=== PATIENT | female | born 1945 | race Caucasian/White ===

== ENCOUNTER 2016-11-28 13:02 | Emergency (ER) | payer OTHER ==
[~2016-11-28] VITALS: Ht 149.9 cm; Wt 72.0 kg
[~2016-11-28 13:02] MED LIST: ALUMSUS68 PO; FERR325T51 PO; FURO-85 PO; GABA1CAP4 PO; IPRASOL4 INH; NXM/40 PO; OXGN; OXYC-164 PO; SYMIN160 INH; TRMO2580 TOP
[2016-11-28 13:10] VITALS: Ht 149.9 cm; Wt 72.0 kg
[2016-11-28] MEDS ORDERED: SODIUM CHLORIDE 0.9% 1000ML 1,000 ML IV STA (14:24)
[2016-11-28] MEDS ORDERED: ONDANSETRON INJ 2 MG/ML 2 ML VIAL IV STA (14:24)
[2016-11-28] MEDS ORDERED: MoRPHine SULFATE 4 MG/ML 1 ML CARP\\VIAL IV PRN (14:30)
[2016-11-28] MEDS ORDERED: ALBUT/IPRATROP 3MG/0.5MG NEB 3 ML VIAL INH STA (14:40)
--- NOTE | 2016-11-28 15:02 | DIAGNOSTIC IMAGING REPORT ---
CHEST ONE VIEW PORTABLE CLINICAL HISTORY: Pain, radiating to the abdomen COMPARISON STUDY: 16 FINDINGS: The heart is enlarged. There is diffuse interstitial thickening similar to the preceding study. There is no lobar consolidation. There are no pleural effusions. There is calcification within the mitral valve annulus. There are surgical clips within the right neck.[ There are postsurgical changes within the cervical spine. IMPRESSION: Cardiomegaly and interstitial thickening similar to the preceding study. No evidence of lobar consolidation. Electronically signed by: Wero Jean Baptiste M.D. 11/28/2016 3:00 PM
--- NOTE | 2016-11-28 15:02 | DIAGNOSTIC IMAGING REPORT ---
LEFT FOOT MIN 3 VIEWS ROUTINE CLINICAL HISTORY: Left foot pain following fall. COMPARISON: None FINDINGS: The tarsometatarsal joints are intact. No acute fracture is identified. There is mild to moderate posterior and plantar calcaneal spurring. Mild degenerative changes are noted within several articulations of the left foot. IMPRESSION: No acute fracture or dislocation of the left foot. Electronically signed by: Stoney Lovelace M.D. 11/28/2016 3:01 PM
[2016-11-28 15:18] LABS: BASO % 0.2 %; BASO ABS # 0.01 K/uL (0-0.2); COMPLETE YES; EOS % 0.6 %; HEMATOCRIT 38.8 % (37-47); IG% 0.2 %; LYMPH % 23.7 %; LYMPH ABS # 1.16 K/uL (1.2-3.4); MEAN CORPUSCULAR HEMOGLOBIN 30.7 pg (25-34); MEAN CORPUSCULAR HGB CONC 34.5 g/dl (32-36); MEAN PLATELET VOLUME 12.3 fL (7.4-10.4); NEUT % 65.3 %; PLATELET COUNT 80 K/uL (130-400); PLT ESTIMATE DECREASED; RED BLOOD COUNT 4.36 M/uL (4.2-5.4); WHITE BLOOD COUNT 4.89 K/uL (4.8-10.8)
[2016-11-28 15:23] LABS: URINE APPEARANCE CLEAR (CLEAR); URINE BILIRUBIN NEG (NEG); URINE COLOR YELLOW; URINE EPITHELIAL CELL AUTO 20-30 /lpf (0-5); URINE NITRITE NEG (NEG); URINE SPECIFIC GRAVITY 1.001 (1.000-1.030); UROBILINOGEN NEG (NEG); ZZUR CULT IF INDIC CLEAN CATCH NO
[2016-11-28 15:24] LABS: BUN/CREATININE RATIO 19.7 (10-20); CALCIUM 9.3 mg/dl (8.5-10.1); CREATININE 1.4 mg/dl (0.60-1.20); POTASSIUM 3.3 mmol/L (3.5-5.1)
[2016-11-28] MEDS ORDERED: SPR25 PO (15:26)
[2016-11-28 15:29] LABS: MANUAL MICROSCOPIC REQUIRED? NO; REVIEW REQ? NO
[2016-11-28] MEDS ORDERED: ONDA4TAB10 SL (16:35)
--- NOTE | 2016-11-28 16:35 | EMERGENCY ROOM VISIT NOTE ---
History Report prepared by Latia: No Cuello Under the Supervision of: Dr. Femi Soria D.O. First contact with patient: 14:14 Chief Complaint: NAUSEA Stated Complaint: BRUISED FOOT Nursing Triage Summary: Triage note: pt reports she fell last night and has continued left foot pain. pt reports "my sugar was low and it is fine now." pt reports "i have been batteling the stomach bug and i am still nauseated." History of Present Illness The patient is a 70 year old female who presents to the Emergency Room with complaints of a persistent illness that began five days ago. She currently rates her discomfort as an 8/10 in severity. The patient states that she has not eaten anything since last Saturday. She states that she has been experiencing , vomiting, diarrhea, nausea, and a decreased appetite. The patient states that she last vomited yesterday and her diarrhea has subsided due to taking an Imodium. She states that she has a history of diabetes, and notes that when she got up last evening her blood glucose was low. The patient states that she fell last evening injuring her left foot. She states that she has had a productive cough for the past several days. The patient states that she takes aspirin every other day. Source of History: patient Onset: five days ago Position: other (global) Symptom Intensity: 8/10 Quality: other (illness) Timing: other (persistent) Associated Symptoms: + cough, + diarrhea, + nausea, + vomiting Note: Associated Symptoms: left foot pain, decreased appetite, fall, low blood glucose. Review of Systems See HPI for pertinent positives & negatives. A total of 10 systems reviewed and were otherwise negative. 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 Surgical Problems: (1) H/O cardiac catheterization (2) Heart stents (3) History of back surgery (4) S/P cholecystectomy Family History Diabetes mellitus FH: cancer FH: heart disease Hypertension Kidney disease Kidney stones Social History Smoking Status: Current Every Day Smoker Alcohol Use: none Marital Status: Housing Status: lives with family Occupation Status: unemployed Current/Historical Medications Scheduled Aspirin (Aspirin Ec), 81 MG PO Q2D Atorvastatin (Atorvastatin Calcium), 10 MG PO HS Budesonide/Formoterol Fumarate (Symbicort 160/4.5 Inhaler ), 2 PUFFS INH BID Cholecalciferol (Vitamin D 1000 Unit), 1,000 INTER.UNIT PO QAM Escitalopram Oxalate (Lexapro), 20 MG PO QAM Ferrous Sulfate (Iron Supplement), 1 TAB PO QAM Gabapentin (Gabapentin), 600 MG PO TID Insulin Aspart (Novolog Flexpen), 0 SQ BIDM Insulin Detemir (Levemir Flextouch), 40 UNITS SQ HS Ipratropium-Albuterol (Duoneb), 1 TREATMENT INH Q4H Magnesium Oxide (Mag-Ox), 400 MG PO BID Metoprolol Succ (Toprol Xl) (Toprol-Xl), 12.5 MG PO HS Omeprazole (Prilosec), 40 MG PO QAM Ondasetron Odt (Zofran Odt), 4 MG SL Q6H Oxygen (Oxygen), 2 LITERS NA CONTINOUS Spironolactone (Spironolactone), 25 MG PO BID Triamcinolone Acetonide (Topic (Triamcinolone Acet 0.025%), 1 APPLN TOP BID Scheduled PRN Alum & Mag Hydrox-Simethicone (Mylanta Double-Strength), 1 TBS PO bid between meals PRN for Indigestion Furosemide (Lasix), 20 MG PO 4XWK PRN for SWELLING Oxycodone Hcl (Oxycodone Hcl), 10 MG PO QAM & AFTERNOON PRN for Pain Trazodone Hcl (Trazodone), 100 MG PO PRN UDD PRN for Sleep Allergies Coded Allergies: Iodinated Diagnostic Agents (Verified Allergy, Intermediate, RASH TO IVP DYE, 11/28/16) Adhesives (Verified Allergy, Unknown, rash, 11/28/16) Latex1 -Allergic Contact Dermititis (Verified Allergy, Unknown, RASH, ) Sulfa Antibiotics (Verified Allergy, Unknown, unknown, 11/28/16) Physical Exam Vital Signs Date Time Temp Pulse Resp B/P Pulse Ox O2 Delivery O2 Flow Rate FiO2 11/28/16 15:47 85 18 106/57 94 Room Air 11/28/16 13:10 36.7 85 18 96/64 95 Room Air Physical Exam CONSTITUTIONAL/VITAL SIGNS: Reviewed / noted above. GENERAL: Non-toxic in appearance. INTEGUMENTARY: Warm, dry, and [place]. HEAD: Normocephalic. EYES: without scleral icterus or trauma. ENT/OROPHARYNX: clear and moist. LYMPHADENOPATHY/NECK: Is supple without lymphadenopathy or meningismus. RESPIRATORY: End expiratory rhonchi in the left lung, otherwise clear lungs. CARDIOVASCULAR: Regular rate and rhythm. GI/ABDOMEN: Soft and nontender. No organomegaly or pulsatile mass. No rebound or guarding. Normal bowel sounds. EXTREMITIES: Ecchymosis and swelling to dorsal aspect of left foot. Warm and well perfused. BACK: No CVA tenderness. NEUROLOGICAL: Intact without focal deficits. PSYCHIATRIC: normal affect. MUSCULOSKELETAL: Normally developed with good muscle tone. Medical Decision & Procedures ER Provider Diagnostic Interpretation: X ray results and stated below per my interpretation and radiology interpretation. LEFT FOOT MIN 3 VIEWS ROUTINE CLINICAL HISTORY: Left foot pain following fall. COMPARISON: None FINDINGS: The tarsometatarsal joints are intact. No acute fracture is identified. There is mild to moderate posterior and plantar calcaneal spurring. Mild degenerative changes are noted within several articulations of the left foot. IMPRESSION: No acute fracture or dislocation of the left foot. Electronically signed by: Stoney Lovelace M.D. 11/28/2016 3:01 PM CHEST ONE VIEW PORTABLE CLINICAL HISTORY: Pain, radiating to the abdomen COMPARISON STUDY: 10-16 FINDINGS: The heart is enlarged. There is diffuse interstitial thickening similar to the preceding study. There is no lobar consolidation. There are no pleural effusions. There is calcification within the mitral valve annulus. There are surgical clips within the right neck.[ There are postsurgical changes within the cervical spine. IMPRESSION: Cardiomegaly and interstitial thickening similar to the preceding study. No evidence of lobar consolidation. Electronically signed by: Wero Jean Baptiste M.D. 11/28/2016 3:00 PM Laboratory Results 11/28/16 14:40 Red Blood Count 4.36, Mean Corpuscular Volume 89.0, Mean Corpuscular Hemoglobin 30.7, Mean Corpuscular Hemoglobin Concent 34.5, Mean Platelet Volume 12.3, Neutrophils (%) (Auto) 65.3, Lymphocytes (%) (Auto) 23.7, Monocytes (%) (Auto) 10.0, Eosinophils (%) (Auto) 0.6, Basophils (%) (Auto) 0.2, Neutrophils # (Auto ) 3.19, Lymphocytes # (Auto) 1.16, Monocytes # (Auto) 0.49, Eosinophils # (Auto ) 0.03, Basophils # (Auto) 0.01 11/28/16 14:40 Test 11/28/16 00:00 11/28/16 14:40 Urine Color YELLOW Urine Appearance CLEAR (CLEAR) Urine pH 5.0 (4.5-7.5) Urine Specific [place] 1.001 (1.000-1.030) Urine Protein NEG (NEG) Urine Glucose (UA) NEG (NEG) Urine Ketones NEG (NEG) Urine Occult Blood NEG (NEG) Urine Nitrite NEG (NEG) Urine Bilirubin NEG (NEG) Urine Urobilinogen NEG (NEG) Urine Leukocyte Esterase NEG (NEG) Urine WBC (Auto) 1-5 /hpf (0-5) Urine RBC (Auto) 0-4 /hpf (0-4) Urine Hyaline Casts (Auto) 1-5 /lpf (0-5) Urine Epithelial Cells (Auto) 20-30 /lpf (0-5) Urine Bacteria (Auto) NEG (NEG) White Blood Count 4.89 K/uL (4.8-10.8) Red Blood Count 4.36 M/uL (4.2-5.4) Hemoglobin 13.4 g/dL (12.0-16.0) Hematocrit 38.8 % (37-47) Mean Corpuscular Volume 89.0 fL (80-100) Mean Corpuscular Hemoglobin 30.7 pg (25-34) Mean Corpuscular Hemoglobin Concent 34.5 g/dl (32-36) Platelet Count 80 K/uL (130-400) Mean Platelet Volume 12.3 fL (7.4-10.4) Neutrophils (%) (Auto) 65.3 % Lymphocytes (%) (Auto) 23.7 % Monocytes (%) (Auto) 10.0 % Eosinophils (%) (Auto) 0.6 % Basophils (%) (Auto) 0.2 % Neutrophils # (Auto) 3.19 K/uL (1.4-6.5) Lymphocytes # (Auto) 1.16 K/uL (1.2-3.4) Monocytes # (Auto) 0.49 K/uL (0.11-0.59) Eosinophils # (Auto) 0.03 K/uL (0-0.5) Basophils # (Auto) 0.01 K/uL (0-0.2) RDW Standard Deviation 44.4 fL (36.4-46.3) RDW Coefficient of Variation 13.7 % (11.5-14.5) Immature Granulocyte % (Auto) 0.2 % Immature Granulocyte # (Auto) 0.01 K/uL (0.00-0.02) Platelet Estimate DECREASED Anion Gap 11.0 mmol/L (3-11) Est Creatinine Clear Calc Drug Dose 32.8 ml/min Estimated GFR () 44.3 Estimated GFR (Non- 38.2 BUN/Creatinine Ratio 19.7 (10-20) Calcium Level 9.3 mg/dl (8.5-10.1) Total Bilirubin 1.9 mg/dl (0.2-1) Direct Bilirubin 0.6 mg/dl (0-0.2) Aspartate Amino Transf (AST/SGOT) 66 U/L (15-37) Alanine Aminotransferase (ALT/SGPT) 47 U/L (12-78) Alkaline Phosphatase 107 U/L (45-117) Total Protein 8.3 gm/dl (6.4-8.2) Albumin 4.3 gm/dl (3.4-5.0) Lipase 180 U/L (73-393) Laboratory results as stated above per my review. Medications Administered Medications (Trade) Dose Ordered Sig/Diego Route Start Time Stop Time Status Last Admin Dose Admin Sodium Chloride (Nss 1000ml) 1,000 ml @ 999 mls/hr Q1H1M STAT IV 11/28/16 14:24 11/28/16 15:24 DC 11/28/16 14:42 999 MLS/HR Ondansetron HCl (Zofran Inj) 4 mg NOW STAT IV 11/28/16 14:24 11/28/16 14:27 DC 11/28/16 14:40 4 MG Morphine Sulfate (MoRPHine SULFATE INJ) 4 mg Q1H PRN IV 11/28/16 14:30 12/12/16 14:29 11/28/16 14:41 4 MG Albuterol/ Ipratropium (Duoneb) 3 ml NOW STAT INH 11/28/16 14:40 11/28/16 14:41 DC 11/28/16 15:28 3 ML ED Course 1420: Previous medical records were reviewed. The patient was evaluated in room B2. A complete history and physical examination was performed. 1424: Ordered Zofran Inj 4 mg IV, Sodium Chloride 1000 ml @ 999 mls/hr IV. 1430: Ordered Morphine Sulfate 4 mg IV. 1440: Ordered DuoNeb 3 ml INH. 1636: I reevaluated the patient and she is resting comfortably. I discussed the exam findings and I discussed the treatment plan. She verbalized complete understanding and agreement. She is ready to go home. Medical Decision Differential includes acute coronary syndrome, myocardial infarction, CVA, TIA, anemia, infection, pneumonia, UTI, pyelonephritis, poor nutrition, dehydration, electrolyte disturbance,hypoglycemia. This is a 70-year-old female who presents to the ED with a chief complaint of nausea. The patient also complains of left foot pain after a fall last night. The patient states that she had 4 days worth of vomiting and diarrhea. She states that she last vomited yesterday. She has not had diarrhea since taking Imodium yesterday as well. The patient states that she got up last night to go the bathroom and she fell hurting her left foot. She denies loss of consciousness or striking her head. Her current vital signs are stable. Her physical exam reveals some ecchymosis and tenderness to the left dorsal foot. She has a small amount of expiratory rhonchi in the left lung exam. The patient appears to be slightly dehydrated clinically. Her current symptoms include nausea and left foot pain as well as some generalized weakness. CBC is normal. The BUN is 20 and the creatinine is normal. Bilirubin was 1.9. She has had a bilirubin elevation previously. She also has had diagnosis of non alcoholic cirrhosis of the liver. Urinalysis did not show infection. A chest x -ray is negative for acute disease. X-ray of the left foot did not show any acute fracture or dislocation. The patient was treated with IV fluids, IV Zofran and IV morphine as well as a DuoNeb treatment. She was told results the test per she'll be prescribed Zofran and is felt stable for discharge. Impression Primary Impression: Nausea Additional Impression: Foot contusion Scribe Attestation The scribe's documentation has been prepared under my direction and personally reviewed by me in its entirety. I confirm that the note above accurately reflects all work, treatment, procedures, and medical decision making performed by me. Departure Information Dispostion Home / Self-Care Prescriptions Ondasetron Odt (ZOFRAN ODT) 4 Mg Tab 4 MG SL Q6H for Nausea, #20 TAB Prov: Femi Soria D.O. 11/28/16 Referrals Arik Ryan D.O.Int.Med. (PCP) Forms HOME CARE DOCUMENTATION FORM, IMPORTANT VISIT INFORMATION Patient Instructions A Signature Page, My [facility] [employer]-collect[employer] Additional Instructions Zofran: Allow one tablet to dissolve under the tongue every 6 hours as needed for nausea or vomiting. Follow-up with your doctor for further care and evaluation in 1-2 days. Return to the emergency department for worsening or new symptoms or any concerns. You have been examined and treated today on an emergency basis only. This is not a substitute for, or an effort to provide, complete comprehensive medical care. It is impossible to recognize and treat all injuries or illnesses in a single emergency department visit. It is therefore important that you follow up closely with your doctor. Call as soon as possible for an appointment.
[2016-11-28 17:08] VITALS: BP 111/61; PULSE 85; TEMP 36.7; O2SAT 94
[2017-01-01] MEDS ORDERED: LVQ750 PO (11:29)
[2017-01-01] MEDS ORDERED: ATV5 PO (11:29)
[2017-01-01] MEDS ORDERED: PRED10TA PO (11:29)
[2017-04-19] MEDS ORDERED: LPT10 PO (12:55)
[2017-04-19] MEDS ORDERED: ESCI1TAB10 PO (14:34)
[2017-04-19] MEDS ORDERED: TRAZ100T29 PO (14:34)
[2017-04-19] MEDS ORDERED: MAGN400T5 PO (15:05)
[2017-04-19] MEDS ORDERED: METO25TA3 PO (15:20)
[2017-04-19] MEDS ORDERED: OMEP40CA41 PO (15:26)
[2017-04-19] MEDS ORDERED: NRN600 PO (15:26)
[2017-04-19] MEDS ORDERED: CLBPO15 TOP (18:51)
[2017-04-19] MEDS ORDERED: METF-384 PO (18:51)
[2017-04-19] MEDS ORDERED: IPRASOL4 INH (18:51)
[2017-04-19] MEDS ORDERED: NVLGI/PEN SQ (18:52)
[2017-04-19] MEDS ORDERED: FRRS300 PO (18:52)
[2017-04-19] MEDS ORDERED: LVMIPEN SQ (18:52)
[2017-06-20] MEDS ORDERED: MGCS/ PO (10:00)
[2017-06-20] MEDS ORDERED: FURO40TA3 PO (10:00)
[2017-06-20] MEDS ORDERED: GABA600T PO (10:00)
[2017-06-20] MEDS ORDERED: METR-163 PO (10:00)
[2017-06-20] MEDS ORDERED: NVLGI/PEN SC (10:01)
[2017-06-20] MEDS ORDERED: DRGTP12 TOP (10:07)
[2017-08-31] MEDS ORDERED: IPRASOL4 INH (13:13)
== END 2016-11-28 17:09 | disposition home or self-care (01) ==
LOC: C.EDB 13:04
DX: S90.32XA Contusion of left foot, initial encounter (principal); W19.XXXA Unspecified fall, initial encounter; R11.0 Nausea; J45.909 Unspecified asthma, uncomplicated; I25.10 Atherosclerotic heart disease of native coronary artery without angina pectoris; I10 Essential (primary) hypertension; E11.9 Type 2 diabetes mellitus without complications; K21.9 Gastro-esophageal reflux disease without esophagitis; E78.00 Pure hypercholesterolemia, unspecified; D69.6 Thrombocytopenia, unspecified; G45.0 Vertebro-basilar artery syndrome; K74.60 Unspecified cirrhosis of liver; F17.210 Nicotine dependence, cigarettes, uncomplicated; Z79.4 Long term (current) use of insulin; Z79.82 Long term (current) use of aspirin; Z79.899 Other long term (current) drug therapy; Z83.3 Family history of diabetes mellitus; Z80.9 Family history of malignant neoplasm, unspecified; Z82.49 Family history of ischemic heart disease and other diseases of the circulatory system; Z84.1 Family history of disorders of kidney and ureter

== ENCOUNTER 2016-12-29 18:33 | Inpatient (IN) | payer OTHER ==
[~2016-12-29] VITALS: Ht 149.9 cm; Wt 76.7 kg
[~2016-12-29 18:33] MED LIST changes: -GABA1CAP4 PO; -NXM/40 PO; +ONDA4TAB10 SL; +SPR25 PO
[2016-12-29] MEDS ORDERED: SODIUM CHLORIDE 0.9% 1000ML 1,000 ML IV STA (18:55)
[2016-12-29] MEDS ORDERED: METHYLPREDNISOLONE 125 MG VIAL IV STA (18:55)
[2016-12-29] MEDS ORDERED: ALBUT/IPRATROP 3MG/0.5MG NEB 3 ML VIAL INH ONE (19:00)
--- NOTE | 2016-12-29 19:04 | EMERGENCY ROOM VISIT NOTE ---
History Report prepared by Latia: Jamal Guido Under the Supervision of: Dr. Barney Kaminski D.O. First contact with patient: 18:50 Chief Complaint: RESPIRATORY PROBLEMS Stated Complaint: TROUBLE BREATHING, KIDNEY PAIN History of Present Illness The patient is a 71 year old female with a history of COPD who presents to the Emergency Room with complaints of persistent shortness of breath for the past week. The patient also developed a productive cough at the same time as the shortness of breath. The cough produces mucous, which occasionally contains blood. The patient has had back pain on the right lower side for the past week. She denies hematuria. The patient was started on Prednisone this week without relief. She is not currently taking antibiotics. The patient denies any history of heart failure. Source of History: patient Onset: one week ago Position: other (respiratory) Quality: other (short of breath) Timing: other (persistent) Associated Symptoms: + back pain, + cough, No urinary symptoms Review of Systems See HPI for pertinent positives & negatives. A total of 10 systems reviewed and were otherwise negative. 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 Surgical Problems: (1) H/O cardiac catheterization (2) Heart stents (3) History of back surgery (4) S/P cholecystectomy Family History Diabetes mellitus FH: cancer FH: heart disease Hypertension Kidney disease Kidney stones Social History Smoking Status: Current Every Day Smoker Alcohol Use: none Marital Status: Housing Status: lives with family Occupation Status: unemployed Current/Historical Medications Scheduled Aspirin (Aspirin Ec), 81 MG PO Q2D Atorvastatin (Atorvastatin Calcium), 10 MG PO HS Cholecalciferol (Vitamin D 1000 Unit), 1,000 INTER.UNIT PO QAM Escitalopram Oxalate (Lexapro), 20 MG PO QAM Ferrous Sulfate (Iron Supplement), 1 TAB PO QAM Gabapentin (Gabapentin), 600 MG PO TID Insulin Aspart (Novolog Flexpen), 0 SQ BIDM Insulin Detemir (Levemir Flextouch), 40 UNITS SQ HS Ipratropium-Albuterol (Duoneb), 1 TREATMENT INH Q4H Magnesium Oxide (Mag-Ox), 400 MG PO BID Metoprolol Succ (Toprol Xl) (Toprol-Xl), 12.5 MG PO HS Omeprazole (Prilosec), 40 MG PO QAM Ondasetron Odt (Zofran Odt), 4 MG SL Q6H Oxygen (Oxygen), 2 LITERS NA CONTINOUS Tiotropium [place] (Spiriva Handihaler), 2 PUFFS INH BID Triamcinolone Acetonide (Topic (Triamcinolone Acet 0.025%), 1 APPLN TOP BID Scheduled PRN Albuterol Hfa (Ventolin Hfa), 2-4 PUFFS INH Q6H PRN for Shortness of Breath Alum & Mag Hydrox-Simethicone (Mylanta Double-Strength), 1 TBS PO bid between meals PRN for Indigestion Furosemide (Lasix), 20 MG PO 4XWK PRN for SWELLING Oxycodone Hcl (Oxycodone Hcl), 10 MG PO QAM & AFTERNOON PRN for Pain Trazodone Hcl (Trazodone), 100 MG PO PRN UDD PRN for Sleep Allergies Coded Allergies: Iodinated Diagnostic Agents (Verified Allergy, Intermediate, RASH TO IVP DYE, 12/29/16) Adhesives (Verified Allergy, Unknown, rash, 12/29/16) Latex1 -Allergic Contact Dermititis (Verified Allergy, Unknown, RASH, ) Sulfa Antibiotics (Verified Allergy, Unknown, unknown, 12/29/16) Physical Exam Vital Signs Date Time Temp Pulse Resp B/P Pulse Ox O2 Delivery O2 Flow Rate FiO2 12/29/16 21:52 104 22 89/52 94 Nasal Cannula 2.0 12/29/16 21:19 102 25 92/53 97 Nasal Cannula 2.0 12/29/16 20:18 90 22 114/80 100 Nasal Cannula 2.0 12/29/16 20:16 95 23 99/65 96 12/29/16 19:38 Nasal Cannula 2.0 12/29/16 19:34 89 26 96 Nasal Cannula 3.0 12/29/16 19:20 88 12/29/16 19:15 88 22 84/49 100 Nasal Cannula 2.0 Manual 12/29/16 19:08 Nasal Cannula 2.0 12/29/16 19:00 68/40 12/29/16 18:38 37.0 96 28 66/42 96 Room Air Physical Exam GENERAL: Patient is awake, alert, very anxious appearing, appears to be having significant difficulty breathing. EYES: The conjunctivae are clear. The pupils are round and reactive. EARS, NOSE, MOUTH AND THROAT: The nose is without any evidence of any deformity. Mucous membranes are moist tongue is midline NECK: The neck is nontender and supple. RESPIRATORY: Lung sounds are diminished throughout, rales in both upper arreola, significant tachypnea and conversational dyspnea noted. CARDIOVASCULAR: Tachycardic but regular, no definite murmurs appreciated. GASTROINTESTINAL: The abdomen is soft. Bowel sounds are present in all quadrants. Abdomen is nontender MUSCULOSKELETAL/EXTREMITIES: There is no evidence of gross deformity full range of motion is noted in the hips and shoulders SKIN: There is no obvious evidence of any rash. There are no petechiae, pallor or cyanosis noted. Trace pedal edema bilaterally. NEUROLOGIC: Patient is awake alert and oriented x3. Medical Decision & Procedures ER Provider Diagnostic Interpretation: X-ray results as stated below per interpretation by me and the radiologist. CHEST ONE VIEW PORTABLE CLINICAL HISTORY: Sepsis fever COMPARISON STUDY: 11/28/2016 FINDINGS: Somewhat progressive interstitial change throughout both hemithoraces. There are no focal infiltrative changes. Heart remains top limits normal in terms of size. Calcification of the mitral annulus persists. IMPRESSION: Interstitial prominence throughout both hemithoraces consistent with that of a nonspecific lower airway inflammatory process. Electronically signed by: Anuel Chavez M.D. 12/29/2016 7:18 PM Dictated Date/Time: 12/29/2016 7:17 PM Laboratory Results 12/29/16 19:00 Red Blood Count 4.00, Mean Corpuscular Volume 91.5, Mean Corpuscular Hemoglobin 29.5, Mean Corpuscular Hemoglobin Concent 32.2, Mean Platelet Volume 11.2, Neutrophils (%) (Auto) 62.9, Lymphocytes (%) (Auto) 28.2, Monocytes (%) (Auto) 7.9, Eosinophils (%) (Auto) 0.6, Basophils (%) (Auto) 0.2, Neutrophils # (Auto) 3.35, Lymphocytes # (Auto) 1.50, Monocytes # (Auto) 0.42, Eosinophils # (Auto) 0.03, Basophils # (Auto) 0.01 12/29/16 19:00 Test 12/29/16 18:57 12/29/16 19:00 12/29/16 19:20 12/29/16 20:44 Bedside Lactic Acid Venous 2.64 mmol/L (0.90-1.70) White Blood Count 5.32 K/uL (4.8-10.8) Red Blood Count 4.00 M/uL (4.2-5.4) Hemoglobin 11.8 g/dL (12.0-16.0) Hematocrit 36.6 % (37-47) Mean Corpuscular Volume 91.5 fL (80-100) Mean Corpuscular Hemoglobin 29.5 pg (25-34) Mean Corpuscular Hemoglobin Concent 32.2 g/dl (32-36) Platelet Count 93 K/uL (130-400) Mean Platelet Volume 11.2 fL (7.4-10.4) Neutrophils (%) (Auto) 62.9 % Lymphocytes (%) (Auto) 28.2 % Monocytes (%) (Auto) 7.9 % Eosinophils (%) (Auto) 0.6 % Basophils (%) (Auto) 0.2 % Neutrophils # (Auto) 3.35 K/uL (1.4-6.5) Lymphocytes # (Auto) 1.50 K/uL (1.2-3.4) Monocytes # (Auto) 0.42 K/uL (0.11-0.59) Eosinophils # (Auto) 0.03 K/uL (0-0.5) Basophils # (Auto) 0.01 K/uL (0-0.2) RDW Standard Deviation 49.8 fL (36.4-46.3) RDW Coefficient of Variation 14.9 % (11.5-14.5) Immature Granulocyte % (Auto) 0.2 % Immature Granulocyte # (Auto) 0.01 K/uL (0.00-0.02) Erythrocyte Sedimentation Rate 24 mm/hr (0-21) Prothrombin Time 11.7 SECONDS (9.0-12.0) Prothromb Time International Ratio 1.1 (0.9-1.1) Activated Partial Thromboplast Time 26.6 SECONDS (21.0-31.0) Partial Thromboplastin Ratio 1.0 Anion Gap 9.0 mmol/L (3-11) Est Creatinine Clear Calc Drug Dose 46.6 ml/min Estimated GFR () 66.1 Estimated GFR (Non- 57.0 BUN/Creatinine Ratio 12.3 (10-20) Calcium Level 9.0 mg/dl (8.5-10.1) Phosphorus Level 2.4 mg/dl (2.5-4.9) Magnesium Level 1.8 mg/dl (1.8-2.4) Total Bilirubin 0.7 mg/dl (0.2-1) Aspartate Amino Transf (AST/SGOT) 67 U/L (15-37) Alanine Aminotransferase (ALT/SGPT) 48 U/L (12-78) Alkaline Phosphatase 144 U/L (45-117) Total Creatine Kinase 842 U/L (26-192) Creatine Kinase MB 11.2 ng/ml (0.5-3.6) Creatine Kinase MB Ratio 1.3 (0-3.0) Troponin I 0.040 ng/ml (0-0.045) C-Reactive Protein 0.71 mg/dl (0-0.29) Pro-B-Type Natriuretic Peptide 375 pg/ml (0-900) Total Protein 7.3 gm/dl (6.4-8.2) Albumin 3.7 gm/dl (3.4-5.0) Globulin 3.6 gm/dl (2.5-4.0) Albumin/Globulin Ratio 1.0 (0.9-2) Lipase 396 U/L (73-393) Chemistry Specimen Hemolysis Influenza Type A (RT-PCR) Neg for Influ A (NEG) Influenza Type A Antigen Neg for Influ A (NEG) Influenza Type B Antigen Neg for Influ B (NEG) Influenza Type B (RT-PCR) Neg for Influ B (NEG) Venous Blood pH 7.35 (7.36-7.41) Venous Blood Partial Pressure CO2 57 mmHg (38.0-50.0) Venous Blood Partial Pressure O2 51 mmHg Venous Blood HCO3 31 mmol/L Venous Blood Oxygen Saturation 80.6 % Venous Blood Base Excess 3.8 mmol/L Random Cortisol 33.09 mcg/dl Test 12/29/16 21:15 Urine Color YELLOW Urine Appearance CLEAR (CLEAR) Urine pH 6.0 (4.5-7.5) Urine Specific [place] 1.006 (1.000-1.030) Urine Protein NEG (NEG) Urine Glucose (UA) NEG (NEG) Urine Ketones NEG (NEG) Urine Occult Blood NEG (NEG) Urine Nitrite NEG (NEG) Urine Bilirubin NEG (NEG) Urine Urobilinogen NEG (NEG) Urine Leukocyte Esterase NEG (NEG) Urine WBC (Auto) 1-5 /hpf (0-5) Urine RBC (Auto) 0-4 /hpf (0-4) Urine Hyaline Casts (Auto) 0 /lpf (0-5) Urine Epithelial Cells (Auto) 20-30 /lpf (0-5) Urine Bacteria (Auto) NEG (NEG) Laboratory results per my review. Medications Administered Medications (Trade) Dose Ordered Sig/Diego Route Start Time Stop Time Status Last Admin Dose Admin Sodium Chloride (Nss 1000ml) 1,000 ml @ 999 mls/hr Q1H1M STAT IV 12/29/16 18:55 12/29/16 19:55 DC 12/29/16 19:17 999 MLS/HR Albuterol/ Ipratropium (Duoneb) 12 ml ONE ONCE INH 12/29/16 19:00 12/29/16 19:01 DC 12/29/16 19:33 12 ML Methylprednisolone Sodium Succinate (Solu-Medrol IV) 125 mg NOW STAT IV 12/29/16 18:55 12/29/16 18:58 DC 12/29/16 19:17 125 MG Levofloxacin (Levaquin / D5W) 750 mg NOW STAT IV 12/29/16 19:59 12/29/16 20:00 DC 12/29/16 20:37 750 MG ECG Indication: SOB/dyspnea Rate (beats per minute): 96 Rhythm: sinus rhythm Findings: RBBB, other (ectopic atrial beats noted) Change: no significant change Change: No significant change compared to EKG dated 2015. ED Course 1854: The patient was evaluated in room B2. A complete history and physical examination were performed. 1854: Solu-Medrol 125 mg IV, NSS 1,000 ml @ 999 mls/hr IV. 0: DuoNeb 12 ml INH. 1958: Levofloxacin 750 mg IV. 2129: Spoke with Dr. Patino, [facility]ist. The patient will be evaluated. Medical Decision Etiologies such as infections, reactive airway disease, pneumonia, pneumothorax , COPD, CHF, cardiac ischemia, pulmonary embolism, musculoskeletal, gastrointestinal, as well as others were entertained. Nursing notes reviewed. Additional history is obtained from the patient's family members. The patient is a 71-year-old female who presented to the emergency department for evaluation of ongoing shortness of the patient has a history of COPD. She was started on steroids early in the week. She continues to worsen with her symptoms. The patient was treated with an hour-long DuoNeb IV steroids as well as IV fluids. She didn't appear to have hypotension was given IV antibiotics. On subsequent reevaluation she was feeling much better arrest but had significant shortness of breath and dyspnea with any exertion. I discussed the patient's laboratory radiographic studies with him. I also discussed his case with the on-call [facility] hospitalist group. They've agreed to evaluate the patient in the emergency apartment for further management and disposition. The patient also complained of right flank pain. I was very uncomfortable sending her for a CAT scan of the abdomen into she was more comfortable. She states she has a history of kidney stones and the pain is somewhat similar. She may require further workup when she is more stable and able to go to radiology. Consults Time Called: [id number] Consulting Physician: Dr. Patino, [facility]. Returned Call: [phone]: Spoke with Dr. Patino, [facility]. The patient will be evaluated. Impression Primary Impression: COPD exacerbation Additional Impressions: Hypotension Respiratory distress Scribe Attestation The scribe's documentation has been prepared under my direction and personally reviewed by me in its entirety. I confirm that the note above accurately reflects all work, treatment, procedures, and medical decision making performed by me. Departure Information Dispostion Being Evaluated By Hospitalist Referrals Arik Ryan, [facility] (PCP) Patient Instructions My [facility] Problem Qualifiers
--- NOTE | 2016-12-29 19:19 | DIAGNOSTIC IMAGING REPORT ---
CHEST ONE VIEW PORTABLE CLINICAL HISTORY: Sepsis fever COMPARISON STUDY: 11/28/2016 FINDINGS: Somewhat progressive interstitial change throughout both hemithoraces. There are no focal infiltrative changes. Heart remains top limits normal in terms of size. Calcification of the mitral annulus persists. IMPRESSION: Interstitial prominence throughout both hemithoraces consistent with that of a nonspecific lower airway inflammatory process. Electronically signed by: Anuel Chavez M.D. 12/29/2016 7:18 PM Dictated Date/Time: 12/29/2016 7:17 PM
[2016-12-29 19:26] LABS: HEMATOCRIT 36.6 % (37-47); MEAN CELL VOLUME 91.5 fL (80-100); MEAN CORPUSCULAR HEMOGLOBIN 29.5 pg (25-34); MEAN CORPUSCULAR HGB CONC 32.2 g/dl (32-36); WHITE BLOOD COUNT 5.32 K/uL (4.8-10.8)
[2016-12-29 19:34] VITALS: PULSE 89; O2SAT 96
[2016-12-29 19:34] LABS: INR 1.1 (0.9-1.1); PROTHROMBIN TIME (PATIENT) 11.7 SECONDS (9.0-12.0)
[2016-12-29 19:43] LABS: BASO % 0.2 %; BASO ABS # 0.01 K/uL (0-0.2); COMPLETE YES; EOS % 0.6 %; IG% 0.2 %; LYMPH % 28.2 %; MEAN PLATELET VOLUME 11.2 fL (7.4-10.4); MONO % 7.9 %; NEUT % 62.9 %; PLATELET COUNT 93 K/uL (130-400)
[2016-12-29 19:54] LABS: BUN/CREATININE RATIO 12.3 (10-20); MAGNESIUM 1.8 mg/dl (1.8-2.4); POTASSIUM 3.9 mmol/L (3.5-5.1)
[2016-12-29 19:59] LABS: C-REACTIVE PROTEIN 0.71 mg/dl (0-0.29); CKMB/CK RATIO 1.3 (0-3.0); PHOSPHORUS 2.4 mg/dl (2.5-4.9)
[2016-12-29] MEDS ORDERED: LEVAQUIN 750MG / 150ML D5W IV STA (19:59)
[2016-12-29] MEDS ORDERED: SPRIN INH (20:16)
[2016-12-29 21:19] LABS: VEN BLD GAS O2 SATURATION 80.6 %; VEN BLOOD GAS BASE EXCESS 3.8 mmol/L
[2016-12-29 21:41] LABS: INFLUENZA A PCR Neg for Influ A (NEG); INFLUENZA B PCR Neg for Influ B (NEG)
[2016-12-29 21:47] LABS: URINE APPEARANCE CLEAR (CLEAR); URINE BILIRUBIN NEG (NEG); URINE COLOR YELLOW; URINE EPITHELIAL CELL AUTO 20-30 /lpf (0-5); URINE NITRITE NEG (NEG); URINE SPECIFIC GRAVITY 1.006 (1.000-1.030); UROBILINOGEN NEG (NEG); ZZUR CULT IF INDIC CLEAN CATCH NO
[2016-12-29 21:50] LABS: MANUAL MICROSCOPIC REQUIRED? NO; REVIEW REQ? NO
[2016-12-29] MEDS ORDERED: MAGNESIUM HYDROXIDE SUSP 30 ML UDC PO PRN (23:45)
[2016-12-29] MEDS ORDERED: ALBUTEROL 0.083% NEBU SOLN 3 ML VIAL INH PRN (23:45)
[2016-12-29] MEDS ORDERED: ONDANSETRON INJ 2 MG/ML 2 ML VIAL IV PRN (23:45)
[2016-12-29] MEDS ORDERED: POLYETHYLENE (MIRALAX) 17 GM PACK PO PRN (23:45)
[2016-12-29] MEDS ORDERED: OXYCODONE HCL IR 5 MG TAB (IMMEDIATE RELEASE) PO PRN (23:45)
[2016-12-29] MEDS ORDERED: MoRPHine SULFATE 2 MG/ML CARP IV PRN (23:45)
[2016-12-29] MEDS ORDERED: ALUMINUM/MAGNESIUM/SIMETH (MAALOX MAX) 30 ML UDC PO PRN (23:45)
[2016-12-29] MEDS ORDERED: ACETAMINOPHEN 325 MG TAB PO PRN (23:45)
--- NOTE | 2016-12-29 23:51 | History and Physical ---
History & Physical Date & Time of Service: Dec 29, 2016 at 23:43 Chief Complaint: Trouble Breathing, Kidney Pain Primary Care Physician: Arik Ryan D.O.Int.Med. History of Present Illness Source: patient 71 y/o F w/Hx 02-dependent COPD, DM, HTN - recent admission w/COPD exacerbation. Presents with progressive SOB, cough and wheezing. She was hypotensive on arrival to the ER however she states that she normally has a low BP. She denies CP, N/V/D, dysuria. She does have a productive cough and occasional blood-streaked sputum. Initial CXR may be consistent with a b/l pneumonia. She normally uses 02 at night only however she has needed daytime 02 recently. Despite her oxygen requirements the pt has managed to continue her pastime of cigarette smoking. Initial labs are notable for an elevated CK consistent with mild rhabdo in addition to mild lactic acidosis. 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: Chronic (8) Pure Hypercholesterolem Status: Chronic (9) Thrombocytopenia Nos Status: Chronic (10) Vertebral Artery Syndrom Status: Chronic 11) Chronic thrombocytopenia - baseline 80-100 12) Tobacco use Surgical Problems: (1) H/O cardiac catheterization Status: Resolved (2) Heart stents Status: Resolved (3) History of back surgery Status: Resolved (4) S/P cholecystectomy Status: Chronic Family History Diabetes mellitus FH: cancer FH: heart disease Hypertension Kidney disease Kidney stones Social History Smoking Status: Current Every Day Smoker Marital Status: Housing status: lives alone Occupational Status: unemployed Allergies Coded Allergies: Iodinated Diagnostic Agents (Verified Allergy, Intermediate, RASH TO IVP DYE, 12/29/16) Adhesives (Verified Allergy, Unknown, rash, 12/29/16) Latex1 -Allergic Contact Dermititis (Verified Allergy, Unknown, RASH, ) Sulfa Antibiotics (Verified Allergy, Unknown, unknown, 12/29/16) Home Medications Scheduled Aspirin (Aspirin Ec), 81 MG PO Q2D Atorvastatin (Atorvastatin Calcium), 10 MG PO HS Cholecalciferol (Vitamin D 1000 Unit), 1,000 INTER.UNIT PO QAM Escitalopram Oxalate (Lexapro), 20 MG PO QAM Ferrous Sulfate (Iron Supplement), 1 TAB PO QAM Gabapentin (Gabapentin), 600 MG PO TID Insulin Aspart (Novolog Flexpen), 0 SQ BIDM Insulin Detemir (Levemir Flextouch), 40 UNITS SQ HS Ipratropium-Albuterol (Duoneb), 1 TREATMENT INH Q4H Magnesium Oxide (Mag-Ox), 400 MG PO BID Metoprolol Succ (Toprol Xl) (Toprol-Xl), 12.5 MG PO HS Omeprazole (Prilosec), 40 MG PO QAM Ondasetron Odt (Zofran Odt), 4 MG SL Q6H Oxygen (Oxygen), 2 LITERS NA CONTINOUS Tiotropium [place] (Spiriva Handihaler), 2 PUFFS INH BID Triamcinolone Acetonide (Topic (Triamcinolone Acet 0.025%), 1 APPLN TOP BID Scheduled PRN Albuterol Hfa (Ventolin Hfa), 2-4 PUFFS INH Q6H PRN for Shortness of Breath Alum & Mag Hydrox-Simethicone (Mylanta Double-Strength), 1 TBS PO bid between meals PRN for Indigestion Furosemide (Lasix), 20 MG PO 4XWK PRN for SWELLING Oxycodone Hcl (Oxycodone Hcl), 10 MG PO QAM & AFTERNOON PRN for Pain Trazodone Hcl (Trazodone), 100 MG PO PRN UDD PRN for Sleep Review of Systems Constitutional: + fever, No chills, No sweats Eyes: No eye pain, No worsening of vision ENT: No hearing loss, No nasal symptoms, No unusual epistaxis Respiratory: + cough, + dyspnea at rest, + dyspnea on exertion, + problem reported (blood streaked sputum), + shortness of breath, + sputum, + wheezing Cardiovascular: No PND, No chest pain, No orthopnea Abdomen: No nausea, No pain, No vomiting Musculoskeletal: No joint pain, No muscle pain Genitourinary - Female: No dysuria, No urinary frequency, No urinary urgency Neurologic: No memory loss, No paralysis Psychiatric: No depression symptoms Endocrine: No fatigue Hematologic / Lymphatic: No abnormal bleeding/bruising Integumentary: No rash Allergic / Immunologic: No environmental allergies Physical Exam Vital Signs Date Time Temp Pulse Resp B/P Pulse Ox O2 Delivery O2 Flow Rate FiO2 12/29/16 23:36 99 20 90/58 97 Nasal Cannula 2.0 12/29/16 21:52 104 22 89/52 94 Nasal Cannula 2.0 12/29/16 21:19 102 25 92/53 97 Nasal Cannula 2.0 12/29/16 20:18 90 22 114/80 100 Nasal Cannula 2.0 12/29/16 20:16 95 23 99/65 96 12/29/16 19:38 Nasal Cannula 2.0 12/29/16 19:34 89 26 96 Nasal Cannula 3.0 12/29/16 19:20 88 12/29/16 19:15 88 22 84/49 100 Nasal Cannula 2.0 Manual 12/29/16 19:08 Nasal Cannula 2.0 12/29/16 19:00 68/40 12/29/16 18:38 37.0 96 28 66/42 96 Room Air General Appearance: + pertinent finding (Overweight elderly femal - labored breathing without distress.) Head: normocephalic, atraumatic Eyes: normal inspection, EOMI ENT: normal ENT inspection, hearing grossly normal Neck: supple, no JVD Respiratory/Chest: chest non-tender, + accessory muscle use, + wheezing Cardiovascular: regular rate, rhythm, no edema, no gallop Abdomen/GI: normal bowel sounds, non tender, soft Back: normal inspection, no CVA tenderness Extremities/Musculoskelatal: normal inspection, no calf tenderness, normal capillary refill, no pedal edema, normal range of motion Neurologic/Psych: educational guidance counselor II-XII nml as tested, no motor/sensory deficits, alert, normal mood/affect, normal reflexes, oriented x 3 Skin: normal color, warm/dry, no rash Diagnostics Laboratory Results Results Past 24 Hours Test 12/29/16 18:57 12/29/16 19:00 12/29/16 19:20 12/29/16 20:44 Range/Units Bedside Lactic Acid Venous 2.64 0.90-1.70 mmol/L White Blood Count 5.32 4.8-10.8 K/uL Red Blood Count 4.00 4.2-5.4 M/uL Hemoglobin 11.8 12.0-16.0 g/dL Hematocrit 36.6 37-47 % Mean Corpuscular Volume 91.5 80-100 fL Mean Corpuscular Hemoglobin 29.5 25-34 pg Mean Corpuscular Hemoglobin Concent 32.2 32-36 g/dl Platelet Count 93 130-400 K/uL Mean Platelet Volume 11.2 7.4-10.4 fL Neutrophils (%) (Auto) 62.9 % Lymphocytes (%) (Auto) 28.2 % Monocytes (%) (Auto) 7.9 % Eosinophils (%) (Auto) 0.6 % Basophils (%) (Auto) 0.2 % Neutrophils # (Auto) 3.35 1.4-6.5 K/uL Lymphocytes # (Auto) 1.50 1.2-3.4 K/uL Monocytes # (Auto) 0.42 0.11-0.59 K/uL Eosinophils # (Auto) 0.03 0-0.5 K/uL Basophils # (Auto) 0.01 0-0.2 K/uL RDW Standard Deviation 49.8 36.4-46.3 fL RDW Coefficient of Variation 14.9 11.5-14.5 % Immature Granulocyte % (Auto) 0.2 % Immature Granulocyte # (Auto) 0.01 0.00-0.02 K/uL Erythrocyte Sedimentation Rate 24 0-21 mm/hr Prothrombin Time 11.7 9.0-12.0 SECONDS Prothromb Time International Ratio 1.1 0.9-1.1 Activated Partial Thromboplast Time 26.6 21.0-31.0 SECONDS Partial Thromboplastin Ratio 1.0 Sodium Level 141 136-145 mmol/L Potassium Level 3.9 3.5-5.1 mmol/L Chloride Level 102 98-107 mmol/L Carbon Dioxide Level 30 21-32 mmol/L Anion Gap 9.0 3-11 mmol/L Blood Urea Nitrogen 12 7-18 mg/dl Creatinine 1.00 0.60-1.20 mg/dl Est Creatinine Clear Calc Drug Dose 46.6 ml/min Estimated GFR () 66.1 Estimated GFR (Non- 57.0 BUN/Creatinine Ratio 12.3 10-20 Random Glucose 116 70-99 mg/dl Calcium Level 9.0 8.5-10.1 mg/dl Phosphorus Level 2.4 2.5-4.9 mg/dl Magnesium Level 1.8 1.8-2.4 mg/dl Total Bilirubin 0.7 0.2-1 mg/dl Aspartate Amino Transf (AST/SGOT) 67 15-37 U/L Alanine Aminotransferase (ALT/SGPT) 48 12-78 U/L Alkaline Phosphatase 144 45-117 U/L Total Creatine Kinase 842 26-192 U/L Creatine Kinase MB 11.2 0.5-3.6 ng/ml Creatine Kinase MB Ratio 1.3 0-3.0 Troponin I 0.040 0-0.045 ng/ml C-Reactive Protein 0.71 0-0.29 mg/dl Pro-B-Type Natriuretic Peptide 375 0-900 pg/ml Total Protein 7.3 6.4-8.2 gm/dl Albumin 3.7 3.4-5.0 gm/dl Globulin 3.6 2.5-4.0 gm/dl Albumin/Globulin Ratio 1.0 0.9-2 Lipase 396 73-393 U/L Chemistry Specimen Hemolysis Influenza Type A (RT-PCR) Neg for Influ A NEG Influenza Type A Antigen Neg for Influ A NEG Influenza Type B Antigen Neg for Influ B NEG Influenza Type B (RT-PCR) Neg for Influ B NEG Venous Blood pH 7.35 7.36-7.41 Venous Blood Partial Pressure CO2 57 38.0-50.0 mmHg Venous Blood Partial Pressure O2 51 mmHg Venous Blood HCO3 31 mmol/L Venous Blood Oxygen Saturation 80.6 % Venous Blood Base Excess 3.8 mmol/L Random Cortisol 33.09 mcg/dl Test 12/29/16 21:15 Range/Units Urine Color YELLOW Urine Appearance CLEAR CLEAR Urine pH 6.0 4.5-7.5 Urine Specific [place] 1.006 1.000-1.030 Urine Protein NEG NEG Urine Glucose (UA) NEG NEG Urine Ketones NEG NEG Urine Occult Blood NEG NEG Urine Nitrite NEG NEG Urine Bilirubin NEG NEG Urine Urobilinogen NEG NEG Urine Leukocyte Esterase NEG NEG Urine WBC (Auto) 1-5 0-5 /hpf Urine RBC (Auto) 0-4 0-4 /hpf Urine Hyaline Casts (Auto) 0 0-5 /lpf Urine Epithelial Cells (Auto) 20-30 0-5 /lpf Urine Bacteria (Auto) NEG NEG Microbiology Results 12/29/16 Blood Culture, Received Pending 12/29/16 Blood Culture, Received Pending 12/29/16 Gram Stain - Final, Resulted 12/29/16 Sputum Culture, Resulted Pending Diagnostic Radiology CXR: Interstitial prominence throughout both hemithoraces consistent with that of a nonspecific lower airway inflammatory process. EKG Sinus - Bifascicular block - no significant change from previous Impression Assessment and Plan 1 y/o F w/Hx 02-dependent COPD, DM, HTN - recent admission w/COPD exacerbation. Presents with progressive SOB, cough and wheezing. She was hypotensive on arrival to the ER however she states that she normally has a low BP. She has a productive cough and occasional blood-streaked sputum. Initial CXR may be consistent with a b/l pneumonia. Initial labs are notable for an elevated CK consistent with mild rhabdo in addition to mild lactic acidosis. 1) Dyspnea - COPD with likely superimposed PNM - Pt will be treated with a COPD protocol and has been started on Levaquin. Sputum and blood cultures are pending. As mentioned she is borderline hypotensive however on review of records her BP tends to run low and she stated this herself. There may also be an element of dehydration and possibly some adrenal insufficiency owing to recent steroid use. We will provide IVF for the time being but would have a low threshold for broadening coverage and transferring her to the ICU. She describes some blood streaking in her sputum. If this worsens or persists would consider a CT chest and pulmonology consult. Influ PCR is pending 2) Rhabdomyolysis - possibly due to coughing - IVF provided and labs will be trended, diuretics held. 3) CAD - no current evidence of ACS as troponin is not elevated despite a high CK, EKG is unchanged and she denies CP - cont ASA, B arnulfo with parameters 4) DM - sliding scale coverage 5) Thrombocytopenia - stable 6) Continued tobacco use - she does not appear interested in cessation 7) LFTs are elevated - per records this is chronic and possibly due to WATERS Full code - SCDs only due to blood in sputum Total time for this admit including chart rview, review of labs, CXR, EKG, meds - discussion with pt and ER MD - 37 min Level of Care Telemetry Resuscitation Status FULL RESUSCITATION VTE Prophylaxis VTE Risk Assessment Done? Y/N: Yes Risk Level: Moderate Given or contraindicated: SCD's
[2016-12-30] VITALS (16 sets, daily range): BP systolic 87–109; BP diastolic 56–68; PULSE 76–111; TEMP 36.4–37.3; O2SAT 96–99; BMI 32.7
[2016-12-30] MEDS: ALBUT/IPRATROP 3MG/0.5MG NEB 3 ML VIAL INH SCH ×4 (02:03→18:48)
[2016-12-30] MEDS: SODIUM CHLORIDE 0.9% 1000ML 1,000 ML IV SCH ×2 (02:10→08:28)
[2016-12-30] MEDS ORDERED: DEXTROSE 50% 50 ML SYR IV PRN (03:30)
[2016-12-30] MEDS ORDERED: GLUCOSE 10 TABS/TUBE PO PRN (03:30)
[2016-12-30] MEDS ORDERED: GLUCAGON FOR INJ 1 MG VIAL SQ PRN (03:30)
[2016-12-30] MEDS ORDERED: GLUCOSE 40% GEL 15 GM TUBE PO PRN (03:30)
[2016-12-30] MEDS: METHYLPREDNISOLONE IV 60 MG in SYRINGE 0 ML IV SCH ×3 (03:48→17:29)
[2016-12-30] MEDS ORDERED: LEVOFLOXACIN CONSULT ACTIVE PRN (06:30)
[2016-12-30 06:53] LABS: MEAN CELL VOLUME 91.7 fL (80-100); MEAN CORPUSCULAR HEMOGLOBIN 29.4 pg (25-34); MEAN CORPUSCULAR HGB CONC 32.1 g/dl (32-36); WHITE BLOOD COUNT 3.59 K/uL (4.8-10.8)
[2016-12-30 06:55] LABS: MEAN PLATELET VOLUME 11.4 fL (7.4-10.4); PLATELET COUNT 68 K/uL (130-400)
[2016-12-30] MEDS: INSULIN ASPART 100 UNITS/ML 3 ML PEN SC SCH ×5 (07:26→23:53)
[2016-12-30] MEDS: HEPARIN SOD 5000 UNIT/0.5 ML CARP SQ SCH ×3 (07:27→21:09)
[2016-12-30] MEDS ORDERED: NURSING VERBAL MED ORDER ONE (07:30)
[2016-12-30 07:31] LABS: BUN/CREATININE RATIO 10.9 (10-20); CALCIUM 7.8 mg/dl (8.5-10.1); CKMB/CK RATIO 1.5 (0-3.0); CREATININE 1.2 mg/dl (0.60-1.20); MAGNESIUM 1.6 mg/dl (1.8-2.4); POTASSIUM 4.7 mmol/L (3.5-5.1)
[2016-12-30 07:49] LABS: BETA-HYDROXYBUTYRATE 1.86 mg/dL (0.2-2.81)
[2016-12-30] MEDS ORDERED: PNEUMOCOCCAL POLYSACCHARIDES 25 MCG/0.5 ML VIAL/SYR IM. ONE (08:00)
[2016-12-30] MEDS ORDERED: PNEUMOCOCCAL ADMINISTRATION CHARGE ONE (08:00)
[2016-12-30] MEDS ORDERED: SODIUM CHLORIDE 0.9% 500ML 500 ML IV ONE (08:15)
[2016-12-30] MEDS: POT PHOSPHATE MONOBASIC W/ SOD TAB PO SCH ×4 (08:25→21:02)
[2016-12-30] MEDS: ESCITALOPRAM OXALATE 20 MG TAB PO SCH (08:25)
[2016-12-30] MEDS: CHOLECALCIFEROL 1000 INTER.UNIT TAB PO SCH (08:25)
[2016-12-30] MEDS: ASPIRIN 81 MG ECTAB PO SCH (08:26)
[2016-12-30] MEDS: GABAPENTIN 600 MG TAB PO SCH ×3 (08:26→21:01)
[2016-12-30] MEDS: MAGNESIUM OXIDE 400 MG TAB PO SCH ×2 (08:26→21:02)
[2016-12-30] MEDS: FERROUS SULFATE 325 MG TAB PO SCH (08:27)
[2016-12-30] MEDS: PANTOprazole SOD 40 MG TAB PO SCH (08:27)
--- NOTE | 2016-12-30 10:19 | Progress Note ---
Progress Note Patient was admitted this am for pneumonia/sepsis and COPD. I saw and examined patient this morning. Patient states she continues to have right flank pain which has been present over the past week . She however states SOB is improved. Plan will be as stated in history and physical on 12.30.16 with the following exceptions: decreased solumedrol to 40 mg q8hr, check CT Abdomen for obstructive renal calculi, check lactic acid q6 hr and in am
--- NOTE | 2016-12-30 10:20 | Hospitalist Progress Note ---
Hospitalist Progress Note Date of Service Dec 30, 2016. Subjective Pt evaluation today including: conversation w/ patient, physical exam, chart review, lab review, review of studies, review of inpatient medication list Patient was admitted this am for pneumonia/sepsis and COPD. I saw and examined patient this morning. Patient states she continues to have right flank pain which has been present over the past week . She however states SOB is improved. Constitutional: No fever Eyes: No worsening of vision ENT: No hearing loss Respiratory: + dyspnea on exertion, + shortness of breath, No cough, No sputum Cardiovascular: No chest pain, No orthopnea Abdomen: No constipation, No diarrhea, No pain, No vomiting Musculoskeletal: No joint pain Female : + problem reported (+ flank pain), No dysuria, No hematuria, No incontinence Neurologic: No memory loss Psychiatric: No depression symptoms Medications Current Inpatient Medications Medications (Trade) Dose Ordered Sig/Diego Route Start Time Stop Time Status Last Admin Dose Admin Heparin Sodium (Porcine) (Heparin Sq 5000 Unit/0.5ml) 5,000 unit Q8H SQ 12/30/16 07:00 01/29/17 06:59 12/30/16 07:27 5,000 UNIT Acetaminophen (Tylenol Tab) 650 mg Q4H PRN PO 12/29/16 23:45 01/28/17 23:44 Al Hydrox/Mg Hydrox/Simethicone (Maalox Max Susp) 15 ml Q4H PRN PO 12/29/16 23:45 01/28/17 23:44 Magnesium Hydroxide (Milk Of Magnesia Susp) 30 ml Q12H PRN PO 12/29/16 23:45 01/28/17 23:44 Ondansetron HCl (Zofran Inj) 4 mg Q6H PRN IV 12/29/16 23:45 01/28/17 23:44 Morphine Sulfate (MoRPHine SULFATE INJ) 2 mg Q30M PRN IV 12/29/16 23:45 01/12/17 23:44 Polyethylene (Miralax Powder Packet) 17 gm DAILY PRN PO 12/29/16 23:45 01/28/17 23:44 Albuterol/ Ipratropium (Duoneb) 3 ml Q6R INH 12/30/16 03:00 01/29/17 02:59 12/30/16 06:55 3 ML Albuterol Sulfate 2.5 mg 2.5 mg Q4H PRN INH 12/29/16 23:45 01/28/17 23:44 Levofloxacin 750 mg/Prmx 150 ml @ 100 mls/hr Q48H IV 12/31/16 20:00 01/05/17 19:59 Methylprednisolone Sodium Succinate/ Syringe (Solu-Medrol IV/ Syringe) 0.96 ml @ 1.5 mls/min Q6H IV 12/30/16 04:00 01/29/17 03:59 12/30/16 10:05 1.5 MLS/MIN Aspirin (Ecotrin Tab) 81 mg Q48H PO 12/30/16 09:00 01/29/17 08:59 12/30/16 08:26 81 MG Atorvastatin Calcium (Lipitor Tab) 10 mg HS PO 12/30/16 21:00 01/29/17 20:59 Cholecalciferol (Vitamin D Tab) 1,000 inter.unit QAM PO 12/30/16 09:00 01/29/17 08:59 12/30/16 08:25 1,000 INTER.UNIT Escitalopram Oxalate (Lexapro Tab) 20 mg QAM PO 12/30/16 09:00 01/29/17 08:59 12/30/16 08:25 20 MG Gabapentin (Neurontin Tab) 600 mg TID PO 12/30/16 09:00 01/29/17 08:59 12/30/16 08:26 600 MG Insulin Detemir (Levemir Flexpen/ FlexTouch) 40 unit HS SQ 12/30/16 21:00 01/29/17 20:59 Magnesium Oxide (Mag-Ox Tab) 400 mg BID PO 12/30/16 09:00 01/29/17 08:59 12/30/16 08:26 400 MG Metoprolol Succinate (Toprol Xl Tab) 12.5 mg HS PO 12/30/16 21:00 01/29/17 20:59 Trazodone HCl (Desyrel Tab) 100 mg HS PRN PO 12/29/16 23:45 01/28/17 23:44 Ferrous Sulfate (Feosol Tab) 1 mg QAM PO 12/30/16 09:00 01/29/17 08:59 12/30/16 08:27 1 MG Pantoprazole Sodium (Protonix Tab) 40 mg QAM PO 12/30/16 09:00 01/29/17 08:59 12/30/16 08:27 40 MG Oxycodone HCl (Roxicodone Immediate Rel Tab) 10 mg BID PRN PO 12/29/16 23:45 01/12/17 23:44 Insulin Aspart SLIDING SCALE G... ACHS SC 12/30/16 07:00 01/29/17 06:59 12/30/16 07:26 12 UNITS Sodium Chloride (Nss 1000ml) 1,000 ml @ 150 mls/hr Q6H40M IV 12/30/16 00:00 12/30/16 13:19 12/30/16 08:28 150 MLS/HR Potassium/ Phosphorus/Sodium (Phospha 250 Neutral 155-852-130 Mg) 1 tab QID PO 12/30/16 09:00 01/29/17 08:59 12/30/16 08:25 1 TAB Glucose (Glucose 40% Gel) 15-30 GRAMS 15 GRAMS... UD PRN PO 12/30/16 03:30 01/29/17 03:29 Glucose (Glucose Chew Tab) 4-8 Tablets 4 Tabl... UD PRN PO 12/30/16 03:30 01/29/17 03:29 Dextrose (Dextrose 50% 50ML Syringe) 25-50ML OF 50% DW IV FOR... UD PRN IV 12/30/16 03:30 01/29/17 03:29 Glucagon (Glucagon Inj) 1 mg UD PRN SQ 12/30/16 03:30 01/29/17 03:29 Levofloxacin (Consult) 1 ea UD PRN N/A 12/30/16 06:30 01/29/17 06:29 Objective Vital Signs Date Time Temp Pulse Resp B/P Pulse Ox O2 Delivery O2 Flow Rate FiO2 12/30/16 08:35 101 94/62 12/30/16 08:00 98 Nasal Cannula 2.0 12/30/16 07:54 104 109/65 12/30/16 07:14 36.4 101 16 87/56 98 Nasal Cannula 2.0 12/30/16 06:55 102 16 99 Nasal Cannula 2.0 12/30/16 04:47 36.8 103 18 95/60 99 12/30/16 04:00 98 Nasal Cannula 2.0 12/30/16 02:03 106 16 98 Nasal Cannula 2.0 12/30/16 00:31 36.8 20 100/67 98 Nasal Cannula 3.0 12/29/16 23:36 99 20 90/58 97 Nasal Cannula 2.0 12/29/16 23:20 97 12/29/16 21:52 104 22 89/52 94 Nasal Cannula 2.0 12/29/16 21:19 102 25 92/53 97 Nasal Cannula 2.0 12/29/16 20:18 90 22 114/80 100 Nasal Cannula 2.0 12/29/16 20:16 95 23 99/65 96 12/29/16 19:38 Nasal Cannula 2.0 12/29/16 19:34 89 26 96 Nasal Cannula 3.0 12/29/16 19:20 88 12/29/16 19:15 88 22 84/49 100 Nasal Cannula 2.0 Manual 12/29/16 19:08 Nasal Cannula 2.0 12/29/16 19:00 68/40 12/29/16 18:38 37.0 96 28 66/42 96 Room Air Physical Exam General Appearance: WD/WN, no apparent distress Eyes: normal inspection, PERRL ENT: normal ENT inspection Neck: supple, no adenopathy, thyroid normal Respiratory/Chest: chest non-tender, + wheezing, + pertinent finding ( diminished breath sounds) Cardiovascular: regular rate, rhythm, no edema Abdomen: normal bowel sounds, non tender, soft, + pertinent finding (+ flank pain in the right) Extremities: normal range of motion, non-tender 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, no motor/sensory deficits, alert, oriented x 3 Laboratory Results Last 24 Hours Test 12/29/16 18:57 12/29/16 19:00 12/29/16 19:20 12/29/16 20:44 Bedside Lactic Acid Venous 2.64 mmol/L White Blood Count 5.32 K/uL Red Blood Count 4.00 M/uL Hemoglobin 11.8 g/dL Hematocrit 36.6 % Mean Corpuscular Volume 91.5 fL Mean Corpuscular Hemoglobin 29.5 pg Mean Corpuscular Hemoglobin Concent 32.2 g/dl Platelet Count 93 K/uL Mean Platelet Volume 11.2 fL Neutrophils (%) (Auto) 62.9 % Lymphocytes (%) (Auto) 28.2 % Monocytes (%) (Auto) 7.9 % Eosinophils (%) (Auto) 0.6 % Basophils (%) (Auto) 0.2 % Neutrophils # (Auto) 3.35 K/uL Lymphocytes # (Auto) 1.50 K/uL Monocytes # (Auto) 0.42 K/uL Eosinophils # (Auto) 0.03 K/uL Basophils # (Auto) 0.01 K/uL RDW Standard Deviation 49.8 fL RDW Coefficient of Variation 14.9 % Immature Granulocyte % (Auto) 0.2 % Immature Granulocyte # (Auto) 0.01 K/uL Erythrocyte Sedimentation Rate 24 mm/hr Prothrombin Time 11.7 SECONDS Prothromb Time International Ratio 1.1 Activated Partial Thromboplast Time 26.6 SECONDS Partial Thromboplastin Ratio 1.0 Sodium Level 141 mmol/L Potassium Level 3.9 mmol/L Chloride Level 102 mmol/L Carbon Dioxide Level 30 mmol/L Anion Gap 9.0 mmol/L Blood Urea Nitrogen 12 mg/dl Creatinine 1.00 mg/dl Est Creatinine Clear Calc Drug Dose 46.6 ml/min Estimated GFR () 66.1 Estimated GFR (Non- 57.0 BUN/Creatinine Ratio 12.3 Random Glucose 116 mg/dl Calcium Level 9.0 mg/dl Phosphorus Level 2.4 mg/dl Magnesium Level 1.8 mg/dl Total Bilirubin 0.7 mg/dl Aspartate Amino Transf (AST/SGOT) 67 U/L Alanine Aminotransferase (ALT/SGPT) 48 U/L Alkaline Phosphatase 144 U/L Total Creatine Kinase 842 U/L Creatine Kinase MB 11.2 ng/ml Creatine Kinase MB Ratio 1.3 Troponin I 0.040 ng/ml C-Reactive Protein 0.71 mg/dl Pro-B-Type Natriuretic Peptide 375 pg/ml Total Protein 7.3 gm/dl Albumin 3.7 gm/dl Globulin 3.6 gm/dl Albumin/Globulin Ratio 1.0 Lipase 396 U/L Chemistry Specimen Hemolysis Influenza Type A (RT-PCR) Neg for Influ A Influenza Type A Antigen Neg for Influ A Influenza Type B Antigen Neg for Influ B Influenza Type B (RT-PCR) Neg for Influ B Venous Blood pH 7.35 Venous Blood Partial Pressure CO2 57 mmHg Venous Blood Partial Pressure O2 51 mmHg Venous Blood HCO3 31 mmol/L Venous Blood Oxygen Saturation 80.6 % Venous Blood Base Excess 3.8 mmol/L Random Cortisol 33.09 mcg/dl Test 12/29/16 21:15 12/30/16 06:33 12/30/16 06:38 12/30/16 06:41 Urine Color YELLOW Urine Appearance CLEAR Urine pH 6.0 Urine Specific [place] 1.006 Urine Protein NEG Urine Glucose (UA) NEG Urine Ketones NEG Urine Occult Blood NEG Urine Nitrite NEG Urine Bilirubin NEG Urine Urobilinogen NEG Urine Leukocyte Esterase NEG Urine WBC (Auto) 1-5 /hpf Urine RBC (Auto) 0-4 /hpf Urine Hyaline Casts (Auto) 0 /lpf Urine Epithelial Cells (Auto) 20-30 /lpf Urine Bacteria (Auto) NEG Bedside Glucose 407 mg/dl 424 mg/dl White Blood Count 3.59 K/uL Red Blood Count 3.60 M/uL Hemoglobin 10.6 g/dL Hematocrit 33.0 % Mean Corpuscular Volume 91.7 fL Mean Corpuscular Hemoglobin 29.4 pg Mean Corpuscular Hemoglobin Concent 32.1 g/dl RDW Standard Deviation 49.9 fL RDW Coefficient of Variation 14.7 % Platelet Count 68 K/uL Mean Platelet Volume 11.4 fL Sodium Level 140 mmol/L Potassium Level 4.7 mmol/L Chloride Level 104 mmol/L Carbon Dioxide Level 21 mmol/L Anion Gap 15.0 mmol/L Blood Urea Nitrogen 13 mg/dl Creatinine 1.20 mg/dl Est Creatinine Clear Calc Drug Dose 37.9 ml/min Estimated GFR () 53.0 Estimated GFR (Non- 45.8 BUN/Creatinine Ratio 10.9 Random Glucose 438 mg/dl Lactic Acid Level 5.5 mmol/L Calcium Level 7.8 mg/dl Magnesium Level 1.6 mg/dl Total Creatine Kinase 569 U/L Creatine Kinase MB 8.6 ng/ml Creatine Kinase MB Ratio 1.5 Troponin I 0.032 ng/ml Beta-Hydroxybutyric Acid 1.86 mg/dL Test 12/30/16 08:32 Bedside Glucose 374 mg/dl Assessment and Plan 1 y/o F w/Hx 02-dependent COPD, DM, HTN - recent admission w/COPD exacerbation. Presents with progressive SOB, cough and wheezing. She was hypotensive on arrival to the ER however she states that she normally has a low BP. Initial CXR may be consistent with a b/l pneumonia. Initial labs are notable for an elevated CK consistent with mild rhabdo in addition to mild lactic acidosis. CAP - continue Levaquin day #2 - awaiting final result of sputum culture - blood culture pending Left flank pain - given fever concern for pyelonephritis or obstructive renal calculi - check CT abdomen Hypotension - pt baseline b/p's in the 90's - hold antihypertensives as of now - continue IVF COPD Exacerbation - decreased steroids to q8 hours - continue nebulizers Lactic Acidosis - check lactic 6 hours x 1 - if lactic increases will broadened abx to vancomycin and zosyn DMII - poorly controlled - continue Levemir and SSI - consult pharmacy for f=glycemic control Rhabdomyolysis - continue IVF - mild YUE however will check BMP am CAD - cont ASA - hold metoprolol 12.5 mg hs in setting of hypotension Tobacco Abuse - no interest in quitting Full Code
--- NOTE | 2016-12-30 10:24 | DIAGNOSTIC IMAGING REPORT ---
ABDOMEN AND PELVIS CT WITHOUT CONTRAST CT DOSE: 1429.95 mGy.cm HISTORY: evaluate for nephrolithiasis and fever TECHNIQUE: Multiaxial CT images of the abdomen and pelvis were performed without the use of intravenous and oral contrast according to the standard department stone protocol. COMPARISON STUDY: None. FINDINGS: Mild peribronchial and atelectatic changes at both lung bases. Liver is unremarkable in configuration. Pancreas appears unremarkable. Spleen is slightly prominent. Kidneys demonstrate multiple subcentimeter cysts. There are mild infiltrative changes at the inferior aspects of both kidneys and the perinephric spaces. No evidence for an obstructing urinary tract calculus. Bladder is midline. Uterus is anteflexed. Bowel pattern is nonobstructive. The appendix is normal. Several mesenteric nodes. IMPRESSION: 1. No evidence for an obstructing urinary tract calculus. 2. Mild infiltrative change of the right renal perinephric fat bilaterally. This may be age-related or secondary indication of mild pyelonephritis. 3. Nonobstructive bowel pattern with a normal appendix. 4. Mild mesenteric adenitis. 5. Mild splenomegaly 6. Several nonobstructing renal vascular calcifications. 7. Mild bibasilar parenchymal peribronchial and/or infiltrative change. Electronically signed by: Anuel Chavez M.D. 12/30/2016 10:23 AM Dictated Date/Time: 12/30/2016 10:18 AM
[2016-12-30] MEDS ORDERED: PHARMACY GLYCEMIC MGMT CONSULT PRN (10:34)
[2016-12-30] MEDS ORDERED: INSULIN REGULAR 5 UNITS in SYRINGE 4.95 ML IV ONE (11:30)
[2016-12-30] MEDS ORDERED: INSULIN DETEMIR FLEXPEN/FLEX TOUCH 100 UNITS/ML 3ML SQ ONE (11:30)
--- NOTE | 2016-12-30 12:03 | Pharmacy Progress Note ---
Glycemic Control Intl Consult Date of Service Dec 30, 2016. Scope Glycemic Pharmacist consulted by Dr. Amaya Romeo on 12/30/16 for glycemic control and to write orders per [facility] inpatient glycemic control protocol Objective Weight (Kilograms): 72.900 Accuchecks BSG (last 24hrs): Test 12/29/16 19:00 12/30/16 06:33 12/30/16 06:38 12/30/16 06:41 Random Glucose 116 mg/dl (70-99) 438 mg/dl (70-99) Bedside Glucose 407 mg/dl (70-90) 424 mg/dl (70-90) Test 12/30/16 08:32 12/30/16 11:23 Bedside Glucose 374 mg/dl (70-90) 390 mg/dl (70-90) Laboratory Data (last 24hrs) Test 12/29/16 19:00 12/30/16 06:41 Anion Gap 9.0 mmol/L 15.0 mmol/L BUN/Creatinine Ratio 12.3 10.9 Blood Urea Nitrogen 12 mg/dl 13 mg/dl Creatinine 1.00 mg/dl 1.20 mg/dl Potassium Level 3.9 mmol/L 4.7 mmol/L Sodium Level 141 mmol/L 140 mmol/L White Blood Count 5.32 K/uL 3.59 K/uL Red Blood Count 4.00 M/uL Hemoglobin 11.8 g/dL Hematocrit 36.6 % Mean Corpuscular Volume 91.5 fL Mean Corpuscular Hemoglobin 29.5 pg Mean Corpuscular Hemoglobin Concent 32.2 g/dl Platelet Count 93 K/uL Mean Platelet Volume 11.2 fL Neutrophils (%) (Auto) 62.9 % Lymphocytes (%) (Auto) 28.2 % Monocytes (%) (Auto) 7.9 % Eosinophils (%) (Auto) 0.6 % Basophils (%) (Auto) 0.2 % Neutrophils # (Auto) 3.35 K/uL Lymphocytes # (Auto) 1.50 K/uL Monocytes # (Auto) 0.42 K/uL Eosinophils # (Auto) 0.03 K/uL Basophils # (Auto) 0.01 K/uL HbA1c Last A1c on 10/08/17 - 8.2% ordered for 12/31/16 Recent Pertinent Medications Outpatient Anti-diabetic Regimen: * Levemir 40 units HS + Novolog 20 units with lunch & 25 units with dinner * A1c = 8.2 % 10/08/16 The patient is currently receiving: * Basal insulin: Lantus 40 units every 24 hours (last dose taken on 2/3 PM, missed dose on 12/29) * Correctional Insulin: Novolog Correction per scale ACHS Goal Range: Low 120 mg/dL - High 160mg/dL Correction Factor: 40 mg/dL/unit * Prandial insulin: none ordered Risk Factors for Insulin Resistance: * Steroids: methylprednisolone 60 mg IV q6h x 2 doses, then decreased to q8h * Infection: COPD exacerbation, CAP (on Levaquin 750 mg IV q48h) * Diet: AHA/DM diet Assessment & Plan ASSESSMENT: * 71 year old diabetic female with hyperglycemia likely due to infection (CAP), high dose IV steroids, and possibly less than ideal outpatient control. The patient's most recent A1c was elevated at 8.2%. * ADA & AACE recommend a goal blood sugar range 140-180 mg/dl for the majority of critically ill & non-critically ill patients. However, more stringent targets may be selected in individual cases. PLAN FOR INPATIENT GLYCEMIC CONTROL: * Give 5 units of regular IV insulin for severe hyperglycemia (BSGs this am ranged from 374-438 mg/dL) * Continue home dose of Levemir 40 units SQ HS. Will give the patient a dose of 20 units now to make up for missed dose last evening. * Tighten correction factor from 40 to 20 mg/dl/unit * Add carb ratio -> 1 unit per 7 grams CHO consumed * Continue goal range of Low 120 mg/dL - High 160 mg/dL * I will add BSG check at 00 and 04 for additional coverage. * Please note that the plan above was derived based on current level of insulin resistance and hospital stress. These recommendations are appropriate for inpatient admission only. Plan of care upon discharge will need to be reassessed to avoid potential outpatient hypo/hyperglycemia. Thank you.
[2016-12-30] MEDS: LORAZEPAM 1 MG TAB PO PRN (15:07)
[2016-12-30] MEDS ORDERED: INSULIN DETEMIR FLEXPEN/FLEX TOUCH 100 UNITS/ML 3ML SQ SCH (21:00)
[2016-12-30] MEDS ORDERED: METOPROLOL SUCC 25MG EXT REL TAB PO SCH (21:00)
[2016-12-30] MEDS: ATORVASTATIN 10 MG TAB PO SCH (21:01)
[2016-12-30] MEDS: INSULIN DETEMIR FLEXPEN/FLEX TOUCH 100 UNITS/ML 3ML SQ SCH (21:09)
[2016-12-30] MEDS: TRAZODONE HCL 100 MG TAB PO PRN (21:09)
[2016-12-31] VITALS (12 sets, daily range): BP systolic 89–98; BP diastolic 54–67; PULSE 86–110; TEMP 36.4–37; O2SAT 96–99; Ht 149.9 cm; Wt 76.7 kg
[2016-12-31] MEDS: ALBUT/IPRATROP 3MG/0.5MG NEB 3 ML VIAL INH SCH ×4 (02:13→18:31)
[2016-12-31] MEDS: METHYLPREDNISOLONE IV 60 MG in SYRINGE 0 ML IV SCH ×2 (04:02→09:34)
[2016-12-31] MEDS: INSULIN ASPART 100 UNITS/ML 3 ML PEN SC SCH ×6 (04:09→23:59)
[2016-12-31 06:36] LABS: HEMATOCRIT 31.6 % (37-47); MEAN CELL VOLUME 90.5 fL (80-100); MEAN CORPUSCULAR HEMOGLOBIN 29.2 pg (25-34); MEAN CORPUSCULAR HGB CONC 32.3 g/dl (32-36); RED BLOOD COUNT 3.49 M/uL (4.2-5.4); WHITE BLOOD COUNT 5.82 K/uL (4.8-10.8)
[2016-12-31 06:43] LABS: MEAN PLATELET VOLUME 11.3 fL (7.4-10.4); PLATELET COUNT 66 K/uL (130-400)
[2016-12-31 07:05] LABS: BUN/CREATININE RATIO 19.3 (10-20); CALCIUM 8.2 mg/dl (8.5-10.1); CREATININE 0.91 mg/dl (0.60-1.20); POTASSIUM 4.5 mmol/L (3.5-5.1)
[2016-12-31 07:24] LABS: ESTIMATED AVERAGE GLUCOSE 183 mg/dl; HA1C FLAG Normal (Normal)
[2016-12-31] MEDS: HEPARIN SOD 5000 UNIT/0.5 ML CARP SQ SCH ×3 (08:00→20:51)
--- NOTE | 2016-12-31 08:26 | Clinical Documentation Query ---
CLINICAL DOCUMENTATION QUERY 71-y/o female who presents with Sepsis, pneumonia, and COPD exacerbation. Patient presented to E.D. with tachycardia, tachypnea, and per E.D> physician with significant difficulty breathing. Query #1/2 In your clinical opinion is this patient being managed for: ( ) Acute respiratory failure in setting of sepsis, pneumonia, and copd exacerbation. ( ) Other explanation of clinical findings (Please Explain) ( ) Unable to determine (Please Define) ( ) Need to Discuss ( ) Not Agree The medical record reflects the following clinical findings, treatment, and risk factors. Clinical Indicators: As above. HR 96, RR 28. ED assessment documented patient as anxious, significant difficulty breathing, conversational dyspnea, and rales to b/l upper arreola. Treatment: O2, IV Solumedrol, Nebs, IV Levofloxacin Risk Factors: Age, COPD, pneumonia IF IN AGREEMENT, YOU MUST DOCUMENT ABOVE DIAGNOSTIC STATEMENT IN DAILY PROGRESS NOTES AND DISCHARGE SUMMARY. This document is not part of the patient's record. Thank You, Justin Major, RN [phone]
[2016-12-31] MEDS ORDERED: INSULIN DETEMIR FLEXPEN/FLEX TOUCH 100 UNITS/ML 3ML SQ SCH (09:00)
[2016-12-31] MEDS: PANTOprazole SOD 40 MG TAB PO SCH (09:31)
[2016-12-31] MEDS: POT PHOSPHATE MONOBASIC W/ SOD TAB PO SCH ×4 (09:31→20:40)
[2016-12-31] MEDS: TRAZODONE HCL 100 MG TAB PO PRN (09:31)
[2016-12-31] MEDS: FERROUS SULFATE 325 MG TAB PO SCH (09:32)
[2016-12-31] MEDS: MAGNESIUM OXIDE 400 MG TAB PO SCH ×2 (09:32→20:40)
[2016-12-31] MEDS: ATORVASTATIN 10 MG TAB PO SCH (09:32)
[2016-12-31] MEDS: ESCITALOPRAM OXALATE 20 MG TAB PO SCH (09:32)
[2016-12-31] MEDS: CHOLECALCIFEROL 1000 INTER.UNIT TAB PO SCH (09:33)
[2016-12-31] MEDS: GABAPENTIN 600 MG TAB PO SCH ×3 (09:33→20:39)
--- NOTE | 2016-12-31 10:19 | Pharmacy Progress Note ---
Glycemic Control: Progress Nt Date of Service Dec 31, 2016. Scope Glycemic Pharmacist consulted by Dr Romeo on 12/30/16 for glycemic control and to write orders per [facility] inpatient glycemic control protocol. Objective Accuchecks BSG (last 24hrs): Test 12/30/16 11:23 12/30/16 13:05 12/30/16 16:23 12/30/16 20:40 Bedside Glucose 390 mg/dl (70-90) 370 mg/dl (70-90) 280 mg/dl (70-90) 399 mg/dl (70-90) Test 12/30/16 23:50 12/31/16 04:00 12/31/16 06:10 12/31/16 06:41 Bedside Glucose 397 mg/dl (70-90) 249 mg/dl (70-90) 201 mg/dl (70-90) Random Glucose 194 mg/dl (70-99) Laboratory Data (last 24hrs) Test 12/31/16 06:10 Anion Gap 8.0 mmol/L BUN/Creatinine Ratio 19.3 Blood Urea Nitrogen 18 mg/dl Creatinine 0.91 mg/dl Hemoglobin A1c 8.0 % Potassium Level 4.5 mmol/L Sodium Level 143 mmol/L White Blood Count 5.82 K/uL HbA1c: Test 12/31/16 06:10 Hemoglobin A1c 8.0 % (4.5-5.6) H Recent Pertinent Medications Outpatient Anti-diabetic Regimen: * Levemir 40 units SQ q HS * NovoLog SQ * 20 units with lunch * 25 units with dinner * A1c = 8% 12/31/16 The patient is currently receiving: * Basal insulin with Levemir based on BSG (20-40 units) every 24 hours in the evening * Yesterday (12/30) the patient received 20 units (additional in the AM) and 40 units in the PM * Correctional Insulin: NovoLog Correction per scale ACHS+ Goal Range: Low 120 mg/dL - High 160 mg/dL Correction Factor: 20 mg/dL/unit * Prandial insulin: Per carb ratio of 1 unit per 7 grams CHO consumed Risk Factors for Insulin Resistance: * Steroids: Solu-Medrol 60mg IV every 8 hours * Infection: COPD exacerbation vs. pneumonia - levofloxacin IV - day #3 of therapy * Diet: AHA/T2DM Assessment & Plan ASSESSMENT: ADA & AACE recommend a goal blood sugar range 140-180 mg/dl for the majority of critically ill & non-critically ill patients. However, more stringent targets may be selected in individual cases 12/30/16: * 71 year old diabetic female with hyperglycemia likely due to infection (CAP), high dose IV steroids, and possibly less than ideal outpatient control. * The patient's most recent A1c was elevated at 8.2%. 12/31/16: * BSGs extremely elevated on admission and responded nicely to IV insulin and additional basal Levemir yesterday. * Currently BSGs have trended from 438mg/dL yesterday morning --> 194mg/dL this morning * Continue current home Levemir dosing, give an additional 20 units this morning again to replicate yesterday's response * Continuing to see post prandial hyperglycemia (secondary to steroids) * Tighten NovoLog parameters further while on around the clock steroids * A1c resulted * 8% - may indicate appropriate control based on the Elements of Diabetes Care Scoring Scale PLAN FOR INPATIENT GLYCEMIC CONTROL: * Levemir 20-40 units (based on BSG) q HS * Levemir 20 units SQ x1 now * NovoLog AC+HS+00+04 * Correction factor: 20mg/dL/unit --> 15mg/dL/unit * Carb ratio: 1 unit per 7 --> 5 grams of CHO consumed * Goal range: 120-160mgdL * A1c - current * added to discharge instructions RECOMMENDATIONS FOR DISCHARGE: * Likely, Ms Frederick can continue home regimen at discharge. * May require change if steroids prescribed at D/C * Please note that the plan above was derived based on current level of insulin resistance and hospital stress. These recommendations are appropriate for inpatient admission only. Plan of care upon discharge will need to be reassessed to avoid potential outpatient hypo/hyperglycemia. Thank you.
--- NOTE | 2016-12-31 12:19 | Progress Note ---
Subjective Date of Service: Dec 31, 2016. Subjective pt is feeling much better, still not back to complete baseline, possible evaluation for rehab, cough that is non productive Problem List Medical Problems: (1) Chest pain Status: Acute (2) COPD exacerbation Status: Acute (3) COPD exacerbation Status: Acute (4) Foot contusion Status: Acute (5) Hyperglycemia Status: Acute (6) Hypotension Status: Acute (7) Nausea Status: Acute (8) Positive D dimer Status: Acute (9) Psoriasis Status: Acute (10) Respiratory distress Status: Acute Review of Systems Constitutional: No chills, No fever Respiratory: + cough, + dyspnea on exertion, No shortness of breath, No sputum Cardiac: No chest pain, No edema Abdomen: No diarrhea, No nausea, No pain, No vomiting Neurologic: No memory loss, No weakness Psychiatric: + anxiety, No depression symptoms Objective Vital Signs Date Time Temp Pulse Resp B/P Pulse Ox O2 Delivery O2 Flow Rate FiO2 12/31/16 04:00 36.8 96 22 96/54 97 Nasal Cannula 2.0 12/31/16 04:00 98 Nasal Cannula 2.0 12/31/16 02:13 86 16 98 Nasal Cannula 2.0 12/30/16 23:59 36.5 99 24 91/68 97 Nasal Cannula 2.0 12/30/16 23:59 Nasal Cannula 2.0 12/30/16 20:00 98 Nasal Cannula 2.0 12/30/16 19:10 37.3 103 16 104/62 96 Nasal Cannula 2.0 12/30/16 18:48 111 16 98 Nasal Cannula 4.0 12/30/16 16:00 Nasal Cannula 3.0 12/30/16 15:17 37.0 108 20 98/63 99 Nasal Cannula 4.0 Humidified Oxygen 12/30/16 14:00 76 20 99 Nasal Cannula 4.0 12/30/16 12:00 Nasal Cannula 2.0 12/30/16 11:35 36.9 102 20 94/63 99 Nasal Cannula 3.0 12/30/16 08:35 101 94/62 12/30/16 08:00 Nasal Cannula 3.0 12/30/16 07:54 104 109/65 Physical Exam General Appearance: WD/WN, + mild distress Neck: supple, no JVD Respiratory/Chest: + decreased breath sounds, + accessory muscle use Cardiovascular: regular rate, rhythm, no murmur Abdomen: normal bowel sounds, non tender, soft Extremities: no pedal edema, no calf tenderness Neurologic/Psychiatric: alert, oriented x 3 Laboratory Results Last 24 Hours Test 12/30/16 08:32 12/30/16 11:23 12/30/16 12:45 12/30/16 13:05 Bedside Glucose 374 mg/dl 390 mg/dl 370 mg/dl Lactic Acid Level 5.3 mmol/L Test 12/30/16 16:23 12/30/16 20:40 12/30/16 23:50 12/31/16 04:00 Bedside Glucose 280 mg/dl 399 mg/dl 397 mg/dl 249 mg/dl Test 12/31/16 06:10 12/31/16 06:41 White Blood Count 5.82 K/uL Red Blood Count 3.49 M/uL Hemoglobin 10.2 g/dL Hematocrit 31.6 % Mean Corpuscular Volume 90.5 fL Mean Corpuscular Hemoglobin 29.2 pg Mean Corpuscular Hemoglobin Concent 32.3 g/dl RDW Standard Deviation 49.1 fL RDW Coefficient of Variation 14.9 % Platelet Count 66 K/uL Mean Platelet Volume 11.3 fL Sodium Level 143 mmol/L Potassium Level 4.5 mmol/L Chloride Level 107 mmol/L Carbon Dioxide Level 28 mmol/L Anion Gap 8.0 mmol/L Blood Urea Nitrogen 18 mg/dl Creatinine 0.91 mg/dl Est Creatinine Clear Calc Drug Dose 51.4 ml/min Estimated GFR () 74.1 Estimated GFR (Non- 63.9 BUN/Creatinine Ratio 19.3 Random Glucose 194 mg/dl Estimated Average Glucose 183 mg/dl Hemoglobin A1c 8.0 % Lactic Acid Level 1.6 mmol/L Calcium Level 8.2 mg/dl Bedside Glucose 201 mg/dl Assessment and Plan 71 y/o F with pneumonia presenting with acute on chronic hypoxic respiratory failure, DM, HTN - recent admission w/COPD exacerbation. labs are notable for an elevated CK and mild elevated Lactic acid community acquired pneumonia Levaquin 01/08 acute exacerbation of COPD, steroids and inhaled meds Left flank pain CT abdomen/pelvis, mild infiltrative change of perinephric fat maybe pyelo? levaquin should treat also Hypotension pt states typical, antihypertensives held on admission and hydrated Lactic Acidosis, POC was abnormal repeat normal DMII poorly controlled, not helped by steroids, continue Levemir and SSI - consult pharmacy to help with glycemic control CAD risk reduction, ASA Tobacco Abuse, councelled, no interest in quitting Full Code
[2016-12-31] MEDS ORDERED: LORAZEPAM 0.5 MG TAB PO PRN (12:30)
[2016-12-31] MEDS ORDERED: LORAZEPAM 2 MG/ML 1 ML VIAL IV PRN ×2 (12:30)
[2016-12-31] MEDS ORDERED: LEVOFLOXACIN / D5W 750 MG in PREMIXED IN D5W 150 ML IV SCH (20:00)
[2016-12-31] MEDS: METHYLPREDNISOLONE IV 40 MG in SYRINGE 0 ML IV SCH (20:40)
[2016-12-31] MEDS: INSULIN DETEMIR FLEXPEN/FLEX TOUCH 100 UNITS/ML 3ML SQ SCH (20:52)
[2017-01-01] MEDS ORDERED: INSULIN ASPART 100 UNITS/ML 3 ML PEN SC SCH
[2017-01-01] MEDS: LORAZEPAM 1 MG TAB PO PRN (00:01)
[2017-01-01 00:12] VITALS: BP 86/59; PULSE 94; TEMP 36.6; O2SAT 98
[2017-01-01 02:08] VITALS: PULSE 90; O2SAT 99
[2017-01-01] MEDS: ALBUT/IPRATROP 3MG/0.5MG NEB 3 ML VIAL INH SCH ×2 (02:08→07:02)
[2017-01-01] MEDS: INSULIN ASPART 100 UNITS/ML 3 ML PEN SC SCH ×3 (04:14→12:21)
[2017-01-01 05:59] LABS: HEMATOCRIT 31.9 % (37-47); MEAN CELL VOLUME 91.7 fL (80-100); MEAN CORPUSCULAR HEMOGLOBIN 28.7 pg (25-34); MEAN CORPUSCULAR HGB CONC 31.3 g/dl (32-36); RED BLOOD COUNT 3.48 M/uL (4.2-5.4); WHITE BLOOD COUNT 4.61 K/uL (4.8-10.8)
[2017-01-01 06:01] LABS: MEAN PLATELET VOLUME 11.2 fL (7.4-10.4); PLATELET COUNT 62 K/uL (130-400)
[2017-01-01 06:26] LABS: CREATININE 0.87 mg/dl (0.60-1.20)
[2017-01-01 06:27] LABS: BUN/CREATININE RATIO 26.6 (10-20); CALCIUM 8.3 mg/dl (8.5-10.1); POTASSIUM 4.4 mmol/L (3.5-5.1)
[2017-01-01 07:03] VITALS: PULSE 59; O2SAT 98
[2017-01-01 07:35] VITALS: BP 112/69; PULSE 99; TEMP 36.4; O2SAT 97
[2017-01-01] MEDS: ESCITALOPRAM OXALATE 20 MG TAB PO SCH (08:02)
[2017-01-01] MEDS: FERROUS SULFATE 325 MG TAB PO SCH (08:02)
[2017-01-01] MEDS: MAGNESIUM OXIDE 400 MG TAB PO SCH (08:02)
[2017-01-01] MEDS: CHOLECALCIFEROL 1000 INTER.UNIT TAB PO SCH (08:03)
[2017-01-01] MEDS: GABAPENTIN 600 MG TAB PO SCH (08:03)
[2017-01-01] MEDS: ASPIRIN 81 MG ECTAB PO SCH (08:03)
[2017-01-01] MEDS: PANTOprazole SOD 40 MG TAB PO SCH (08:03)
[2017-01-01] MEDS: POT PHOSPHATE MONOBASIC W/ SOD TAB PO SCH ×2 (08:03→12:14)
[2017-01-01] MEDS: HEPARIN SOD 5000 UNIT/0.5 ML CARP SQ SCH (08:06)
[2017-01-01] MEDS ORDERED: INSULIN DETEMIR FLEXPEN/FLEX TOUCH 100 UNITS/ML 3ML SQ SCH (09:15)
[2017-01-01] MEDS: METHYLPREDNISOLONE IV 40 MG in SYRINGE 0 ML IV SCH (09:42)
--- NOTE | 2017-01-01 10:18 | Pharmacy Progress Note ---
Glycemic Control: Progress Nt Date of Service Jan 01, 2017. Scope Glycemic Pharmacist consulted by Dr Romeo on 12/30/16 for glycemic control and to write orders per [facility] inpatient glycemic control protocol. Objective Accuchecks BSG (last 24hrs): Test 12/31/16 10:57 12/31/16 20:33 12/31/16 23:54 01/01/17 04:09 Bedside Glucose 259 mg/dl (70-90) 225 mg/dl (70-90) 196 mg/dl (70-90) 185 mg/dl (70-90) Test 01/01/17 05:20 01/01/17 08:36 Random Glucose 186 mg/dl (70-99) Bedside Glucose 226 mg/dl (70-90) Laboratory Data (last 24hrs) Test 01/01/17 05:20 Anion Gap 8.0 mmol/L BUN/Creatinine Ratio 26.6 Blood Urea Nitrogen 23 mg/dl Creatinine 0.87 mg/dl Potassium Level 4.4 mmol/L Sodium Level 142 mmol/L White Blood Count 4.61 K/uL HbA1c: Test 12/31/16 06:10 Hemoglobin A1c 8.0 %(4.5-5.6) H Recent Pertinent Medications Outpatient Anti-diabetic Regimen: * Levemir 40 units SQ q HS * NovoLog SQ * 20 units with lunch * 25 units with dinner * A1c = 8% 12/31/16 The patient is currently receiving: * Basal insulin with Levemir based on BSG (20-40 units) every 24 hours in the evening * 12/30 the patient received 60 units of basal insulin * 12/31 the patient received 60 units of basal insulin * Correctional Insulin: NovoLog Correction per scale ACHS+/ Goal Range: Low 120 mg/dL - High 160 mg/dL Correction Factor: 15 mg/dL/unit * Prandial insulin: Per carb ratio of 1 unit per 5 grams CHO consumed Risk Factors for Insulin Resistance: * Steroids: Solu-Medrol 60mg IV every 8 hours --> Solu-Medrol 40mg IV every 12 hours * Infection: COPD exacerbation vs. pneumonia - levofloxacin IV - day #4 of therapy * Diet: AHA/T2DM -tolerating PO intake well Assessment & Plan ASSESSMENT: ADA & AACE recommend a goal blood sugar range 140-180 mg/dl for the majority of critically ill & non-critically ill patients. However, more stringent targets may be selected in individual cases 12/30/16: * 71 year old diabetic female with hyperglycemia likely due to infection (CAP), high dose IV steroids, and possibly less than ideal outpatient control. * The patient's most recent A1c was elevated at 8.2%. 12/31/16: * BSGs extremely elevated on admission and responded nicely to IV insulin and additional basal Levemir yesterday. * Currently BSGs have trended from 438mg/dL yesterday morning --> 194mg/dL this morning * Continue current home Levemir dosing, give an additional 20 units this morning again to replicate yesterday's response * Continuing to see post prandial hyperglycemia (secondary to steroids) * Tighten NovoLog parameters further while on around the clock steroids * A1c resulted * 8% - may indicate appropriate control based on the Elements of Diabetes Care Scoring Scale 01/01/17: * Steroids continue to be tapered, however BSGs remain elevated despite aggressive insulin dosing. * hesitate to continue with high basal doses while changing steroid doses for concern with hypoglycemia secondary to prolonged duration of action. Give only an additional 10 units of Levemir this AM * BSGs elevated yesterday, however prandial insulin inappropriately calculated ( 8 units documented instead of 22 units). * If hyperglycemic again pre-lunch - give IV supplemental dose of insulin to help augment SQ NovoLog PLAN FOR INPATIENT GLYCEMIC CONTROL: * Levemir 20-40 units (based on BSG) q HS * Levemir 10 units SQ x1 now * NovoLog AC+HS+00+04 * Correction factor: 15mg/dL/unit * Carb ratio: 1 unit per 5 grams of CHO consumed * Goal range: 120-160mgdL * A1c - current * added to discharge instructions RECOMMENDATIONS FOR DISCHARGE: * Likely, Ms Frederick can continue home regimen at discharge. * May require change if steroids prescribed at D/C * Please note that the plan above was derived based on current level of insulin resistance and hospital stress. These recommendations are appropriate for inpatient admission only. Plan of care upon discharge will need to be reassessed to avoid potential outpatient hypo/hyperglycemia. Thank you.
[2017-01-01] MEDS ORDERED: PRED10TA PO (11:29)
[2017-01-01] MEDS ORDERED: ATV5 PO (11:29)
[2017-01-01] MEDS ORDERED: LVQ750 PO (11:29)
--- NOTE | 2017-01-01 11:30 | Discharge Instructions ---
Discharge Instructions Admission Reason for Admission: Pneumonia, Shortness Of Breath Discharge Discharge Diagnosis / Problem: pneumonia, copd exacerbation Discharge Goals Goal(s): Diagnostic testing, Therapeutic intervention Activity Recommendations Activity Limitations: as noted below Lifting Limitations: gradually increase as tolerated . Current Hospital Diet Patient's current hospital diet: AHA Diet (Heart Healthy), Diabetes Type 2 Diet Discharge Diet Recommended Diet: Diabetes Type 2 Diet Pending Studies Studies pending at discharge: yes List of pending studies: urine culture Laboratory Results Hemoglobin A1c Test 12/31/16 06:10 Range/Units Estimated Average Glucose 183 mg/dl Hemoglobin A1c 8.0 H 4.5-5.6 % Medical Emergencies . Who to Call and When: Medical Emergencies: If at any time you feel your situation is an emergency, please call 911 immediately. . Non-Emergent Contact Non-Emergency issues call your: Primary Care Provider Call Non-Emergent contact if: temperature is above 101, your pain is worsening . . "Provider Documentation" section prepared by Praveen Lambert. VTE Core Measure Inpt VTE Proph given/why not?: SCD's
[2017-01-01 11:53] VITALS: BP 112/69; PULSE 99; TEMP 36.4; O2SAT 97
--- NOTE | 2017-01-01 13:32 | Discharge Summary ---
Discharge Summary Admission Date: Dec 29, 2016 at 23:36 Discharge Date: Jan 01, 2017 Discharge Disposition: Home Principal Diagnosis: acute exacerbation of chronic respiratory failure, pneumonia Medication Reconciliation New Medications: Levofloxacin (Levofloxacin) 750 Mg Tab 750 MG PO DAILY, #8 DOSE Prednisone (Prednisone) 10 Mg Tab 10 MG PO UD, #42 TAB 4 pills daily x 4 days then 3 pills daily x 4 days then 2 pills daily x 4 days then 1 pill a day Lorazepam (Lorazepam) 0.5 Mg Tab 0.5 MG PO Q6 PRN for Anxiety, #30 TAB Continued Medications: Albuterol Hfa (Ventolin Hfa) 200 Puffs/28299 Mcg Aers 2-4 PUFFS INH Q6H PRN for Shortness of Breath, #1 INHALER Alum & Mag Hydrox-Simethicone (Mylanta Double-Strength) 1 Jelly Jelly 1 TBS PO bid between meals PRN for Indigestion Aspirin (Aspirin Ec) 81 Mg Tab 81 MG PO Q2D Atorvastatin (Atorvastatin Calcium) 10 Mg Tab 10 MG PO HS Cholecalciferol (Vitamin D 1000 Unit) 1,000 Unit Cap 1000 INTER.UNIT PO QAM, CAP Escitalopram Oxalate (Lexapro) 20 Mg Tab 20 MG PO QAM, TAB Ferrous Sulfate (Iron Supplement) 325 Mg Tab 1 TAB PO QAM Furosemide (Lasix) 20 Mg Tab 20 MG PO 4XWK PRN for SWELLING, TAB TAKE SUN, MON, WED, FRI. DAYS WHEN NOT TAKING SPIRONALACTONE. Gabapentin (Gabapentin) 600 Mg Tab 600 MG PO TID, #90 Insulin Aspart (Novolog Flexpen) 100 Units/Ml Inj 0 SQ BIDM 20 UNITS W/LUNCH, 25 UNITS W/SUPPER ALSO SLIDING SCALE Insulin Detemir (Levemir Flextouch) 100 Unit/Ml Inj 40 UNITS SQ HS Ipratropium-Albuterol (Duoneb) 3 Ml Nebu 1 TREATMENT INH Q4H, #60 INHA Magnesium Oxide (Mag-Ox) 400 Mg Tab 400 MG PO BID, TAB Metoprolol Succ (Toprol Xl) (Toprol-Xl) 25 Mg Tabcr 12.5 MG PO HS, TAB Omeprazole (Prilosec) 40 Mg Cap 40 MG PO QAM, #90 Ondasetron Odt (Zofran Odt) 4 Mg Tab 4 MG SL Q6H for Nausea, #20 TAB Oxycodone Hcl (Oxycodone Hcl) 10 Mg Tab 10 MG PO QAM & AFTERNOON PRN for Pain Oxygen (Oxygen) Gas 2 LITERS NA CONTINOUS, #365 Tiotropium [place] (Spiriva Handihaler) 5 Puff/90 Mcg Aerp 2 PUFFS INH BID Trazodone Hcl (Trazodone) 100 Mg Tab 100 MG PO PRN UDD PRN for Sleep Triamcinolone Acetonide (Topic (Triamcinolone Acet 0.025%) 0.025 % Oin 1 APPLN TOP BID for 14 Days, #30 GM 1 Refill Discharge Exam Review of Systems: Constitutional: No chills, No fever Respiratory: + cough, + dyspnea on exertion, No shortness of breath, No sputum Cardiovascular: No chest pain, No edema Abdomen: No constipation, No diarrhea, No nausea, No pain, No vomiting Genitourinary - Female: No dysuria, No urinary frequency Psychiatric: + anxiety, No depression symptoms Physical Exam: General Appearance: WD/WN, + mild distress Neck: supple, thyroid normal Respiratory/Chest: + decreased breath sounds, + accessory muscle use ( states this is her baseline) Cardiovascular: regular rate, rhythm, no murmur Abdomen / GI: normal bowel sounds, non tender, soft Extremities: no pedal edema, normal range of motion Neurologic/Psychiatric: alert, normal reflexes Hospital Course 71 y/o F with pneumonia presenting with acute on chronic hypoxic respiratory failure, DM, HTN - recent admission w/COPD exacerbation. labs are notable for an elevated CK and mild elevated Lactic acid community acquired pneumonia Levaquin to complete 01/08 acute exacerbation of COPD, taper po prednisone, continue inhaled meds arranged follow up in [address] arvind [place] Left flank pain CT abdomen/pelvis, mild infiltrative change of perinephric fat maybe pyelo? levaquin should treat also pending urine culture at discharge Lactic Acidosis, POC was abnormal repeat normal DMII poorly controlled, not helped by steroids, continue Levemir and SSI, discuss with pcp regarding treatment plan'' Anxiety pt requested short supply of lorazepam was given RX CAD risk reduction, ASA Tobacco Abuse, counselled, no interest in quitting Full Code Total Time Spent: Greater than 30 minutes This includes examination of the patient, discharge planning, medication reconciliation, and communication with other providers. Discharge Instructions Please refer to the electronic Patient Visit Report (Discharge Instructions) for additional information.
[2017-01-01] MEDS ORDERED: LEVOFLOXACIN / D5W 750 MG in PREMIXED IN D5W 150 ML IV SCH (20:00)
--- NOTE | 2017-01-08 16:18 | EDITING REQUIRED CODING QUERY ---
SEPSIS Dear Dr. Lambert, To promote full compliance with coding requirements relating to patient care, physician participation is requested in all cases of certified professional coder uncertainty. Please assist us with the question(s) below: In responding to this query, please exercise your independent professional judgement. The fact that a question is asked does not imply that any particular answer is desired or expected. We appreciate your clarification on this issue. Please clarify Sepsis below: Medical documentation is mentioned throughout the chart but not on the Discharge summary: Patient was admitted this am for pneumonia/sepsis and COPD. ( ) Bacteremia (Nonspecific laboratory finding of bacteria in the blood) Specify Organism ( Present on Admission ( ) Not present on admission ( ) Unable to clinically determine ( ) Septicemia (Systemic disease associated with the presence of pathogenic microorganisms in the blood): Specify Organism ( ) Present on Admission ( ) Not present on admission ( ) Unable to clinically determine ( ) Sepsis Specify Organism Specify Associated Condition/Diagnosis () Present on Admission () Not present on admission () Unable to clinically determine () Severe Sepsis (Sepsis associated with acute organ dysfunction) Specify Organism Specify Associated Condition/Diagnosis ( ) Present on Admission ( ) Not present on admission ( ) Unable to clinically determine ( ) Septic Shock (Severe sepsis with acute circulatory failure, unexplained by other causes) ( ) Present on Admission ( ) Not present on admission ( ) Unable to clinically determine ( ) Other, patient has: ( xx ) Sepsis was Ruled Out Thank you for your time. Lisandra Bauer, ENTRY REP
--- NOTE | 2017-01-08 16:25 | EDITING REQUIRED CODING QUERY ---
CODING QUERY Dear Dr. Lambert, To promote full compliance with coding requirements relating to patient care, provider participation is requested in all cases of guest services manager uncertainty. Please assist us with the question(s) below: Please clarify "YUE" below: Coding Question(s): YUE (xx ) Acute Kidney Injury ( ) Acute Renal Failure ( ) Acute Renal Insufficiency ( ) Other: Please explain ( ) YUE - Ruled Out Medical documentation: Rhabdomyolysis - continue IVF - mild YUE however will check BMP am Physician's Response(s): Thank you for your time. Lisandra Bauer [facility] Principal Diagnosis: "_that condition established after study, to be chiefly responsible for occasioning the admission of the patient to the hospital for care." Co-Existing Principal Diagnosis: "_when two or more diagnoses equally meet the criteria for principal diagnosis as determined by the circumstances of admission, diagnostic work up, and/or therapy provided, and the Alphabetic Index, Tabular List, or another coding guideline does not provide sequencing direction, any one of the diagnoses may be sequenced first." "When the physician has documented what appears to be a current diagnosis in the body of the record, but has not included the diagnosis in the final diagnostic statement, the physician should be asked whether the diagnosis should be added." ([facility] 2 QTR90. p3-4)
[2017-04-19] MEDS ORDERED: LPT10 PO (12:55)
[2017-04-19] MEDS ORDERED: TRAZ100T29 PO (14:34)
[2017-04-19] MEDS ORDERED: ESCI1TAB10 PO (14:34)
[2017-04-19] MEDS ORDERED: MAGN400T5 PO (15:05)
[2017-04-19] MEDS ORDERED: METO25TA3 PO (15:20)
[2017-04-19] MEDS ORDERED: OMEP40CA41 PO (15:26)
[2017-04-19] MEDS ORDERED: NRN600 PO (15:26)
[2017-04-19] MEDS ORDERED: CLBPO15 TOP (18:51)
[2017-04-19] MEDS ORDERED: METF-384 PO (18:51)
[2017-04-19] MEDS ORDERED: IPRASOL4 INH (18:51)
[2017-04-19] MEDS ORDERED: LVMIPEN SQ (18:52)
[2017-04-19] MEDS ORDERED: NVLGI/PEN SQ (18:52)
[2017-04-19] MEDS ORDERED: FRRS300 PO (18:52)
[2017-06-20] MEDS ORDERED: FURO40TA3 PO (10:00)
[2017-06-20] MEDS ORDERED: GABA600T PO (10:00)
[2017-06-20] MEDS ORDERED: METR-163 PO (10:00)
[2017-06-20] MEDS ORDERED: MGCS/ PO (10:00)
[2017-06-20] MEDS ORDERED: NVLGI/PEN SC (10:01)
[2017-06-20] MEDS ORDERED: DRGTP12 TOP (10:07)
== END 2017-01-01 13:00 | disposition home or self-care (01) | DRG 193 ==
LOC: ENRESERVDT → ENRESERVTM → C.EDB 18:34 → C.2T 23:36 → C.4E 12-31 15:31
PROVIDERS: ADMIT Internal Medicine; ATTEND Internal Medicine
DX: J18.9 Pneumonia, unspecified organism (principal); J96.20 Acute and chronic respiratory failure, unspecified whether with hypoxia or hypercapnia; N17.9 Acute kidney failure, unspecified; N12 Tubulo-interstitial nephritis, not specified as acute or chronic; J44.1 Chronic obstructive pulmonary disease with (acute) exacerbation; M62.82 Rhabdomyolysis; J45.901 Unspecified asthma with (acute) exacerbation; E87.2 Acidosis; G45.0 Vertebro-basilar artery syndrome; E11.65 Type 2 diabetes mellitus with hyperglycemia; F17.210 Nicotine dependence, cigarettes, uncomplicated; D69.6 Thrombocytopenia, unspecified; I95.9 Hypotension, unspecified; K21.9 Gastro-esophageal reflux disease without esophagitis; I25.10 Atherosclerotic heart disease of native coronary artery without angina pectoris; R79.89 Other specified abnormal findings of blood chemistry; F32.9 Major depressive disorder, single episode, unspecified; R94.5 Abnormal results of liver function studies; E78.00 Pure hypercholesterolemia, unspecified; F41.9 Anxiety disorder, unspecified; K74.60 Unspecified cirrhosis of liver; K75.81 Nonalcoholic steatohepatitis (NASH); Z95.5 Presence of coronary angioplasty implant and graft; Z79.82 Long term (current) use of aspirin; Z79.4 Long term (current) use of insulin; Z99.81 Dependence on supplemental oxygen; Z79.899 Other long term (current) drug therapy; Z79.891 Long term (current) use of opiate analgesic

== ENCOUNTER → 2017-01-14 | Outpatient (CLI) | payer OTHER ==
[~2017-01-14] MED LIST changes: +ALUM1SUS57 PO; +ALUMSUS37 PO; +AMOX875T PO; +ASPI81TA28 PO; +ATV5 PO; +ATV5X PO; +AUG0.05O4 TP; +CHOL100027 PO; +CLBPO15 TOP; +DRGTP12 TOP; +ESCI1TAB10 PO; +FERR1TAB13 PO; +FRRS300 PO; +FURO40TA3 PO; +GABA600T PO; +HYDR-5688 PO; +LPT10 PO; +LVMIPEN SQ; +LVQ750 PO; +MAGN400T5 PO; +MBXC PO; +METF-384 PO; +METH-589 PO; +METO25TA3 PO; +METR-163 PO; +MGCS/ PO; +NRN600 PO; +NVLGI/PEN SC; +NVLGI/PEN SQ; +OMEP40CA41 PO; +ONDA4TAB46 PO; +OXY/15 PO; +PRED10TA PO; +PRED50TA PO; +RIFA550T2 PO; -SPR25 PO; +SPRIN INH; -SYMIN160 INH; +TIOT1AER INH; +TIOT1AER2 INH; +TRAZ100T29 PO; +VNTHFA/IN INH
[2017-01-14 17:37] LABS: HEMATOCRIT 33.9 % (37-47); MEAN CORPUSCULAR HEMOGLOBIN 28.6 pg (25-34); MEAN CORPUSCULAR HGB CONC 32.2 g/dl (32-36); RED BLOOD COUNT 3.81 M/uL (4.2-5.4); WHITE BLOOD COUNT 5.12 K/uL (4.8-10.8)
[2017-01-14 17:44] LABS: BASO % 0.2 %; BASO ABS # 0.01 K/uL (0-0.2); COMPLETE YES; EOS % 1.4 %; IG% 0.4 %; LYMPH % 29.1 %; LYMPH ABS # 1.49 K/uL (1.2-3.4); MEAN PLATELET VOLUME 11.8 fL (7.4-10.4); MONO % 6.8 %; NEUT % 62.1 %; PLATELET COUNT 67 K/uL (130-400)
[2017-01-14 17:45] LABS: ALT/SGPT 50 U/L (12-78); AST/SGOT 31 U/L (15-37); BLOOD UREA NITROGEN 13 mg/dl (7-18); BUN/CREATININE RATIO 12.8 (10-20); CARBON DIOXIDE 30 mmol/L (21-32); CHLORIDE 105 mmol/L (98-107); CREATININE 0.98 mg/dl (0.60-1.20); GLUCOSE 118 mg/dl (70-99); POTASSIUM 3.8 mmol/L (3.5-5.1); SODIUM 144 mmol/L (136-145)
[2017-01-14 17:48] LABS: ALB/GLOB RATIO 1.1 (0.9-2); ALKALINE PHOSPHATASE 166 U/L (45-117)
[2017-01-16 16:30] LABS: THYROID STIMULATING HORMONE 0.052 uIu/ml (0.300-4.500)
[2017-01-17 15:27] LABS: TSI 28 % baseline (<140)
[2017-01-18 10:36] LABS: METHYLMALONIC ACID 220 NMOL/L (87-318)
== END | disposition home or self-care (01) ==
LOC: C.LABPBG 15:17
PROVIDERS: ATTEND Internal Medicine Endocrinology, Diabetes & Metabolism
DX: E05.90 Thyrotoxicosis, unspecified without thyrotoxic crisis or storm (principal); D64.9 Anemia, unspecified; M81.0 Age-related osteoporosis without current pathological fracture; K74.60 Unspecified cirrhosis of liver; J18.9 Pneumonia, unspecified organism

== ENCOUNTER → 2017-01-15 | Outpatient (CLI) | payer OTHER ==
--- NOTE | 2017-01-15 16:45 | DIAGNOSTIC IMAGING REPORT ---
CHEST 2 VIEWS ROUTINE CLINICAL HISTORY: COPD dyspnea COMPARISON STUDY: 12/29/2016 FINDINGS: Moderate stable cardiomegaly. Diffuse interstitial fibrotic changes stable. Mild prominence of pulmonary vasculature. Diaphragms are smooth. Stable postoperative changes to the cervical region. IMPRESSION: Moderate stable cardiomegaly. Interstitial prominence considered chronic. Mild pulmonary venous congestion. Electronically signed by: Anuel Chavez M.D. 01/15/2017 4:43 PM Dictated Date/Time: 01/15/2017 4:42 PM
== END | disposition home or self-care (01) ==
LOC: C.RADBC 16:04
PROVIDERS: ATTEND Internal Medicine Geriatric Medicine
DX: J44.1 Chronic obstructive pulmonary disease with (acute) exacerbation (principal); I51.7 Cardiomegaly

== ENCOUNTER 2017-01-23 16:24 | Inpatient (IN) | payer OTHER ==
[~2017-01-23] VITALS: Ht 149.9 cm; Wt 80.1 kg
[~2017-01-23 16:24] MED LIST changes: -ALUM1SUS57 PO; -ALUMSUS37 PO; -AMOX875T PO; -ASPI81TA28 PO; -ATV5X PO; -AUG0.05O4 TP; -CHOL100027 PO; -CLBPO15 TOP; -DRGTP12 TOP; -ESCI1TAB10 PO; -FERR1TAB13 PO; -FRRS300 PO; -FURO40TA3 PO; -GABA600T PO; -HYDR-5688 PO; -LPT10 PO; -LVMIPEN SQ; -MAGN400T5 PO; -MBXC PO; -METF-384 PO; -METH-589 PO; -METO25TA3 PO; -METR-163 PO; -MGCS/ PO; -NRN600 PO; -NVLGI/PEN SC; -NVLGI/PEN SQ; -OMEP40CA41 PO; -ONDA4TAB46 PO; -OXY/15 PO; -PRED50TA PO; -RIFA550T2 PO; -TIOT1AER INH; -TIOT1AER2 INH; -TRAZ100T29 PO; -VNTHFA/IN INH
[2017-01-23] MEDS ORDERED: SODIUM CHLORIDE 0.9% 500ML 500 ML IV STA ×2 (17:28→17:34)
[2017-01-23] MEDS ORDERED: SODIUM CHLORIDE 0.9% 1000ML 1,000 ML IV STA ×2 (17:34→18:47)
[2017-01-23] MEDS ORDERED: METHYLPREDNISOLONE 125 MG VIAL IV STA (17:38)
[2017-01-23] MEDS ORDERED: LEVALBUTEROL 1.25MG/3ML NEB INH STA (17:38)
[2017-01-23 17:39] LABS: HEMATOCRIT 35.7 % (37-47); MEAN CELL VOLUME 87.9 fL (80-100); MEAN CORPUSCULAR HEMOGLOBIN 29.3 pg (25-34); MEAN CORPUSCULAR HGB CONC 33.3 g/dl (32-36); RED BLOOD COUNT 4.06 M/uL (4.2-5.4); WHITE BLOOD COUNT 4.86 K/uL (4.8-10.8)
--- NOTE | 2017-01-23 17:58 | DIAGNOSTIC IMAGING REPORT ---
CHEST ONE VIEW PORTABLE CLINICAL HISTORY: Weakness. Hypotension. COMPARISON STUDY: Chest radiograph every 2016. FINDINGS: Surgical clips within the right neck are noted as well as a cervical spine fusion. There is no pneumothorax or pleural effusion. Mild cardiomegaly is unchanged. There is pulmonary vascular congestion with possible mild pulmonary edema. There is no consolidation. IMPRESSION: Pulmonary vascular congestion with possible mild pulmonary edema. Electronically signed by: Stoney Lovelace M.D. 01/23/2017 5:57 PM Dictated Date/Time: 01/23/2017 5:56 PM
[2017-01-23 17:59] LABS: BASO % 0.2 %; BASO ABS # 0.01 K/uL (0-0.2); COMPLETE YES; EOS % 0.6 %; IG% 0.2 %; LYMPH % 27.6 %; LYMPH ABS # 1.34 K/uL (1.2-3.4); MEAN PLATELET VOLUME 11.1 fL (7.4-10.4); NEUT % 64.4 %; PLATELET COUNT 95 K/uL (130-400)
[2017-01-23 18:04] LABS: ALB/GLOB RATIO 1.1 (0.9-2); BUN/CREATININE RATIO 12.1 (10-20); CALCIUM 9.2 mg/dl (8.5-10.1); CREATININE 1.1 mg/dl (0.60-1.20); POTASSIUM 3.8 mmol/L (3.5-5.1)
[2017-01-23 18:12] VITALS: PULSE 96; O2SAT 97
[2017-01-23 18:15] LABS: CKMB/CK RATIO 2.2 (0-3.0); THYROID STIMULATING HORMONE 0.06 uIu/ml (0.300-4.500)
[2017-01-23 18:16] LABS: URINE APPEARANCE CLOUDY (CLEAR); URINE COLOR ORANGE; URINE EPITHELIAL CELL AUTO >30 /lpf (0-5); URINE NITRITE POS (NEG); URINE SPECIFIC GRAVITY 1.028 (1.000-1.030); UROBILINOGEN NEG (NEG); ZZUR CULT IF INDIC CLEAN CATCH YES
[2017-01-23 18:18] LABS: MANUAL MICROSCOPIC REQUIRED? NO; REVIEW REQ? YES; URINE BILIRUBIN NEG (NEG)
[2017-01-23] MEDS ORDERED: DAPTOmycin IV 500 MG in SODIUM CHLORIDE 0.9% 50ML 50 ML IV STA (18:47)
[2017-01-23] MEDS ORDERED: IMIPENEM/CILASTATIN IV 500 MG in DEXTROSE 5% 100ML 100 ML IV STA (18:47)
[2017-01-23] MEDS ORDERED: OXY/15 PO (18:51)
--- NOTE | 2017-01-23 19:39 | History and Physical ---
History & Physical Date & Time of Service: Jan 23, 2017 at 19:19 Chief Complaint: Dizzy, Weak, Lightheaded Primary Care Physician: Arik Ryan D.O.Int.Med. 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 Per patient, she has been feeling progressively weak, fatigued, and lightheaded/dizzy since her last admission. She has been admitted frequently for COPD exacerbation. Patient continues to smoke daily. She has been no multiple antibiotic courses and prednisone tappers. +productive cough- yellow/green sputum. Patient has been dealing with chronically low BPs for months now. She states she has been evaluated multiple times, but "no one seems to care." Patient has appoitment on 02/[address] Caal for severe . Patient also complains of diarrhea. She states every time she uses the restroom to urinate, she has diarrhea. This has been ongoing for a few weeks now, but patient has never told her providers about it. Patient denies any fever, chills, sweats, vision changes, CP, palpitations, edema, abdominal pain, nausea, vomiting, urinary symptoms, melena , numbness/tingling, weakness, muscle/joint pain, anxiety/depression, active bleeding, or new skin discoloration/changes. Past Medical/Surgical History Medical Problems: 1. CAD 2. T2DM 3. HDL 4. 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 5. Depression 6. GERD 7. Bilateral lower extremity edema 8. Tobacco abuse 9. Anemia 10. Thrombocytopenia Surgical Problems: 1. H/O cardiac catheterization 2. Heart stents 3. History of back surgery 4. S/P cholecystectomy Family History Diabetes mellitus FH: cancer FH: heart disease Hypertension Kidney disease Kidney stones Social History Smoking Status: Current Every Day Smoker Marital Status: Housing status: lives alone Occupational Status: unemployed Allergies Coded Allergies: Iodinated Diagnostic Agents (Verified Allergy, Intermediate, RASH TO IVP DYE, 01/23/17) Adhesives (Verified Allergy, Unknown, rash, 01/23/17) Latex1 -Allergic Contact Dermititis (Verified Allergy, Unknown, RASH, ) Sulfa Antibiotics (Verified Allergy, Unknown, unknown, 01/23/17) Home Medications Scheduled Aspirin (Aspirin Ec), 81 MG PO Q2D Atorvastatin (Atorvastatin Calcium), 10 MG PO HS Cholecalciferol (Vitamin D 1000 Unit), 1,000 INTER.UNIT PO QAM Clobetasol Propionate (Clobetasol Propionate), 1 APPLN TOP BID Escitalopram Oxalate (Lexapro), 20 MG PO QAM Ferrous Sulfate (Ferrous Sulfate), 325 MG PO QAM Gabapentin (Gabapentin), 600 MG PO TID Insulin Aspart (Novolog Flexpen), 0 SQ BIDM Insulin Detemir (Levemir Flextouch), 40 UNITS SQ HS Magnesium Oxide (Mag-Ox), 400 MG PO BID Metformin Hcl (Glucophage), 1,000 MG PO BID Metoprolol Succ (Toprol Xl) (Toprol-Xl), 12.5 MG PO HS Omeprazole (Prilosec), 40 MG PO QAM Ondasetron Odt (Zofran Odt), 4 MG SL Q6H Oxycodone Hcl (Oxycodone Hcl), 15 MG PO BID Oxygen (Oxygen), 2 LITERS NA CONTINOUS Tiotropium Sparks (Spiriva Handihaler), 2 PUFFS INH BID Trazodone Hcl (Trazodone), 100 MG PO HS Scheduled PRN Albuterol Hfa (Ventolin Hfa), 2-4 PUFFS INH Q6H PRN for Shortness of Breath Alum & Mag Hydrox-Simethicone (Mylanta Double-Strength), 1 TBS PO bid between meals PRN for Indigestion Furosemide (Lasix), 20 MG PO 4XWK PRN for SWELLING Ipratropium-Albuterol (Duoneb), 1 TREATMENT INH Q4H PRN for SOB/Wheezing Lorazepam (Lorazepam), 0.5 MG PO Q6 PRN for Anxiety Physical Exam Vital Signs Date Time Temp Pulse Resp B/P Pulse Ox O2 Delivery O2 Flow Rate FiO2 01/23/17 19:15 94 18 75/56 99 Nasal Cannula 2.0 01/23/17 18:50 99 20 71/49 97 Room Air 01/23/17 18:12 96 16 97 Nasal Cannula 4.0 01/23/17 17:59 91 28 98 01/23/17 17:54 93 20 98 01/23/17 17:49 95 23 01/23/17 17:48 72/51 01/23/17 17:44 102 22 90 01/23/17 17:39 96 25 97 01/23/17 17:34 96 20 97 01/23/17 17:32 97 01/23/17 17:31 92 Room Air 01/23/17 17:29 95 17 96 01/23/17 17:28 56/42 01/23/17 17:24 97 22 72/55 94 01/23/17 17:19 102 19 95 01/23/17 17:12 63/43 01/23/17 16:35 37.2 98 18 79/44 95 Room Air General Appearance: no apparent distress Head: normocephalic, atraumatic Eyes: normal inspection, PERRL ENT: hearing grossly normal Neck: supple Respiratory/Chest: no respiratory distress, no accessory muscle use, + decreased breath sounds, + crackles (bilateral lung bases ), + rhonchi ( bilateral upper lung arreola ), + wheezing (expiratory wheeze throughout ) Cardiovascular: normal peripheral pulses, + tachycardia, + systolic murmur Abdomen/GI: normal bowel sounds, non tender, soft Back: normal inspection Extremities/Musculoskelatal: no calf tenderness, no pedal edema Neurologic/Psych: alert, normal mood/affect, oriented x 3 Skin: normal color, warm/dry, no rash Diagnostics Laboratory Results Results Past 24 Hours Test 01/23/17 00:00 01/23/17 17:20 01/23/17 17:42 01/23/17 17:50 Range/Units Urine Color ORANGE Urine Appearance CLOUDY CLEAR Urine pH 5.0 4.5-7.5 Urine Specific [place] 1.028 1.000-1.030 Urine Protein TRACE NEG Urine Glucose (UA) NEG NEG Urine Ketones TRACE NEG Urine Occult Blood NEG NEG Urine Nitrite POS NEG Urine Bilirubin NEG NEG Urine Urobilinogen NEG NEG Urine Leukocyte Esterase MODERATE NEG Urine WBC (Auto) 10-30 0-5 /hpf Urine RBC (Auto) 0-4 0-4 /hpf Urine Hyaline Casts (Auto) 1-5 0-5 /lpf Urine Epithelial Cells (Auto) >30 0-5 /lpf Urine Bacteria (Auto) 1+ NEG Urine Renal Epithelial Cells 0-5 /lpf Urine Pathogenic Casts 0 /lpf White Blood Count 4.86 4.8-10.8 K/uL Red Blood Count 4.06 4.2-5.4 M/uL Hemoglobin 11.9 12.0-16.0 g/dL Hematocrit 35.7 37-47 % Mean Corpuscular Volume 87.9 80-100 fL Mean Corpuscular Hemoglobin 29.3 25-34 pg Mean Corpuscular Hemoglobin Concent 33.3 32-36 g/dl Platelet Count 95 130-400 K/uL Mean Platelet Volume 11.1 7.4-10.4 fL Neutrophils (%) (Auto) 64.4 % Lymphocytes (%) (Auto) 27.6 % Monocytes (%) (Auto) 7.0 % Eosinophils (%) (Auto) 0.6 % Basophils (%) (Auto) 0.2 % Neutrophils # (Auto) 3.13 1.4-6.5 K/uL Lymphocytes # (Auto) 1.34 1.2-3.4 K/uL Monocytes # (Auto) 0.34 0.11-0.59 K/uL Eosinophils # (Auto) 0.03 0-0.5 K/uL Basophils # (Auto) 0.01 0-0.2 K/uL RDW Standard Deviation 51.8 36.4-46.3 fL RDW Coefficient of Variation 16.2 11.5-14.5 % Immature Granulocyte % (Auto) 0.2 % Immature Granulocyte # (Auto) 0.01 0.00-0.02 K/uL Sodium Level 140 136-145 mmol/L Potassium Level 3.8 3.5-5.1 mmol/L Chloride Level 100 98-107 mmol/L Carbon Dioxide Level 25 21-32 mmol/L Anion Gap 15.0 3-11 mmol/L Blood Urea Nitrogen 13 7-18 mg/dl Creatinine 1.10 0.60-1.20 mg/dl Est Creatinine Clear Calc Drug Dose 40.8 ml/min Estimated GFR () 58.9 Estimated GFR (Non- 50.8 BUN/Creatinine Ratio 12.1 10-20 Random Glucose 149 70-99 mg/dl Calcium Level 9.2 8.5-10.1 mg/dl Total Bilirubin 1.2 0.2-1 mg/dl Aspartate Amino Transf (AST/SGOT) 48 15-37 U/L Alanine Aminotransferase (ALT/SGPT) 41 12-78 U/L Alkaline Phosphatase 114 45-117 U/L Total Creatine Kinase 177 26-192 U/L Creatine Kinase MB 3.9 0.5-3.6 ng/ml Creatine Kinase MB Ratio 2.2 0-3.0 Pro-B-Type Natriuretic Peptide 223 0-900 pg/ml Total Protein 7.0 6.4-8.2 gm/dl Albumin 3.6 3.4-5.0 gm/dl Globulin 3.4 2.5-4.0 gm/dl Albumin/Globulin Ratio 1.1 0.9-2 Thyroid Stimulating Hormone (TSH) 0.060 0.300-4.500 uIu/ml Bedside Troponin I 0.000 0-0.045 ng/ml Bedside Lactic Acid Venous 2.63 0.90-1.70 mmol/L Microbiology Results 01/23/17 Blood Culture, Received Pending 01/23/17 Blood Culture, Received Pending 01/23/17 Urine Culture, Received Pending Diagnostic Radiology CHEST ONE VIEW PORTABLE CLINICAL HISTORY: Weakness. Hypotension. COMPARISON STUDY: Chest radiograph every 2016. FINDINGS: Surgical clips within the right neck are noted as well as a cervical spine fusion. There is no pneumothorax or pleural effusion. Mild cardiomegaly is unchanged. There is pulmonary vascular congestion with possible mild pulmonary edema. There is no consolidation. IMPRESSION: Pulmonary vascular congestion with possible mild pulmonary edema. Electronically signed by: Stoney Lovelace M.D. 01/23/2017 5:57 PM Dictated Date/Time: 01/23/2017 5:56 PM The status of this report is Signed. Draft = Not yet reviewed or approved by Radiologist. Signed = Reviewed and approved by Radiologist. EKG ARIANE GU ID:[id number] 23-JAN-2017 17:26:16 [facility] Sinus rhythm with Premature atrial complexes Right bundle branch block Left anterior fascicular block Bifascicular block Abnormal ECG When compared with ECG of 29-DEC-2016 18:50, Premature atrial complexes are now Present 25mm/s 10mm/mV 150Hz 8.0 SP2 12SL 241 HD YOUSUF: 12 Referred by: Unconfirmed Vent. 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 Acute exacerbation of chronic COPD, possible early sepsis: - Admit to tele for cardiac monitoring - IV Daptomycin and Imipenem--> must consult ID w/ antibiotic choice - IV Solu-Medrol 80 mg q8 hrs - Continue home inhalers - DuoNebs QID and q2 hrs PRN - IV NSS @ 100 ml/hr - CXR- pulmonary vascular congestion w/ possible mild pulmonary edema. Repeat tomorrow AM - Repeat lactic acid - Sputum culture - Check rapid flu - Pending blood cultures - Follow CBC and PRP UTI: U/A dirty, pending urine culture. Coverage with above antibiotics Diarrhea: check stool culture and c.diff CAD: Continue ASA. Hold Metoprolol 12.5 mg PO HS due to hypotension. Patient is tachycardiac- will add IV Lopressor 5 mg q6 hrs PRN for HR >100 Bilateral lower extremity swelling: Hold Lasix 20 mg PO 4XWK due to hypotension -- ECHO 01/11- EF 55-60%, severe , mild LVH, mild mitral MS and MR, moderate TR-- > patient has follow-up for severe on 02/04 w/ Dr. Caal Hypotension, chronically low (baseline ~85-90/55-65): Treat with IV NSS. Check orthostatic BPs. T2DM: Hold Metformin, continue Levemir 40 u HS. BSG ACHS with sliding insulin scale Hyperlipidemia: Continue Atorvastatin 10 mg PO HS Elevated LFTs, ?secondary to WATERS liver cirrhosis: Follow CMP Anemia, stable: Continue Ferrous Sulfate 325 mg PO daily, follow CBC Thrombocytopenia: Appears chronic, stable. Follow CBC Depression: Continue Lexapro and Ativan PRN Tobacco abuse: Smoke +10 cigs per day, smoking cessation counselling GERD: Protonix daily GI Prophylaxis: Maalox PRN, IV Zofran PRN, Colace and/or Milk of Mag PRN DVT prophylaxis: GYPSY and SCDs Code Status: LEVEL I, FULL Dispo: From home, lives alone Level of Care Telemetry Resuscitation Status FULL RESUSCITATION VTE Prophylaxis Given or contraindicated: T.E.D. Stockings, SCD's
[2017-01-23 19:53] VITALS: BMI 31.6
[2017-01-23] MEDS ORDERED: ACETAMINOPHEN 325 MG TAB PO PRN (20:00)
[2017-01-23] MEDS ORDERED: POLYETHYLENE (MIRALAX) 17 GM PACK PO PRN (20:00)
[2017-01-23] MEDS ORDERED: ALBUTEROL HFA 8 GM INHALER INH PRN (20:00)
[2017-01-23] MEDS ORDERED: MAGNESIUM HYDROXIDE SUSP 30 ML UDC PO PRN (20:00)
[2017-01-23] MEDS ORDERED: ONDANSETRON INJ 2 MG/ML 2 ML VIAL IV PRN (20:00)
[2017-01-23] MEDS ORDERED: METOPROLOL TARTRATE 1 MG/ML VIAL IV PRN (20:00)
[2017-01-23] MEDS ORDERED: ALUMINUM/MAGNESIUM/SIMETH (MAALOX MAX) 30 ML UDC PO PRN (20:00)
[2017-01-23] MEDS ORDERED: NITROGLYCERIN 0.4 MG SL PER TAB CHARGE SL PRN (20:00)
[2017-01-23 21:00] VITALS: BP 84/61; PULSE 103; TEMP 36.5; O2SAT 99
[2017-01-23] MEDS: ALBUT/IPRATROP 3MG/0.5MG NEB 3 ML VIAL INH SCH (21:00)
[2017-01-23] MEDS ORDERED: VANCOMYCIN INJ 1,800 MG in SODIUM CHLORIDE 0.9% 500ML 500 ML IV ONE (21:30)
[2017-01-23] MEDS ORDERED: VANCOMYCIN CONSULT ACTIVE PRN (21:30)
--- NOTE | 2017-01-23 21:40 | EMERGENCY ROOM VISIT NOTE ---
History Report prepared by Latia: Stephanie Mcgill Under the Supervision of: Dr. Manish Lorenzana M.D. First contact with patient: 17:32 Chief Complaint: WEAKNESS Stated Complaint: DIZZY, WEAK, LIGHTHEADED Nursing Triage Summary: Pt states sent by Dr. Ryan for eval of weakness, dizzy, lightheaded. Pt states, "I'm ok, but when I sit up it's terrible. I have tingling in my fingers. My blood pressure has been low. Yesterday I was at pain mgmt and it was 74/40. My eyes are so funny. It feels like my eyeballs are going to pop out." Sx x 2 weeks. History of Present Illness The patient is a 71 year old female who presents to the Emergency Room with complaints of worsening generalized weakness that started two weeks ago. The patient was sent to the ED by her PCP for an evaluation of her symptoms. She is also experiencing dizziness, lightheadedness, shortness of breath, and tingling in her bilateral hands. Her symptoms are worse with movement. The patient states that she has also been experiencing diarrhea for the past couple of months. Pt denies LOC, headache, fevers, chills, diaphoresis, visual changes, neck pain, chest pain, nausea, vomiting, back pain, melena, hematochezia, urinary symptoms, lower extremity edema, lymphadenopathy, rash, or other complaints. The patient is also experiencing hypotension and states that her blood pressure typically is anywhere from 90-100 systolically and 50-60 diastolically. The patient states that she had an echocardiogram done 3 weeks ago and she was diagnosed with aortic stenosis. The patient has 3 stents in her heart. She denies any steroid use in the last two weeks. Source of History: patient Onset: two weeks ago Position: other (global) Quality: other (generalized weakness) Timing: worsening Modifying Factors (Worsening): movement Associated Symptoms: + SOB, + diarrhea Note: dizziness, lightheadedness, tingling in her bilateral hands Review of Systems See HPI for pertinent positives and negatives. A total of ten systems were reviewed and were otherwise negative. 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 Surgical Problems: (1) H/O cardiac catheterization (2) Heart stents (3) History of back surgery (4) S/P cholecystectomy Family History Diabetes mellitus FH: cancer FH: heart disease Hypertension Kidney disease Kidney stones Social History Smoking Status: Current Every Day Smoker Alcohol Use: none Marital Status: Housing Status: lives with family Occupation Status: unemployed Current/Historical Medications Scheduled Aspirin (Aspirin Ec), 81 MG PO Q2D Atorvastatin (Atorvastatin Calcium), 10 MG PO HS Cholecalciferol (Vitamin D 1000 Unit), 1,000 INTER.UNIT PO QAM Clobetasol Propionate (Clobetasol Propionate), 1 APPLN TOP BID Escitalopram Oxalate (Lexapro), 20 MG PO QAM Ferrous Sulfate (Ferrous Sulfate), 325 MG PO QAM Gabapentin (Gabapentin), 600 MG PO TID Insulin Aspart (Novolog Flexpen), 0 SQ BIDM Insulin Detemir (Levemir Flextouch), 40 UNITS SQ HS Magnesium Oxide (Mag-Ox), 400 MG PO BID Metformin Hcl (Glucophage), 1,000 MG PO BID Metoprolol Succ (Toprol Xl) (Toprol-Xl), 12.5 MG PO HS Omeprazole (Prilosec), 40 MG PO QAM Ondasetron Odt (Zofran Odt), 4 MG SL Q6H Oxycodone Hcl (Oxycodone Hcl), 15 MG PO BID Oxygen (Oxygen), 2 LITERS NA CONTINOUS Tiotropium [place] (Spiriva Handihaler), 2 PUFFS INH BID Trazodone Hcl (Trazodone), 100 MG PO HS Scheduled PRN Albuterol Hfa (Ventolin Hfa), 2-4 PUFFS INH Q6H PRN for Shortness of Breath Alum & Mag Hydrox-Simethicone (Mylanta Double-Strength), 1 TBS PO bid between meals PRN for Indigestion Furosemide (Lasix), 20 MG PO 4XWK PRN for SWELLING Ipratropium-Albuterol (Duoneb), 1 TREATMENT INH Q4H PRN for SOB/Wheezing Lorazepam (Lorazepam), 0.5 MG PO Q6 PRN for Anxiety Allergies Coded Allergies: Iodinated Diagnostic Agents (Verified Allergy, Intermediate, RASH TO IVP DYE, 01/23/17) Adhesives (Verified Allergy, Unknown, rash, 01/23/17) Latex1 -Allergic Contact Dermititis (Verified Allergy, Unknown, RASH, ) Sulfa Antibiotics (Verified Allergy, Unknown, unknown, 01/23/17) Physical Exam Vital Signs Date Time Temp Pulse Resp B/P Pulse Ox O2 Delivery O2 Flow Rate FiO2 01/23/17 20:12 105 18 82/63 97 Nasal Cannula 2.0 01/23/17 19:55 101 20 98 Nasal Cannula 2.0 01/23/17 19:53 Nasal Cannula 2.0 01/23/17 19:50 101/60 01/23/17 19:45 101 14 98 01/23/17 19:40 79/61 01/23/17 19:35 95 98 01/23/17 19:30 80/51 01/23/17 19:25 96 19 98 01/23/17 19:22 70/55 01/23/17 19:21 75/ 01/23/17 19:15 94 18 75/56 99 Nasal Cannula 2.0 01/23/17 19:15 97 20 98 01/23/17 18:50 99 20 71/49 97 Room Air 01/23/17 18:12 96 16 97 Nasal Cannula 4.0 01/23/17 17:59 91 28 98 01/23/17 17:54 93 20 98 01/23/17 17:49 95 23 01/23/17 17:48 72/51 01/23/17 17:44 102 22 90 01/23/17 17:39 96 25 97 01/23/17 17:34 96 20 97 01/23/17 17:32 97 01/23/17 17:31 92 Room Air 01/23/17 17:29 95 17 96 01/23/17 17:28 56/42 01/23/17 17:24 97 22 72/55 94 01/23/17 17:19 102 19 95 01/23/17 17:12 63/43 01/23/17 16:35 37.2 98 18 79/44 95 Room Air Physical Exam GENERAL: Awake, alert, tired-appearing, in no distress HENT: Normocephalic, atraumatic. Oropharynx unremarkable. EYES: Normal conjunctiva. Sclera non-icteric. NECK: Supple. No nuchal rigidity. FROM. No JVD. RESPIRATORY: Expiratory wheezes. CARDIAC: Borderline tachycardic rate, normal rhythm. Extremities warm and well perfused. Pulses equal. ABDOMEN: Soft, non-distended. No tenderness to palpation. No rebound or guarding. No masses. RECTAL: Deferred. MUSCULOSKELETAL: Chest examination reveals no tenderness. The back is symmetrical on inspection without obvious abnormality. There is no CVA tenderness to palpation. No joint edema. LOWER EXTREMITIES: Calves are equal size bilaterally and non-tender. No edema. No discoloration. NEURO: Normal sensorium. No sensory or motor deficits noted. SKIN: No rash or jaundice noted. Medical Decision & Procedures ER Provider Diagnostic Interpretation: X ray results as stated below per my interpretation and radiologist interpretation. CHEST ONE VIEW PORTABLE IMPRESSION: Pulmonary vascular congestion with possible mild pulmonary edema. Electronically signed by: Stoney Lovelace M.D. 01/23/2017 5:57 PM Dictated Date/Time: 01/23/2017 5:56 PM Laboratory Results 01/23/17 17:20 Red Blood Count 4.06, Mean Corpuscular Volume 87.9, Mean Corpuscular Hemoglobin 29.3, Mean Corpuscular Hemoglobin Concent 33.3, Mean Platelet Volume 11.1, Neutrophils (%) (Auto) 64.4, Lymphocytes (%) (Auto) 27.6, Monocytes (%) (Auto) 7.0, Eosinophils (%) (Auto) 0.6, Basophils (%) (Auto) 0.2, Neutrophils # (Auto) 3.13, Lymphocytes # (Auto) 1.34, Monocytes # (Auto) 0.34, Eosinophils # (Auto) 0.03, Basophils # (Auto) 0.01 01/23/17 17:20 Test 01/23/17 00:00 01/23/17 17:20 01/23/17 17:42 01/23/17 17:50 Urine Color ORANGE Urine Appearance CLOUDY (CLEAR) Urine pH 5.0 (4.5-7.5) Urine Specific [place] 1.028 (1.000-1.030) Urine Protein TRACE (NEG) Urine Glucose (UA) NEG (NEG) Urine Ketones TRACE (NEG) Urine Occult Blood NEG (NEG) Urine Nitrite POS (NEG) Urine Bilirubin NEG (NEG) Urine Urobilinogen NEG (NEG) Urine Leukocyte Esterase MODERATE (NEG) Urine WBC (Auto) 10-30 /hpf (0-5) Urine RBC (Auto) 0-4 /hpf (0-4) Urine Hyaline Casts (Auto) 1-5 /lpf (0-5) Urine Epithelial Cells (Auto) >30 /lpf (0-5) Urine Bacteria (Auto) 1+ (NEG) Urine Renal Epithelial Cells /lpf (0-5) Urine Pathogenic Casts /lpf (0) White Blood Count 4.86 K/uL (4.8-10.8) Red Blood Count 4.06 M/uL (4.2-5.4) Hemoglobin 11.9 g/dL (12.0-16.0) Hematocrit 35.7 % (37-47) Mean Corpuscular Volume 87.9 fL (80-100) Mean Corpuscular Hemoglobin 29.3 pg (25-34) Mean Corpuscular Hemoglobin Concent 33.3 g/dl (32-36) Platelet Count 95 K/uL (130-400) Mean Platelet Volume 11.1 fL (7.4-10.4) Neutrophils (%) (Auto) 64.4 % Lymphocytes (%) (Auto) 27.6 % Monocytes (%) (Auto) 7.0 % Eosinophils (%) (Auto) 0.6 % Basophils (%) (Auto) 0.2 % Neutrophils # (Auto) 3.13 K/uL (1.4-6.5) Lymphocytes # (Auto) 1.34 K/uL (1.2-3.4) Monocytes # (Auto) 0.34 K/uL (0.11-0.59) Eosinophils # (Auto) 0.03 K/uL (0-0.5) Basophils # (Auto) 0.01 K/uL (0-0.2) RDW Standard Deviation 51.8 fL (36.4-46.3) RDW Coefficient of Variation 16.2 % (11.5-14.5) Immature Granulocyte % (Auto) 0.2 % Immature Granulocyte # (Auto) 0.01 K/uL (0.00-0.02) Anion Gap 15.0 mmol/L (3-11) Est Creatinine Clear Calc Drug Dose 40.8 ml/min Estimated GFR () 58.9 Estimated GFR (Non- 50.8 BUN/Creatinine Ratio 12.1 (10-20) Calcium Level 9.2 mg/dl (8.5-10.1) Total Bilirubin 1.2 mg/dl (0.2-1) Aspartate Amino Transf (AST/SGOT) 48 U/L (15-37) Alanine Aminotransferase (ALT/SGPT) 41 U/L (12-78) Alkaline Phosphatase 114 U/L (45-117) Total Creatine Kinase 177 U/L (26-192) Creatine Kinase MB 3.9 ng/ml (0.5-3.6) Creatine Kinase MB Ratio 2.2 (0-3.0) Pro-B-Type Natriuretic Peptide 223 pg/ml (0-900) Total Protein 7.0 gm/dl (6.4-8.2) Albumin 3.6 gm/dl (3.4-5.0) Globulin 3.4 gm/dl (2.5-4.0) Albumin/Globulin Ratio 1.1 (0.9-2) Thyroid Stimulating Hormone (TSH) 0.060 uIu/ml (0.300-4.500) Bedside Troponin I 0.000 ng/ml (0-0.045) Bedside Lactic Acid Venous 2.63 mmol/L (0.90-1.70) Laboratory results reviewed by me Medications Administered Medications (Trade) Dose Ordered Sig/Diego Route Start Time Stop Time Status Last Admin Dose Admin Sodium Chloride 500 ml @ 999 mls/hr Q31M STAT IV 01/23/17 17:28 01/23/17 17:58 DC 01/23/17 17:38 999 MLS/HR Sodium Chloride 1,000 ml @ 200 mls/hr Q5H STAT IV 01/23/17 17:34 01/23/17 21:00 DC 01/23/17 18:08 200 MLS/HR Sodium Chloride (Nss 500ml) 500 ml @ 999 mls/hr Q31M STAT IV 01/23/17 17:34 01/23/17 18:04 DC 01/23/17 17:56 999 MLS/HR Levalbuterol (Xopenex 1.25MG/ 3ML Neb) 1.25 mg NOW STAT INH 01/23/17 17:38 01/23/17 17:40 DC 01/23/17 18:12 1.25 MG Methylprednisolone Sodium Succinate 125 mg 125 mg NOW STAT IV 01/23/17 17:38 01/23/17 17:40 DC 01/23/17 18:04 125 MG Sodium Chloride 1,000 ml @ 999 mls/hr Q1H1M STAT IV 01/23/17 18:47 01/23/17 19:47 DC 01/23/17 18:54 999 MLS/HR Daptomycin 500 mg/ Sodium Chloride 60 ml @ 100 mls/hr NOW STAT IV 01/23/17 18:47 01/23/17 19:22 DC 01/23/17 19:26 100 MLS/HR Imipenem/ Cilastatin Sodium/ Dextrose (Primaxin Iv/D5 100ml) 110 ml @ 100 mls/hr NOW STAT IV 01/23/17 18:47 01/23/17 19:52 DC 01/23/17 19:26 100 MLS/HR ECG Indication: weakness Rate (beats per minute): 97 Rhythm: sinus rhythm Findings: PAC, RBBB, no acute ischemic change, no ectopy, other (left anterior fascicular block) ED Course 1728: Ordered Sodium Chloride 500 ml @ 999 mls/hr IV 1732: The patient was evaluated in room C1. A complete history and physical exam was performed. 1734: Ordered Sodium Chloride 500 ml @ 999 mls/hr IV, Sodium Chloride 1000 ml @ 200 mls/hr IV 1738: Ordered Solu-Medrol IV 125 mg IV, Levalbuterol 1.25 mg INH 1847: Ordered Imipenem/Cilastatin Sodium 500 mg/Dextrose 110 ml @ 100 mls/hr IV , Daptomycin 500 mg/Sodium Chloride 60 ml @ 100 mls/hr, Sodium Chloride 1000 ml @ 999 mls/hr IV 1851: Upon reexamination, the patient was resting comfortably. I discussed the test results and treatment plan with her. The patient will be evaluated for further management. 1899: Discussed the patient's case with Dr. Manda HOFFMAN. The patient will be evaluated for further treatment and disposition. Medical Decision Triage Nursing notes reviewed. The patient's presentation and history were concerning for weakness. Etiologies such as metabolic, infection, hypo/hyperglycemia, electrolyte abnormalities, cardiac sources, intracerebral event, toxicologic, neurologic, as well as others were entertained. The patient was evaluated. She was wheezing. She was given Xopenex and Solu- Medrol. Chest x-ray was performed. There is no infiltrate noted. Some mild vascular congestion was noted. The patient had a mild anemia on CBC. Her blood pressure was low and she was given normal saline boluses. Urinalysis was concerning for infection. The patient did have an elevated lactate. There was no leukocytosis present or fever present. ProBNP and cardiac markers were negative. TSH was mildly low. The patient was treated with IV daptomycin and imipenem concerning for sepsis. Record review indicates the patient has had quite low blood pressures in the past but never in the 50s. She had normal mental status and was tolerating it remarkably well. She will need further evaluation and management in the hospital. Consultation was made with internal medicine. The patient was evaluated in the Emergency Room and admitted for further treatment. The chart was completed utilizing [employer] Speech voice recognition software. Grammatical errors, random word insertions, pronoun errors, and incomplete sentences are an occasional consequence of this system due to software limitations, ambient noise, and hardware issues. Any formal questions or concerns about the content, text, or information contained within the body of this dictation should be directly addressed to the physician for clarification. Consults Time Called: 1854 Consulting Physician: Dr. Manda HOFFMAN Returned Call: [id number] Discussed the patient's case with Dr. Manda HFOFMAN. The patient will be evaluated for further treatment and disposition. Impression Primary Impression: Hypotension Additional Impressions: UTI (urinary tract infection) COPD (chronic obstructive pulmonary disease) Scribe Attestation The scribe's documentation has been prepared under my direction and personally reviewed by me in its entirety. I confirm that the note above accurately reflects all work, treatment, procedures, and medical decision making performed by me. Departure Information Dispostion Being Evaluated By Hospitalist Referrals No Doctor, Assigned (PCP) Patient Instructions My [facility] Problem Qualifiers Primary Impression: Hypotension Hypotension type: unspecified hypotension type Qualified Codes: I95.9 - Hypotension, unspecified Additional Impressions: UTI (urinary tract infection) Urinary tract infection type: site unspecified Hematuria presence: without hematuria Qualified Codes: N39.0 - Urinary tract infection, site not specified COPD (chronic obstructive pulmonary disease) COPD type: unspecified COPD Qualified Codes: J44.9 - Chronic obstructive pulmonary disease, unspecified
[2017-01-23] MEDS: TRAZODONE HCL 100 MG TAB PO SCH (22:30)
[2017-01-23] MEDS: MAGNESIUM OXIDE 400 MG TAB PO SCH (22:30)
[2017-01-23] MEDS: GABAPENTIN 600 MG TAB PO SCH (22:30)
[2017-01-23] MEDS: ATORVASTATIN 10 MG TAB PO SCH (22:31)
[2017-01-23] MEDS: LORAZEPAM 0.5 MG TAB PO PRN (22:32)
[2017-01-23] MEDS: SODIUM CHLORIDE 0.9% 1000ML 1,000 ML IV SCH (22:34)
[2017-01-23] MEDS: INSULIN ASPART 100 UNITS/ML 3 ML PEN SC SCH (22:42)
[2017-01-23] MEDS: INSULIN DETEMIR FLEXPEN/FLEX TOUCH 100 UNITS/ML 3ML SQ SCH (22:43)
[2017-01-23 23:36] VITALS: BP 92/54; PULSE 108; TEMP 36.5; O2SAT 98
[2017-01-24] VITALS (9 sets, daily range): BP systolic 90–130; BP diastolic 50–78; PULSE 80–124; TEMP 36.4–36.9; O2SAT 95–99; BMI 34.4
[2017-01-24] MEDS: METHYLPREDNISOLONE IV 80 MG in SYRINGE 0 ML IV SCH ×3 (01:36→17:03)
[2017-01-24] MEDS: IMIPENEM-CILASTATIN 250 MG in DEXTROSE 5% 100ML 100 ML IV SCH ×2 (01:36→07:59)
[2017-01-24] MEDS: ALBUT/IPRATROP 3MG/0.5MG NEB 3 ML VIAL INH SCH ×4 (07:31→19:32)
[2017-01-24] MEDS: FERROUS SULFATE 325 MG TAB PO SCH (07:59)
[2017-01-24] MEDS: MAGNESIUM OXIDE 400 MG TAB PO SCH ×2 (07:59→19:18)
[2017-01-24] MEDS: CHOLECALCIFEROL 1000 INTER.UNIT TAB PO SCH (07:59)
[2017-01-24] MEDS: PANTOprazole SOD 40 MG TAB PO SCH (07:59)
[2017-01-24] MEDS: ESCITALOPRAM OXALATE 20 MG TAB PO SCH (07:59)
[2017-01-24] MEDS: GABAPENTIN 600 MG TAB PO SCH ×3 (07:59→19:18)
[2017-01-24] MEDS ORDERED: PNEUMOCOCCAL ADMINISTRATION CHARGE ONE (08:00)
[2017-01-24] MEDS: TIOTROPIUM BROMIDE 5 PUFF/90 MCG INH INH SCH (08:00)
[2017-01-24] MEDS ORDERED: PNEUMOCOCCAL POLYSACCHARIDES 25 MCG/0.5 ML VIAL/SYR IM. ONE (08:00)
[2017-01-24 08:06] LABS: HEMATOCRIT 29.9 % (37-47); MEAN CORPUSCULAR HEMOGLOBIN 29.8 pg (25-34); MEAN CORPUSCULAR HGB CONC 33.4 g/dl (32-36); MEAN PLATELET VOLUME 12.1 fL (7.4-10.4); PLATELET COUNT 74 K/uL (130-400); RED BLOOD COUNT 3.36 M/uL (4.2-5.4); WHITE BLOOD COUNT 1.98 K/uL (4.8-10.8)
[2017-01-24] MEDS: INSULIN ASPART 100 UNITS/ML 3 ML PEN SC SCH ×4 (08:56→19:31)
[2017-01-24 08:58] LABS: ALB/GLOB RATIO 0.9 (0.9-2); BUN/CREATININE RATIO 14.4 (10-20); CREATININE 0.88 mg/dl (0.60-1.20); MAGNESIUM 1.7 mg/dl (1.8-2.4)
[2017-01-24] MEDS ORDERED: SODIUM CHLORIDE 0.9% IV SCH (09:00)
[2017-01-24] MEDS ORDERED: DAPTOMYCIN IV SCH (09:00)
[2017-01-24 09:14] LABS: BETA-HYDROXYBUTYRATE 2.85 mg/dL (0.2-2.81)
[2017-01-24 09:19] LABS: POTASSIUM 4.5 mmol/L (3.5-5.1)
[2017-01-24 09:20] LABS: CALCIUM 7.7 mg/dl (8.5-10.1)
--- NOTE | 2017-01-24 09:39 | Pharmacy Progress Note ---
Pharmacy Antibiotic Consult Date of Service: Jan 24, 2017. Pharmacy Dosing Scope Pharmacy is consulted to initiate vancomycin IV dosing therapy, order appropriate labs and adjust drug dose/frequency. Subjective The patient is a 71 year old female admitted on Jan 23, 2017 at 20:17. Objective Height (Feet): 4 Height (Inches): 11.00 Weight (Kilograms): 77.200 Lab Results (24hrs): Laboratory Tests Test 01/23/17 17:20 01/24/17 07:20 BUN/Creatinine Ratio 12.1 14.4 Blood Urea Nitrogen 13 mg/dl 13 mg/dl Creatinine 1.10 mg/dl 0.88 mg/dl White Blood Count 4.86 K/uL 1.98 K/uL Red Blood Count 4.06 M/uL Hemoglobin 11.9 g/dL Hematocrit 35.7 % Mean Corpuscular Volume 87.9 fL Mean Corpuscular Hemoglobin 29.3 pg Mean Corpuscular Hemoglobin Concent 33.3 g/dl Platelet Count 95 K/uL Mean Platelet Volume 11.1 fL Neutrophils (%) (Auto) 64.4 % Lymphocytes (%) (Auto) 27.6 % Monocytes (%) (Auto) 7.0 % Eosinophils (%) (Auto) 0.6 % Basophils (%) (Auto) 0.2 % Neutrophils # (Auto) 3.13 K/uL Lymphocytes # (Auto) 1.34 K/uL Monocytes # (Auto) 0.34 K/uL Eosinophils # (Auto) 0.03 K/uL Basophils # (Auto) 0.01 K/uL Micro Results: Item Value Date Time Blood Culture Received 01/23/17 1748 Blood Pending Blood Culture Received 01/23/17 1745 Blood Pending Urine Culture Received 01/23/17 0000 Urine , Clean Catch Pending Assessment & Plan Patient started on vancomycin and imipenem/cilastatin (not consult) for possible PNA infection/COPD exacerbation vs. UTI. BC x 2 ordered and UC ordered. ID is consulted to follow patient. Vancomycin: * LD of 1800 mg (~23 mg/kg) given x 1 * Will order MD of 900 mg (~12 mg/kg) iv q 18 hrs to achieve an estimated trough of ~19 mcg/ml (goal for PNA/UTI) * Estimated kinetics: t1/2~15 hrs, ke~0.049 hr-1, CrCl ~0.88 ; appears to be around baseline Scr * Will order trough prior to the 0400 dose on 01/26 to ensure therapeutic Pharmacy will continue to follow and will adjust dose/frequency as necessary. Thank you
[2017-01-24] MEDS ORDERED: PHARMACY GLYCEMIC MGMT CONSULT PRN (10:29)
[2017-01-24] MEDS ORDERED: MAGNESIUM OXIDE 400 MG TAB PO ONE (10:30)
[2017-01-24] MEDS ORDERED: NURSING VERBAL MED ORDER ONE ×2 (10:30→19:00)
--- NOTE | 2017-01-24 10:53 | Medical Consult ---
Consultation Date of Consultation: Jan 24, 2017. Attending Physician: Reg Holman MD, PhD Reason for Consultation: Sepsis History of Present Illness Patient is a 71 yo female with extensive medical history including COPD, DM, CAD , and anemia among other chronic diseases listed below in PMH. Patient is very lethargic this morning and answers very limited number of questions, so majority of history taken from previous records. She presented tot he ED with complaints of weakness for 2 weeks. She had been feeling fatigued and dizzy since her last admission at the beginning of December. She was discharged home with PO Levaquin following her last admission. She did improve initially but then started to feel above symptoms. Since current admission, WBC count this morning is 1.98. Hgb is 10.0. Procalcitonin ordered by Dr. Dodd this morning and was <0.05. Glucose has been elevated. Blood cultures and urine culture pending. CXR showed pulmonary vascular congestion with possible mild pulmonary edema. Stool culture and C. Diff toxin are pending. Past Medical/Surgical History Medical Problems: (1) Chest pain Status: Acute (2) COPD (chronic obstructive pulmonary disease) Status: Acute (3) COPD exacerbation Status: Acute (4) COPD exacerbation Status: Acute (5) Foot contusion Status: Acute (6) Hyperglycemia Status: Acute (7) Hypotension Status: Acute (8) Hypotension Status: Acute (9) Nausea Status: Acute (10) Positive D dimer Status: Acute (11) Psoriasis Status: Acute (12) Respiratory distress Status: Acute (13) UTI (urinary tract infection) Status: Acute Medical Problems: (1) Ascites (2) Asthma, Unspecified (3) COPD exacerbation (4) Coronary Atherosclerosis Of Platinum Coronary Vessel (5) Depressive Disorder Nec (6) Diabetes mellitus type 2, uncontrolled (7) Elevated troponin (8) Esophageal Reflux (9) Hypertension Nos (10) 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 (11) Pneumonia (12) Pure Hypercholesterolem (13) Shortness of breath (14) SOB (shortness of breath) (15) Thrombocytopenia Nos (16) Vertebral Artery Syndrom Surgical Problems: (1) H/O cardiac catheterization (2) Heart stents (3) History of back surgery (4) S/P cholecystectomy Family History Diabetes mellitus FH: cancer FH: heart disease Hypertension Kidney disease Kidney stones Noncontributory Social History Smoking Status: Current Every Day Smoker Marital Status: Housing Status: lives with family Occupation Status: unemployed Allergies Coded Allergies: Iodinated Diagnostic Agents (Verified Allergy, Intermediate, RASH TO IVP DYE, 01/23/17) Adhesives (Verified Allergy, Unknown, rash, 01/23/17) Latex1 -Allergic Contact Dermititis (Verified Allergy, Unknown, RASH, ) Sulfa Antibiotics (Verified Allergy, Unknown, unknown, 01/23/17) Home Medications Reported Home Medications Medications Dose Route/Sig Max Daily Dose Days Date Category Dose Instructions Ferrous Sulfate 325 Mg Tab 325 Mg PO QAM 01/23/17 Reported Duoneb (Ipratropium-Albuterol) 3 Ml Nebu 1 Treatment INH Q4H PRN 01/23/17 Reported Clobetasol Propionate 45 Appln/15 Gm Oint 1 Appln TOP BID 30 01/23/17 Reported Glucophage (Metformin Hcl) 1,000 Mg Tab 1,000 Mg PO BID 01/23/17 Reported Oxycodone Hcl 15 Mg Tab 15 Mg PO BID 01/23/17 Reported Lorazepam 0.5 Mg Tab 0.5 Mg PO Q6 PRN 01/01/17 Rx Ventolin Hfa (Albuterol) 200 Puffs/18790 Mcg Aers 2-4 Puffs INH Q6H PRN 12/29/16 Reported Spiriva Handihaler (Tiotropium [place]) 5 Puff/90 Mcg Aerp 2 Puffs INH BID 12/29/16 Reported Zofran Odt (Ondansetron HCl) 4 Mg Tab 4 Mg SL Q6H 11/28/16 Rx Gabapentin 600 Mg Tab 600 Mg PO TID 11/28/16 Reported Prilosec (Omeprazole) 40 Mg Cap 40 Mg PO QAM 11/28/16 Reported Oxygen Gas 2 Liters NA CONTINOUS 08/27/16 Rx Novolog Flexpen (Insulin Aspart) 100 Units/Ml Inj 0 SQ BIDM 08/26/16 Reported 20 UNITS W/LUNCH, 25 UNITS W/SUPPER ALSO SLIDING SCALE Levemir Flextouch (Insulin Detemir) 100 Unit/Ml Inj 40 Units SQ HS 08/26/16 Reported Toprol-Xl (Metoprolol Succinate) 25 Mg Tabcr 12.5 Mg PO HS 03/28/16 Reported Lasix (Furosemide) 20 Mg Tab 20 Mg PO 4XWK PRN 02/29/16 Reported TAKE SUN, MON, WED, FRI. DAYS WHEN NOT TAKING SPIRONALACTONE. Mag-Ox (Magnesium Oxide) 400 Mg Tab 400 Mg PO BID 02/29/16 Reported Lexapro (Escitalopram Oxalate) 20 Mg Tab 20 Mg PO QAM 01/02/16 Reported Trazodone (Trazodone HCl) 100 Mg Tab 100 Mg PO HS 01/02/16 Reported Mylanta Double-Strength (Alum & Mag Hydrox-Simethicone) 1 Jelly Jelly 1 Tbs PO BID BETWEEN MEALS PRN 01/02/16 Reported Atorvastatin Calcium (Atorvastatin) 10 Mg Tab 10 Mg PO HS 11/01/14 Reported Vitamin D 1000 Unit (Cholecalciferol) 1,000 Unit Cap 1,000 Inter.unit PO QAM 04/25/14 Reported Aspirin Ec (Aspirin) 81 Mg Tab 81 Mg PO Q2D 04/25/14 Reported Current Inpatient Medications Current Inpatient Medications Medications (Trade) Dose Ordered Sig/Diego Route Start Time Stop Time Status Last Admin Dose Admin Sodium Chloride (Nss 1000ml) 1,000 ml @ 80 mls/hr [id number] IV 01/23/17 21:00 01/23/17 22:34 80 MLS/HR Acetaminophen (Tylenol Tab) 650 mg Q4H PRN PO 01/23/17 20:00 02/22/17 19:59 Al Hydrox/Mg Hydrox/Simethicone (Maalox Max Susp) 15 ml Q4H PRN PO 01/23/17 20:00 02/22/17 19:59 Magnesium Hydroxide (Milk Of Magnesia Susp) 30 ml Q12H PRN PO 01/23/17 20:00 02/22/17 19:59 Ondansetron HCl (Zofran Inj) 4 mg Q6H PRN IV 01/23/17 20:00 02/22/17 19:59 Nitroglycerin (Nitrostat Tab) 0.4 mg UD PRN SL 01/23/17 20:00 02/22/17 19:59 Polyethylene (Miralax Powder Packet) 17 gm DAILY PRN PO 01/23/17 20:00 02/22/17 19:59 Albuterol (Ventolin Hfa Inhaler) 2 puffs Q6H PRN INH 01/23/17 20:00 02/22/17 19:59 Aspirin (Ecotrin Tab) 81 mg Q2D@0900 PO 01/25/17 09:00 02/24/17 08:59 Atorvastatin Calcium (Lipitor Tab) 10 mg HS PO 01/23/17 21:00 02/22/17 20:59 01/23/17 22:31 10 MG Cholecalciferol (Vitamin D Tab) 1,000 inter.unit QAM PO 01/24/17 09:00 02/23/17 08:59 01/24/17 07:59 1,000 INTER.UNIT Escitalopram Oxalate (Lexapro Tab) 20 mg QAM PO 01/24/17 09:00 02/23/17 08:59 01/24/17 07:59 20 MG Ferrous Sulfate (Feosol Tab) 325 mg QAM PO 01/24/17 09:00 02/23/17 08:59 01/24/17 07:59 325 MG Gabapentin (Neurontin Tab) 600 mg TID PO 01/23/17 21:00 02/22/17 20:59 01/24/17 07:59 600 MG Insulin Detemir (Levemir Flexpen/ FlexTouch) 40 unit HS SQ 01/23/17 21:00 02/22/17 20:59 01/23/17 22:43 40 UNIT Lorazepam (Ativan Tab) 0.5 mg Q6 PRN PO 01/23/17 20:00 02/22/17 19:59 01/23/17 22:32 0.5 MG Magnesium Oxide (Mag-Ox Tab) 400 mg BID PO 01/23/17 21:00 02/22/17 20:59 01/24/17 07:59 400 MG Tiotropium [place] (Spiriva Handihaler Inhaler) 1 puff DAILY INH 01/24/17 09:00 02/23/17 08:59 01/24/17 08:00 1 PUFF Trazodone HCl (Desyrel Tab) 100 mg HS PO 01/23/17 21:00 02/22/17 20:59 01/23/17 22:30 100 MG Pantoprazole Sodium (Protonix Tab) 40 mg QAM PO 01/24/17 09:00 02/23/17 08:59 01/24/17 07:59 40 MG Insulin Aspart (novoLOG ASPART) SLIDING SCALE G... ACHS SC 01/23/17 21:00 02/22/17 20:59 01/24/17 08:56 8 UNITS Metoprolol Tartrate (Lopressor Iv) 5 mg Q6 PRN IV 01/23/17 20:00 02/22/17 19:59 Albuterol/ Ipratropium 3 ml 3 ml QIDR INH 01/23/17 20:00 02/22/17 19:59 01/24/17 07:31 3 ML Imipenem/ Cilastatin Sodium 250 mg/Dextrose 110 ml @ 100 mls/hr Q6H IV 01/24/17 02:00 01/31/17 01:59 01/24/17 07:59 100 MLS/HR Methylprednisolone Sodium Succinate/ Syringe (Solu-Medrol IV/ Syringe) 1.28 ml @ 1.5 mls/min Q8H IV 01/24/17 02:00 02/23/17 01:59 01/24/17 01:36 1.5 MLS/MIN Vancomycin HCl 1 ea 1 ea UD PRN N/A 01/23/17 21:30 02/22/17 21:29 Vancomycin HCl/ Sodium Chloride (Vancomycin Inj/ Nss 250ml) 268 ml @ 125 mls/hr Q18H IV 01/24/17 16:00 01/31/17 15:59 Miscellaneous Information (Consult Glycemic Management Pharmacy) 1 ea UD PRN N/A 01/24/17 10:29 02/23/17 10:28 Insulin Detemir (Levemir Flexpen/ FlexTouch) 10 unit TODAY@1200 SQ 01/24/17 12:00 01/24/17 13:00 Review of Systems Constitutional: + fatigue, + fever, + weakness Eyes: No worsening of vision ENT: No hearing loss Respiratory: + cough, + shortness of breath Cardiovascular: No chest pain Abdomen: + diarrhea, + pain Musculoskeletal: No joint pain Genitourinary - Female: No dysuria Integumentary: No rash Physical Exam Date Time Temp Pulse Resp B/P Pulse Ox O2 Delivery O2 Flow Rate FiO2 01/24/17 08:00 Nasal Cannula 2.0 01/24/17 07:32 36.4 101 20 90/63 98 Nasal Cannula 3.0 01/24/17 07:30 98 16 98 Nasal Cannula 3.0 01/24/17 04:24 36.9 118 20 90/60 95 Nasal Cannula 4.0 01/24/17 04:00 Nasal Cannula 3.0 01/24/17 00:00 Nasal Cannula 3.0 01/23/17 23:36 36.5 108 20 92/54 98 Nasal Cannula 4.0 01/23/17 21:00 36.5 103 22 84/61 99 Nasal Cannula 3.0 01/23/17 20:40 37.2 104 18 99/73 97 01/23/17 20:12 105 18 82/63 97 Nasal Cannula 2.0 01/23/17 19:55 101 20 98 Nasal Cannula 2.0 01/23/17 19:53 Nasal Cannula 2.0 01/23/17 19:50 101/60 01/23/17 19:45 101 14 98 01/23/17 19:40 79/61 01/23/17 19:35 95 98 01/23/17 19:30 80/51 01/23/17 19:25 96 19 98 01/23/17 19:22 70/55 01/23/17 19:21 75/ 01/23/17 19:15 94 18 75/56 99 Nasal Cannula 2.0 01/23/17 19:15 97 20 98 01/23/17 18:50 99 20 71/49 97 Room Air 01/23/17 18:12 96 16 97 Nasal Cannula 4.0 01/23/17 17:59 91 28 98 01/23/17 17:54 93 20 98 01/23/17 17:49 95 23 01/23/17 17:48 72/51 01/23/17 17:44 102 22 90 01/23/17 17:39 96 25 97 01/23/17 17:34 96 20 97 01/23/17 17:32 97 01/23/17 17:31 92 Room Air 01/23/17 17:29 95 17 96 01/23/17 17:28 56/42 01/23/17 17:24 97 22 72/55 94 01/23/17 17:19 102 19 95 01/23/17 17:12 63/43 01/23/17 16:35 37.2 98 18 79/44 95 Room Air General Appearance: WD/WN, no apparent distress, + pertinent finding (lethargic , asleep on and off) Head: normocephalic, atraumatic Eyes: normal inspection, sclerae normal ENT: hearing grossly normal Neck: supple Respiratory/Chest: chest non-tender, no respiratory distress, no accessory muscle use, + wheezing (throughout lungs, mild) Cardiovascular: regular rate, rhythm Abdomen/GI: non tender, soft, + abnormal bowel sounds (hyperactive) Back: normal inspection Extremities/Musculoskelatal: no pedal edema Neurologic/Psych: + pertinent finding (lethargic) Skin: normal color, warm/dry, no rash Laboratory Results CHEST ONE VIEW PORTABLE CLINICAL HISTORY: Weakness. Hypotension. COMPARISON STUDY: Chest radiograph every 2016. FINDINGS: Surgical clips within the right neck are noted as well as a cervical spine fusion. There is no pneumothorax or pleural effusion. Mild cardiomegaly is unchanged. There is pulmonary vascular congestion with possible mild pulmonary edema. There is no consolidation. IMPRESSION: Pulmonary vascular congestion with possible mild pulmonary edema. Item Value Date Time Blood Culture Received 01/23/17 1748 Blood Pending Blood Culture Received 01/23/17 1745 Blood Pending Urine Culture Received 01/23/17 0000 Urine , Clean Catch Pending Last 24 Hours Test 01/23/17 17:20 01/23/17 17:42 01/23/17 17:50 01/23/17 20:56 White Blood Count 4.86 K/uL Red Blood Count 4.06 M/uL Hemoglobin 11.9 g/dL Hematocrit 35.7 % Mean Corpuscular Volume 87.9 fL Mean Corpuscular Hemoglobin 29.3 pg Mean Corpuscular Hemoglobin Concent 33.3 g/dl Platelet Count 95 K/uL Mean Platelet Volume 11.1 fL Neutrophils (%) (Auto) 64.4 % Lymphocytes (%) (Auto) 27.6 % Monocytes (%) (Auto) 7.0 % Eosinophils (%) (Auto) 0.6 % Basophils (%) (Auto) 0.2 % Neutrophils # (Auto) 3.13 K/uL Lymphocytes # (Auto) 1.34 K/uL Monocytes # (Auto) 0.34 K/uL Eosinophils # (Auto) 0.03 K/uL Basophils # (Auto) 0.01 K/uL RDW Standard Deviation 51.8 fL RDW Coefficient of Variation 16.2 % Immature Granulocyte % (Auto) 0.2 % Immature Granulocyte # (Auto) 0.01 K/uL Sodium Level 140 mmol/L Potassium Level 3.8 mmol/L Chloride Level 100 mmol/L Carbon Dioxide Level 25 mmol/L Anion Gap 15.0 mmol/L Blood Urea Nitrogen 13 mg/dl Creatinine 1.10 mg/dl Est Creatinine Clear Calc Drug Dose 40.8 ml/min Estimated GFR () 58.9 Estimated GFR (Non- 50.8 BUN/Creatinine Ratio 12.1 Random Glucose 149 mg/dl Calcium Level 9.2 mg/dl Total Bilirubin 1.2 mg/dl Aspartate Amino Transf (AST/SGOT) 48 U/L Alanine Aminotransferase (ALT/SGPT) 41 U/L Alkaline Phosphatase 114 U/L Total Creatine Kinase 177 U/L Creatine Kinase MB 3.9 ng/ml Creatine Kinase MB Ratio 2.2 Pro-B-Type Natriuretic Peptide 223 pg/ml Total Protein 7.0 gm/dl Albumin 3.6 gm/dl Globulin 3.4 gm/dl Albumin/Globulin Ratio 1.1 Thyroid Stimulating Hormone (TSH) 0.060 uIu/ml Bedside Troponin I 0.000 ng/ml Bedside Lactic Acid Venous 2.63 mmol/L Bedside Glucose 210 mg/dl Test 01/23/17 22:34 01/24/17 06:00 01/24/17 06:50 01/24/17 06:51 Lactic Acid Level 2.1 mmol/L Influenza Type A Antigen Neg for Influ A Influenza Type B Antigen Neg for Influ B Bedside Glucose 393 mg/dl 398 mg/dl Test 01/24/17 07:20 White Blood Count 1.98 K/uL Red Blood Count 3.36 M/uL Hemoglobin 10.0 g/dL Hematocrit 29.9 % Mean Corpuscular Volume 89.0 fL Mean Corpuscular Hemoglobin 29.8 pg Mean Corpuscular Hemoglobin Concent 33.4 g/dl RDW Standard Deviation 52.1 fL RDW Coefficient of Variation 15.9 % Platelet Count 74 K/uL Mean Platelet Volume 12.1 fL Sodium Level 141 mmol/L Potassium Level 4.5 mmol/L Chloride Level 106 mmol/L Carbon Dioxide Level 26 mmol/L Anion Gap 9.0 mmol/L Blood Urea Nitrogen 13 mg/dl Creatinine 0.88 mg/dl Est Creatinine Clear Calc Drug Dose 53.4 ml/min Estimated GFR () 77.2 Estimated GFR (Non- 66.6 BUN/Creatinine Ratio 14.4 Random Glucose 375 mg/dl Calcium Level 7.7 mg/dl Magnesium Level 1.7 mg/dl Total Bilirubin 0.9 mg/dl Aspartate Amino Transf (AST/SGOT) 36 U/L Alanine Aminotransferase (ALT/SGPT) 35 U/L Alkaline Phosphatase 102 U/L Total Protein 6.2 gm/dl Albumin 2.9 gm/dl Globulin 3.3 gm/dl Albumin/Globulin Ratio 0.9 Beta-Hydroxybutyric Acid 2.85 mg/dL Procalcitonin < 0.05 ng/mL Assessment & Plan Patient with hypotension, elevated blood glucose, and generalized weakness. Her urinalysis was dirty, but blood and urine cultures are pending. She does also appear to have an exacerbation of COPD with wheezing throughout lungs though CXR showed no consolidation. She is currently on IV Vancomycin and Primaxin. Will D/C Primaxin and start Zosyn pending culture results. We will follow. Plan: 1. D/C Primaxin 2. Start Zosyn 3. Continue Vanco 4. Follow cultures PROVIDER ADDENDUM: Patient examined and reviewed with Ms. Puga. Agree with above assessment.
[2017-01-24] MEDS ORDERED: INSULIN REGULAR 5 UNITS in SYRINGE 4.95 ML IV SCH ×2 (11:00→16:00)
--- NOTE | 2017-01-24 11:01 | Pharmacy Progress Note ---
Glycemic Control: Progress Nt Date of Service Jan 24, 2017. Scope Glycemic Pharmacist consulted by Dr Romeo on 01/24/17 for glycemic control and to write orders per [facility] inpatient glycemic control protocol. Objective Accuchecks BSG (last 24hrs): Test 01/23/17 17:20 01/23/17 20:56 01/24/17 06:50 01/24/17 06:51 Random Glucose 149 mg/dl (70-99) Bedside Glucose 210 mg/dl (70-90) 393 mg/dl (70-90) 398 mg/dl (70-90) Test 01/24/17 07:20 Random Glucose 375 mg/dl (70-99) Laboratory Data (last 24hrs) Test 01/23/17 17:20 01/24/17 07:20 Anion Gap 15.0 mmol/L 9.0 mmol/L BUN/Creatinine Ratio 12.1 14.4 Blood Urea Nitrogen 13 mg/dl 13 mg/dl Creatinine 1.10 mg/dl 0.88 mg/dl Potassium Level 3.8 mmol/L 4.5 mmol/L Sodium Level 140 mmol/L 141 mmol/L White Blood Count 4.86 K/uL 1.98 K/uL Red Blood Count 4.06 M/uL Hemoglobin 11.9 g/dL Hematocrit 35.7 % Mean Corpuscular Volume 87.9 fL Mean Corpuscular Hemoglobin 29.3 pg Mean Corpuscular Hemoglobin Concent 33.3 g/dl Platelet Count 95 K/uL Mean Platelet Volume 11.1 fL Neutrophils (%) (Auto) 64.4 % Lymphocytes (%) (Auto) 27.6 % Monocytes (%) (Auto) 7.0 % Eosinophils (%) (Auto) 0.6 % Basophils (%) (Auto) 0.2 % Neutrophils # (Auto) 3.13 K/uL Lymphocytes # (Auto) 1.34 K/uL Monocytes # (Auto) 0.34 K/uL Eosinophils # (Auto) 0.03 K/uL Basophils # (Auto) 0.01 K/uL Recent Pertinent Medications Outpatient Anti-diabetic Regimen: * NovoLog SQ * 20 units with lunch * 25 units with supper * sliding scale PRN * Levemir 40 units SQ q HS * Metformin 1000mg PO BID with meals * A1c = 8 % 12/31/16 The patient is currently receiving: * Basal insulin: Levemir 40 units every 24 hours * Correctional Insulin: NovoLog Correction per scale AC/HS Goal Range: Low 140 mg/dL - High 180 mg/dL Correction Factor: 30 mg/dL/unit * Prandial insulin: Per carb ratio of 1 unit per 9 grams CHO consumed * Oral Agents: held on admission Risk Factors for Insulin Resistance: * Steroids: Solu-Medrol 125mg IV x1 dose in ED, then Solu-Medrol 80mg IV every 8 hours * Infection: COPD exacerbation, borderline sepsis, questionable UTI - current ABX = vancomycin and imipenem/cilastatin * IVF: NSS * Diet: AHA/T2DM Assessment & Plan ASSESSMENT: * 71 y/o type 2 diabetic known to the glycemic consult service from past admissions, the most recent in December 2016. * Hyperglycemia secondary to IV steroids * ADA & AACE recommend a goal blood sugar range 140-180 mg/dl for the majority of critically ill & non-critically ill patients. However, more stringent targets may be selected in individual cases. 01/24/17 * Large doses of IV steroids given in the ED and now around the clock are causing severe hyperglycemia * Give additional dose of Levemir with lunch * Give IV regular insulin * Tighten NovoLog parameters * Taper insulin with each step down in steroid dosing * Last admission, the patient required 120-140u/day of insulin (compared to ~85 units as an outpatient) * requires NovoLog with a stress >3 while on ATC steroids * Agree with hold oral diabetic medications while acutely ill * A1c current PLAN FOR INPATIENT GLYCEMIC CONTROL: * Continue home Levemir 40 units SQ qPM * Levemir 20 units SQ x1 spencer now * Continue NovoLog AC and HS * add overnight Accu-checks at 00:00 and 04:00 while acutely hyperglycemic * Correction factor tightened to 18mg/dL/unit * Carb ratio tightened to 1 unit per 6g of CHO consumed * Goal range 140-180mg/dL for elderly per ADA recommendations * Continue to hold metformin while acutely ill (lactic acid elevated) * Regular insulin 5 units IV x1 dose now * A1c current * add to discharge instructions IF HYPERGLYCEMIA IS NOT RESOLVED: * May consider an IV insulin infusion while on ATC high dose steroids * Moderate stress * Goal 140-180mg/dL * NovoLog PC/HS RECOMMENDATIONS FOR DISCHARGE: * Likely, Ms Frederick can continue her home regimen as an outpatient * Please note that the plan above was derived based on current level of insulin resistance and hospital stress. These recommendations are appropriate for inpatient admission only. Plan of care upon discharge will need to be reassessed to avoid potential outpatient hypo/hyperglycemia. Thank you.
[2017-01-24] MEDS ORDERED: INSULIN DETEMIR FLEXPEN/FLEX TOUCH 100 UNITS/ML 3ML SQ SCH ×2 (12:00)
[2017-01-24] MEDS ORDERED: PIPERACILL/TAZOBAC IV 3.375 GM in DEXTROSE 5% 100ML 100 ML IV ONE (12:15)
[2017-01-24] MEDS ORDERED: PIPERACILL/TAZOBAC CONSULT ACTIVE PRN (12:15)
--- NOTE | 2017-01-24 13:07 | DIAGNOSTIC IMAGING REPORT ---
CHEST 2 VIEWS ROUTINE CLINICAL HISTORY: SOB dyspnea COMPARISON STUDY: 01/23/2017 FINDINGS: Moderate cardiomegaly. Diaphragms smooth. Pulmonary vasculature is slightly increased in prominence in the prior study. Postoperative changes low cervical region which have been described previously. IMPRESSION: Congestive failure slightly progressive from the prior exam Electronically signed by: Anuel Chavez M.D. 01/24/2017 1:05 PM Dictated Date/Time: 01/24/2017 1:05 PM
--- NOTE | 2017-01-24 13:50 | Hospitalist Progress Note ---
Hospitalist Progress Note Date of Service Jan 24, 2017. Subjective Pt evaluation today including: conversation w/ patient, physical exam, chart review, lab review, review of studies, review of inpatient medication list Patient had no acute issues Shes states SOB is greatly improved Denies any chest pain or SOB Constitutional: No fever Eyes: No worsening of vision ENT: No hearing loss Respiratory: No cough, No shortness of breath Cardiovascular: No chest pain Abdomen: No constipation, No diarrhea, No pain Musculoskeletal: No joint pain Female : No dysuria Neurologic: No memory loss Psychiatric: No depression symptoms Heme: No abnormal bleeding/bruising Endo: No fatigue Skin: No rash Medications Current Inpatient Medications Medications (Trade) Dose Ordered Sig/Diego Route Start Time Stop Time Status Last Admin Dose Admin Sodium Chloride (Nss 1000ml) 1,000 ml @ 80 mls/hr [id number] IV 01/23/17 21:00 01/23/17 22:34 80 MLS/HR Acetaminophen (Tylenol Tab) 650 mg Q4H PRN PO 01/23/17 20:00 02/22/17 19:59 Al Hydrox/Mg Hydrox/Simethicone (Maalox Max Susp) 15 ml Q4H PRN PO 01/23/17 20:00 02/22/17 19:59 Magnesium Hydroxide (Milk Of Magnesia Susp) 30 ml Q12H PRN PO 01/23/17 20:00 02/22/17 19:59 Ondansetron HCl (Zofran Inj) 4 mg Q6H PRN IV 01/23/17 20:00 02/22/17 19:59 Nitroglycerin (Nitrostat Tab) 0.4 mg UD PRN SL 01/23/17 20:00 02/22/17 19:59 Polyethylene (Miralax Powder Packet) 17 gm DAILY PRN PO 01/23/17 20:00 02/22/17 19:59 Albuterol (Ventolin Hfa Inhaler) 2 puffs Q6H PRN INH 01/23/17 20:00 02/22/17 19:59 Aspirin (Ecotrin Tab) 81 mg Q2D@0900 PO 01/25/17 09:00 02/24/17 08:59 Atorvastatin Calcium (Lipitor Tab) 10 mg HS PO 01/23/17 21:00 02/22/17 20:59 01/23/17 22:31 10 MG Cholecalciferol (Vitamin D Tab) 1,000 inter.unit QAM PO 01/24/17 09:00 02/23/17 08:59 01/24/17 07:59 1,000 INTER.UNIT Escitalopram Oxalate (Lexapro Tab) 20 mg QAM PO 01/24/17 09:00 02/23/17 08:59 01/24/17 07:59 20 MG Ferrous Sulfate (Feosol Tab) 325 mg QAM PO 01/24/17 09:00 02/23/17 08:59 01/24/17 07:59 325 MG Gabapentin (Neurontin Tab) 600 mg TID PO 01/23/17 21:00 02/22/17 20:59 01/24/17 07:59 600 MG Insulin Detemir (Levemir Flexpen/ FlexTouch) 40 unit HS SQ 01/23/17 21:00 02/22/17 20:59 01/23/17 22:43 40 UNIT Lorazepam (Ativan Tab) 0.5 mg Q6 PRN PO 01/23/17 20:00 02/22/17 19:59 01/23/17 22:32 0.5 MG Magnesium Oxide (Mag-Ox Tab) 400 mg BID PO 01/23/17 21:00 02/22/17 20:59 01/24/17 07:59 400 MG Tiotropium [place] (Spiriva Handihaler Inhaler) 1 puff DAILY INH 01/24/17 09:00 02/23/17 08:59 01/24/17 08:00 1 PUFF Trazodone HCl (Desyrel Tab) 100 mg HS PO 01/23/17 21:00 02/22/17 20:59 01/23/17 22:30 100 MG Pantoprazole Sodium (Protonix Tab) 40 mg QAM PO 01/24/17 09:00 02/23/17 08:59 01/24/17 07:59 40 MG Insulin Aspart (novoLOG ASPART) SLIDING SCALE G... ACHS SC 01/23/17 21:00 02/22/17 20:59 01/24/17 12:36 10 UNITS Metoprolol Tartrate (Lopressor Iv) 5 mg Q6 PRN IV 01/23/17 20:00 02/22/17 19:59 Albuterol/ Ipratropium 3 ml 3 ml QIDR INH 01/23/17 20:00 02/22/17 19:59 01/24/17 11:47 3 ML Methylprednisolone Sodium Succinate/ Syringe (Solu-Medrol IV/ Syringe) 1.28 ml @ 1.5 mls/min Q8H IV 01/24/17 02:00 02/23/17 01:59 01/24/17 10:54 1.5 MLS/MIN Vancomycin HCl 1 ea 1 ea UD PRN N/A 01/23/17 21:30 02/22/17 21:29 Vancomycin HCl/ Sodium Chloride (Vancomycin Inj/ Nss 250ml) 268 ml @ 125 mls/hr Q18H IV 01/24/17 16:00 01/31/17 15:59 Miscellaneous Information (Consult Glycemic Management Pharmacy) 1 ea UD PRN N/A 01/24/17 10:29 02/23/17 10:28 Insulin Aspart SLIDING SCALE G... 0000,0400 SC 01/25/17 00:00 02/24/17 00:00 Piperacillin Sod/ Tazobactam Sod/ Dextrose (Zosyn Iv/D5 100ml) 115 ml @ 28.75 mls/ hr Q8H IV 01/24/17 18:00 02/03/17 17:59 Piperacillin Sod/ Tazobactam Sod (Consult) 1 ea UD PRN N/A 01/24/17 12:15 02/23/17 12:14 Objective Vital Signs Date Time Temp Pulse Resp B/P Pulse Ox O2 Delivery O2 Flow Rate FiO2 01/24/17 12:27 36.8 101 22 130/60 95 Nasal Cannula 8.0 01/24/17 12:00 Nasal Cannula 2.0 01/24/17 11:47 103 16 96 Nasal Cannula 2.0 01/24/17 08:00 Nasal Cannula 2.0 01/24/17 07:32 36.4 101 20 90/63 98 Nasal Cannula 3.0 01/24/17 07:30 98 16 98 Nasal Cannula 3.0 01/24/17 04:24 36.9 118 20 90/60 95 Nasal Cannula 4.0 01/24/17 04:00 Nasal Cannula 3.0 01/24/17 00:00 Nasal Cannula 3.0 01/23/17 23:36 36.5 108 20 92/54 98 Nasal Cannula 4.0 01/23/17 21:00 36.5 103 22 84/61 99 Nasal Cannula 3.0 01/23/17 20:40 37.2 104 18 99/73 97 01/23/17 20:12 105 18 82/63 97 Nasal Cannula 2.0 01/23/17 19:55 101 20 98 Nasal Cannula 2.0 01/23/17 19:53 Nasal Cannula 2.0 01/23/17 19:50 101/60 01/23/17 19:45 101 14 98 01/23/17 19:40 79/61 01/23/17 19:35 95 98 01/23/17 19:30 80/51 01/23/17 19:25 96 19 98 01/23/17 19:22 70/55 01/23/17 19:21 75/ 01/23/17 19:15 94 18 75/56 99 Nasal Cannula 2.0 01/23/17 19:15 97 20 98 01/23/17 18:50 99 20 71/49 97 Room Air 01/23/17 18:12 96 16 97 Nasal Cannula 4.0 01/23/17 17:59 91 28 98 01/23/17 17:54 93 20 98 01/23/17 17:49 95 23 01/23/17 17:48 72/51 01/23/17 17:44 102 22 90 01/23/17 17:39 96 25 97 01/23/17 17:34 96 20 97 01/23/17 17:32 97 01/23/17 17:31 92 Room Air 01/23/17 17:29 95 17 96 01/23/17 17:28 56/42 01/23/17 17:24 97 22 72/55 94 01/23/17 17:19 102 19 95 01/23/17 17:12 63/43 01/23/17 16:35 37.2 98 18 79/44 95 Room Air Physical Exam General Appearance: WD/WN, no apparent distress Eyes: normal inspection ENT: normal ENT inspection, hearing grossly normal Neck: supple Respiratory/Chest: chest non-tender, + rales, + wheezing Cardiovascular: regular rate, rhythm, no edema Abdomen: normal bowel sounds, non tender, soft Extremities: normal range of motion, non-tender 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, no motor/sensory deficits, alert, oriented x 3 Laboratory Results Last 24 Hours Test 01/23/17 17:20 01/23/17 17:42 01/23/17 17:50 01/23/17 20:56 White Blood Count 4.86 K/uL Red Blood Count 4.06 M/uL Hemoglobin 11.9 g/dL Hematocrit 35.7 % Mean Corpuscular Volume 87.9 fL Mean Corpuscular Hemoglobin 29.3 pg Mean Corpuscular Hemoglobin Concent 33.3 g/dl Platelet Count 95 K/uL Mean Platelet Volume 11.1 fL Neutrophils (%) (Auto) 64.4 % Lymphocytes (%) (Auto) 27.6 % Monocytes (%) (Auto) 7.0 % Eosinophils (%) (Auto) 0.6 % Basophils (%) (Auto) 0.2 % Neutrophils # (Auto) 3.13 K/uL Lymphocytes # (Auto) 1.34 K/uL Monocytes # (Auto) 0.34 K/uL Eosinophils # (Auto) 0.03 K/uL Basophils # (Auto) 0.01 K/uL RDW Standard Deviation 51.8 fL RDW Coefficient of Variation 16.2 % Immature Granulocyte % (Auto) 0.2 % Immature Granulocyte # (Auto) 0.01 K/uL Sodium Level 140 mmol/L Potassium Level 3.8 mmol/L Chloride Level 100 mmol/L Carbon Dioxide Level 25 mmol/L Anion Gap 15.0 mmol/L Blood Urea Nitrogen 13 mg/dl Creatinine 1.10 mg/dl Est Creatinine Clear Calc Drug Dose 40.8 ml/min Estimated GFR () 58.9 Estimated GFR (Non- 50.8 BUN/Creatinine Ratio 12.1 Random Glucose 149 mg/dl Calcium Level 9.2 mg/dl Total Bilirubin 1.2 mg/dl Aspartate Amino Transf (AST/SGOT) 48 U/L Alanine Aminotransferase (ALT/SGPT) 41 U/L Alkaline Phosphatase 114 U/L Total Creatine Kinase 177 U/L Creatine Kinase MB 3.9 ng/ml Creatine Kinase MB Ratio 2.2 Pro-B-Type Natriuretic Peptide 223 pg/ml Total Protein 7.0 gm/dl Albumin 3.6 gm/dl Globulin 3.4 gm/dl Albumin/Globulin Ratio 1.1 Thyroid Stimulating Hormone (TSH) 0.060 uIu/ml Bedside Troponin I 0.000 ng/ml Bedside Lactic Acid Venous 2.63 mmol/L Bedside Glucose 210 mg/dl Test 01/23/17 22:34 01/24/17 06:00 01/24/17 06:50 01/24/17 06:51 Lactic Acid Level 2.1 mmol/L Influenza Type A Antigen Neg for Influ A Influenza Type B Antigen Neg for Influ B Bedside Glucose 393 mg/dl 398 mg/dl Test 01/24/17 07:20 01/24/17 11:24 White Blood Count 1.98 K/uL Red Blood Count 3.36 M/uL Hemoglobin 10.0 g/dL Hematocrit 29.9 % Mean Corpuscular Volume 89.0 fL Mean Corpuscular Hemoglobin 29.8 pg Mean Corpuscular Hemoglobin Concent 33.4 g/dl RDW Standard Deviation 52.1 fL RDW Coefficient of Variation 15.9 % Platelet Count 74 K/uL Mean Platelet Volume 12.1 fL Sodium Level 141 mmol/L Potassium Level 4.5 mmol/L Chloride Level 106 mmol/L Carbon Dioxide Level 26 mmol/L Anion Gap 9.0 mmol/L Blood Urea Nitrogen 13 mg/dl Creatinine 0.88 mg/dl Est Creatinine Clear Calc Drug Dose 53.4 ml/min Estimated GFR () 77.2 Estimated GFR (Non- 66.6 BUN/Creatinine Ratio 14.4 Random Glucose 375 mg/dl Calcium Level 7.7 mg/dl Magnesium Level 1.7 mg/dl Total Bilirubin 0.9 mg/dl Aspartate Amino Transf (AST/SGOT) 36 U/L Alanine Aminotransferase (ALT/SGPT) 35 U/L Alkaline Phosphatase 102 U/L Total Protein 6.2 gm/dl Albumin 2.9 gm/dl Globulin 3.3 gm/dl Albumin/Globulin Ratio 0.9 Beta-Hydroxybutyric Acid 2.85 mg/dL Procalcitonin < 0.05 ng/mL Bedside Glucose 302 mg/dl Assessment and Plan 71 y/o F w/Hx 02-dependent COPD, DM, HTN - recent admission w/COPD exacerbation and SOB Presents with progressive SOB and wheezing. COPD Exacerbation - continue solumedrol q8 hr - continue duonebs - incentive spirometry UTI - continue zosyn day #2 - d/c vancomycin - await urine culture Hypotension - pt baseline b/p's in the 90's - hold antihypertensives as of now DMII - poorly controlled - continue Levemir and SSI - consult pharmacy for glycemic control CAD - cont ASA - hold metoprolol 12.5 mg hs in setting of hypotension/IV llopressor prn Tobacco Abuse - no interest in quitting at this time however states she will try nicotine patch on discharge Full Code
[2017-01-24] MEDS: SODIUM CHLORIDE 0.9% 1000ML 1,000 ML IV SCH (14:22)
[2017-01-24] MEDS ORDERED: VANCOMYCIN INJ 900 MG in SODIUM CHLORIDE 0.9% 250ML 250 ML IV SCH (16:00)
[2017-01-24] MEDS: LORAZEPAM 0.5 MG TAB PO PRN ×2 (16:44→19:18)
[2017-01-24] MEDS: PIPERACILL/TAZOBAC IV 3.375 GM in DEXTROSE 5% 100ML 100 ML IV SCH (17:06)
[2017-01-24] MEDS: TRAZODONE HCL 100 MG TAB PO SCH (19:18)
[2017-01-24] MEDS: ATORVASTATIN 10 MG TAB PO SCH (19:18)
[2017-01-24] MEDS: INSULIN DETEMIR FLEXPEN/FLEX TOUCH 100 UNITS/ML 3ML SQ SCH (19:32)
[2017-01-25] VITALS (12 sets, daily range): BP systolic 68–96; BP diastolic 45–61; PULSE 86–130; TEMP 36.4–37.2; O2SAT 95–100; Ht 149.9 cm; Wt 80.1 kg
[2017-01-25] MEDS: INSULIN ASPART 100 UNITS/ML 3 ML PEN SC SCH ×6 (00:06→21:29)
[2017-01-25] MEDS: PIPERACILL/TAZOBAC IV 3.375 GM in DEXTROSE 5% 100ML 100 ML IV SCH ×2 (02:00→11:15)
[2017-01-25] MEDS: METHYLPREDNISOLONE IV 80 MG in SYRINGE 0 ML IV SCH ×2 (02:00→11:15)
[2017-01-25 06:32] LABS: HEMATOCRIT 28.7 % (37-47); MEAN CELL VOLUME 91.1 fL (80-100); MEAN CORPUSCULAR HEMOGLOBIN 29.5 pg (25-34); MEAN CORPUSCULAR HGB CONC 32.4 g/dl (32-36); RED BLOOD COUNT 3.15 M/uL (4.2-5.4); WHITE BLOOD COUNT 3.93 K/uL (4.8-10.8)
[2017-01-25 06:42] LABS: MEAN PLATELET VOLUME 11.2 fL (7.4-10.4); PLATELET COUNT 75 K/uL (130-400)
[2017-01-25 07:05] LABS: BUN/CREATININE RATIO 18.4 (10-20); CALCIUM 7.6 mg/dl (8.5-10.1); CREATININE 0.99 mg/dl (0.60-1.20)
[2017-01-25 07:08] LABS: ALB/GLOB RATIO 1.1 (0.9-2)
[2017-01-25] MEDS: ALBUT/IPRATROP 3MG/0.5MG NEB 3 ML VIAL INH SCH ×4 (07:19→19:31)
[2017-01-25] MEDS: TIOTROPIUM BROMIDE 5 PUFF/90 MCG INH INH SCH (08:03)
[2017-01-25] MEDS: MAGNESIUM OXIDE 400 MG TAB PO SCH ×2 (08:04→21:33)
[2017-01-25] MEDS: PANTOprazole SOD 40 MG TAB PO SCH (08:04)
[2017-01-25] MEDS: CHOLECALCIFEROL 1000 INTER.UNIT TAB PO SCH (08:04)
[2017-01-25] MEDS: FERROUS SULFATE 325 MG TAB PO SCH (08:04)
[2017-01-25] MEDS: GABAPENTIN 600 MG TAB PO SCH ×3 (08:04→21:34)
[2017-01-25] MEDS: ESCITALOPRAM OXALATE 20 MG TAB PO SCH (08:04)
[2017-01-25] MEDS: INSULIN DETEMIR FLEXPEN/FLEX TOUCH 100 UNITS/ML 3ML SQ SCH ×2 (08:18→21:30)
[2017-01-25] MEDS ORDERED: ASPIRIN 81 MG ECTAB PO SCH (09:00)
--- NOTE | 2017-01-25 10:33 | Pharmacy Progress Note ---
Glycemic Control: Progress Nt Date of Service Jan 25, 2017. Scope Glycemic Pharmacist consulted by Dr Romeo on 01/24/17 for glycemic control and to write orders per [facility] inpatient glycemic control protocol. Objective Accuchecks BSG (last 24hrs): Test 01/24/17 11:24 01/24/17 15:24 01/24/17 19:27 01/25/17 00:04 Bedside Glucose 302 mg/dl (70-90) 399 mg/dl (70-90) 362 mg/dl (70-90) 240 mg/dl (70-90) Test 01/25/17 04:11 01/25/17 06:00 01/25/17 07:01 Bedside Glucose 261 mg/dl (70-90) 262 mg/dl (70-90) Random Glucose 260 mg/dl (70-99) Laboratory Data (last 24hrs) Test 01/25/17 06:00 Anion Gap 8.0 mmol/L BUN/Creatinine Ratio 18.4 Blood Urea Nitrogen 18 mg/dl Creatinine 0.99 mg/dl Potassium Level 4.0 mmol/L Sodium Level 141 mmol/L White Blood Count 3.93 K/uL Recent Pertinent Medications Outpatient Anti-diabetic Regimen: * NovoLog SQ * 20 units with lunch * 25 units with supper * sliding scale PRN * Levemir 40 units SQ q HS * Metformin 1000mg PO BID with meals * A1c = 8 % 12/31/16 The patient is currently receiving: * Basal insulin: Levemir 40 units every 24 hours (additional 20 units given 3/2 AM) * Correctional Insulin: NovoLog Correction per scale AC/HS Goal Range: Low 140 mg/dL - High 180 mg/dL Correction Factor: 15 mg/dL/unit * Prandial insulin: Per carb ratio of 1 unit per 5 grams CHO consumed * Oral Agents: held on admission * IV insulin: 5 units IV bolus given x2 on 01/24 for hyperglycemia Risk Factors for Insulin Resistance: * Steroids: Solu-Medrol 125mg IV x1 dose, then Solu-Medrol 80mg IV q8 hours -- > Solu-Medrol 40mg IV q12 hours (starting tonight at 21:00) * Infection: COPD exacerbation, borderline sepsis, questionable UTI - current ABX = piperacillin/tazobactam * Diet: AHA/T2DM Assessment & Plan ASSESSMENT: * 71 y/o type 2 diabetic known to the glycemic consult service from past admissions, the most recent in December 2016. * Hyperglycemia secondary to IV steroids * ADA & AACE recommend a goal blood sugar range 140-180 mg/dl for the majority of critically ill & non-critically ill patients. However, more stringent targets may be selected in individual cases. 01/24/17 * Large doses of IV steroids given in the ED and now around the clock are causing severe hyperglycemia * Give additional dose of Levemir with lunch * Give IV regular insulin * Tighten NovoLog parameters * Taper insulin with each step down in steroid dosing * Last admission, the patient required 120-140u/day of insulin (compared to ~85 units as an outpatient) * requires NovoLog with a stress >3 while on ATC steroids * Agree with hold oral diabetic medications while acutely ill * A1c current 01/25/17 * Large doses of ATC steroids continue, as does hyperglycemia, despite 130 units of insulin on 01/24 * dose decreased tonight - i hesitate to continue to titrate NovoLog since steroids are now decreasing * Fasting BSG today elevated at 262mg/dL * add Levemir 20 units SQ q AM to regimen (tolerated yesterday) * Yesterday, the correction factor and carb ratio were tightened * slightly tighten carb ratio since pre-lunch is >250mg/dL, monitor for drop in BSGs since steroids decreased * lower goal range to allow for higher insulin dose administration * Continue to supplement SQ doses with IV regular insulin when severely hyperglycemic PLAN FOR INPATIENT GLYCEMIC CONTROL: * Continue home Levemir 40 units SQ qPM * Add Levemir 20 units SQ q AM * Continue NovoLog AC and HS * add overnight Accu-checks at 00:00 and 04:00 while acutely hyperglycemic * Correction factor tightened to 15mg/dL/unit * Carb ratio tightened to 1 unit per 4g of CHO consumed * Goal range 120-160 mg/dL * Continue to hold metformin * Regular insulin PRN * A1c current * add to discharge instructions IF HYPERGLYCEMIA IS NOT RESOLVED: * May consider an IV insulin infusion while on ATC high dose steroids * Moderate stress * Goal 140-180mg/dL * NovoLog PC/HS RECOMMENDATIONS FOR DISCHARGE: * Likely, Ms Frederick can continue her home regimen as an outpatient * Please note that the plan above was derived based on current level of insulin resistance and hospital stress. These recommendations are appropriate for inpatient admission only. Plan of care upon discharge will need to be reassessed to avoid potential outpatient hypo/hyperglycemia. Thank you.
[2017-01-25] MEDS: SODIUM CHLORIDE 0.9% 1000ML 1,000 ML IV SCH (12:31)
--- NOTE | 2017-01-25 13:44 | Hospitalist Progress Note ---
Hospitalist Progress Note Date of Service Jan 25, 2017. Subjective Pt evaluation today including: conversation w/ patient, physical exam, chart review, lab review, review of studies, review of inpatient medication list Patient had no acute issues overnight Patient denies any chest pain or SOB Patient states she feels dizzy Constitutional: No fever Eyes: No worsening of vision ENT: No hearing loss, No nasal symptoms Respiratory: No cough, No shortness of breath Cardiovascular: No chest pain Abdomen: No constipation, No pain, No vomiting Musculoskeletal: No joint pain Female : No dysuria Neurologic: No memory loss Objective Vital Signs Date Time Temp Pulse Resp B/P Pulse Ox O2 Delivery O2 Flow Rate FiO2 01/25/17 12:00 Nasal Cannula 2.0 01/25/17 12:00 36.8 102 20 75/50 100 2.0 01/25/17 11:09 86 20 98 Nasal Cannula 2.0 01/25/17 10:31 36.8 102 20 75/50 100 2.0 01/25/17 08:00 36.6 98 18 68/45 99 2.0 78/48 01/25/17 08:00 Nasal Cannula 2.0 01/25/17 07:19 98 20 98 Nasal Cannula 4.0 01/25/17 04:00 36.8 101 20 87/59 98 Nasal Cannula 2.0 01/25/17 04:00 Nasal Cannula 2.0 01/25/17 00:14 36.8 112 18 96/60 96 Nasal Cannula 2.0 01/25/17 00:00 Nasal Cannula 2.0 01/24/17 20:36 124 128/78 01/24/17 20:00 36.7 124 20 128/78 99 Nasal Cannula 3.0 Humidified Air 01/24/17 19:33 80 18 98 Nasal Cannula 4.0 01/24/17 16:20 89 16 99 Nasal Cannula 2.0 01/24/17 16:14 36.8 105 22 110/50 96 Nasal Cannula 2.0 01/24/17 15:47 Nasal Cannula 2.0 Physical Exam General Appearance: WD/WN, no apparent distress Eyes: normal inspection ENT: normal ENT inspection Neck: supple Respiratory/Chest: chest non-tender, + decreased breath sounds, + rales, + wheezing Cardiovascular: regular rate, rhythm, no edema Abdomen: normal bowel sounds, non tender, soft Extremities: normal range of motion, non-tender 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, no motor/sensory deficits, alert, oriented x 3 Skin: normal color, warm/dry Laboratory Results Last 24 Hours Test 01/24/17 15:24 01/24/17 19:27 01/25/17 00:04 01/25/17 04:11 Bedside Glucose 399 mg/dl 362 mg/dl 240 mg/dl 261 mg/dl Test 01/25/17 06:00 01/25/17 07:01 01/25/17 11:09 White Blood Count 3.93 K/uL Red Blood Count 3.15 M/uL Hemoglobin 9.3 g/dL Hematocrit 28.7 % Mean Corpuscular Volume 91.1 fL Mean Corpuscular Hemoglobin 29.5 pg Mean Corpuscular Hemoglobin Concent 32.4 g/dl RDW Standard Deviation 54.7 fL RDW Coefficient of Variation 16.5 % Platelet Count 75 K/uL Mean Platelet Volume 11.2 fL Sodium Level 141 mmol/L Potassium Level 4.0 mmol/L Chloride Level 105 mmol/L Carbon Dioxide Level 28 mmol/L Anion Gap 8.0 mmol/L Blood Urea Nitrogen 18 mg/dl Creatinine 0.99 mg/dl Est Creatinine Clear Calc Drug Dose 47.4 ml/min Estimated GFR () 66.9 Estimated GFR (Non- 57.7 BUN/Creatinine Ratio 18.4 Random Glucose 260 mg/dl Calcium Level 7.6 mg/dl Magnesium Level 2.0 mg/dl Total Bilirubin 0.6 mg/dl Aspartate Amino Transf (AST/SGOT) 31 U/L Alanine Aminotransferase (ALT/SGPT) 35 U/L Alkaline Phosphatase 68 U/L Total Protein 6.0 gm/dl Albumin 3.1 gm/dl Globulin 2.9 gm/dl Albumin/Globulin Ratio 1.1 Bedside Glucose 262 mg/dl 288 mg/dl Assessment and Plan 71 y/o F w/Hx 02-dependent COPD, DM, HTN - recent admission w/COPD exacerbation and SOB Presents with progressive SOB and wheezing. COPD Exacerbation - continue solumedrol /decrease to 40 mg q12 hr - continue duonebs - incentive spirometry UTI - continue zosyn day #2 - await urine culture - appreciate I/D input Hypotension - pt baseline b/p's in the 90's - start IVF at 75 cc/hr DMII - continue Levemir and SSI - consult pharmacy for glycemic control CAD - cont ASA - hold metoprolol 12.5 mg hs in setting of hypotension/IV Lopressor prn Tobacco Abuse - no interest in quitting at this time however states she will try nicotine patch on discharge Full Code
[2017-01-25] MEDS: LORAZEPAM 0.5 MG TAB PO PRN ×2 (16:37→21:38)
--- NOTE | 2017-01-25 17:14 | Infectious Disease Progress Nt ---
Progress Note Date of Service Jan 25, 2017. Subjective Pt evaluation today including: conversation w/ patient, physical exam, chart review, lab review, review of studies, review of inpatient medication list With blood cell count this morning was 3.93. Her creatinine was 0.99. Her glucose continues to be elevated in the 200 today. Her urine culture is growing lactobacillus species. Her blood cultures continue to show no growth. C diff toxin was negative. Stool culture is pending. Her blood pressure continues to be low. The patient states that she is feeling mildly improved today. Her shortness of breath is decreased, but she continues to have on and off shortness of breath. She has not had any urinary symptoms other than frequency which is chronic for her. She has continued to have frequent loose stools. All Other Systems: Reviewed and Negative Medications Current Inpatient Medications Medications (Trade) Dose Ordered Sig/Diego Route Start Time Stop Time Status Last Admin Dose Admin Acetaminophen (Tylenol Tab) 650 mg Q4H PRN PO 01/23/17 20:00 02/22/17 19:59 01/24/17 19:18 650 MG Al Hydrox/Mg Hydrox/Simethicone (Maalox Max Susp) 15 ml Q4H PRN PO 01/23/17 20:00 02/22/17 19:59 Magnesium Hydroxide (Milk Of Magnesia Susp) 30 ml Q12H PRN PO 01/23/17 20:00 02/22/17 19:59 Ondansetron HCl (Zofran Inj) 4 mg Q6H PRN IV 01/23/17 20:00 02/22/17 19:59 Nitroglycerin (Nitrostat Tab) 0.4 mg UD PRN SL 01/23/17 20:00 02/22/17 19:59 Polyethylene (Miralax Powder Packet) 17 gm DAILY PRN PO 01/23/17 20:00 02/22/17 19:59 Albuterol (Ventolin Hfa Inhaler) 2 puffs Q6H PRN INH 01/23/17 20:00 02/22/17 19:59 Aspirin (Ecotrin Tab) 81 mg Q2D@0900 PO 01/25/17 09:00 02/24/17 08:59 01/25/17 08:04 81 MG Atorvastatin Calcium (Lipitor Tab) 10 mg HS PO 01/23/17 21:00 02/22/17 20:59 01/24/17 19:18 10 MG Cholecalciferol (Vitamin D Tab) 1,000 inter.unit QAM PO 01/24/17 09:00 02/23/17 08:59 01/25/17 08:04 1,000 INTER.UNIT Escitalopram Oxalate (Lexapro Tab) 20 mg QAM PO 01/24/17 09:00 02/23/17 08:59 01/25/17 08:04 20 MG Ferrous Sulfate (Feosol Tab) 325 mg QAM PO 01/24/17 09:00 02/23/17 08:59 01/25/17 08:04 325 MG Gabapentin (Neurontin Tab) 600 mg TID PO 01/23/17 21:00 02/22/17 20:59 01/25/17 13:41 600 MG Insulin Detemir (Levemir Flexpen/ FlexTouch) 40 unit HS SQ 01/23/17 21:00 02/22/17 20:59 01/24/17 19:32 40 UNIT Magnesium Oxide (Mag-Ox Tab) 400 mg BID PO 01/23/17 21:00 02/22/17 20:59 01/25/17 08:04 400 MG Tiotropium [place] (Spiriva Handihaler Inhaler) 1 puff DAILY INH 01/24/17 09:00 02/23/17 08:59 01/25/17 08:03 1 PUFF Trazodone HCl (Desyrel Tab) 100 mg HS PO 01/23/17 21:00 02/22/17 20:59 01/24/17 19:18 100 MG Pantoprazole Sodium (Protonix Tab) 40 mg QAM PO 01/24/17 09:00 02/23/17 08:59 01/25/17 08:04 40 MG Insulin Aspart (novoLOG ASPART) SLIDING SCALE G... ACHS SC 01/23/17 21:00 02/22/17 20:59 01/25/17 12:25 16 UNITS Metoprolol Tartrate (Lopressor Iv) 5 mg Q6 PRN IV 01/23/17 20:00 02/22/17 19:59 01/24/17 20:36 5 MG Albuterol/ Ipratropium (Duoneb) 3 ml QIDR INH 01/23/17 20:00 02/22/17 19:59 01/25/17 15:59 3 ML Miscellaneous Information (Consult Glycemic Management Pharmacy) 1 ea UD PRN N/A 01/24/17 10:29 02/23/17 10:28 Insulin Aspart SLIDING SCALE G... 0000,0400 SC 01/25/17 00:00 02/24/17 00:00 01/25/17 04:18 6 UNITS Piperacillin Sod/ Tazobactam Sod/ Dextrose (Zosyn Iv/D5 100ml) 115 ml @ 28.75 mls/ hr Q8H IV 01/24/17 18:00 02/03/17 17:59 01/25/17 11:15 28.75 MLS/HR Piperacillin Sod/ Tazobactam Sod (Consult) 1 ea UD PRN N/A 01/24/17 12:15 02/23/17 12:14 Lorazepam (Ativan Tab) 0.5 mg Q4H PRN PO 01/24/17 19:00 02/23/17 18:59 01/25/17 16:37 0.5 MG Insulin Detemir 20 unit 20 unit DAILY SQ 01/25/17 09:00 02/24/17 08:59 01/25/17 08:18 20 UNIT Methylprednisolone Sodium Succinate 40 mg/Syringe 0.64 ml @ 1.5 mls/min Q12 IV 01/25/17 21:00 02/24/17 20:59 Sodium Chloride (Nss 1000ml) 1,000 ml @ 75 mls/hr [id number] IV 01/25/17 11:45 02/24/17 11:44 01/25/17 12:31 75 MLS/HR Objective Vital Signs Date Time Temp Pulse Resp B/P Pulse Ox O2 Delivery O2 Flow Rate FiO2 01/25/17 16:00 Nasal Cannula 2.0 01/25/17 15:59 93 20 99 Nasal Cannula 2.0 01/25/17 15:21 37.2 99 20 89/61 98 Humidified Oxygen 2.0 01/25/17 13:41 83/50 01/25/17 12:00 Nasal Cannula 2.0 01/25/17 12:00 36.8 102 20 75/50 100 2.0 01/25/17 11:09 86 20 98 Nasal Cannula 2.0 01/25/17 10:31 36.8 102 20 75/50 100 2.0 01/25/17 08:00 36.6 98 18 68/45 99 2.0 78/48 01/25/17 08:00 Nasal Cannula 2.0 01/25/17 07:19 98 20 98 Nasal Cannula 4.0 01/25/17 04:00 36.8 101 20 87/59 98 Nasal Cannula 2.0 01/25/17 04:00 Nasal Cannula 2.0 01/25/17 00:14 36.8 112 18 96/60 96 Nasal Cannula 2.0 01/25/17 00:00 Nasal Cannula 2.0 01/24/17 20:36 124 128/78 01/24/17 20:00 36.7 124 20 128/78 99 Nasal Cannula 3.0 Humidified Air 01/24/17 19:33 80 18 98 Nasal Cannula 4.0 Physical Exam General Appearance: no apparent distress, + obese Eyes: normal inspection, sclerae normal ENT: hearing grossly normal Neck: supple, trachea midline Respiratory/Chest: chest non-tender, no respiratory distress, no accessory muscle use, + wheezing (Mild) Cardiovascular: regular rate, rhythm Abdomen: normal bowel sounds, non tender, soft Neurologic/Psychiatric: alert, normal mood/affect Skin: normal color, warm/dry, no rash Laboratory Results Item Value Date Time C.difficile Toxin B Gene (PCR) - Final Complete 01/25/17 1145 Stool No C. difficile toxin B gene detected Shiga Toxin Test Received 01/25/17 1145 Stool Pending Blood Culture - Preliminary Resulted 01/23/17 1748 Blood NO GROWTH TO DATE. Blood Culture - Preliminary Resulted 01/23/17 1745 Blood NO GROWTH TO DATE. Urine Culture - Final Complete 01/23/17 0000 Urine , Clean Catch Lactobacillus Species Last 24 Hours Test 01/24/17 19:27 01/25/17 00:04 01/25/17 04:11 01/25/17 06:00 Bedside Glucose 362 mg/dl 240 mg/dl 261 mg/dl White Blood Count 3.93 K/uL Red Blood Count 3.15 M/uL Hemoglobin 9.3 g/dL Hematocrit 28.7 % Mean Corpuscular Volume 91.1 fL Mean Corpuscular Hemoglobin 29.5 pg Mean Corpuscular Hemoglobin Concent 32.4 g/dl RDW Standard Deviation 54.7 fL RDW Coefficient of Variation 16.5 % Platelet Count 75 K/uL Mean Platelet Volume 11.2 fL Sodium Level 141 mmol/L Potassium Level 4.0 mmol/L Chloride Level 105 mmol/L Carbon Dioxide Level 28 mmol/L Anion Gap 8.0 mmol/L Blood Urea Nitrogen 18 mg/dl Creatinine 0.99 mg/dl Est Creatinine Clear Calc Drug Dose 47.4 ml/min Estimated GFR () 66.9 Estimated GFR (Non- 57.7 BUN/Creatinine Ratio 18.4 Random Glucose 260 mg/dl Calcium Level 7.6 mg/dl Magnesium Level 2.0 mg/dl Total Bilirubin 0.6 mg/dl Aspartate Amino Transf (AST/SGOT) 31 U/L Alanine Aminotransferase (ALT/SGPT) 35 U/L Alkaline Phosphatase 68 U/L Total Protein 6.0 gm/dl Albumin 3.1 gm/dl Globulin 2.9 gm/dl Albumin/Globulin Ratio 1.1 Test 01/25/17 07:01 01/25/17 11:09 01/25/17 16:30 Bedside Glucose 262 mg/dl 288 mg/dl 204 mg/dl Assessment and Plan Patient with hypotension, elevated blood glucose, and generalized weakness. Urine culture growing lactobacillus species. The patient's urinalysis was also dirty, therefore may consider treating this bacteria as a pathogen of a possible urinary tract infection. She is currently on IV Zosyn. Will narrow her spectrum to IV Unasyn. Likely this patient could transition to p.o. amoxicillin if she continues to improve. Plan: 1. DC Zosyn 2. Start IV Unasyn 3. Consider transition to p.o. amoxicillin to complete course if continued improvement PROVIDER ADDENDUM: Patient reviewed with Ms. Puga. Agree with above assessment.
[2017-01-25] MEDS: AMPICILLIN/SULBACTAM SOD INJ 3,000 MG in SODIUM CHLORIDE 0.9% 100ML 100 ML IV SCH (19:39)
[2017-01-25] MEDS: TRAZODONE HCL 100 MG TAB PO SCH (21:33)
[2017-01-25] MEDS: METHYLPREDNISOLONE IV 40 MG in SYRINGE 0 ML IV SCH (21:33)
[2017-01-25] MEDS: ATORVASTATIN 10 MG TAB PO SCH (21:33)
[2017-01-26] VITALS (7 sets, daily range): BP systolic 68–113; BP diastolic 45–74; PULSE 85–110; TEMP 36.5–36.8; O2SAT 98–100
[2017-01-26] MEDS: AMPICILLIN/SULBACTAM SOD INJ 3,000 MG in SODIUM CHLORIDE 0.9% 100ML 100 ML IV SCH ×2 (00:08→05:57)
[2017-01-26] MEDS: SODIUM CHLORIDE 0.9% 1000ML 1,000 ML IV SCH (00:08)
[2017-01-26] MEDS: INSULIN ASPART 100 UNITS/ML 3 ML PEN SC SCH ×4 (00:52→11:00)
[2017-01-26] MEDS ORDERED: VANCOMYCIN TROUGH ONE (03:30)
[2017-01-26] MEDS: LORAZEPAM 0.5 MG TAB PO PRN (03:50)
[2017-01-26 07:14] LABS: HEMATOCRIT 28.3 % (37-47); MEAN CORPUSCULAR HEMOGLOBIN 29.9 pg (25-34); MEAN CORPUSCULAR HGB CONC 32.9 g/dl (32-36); PLATELET COUNT 75 K/uL (130-400); RED BLOOD COUNT 3.11 M/uL (4.2-5.4); WHITE BLOOD COUNT 3.73 K/uL (4.8-10.8)
[2017-01-26] MEDS: ALBUT/IPRATROP 3MG/0.5MG NEB 3 ML VIAL INH SCH ×2 (07:17→11:27)
[2017-01-26 07:24] LABS: BUN/CREATININE RATIO 25.5 (10-20); CALCIUM 7.3 mg/dl (8.5-10.1); CREATININE 0.82 mg/dl (0.60-1.20); MAGNESIUM 2.3 mg/dl (1.8-2.4); POTASSIUM 4.3 mmol/L (3.5-5.1)
[2017-01-26 07:27] LABS: ALB/GLOB RATIO 1.1 (0.9-2)
[2017-01-26] MEDS: TIOTROPIUM BROMIDE 5 PUFF/90 MCG INH INH SCH (08:40)
[2017-01-26] MEDS: PANTOprazole SOD 40 MG TAB PO SCH (08:41)
[2017-01-26] MEDS: METHYLPREDNISOLONE IV 40 MG in SYRINGE 0 ML IV SCH (08:41)
[2017-01-26] MEDS: ESCITALOPRAM OXALATE 20 MG TAB PO SCH (08:41)
[2017-01-26] MEDS: MAGNESIUM OXIDE 400 MG TAB PO SCH (08:41)
[2017-01-26] MEDS: FERROUS SULFATE 325 MG TAB PO SCH (08:41)
[2017-01-26] MEDS: CHOLECALCIFEROL 1000 INTER.UNIT TAB PO SCH (08:41)
[2017-01-26] MEDS: GABAPENTIN 600 MG TAB PO SCH (08:41)
[2017-01-26] MEDS: INSULIN DETEMIR FLEXPEN/FLEX TOUCH 100 UNITS/ML 3ML SQ SCH (08:47)
[2017-01-26] MEDS ORDERED: PRED50TA PO (11:18)
[2017-01-26] MEDS ORDERED: AMOX875T PO (11:18)
--- NOTE | 2017-01-26 11:20 | Discharge Instructions ---
Discharge Instructions Admission Admission Date: Jan 23, 2017 at 20:17 Admission Diagnosis: Copd Exacerbation. Discharge Care Plan - Problem: Medical Problems: (1) COPD (chronic obstructive pulmonary disease) (2) Hypotension (3) SIRS Care Plan - Goal(s): Decrease discomfort, Improve function Care Plan - Instructions: Recommended Home Diet: Diabetic AHA Phase I Provider Instructions: Please follow up with your PCP in 1 week Please follow up with Dr. Caal at scheduled appointment VTE Core Measure Inpt VTE Proph given/why not?: Monroe Bryan, SCD's Laboratory Results Test Results: Hemoglobin A1c Test 12/31/16 06:10 Range/Units Estimated Average Glucose 183 mg/dl Hemoglobin A1c 8.0 H 4.5-5.6 % Silverio Major Recommendations: Call your doctor if: * Temperature above 101 degrees * Pain not relieved by pain medicine ordered * There is increased drainage or redness from any incision * You have any unanswered questions or concerns. Your Doctors Instructions noted above were prepared by provider Amaya Romeo.
--- NOTE | 2017-01-26 17:14 | Discharge Summary ---
Discharge Summary Date of Service Jan 26, 2017. Discharge Summary Admission Date: Jan 23, 2017 at 20:17 Discharge Date: Jan 26, 2017 Discharge Disposition: Home Principal Diagnosis: COPD Exacurbation/UTI Consultations: Infectious Disease Medication Reconciliation New Medications: Amoxicillin & Pot Clavulanate (Augmentin 875-125 mg) 1 Tab Tab 875 MG PO BID for 7 Days, #14 TAB Prednisone (Prednisone) 50 Mg Tab 50 MG PO DAILY for 5 Days, #5 TAB Continued Medications: Albuterol Hfa (Ventolin Hfa) 200 Puffs/37291 Mcg Aers 2-4 PUFFS INH Q6H PRN for Shortness of Breath, #1 INHALER Alum & Mag Hydrox-Simethicone (Mylanta Double-Strength) 1 Jelly Jelly 1 TBS PO bid between meals PRN for Indigestion Aspirin (Aspirin Ec) 81 Mg Tab 81 MG PO Q2D Atorvastatin (Atorvastatin Calcium) 10 Mg Tab 10 MG PO HS Cholecalciferol (Vitamin D 1000 Unit) 1,000 Unit Cap 1000 INTER.UNIT PO QAM, CAP Clobetasol Propionate (Clobetasol Propionate) 45 Appln/15 Gm Oint 1 APPLN TOP BID for 30 Days, #60 GM 2 Refills Escitalopram Oxalate (Lexapro) 20 Mg Tab 20 MG PO QAM, TAB Ferrous Sulfate (Ferrous Sulfate) 325 Mg Tab 325 MG PO QAM Furosemide (Lasix) 20 Mg Tab 20 MG PO 4XWK PRN for SWELLING, TAB TAKE SUN, MON, WED, FRI. DAYS WHEN NOT TAKING SPIRONALACTONE. Gabapentin (Gabapentin) 600 Mg Tab 600 MG PO TID, #90 Insulin Aspart (Novolog Flexpen) 100 Units/Ml Inj 0 SQ BIDM 20 UNITS W/LUNCH, 25 UNITS W/SUPPER ALSO SLIDING SCALE Insulin Detemir (Levemir Flextouch) 100 Unit/Ml Inj 40 UNITS SQ HS Ipratropium-Albuterol (Duoneb) 3 Ml Nebu 1 TREATMENT INH Q4H PRN for SOB/Wheezing, INHA Lorazepam (Lorazepam) 0.5 Mg Tab 0.5 MG PO Q6 PRN for Anxiety, #30 TAB Magnesium Oxide (Mag-Ox) 400 Mg Tab 400 MG PO BID, TAB Metformin Hcl (Glucophage) 1,000 Mg Tab 1000 MG PO BID, #120 Metoprolol Succ (Toprol Xl) (Toprol-Xl) 25 Mg Tabcr 12.5 MG PO HS, TAB Omeprazole (Prilosec) 40 Mg Cap 40 MG PO QAM, #90 Ondasetron Odt (Zofran Odt) 4 Mg Tab 4 MG SL Q6H for Nausea, #20 TAB Oxycodone Hcl (Oxycodone Hcl) 15 Mg Tab 15 MG PO BID, #120 Oxygen (Oxygen) Gas 2 LITERS NA CONTINOUS, #365 Tiotropium [place] (Spiriva Handihaler) 5 Puff/90 Mcg Aerp 2 PUFFS INH BID Trazodone Hcl (Trazodone) 100 Mg Tab 100 MG PO HS Discharge Exam Review of Systems: Constitutional: No chills Eyes: No worsening of vision Respiratory: No shortness of breath, No sputum Cardiovascular: No chest pain Abdomen: No constipation, No pain, No vomiting Musculoskeletal: No joint pain Genitourinary - Female: No dysuria Neurologic: No memory loss Psychiatric: No depression symptoms Endocrine: No fatigue Integumentary: No itch, No rash Physical Exam: General Appearance: WD/WN, no apparent distress Eyes: normal inspection ENT: normal ENT inspection Neck: supple Respiratory/Chest: chest non-tender, + wheezing Cardiovascular: regular rate, rhythm, no edema Abdomen / GI: normal bowel sounds, non tender, soft Extremities: normal inspection, no calf tenderness 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 Per patient, she has been feeling progressively weak, fatigued, and lightheaded/dizzy since her last admission. She has been admitted frequently for COPD exacerbation. Patient continues to smoke daily. She has been no multiple antibiotic courses and prednisone tappers. +productive cough- yellow/green sputum. Patient has been dealing with chronically low BPs for months now. She states she has been evaluated multiple times, but "no one seems to care." Patient has appoitment on 02/[address] Caal for severe . Patient also complains of diarrhea. She states every time she uses the restroom to urinate, she has diarrhea. This has been ongoing for a few weeks now, but patient has never told her providers about it. Patient denies any fever, chills, sweats, vision changes, CP, palpitations, edema, abdominal pain, nausea, vomiting, urinary symptoms, melena , numbness/tingling, weakness, muscle/joint pain, anxiety/depression, active bleeding, or new skin discoloration/changes. COPD Exacerbation - symptoms improved during hospital stay - started on solumedrol switched to prednisone on discharge - continued on duonebs - incentive spirometry UTI - started on primaxin switched to unasyn day #3 - urine culture grew lactobacillus - appreciated I/D input - discharged on 7 days of augmentin Hypotension/sepsis - pt baseline b/p's in the 90's - started IVF at 75 cc/hr - sepsis resolved with IVF and antibiotics Chronic Hypoxic Respiratory Failure - on baseline 2-3L continuous 02 DMII - continued Levemir and SSI - consulted pharmacy for glycemic control CAD - cont ASA - held metoprolol 12.5 mg hs in setting of hypotension/IV Lopressor prn Tobacco Abuse - no interest in quitting at this time however states she will try nicotine patch on discharge Full Code Total Time Spent: Greater than 30 minutes This includes examination of the patient, discharge planning, medication reconciliation, and communication with other providers. Discharge Instructions Please refer to the electronic Patient Visit Report (Discharge Instructions) for additional information.
[2017-04-19] MEDS ORDERED: LPT10 PO (12:55)
[2017-04-19] MEDS ORDERED: TRAZ100T29 PO (14:34)
[2017-04-19] MEDS ORDERED: ESCI1TAB10 PO (14:34)
[2017-04-19] MEDS ORDERED: MAGN400T5 PO (15:05)
[2017-04-19] MEDS ORDERED: METO25TA3 PO (15:20)
[2017-04-19] MEDS ORDERED: NRN600 PO (15:26)
[2017-04-19] MEDS ORDERED: OMEP40CA41 PO (15:26)
[2017-04-19] MEDS ORDERED: CLBPO15 TOP (18:51)
[2017-04-19] MEDS ORDERED: METF-384 PO (18:51)
[2017-04-19] MEDS ORDERED: IPRASOL4 INH (18:51)
[2017-04-19] MEDS ORDERED: NVLGI/PEN SQ (18:52)
[2017-04-19] MEDS ORDERED: FRRS300 PO (18:52)
[2017-04-19] MEDS ORDERED: LVMIPEN SQ (18:52)
[2017-06-20] MEDS ORDERED: METR-163 PO (10:00)
[2017-06-20] MEDS ORDERED: GABA600T PO (10:00)
[2017-06-20] MEDS ORDERED: FURO40TA3 PO (10:00)
[2017-06-20] MEDS ORDERED: MGCS/ PO (10:00)
[2017-06-20] MEDS ORDERED: NVLGI/PEN SC (10:01)
[2017-06-20] MEDS ORDERED: DRGTP12 TOP (10:07)
== END 2017-01-26 13:01 | disposition home or self-care (01) | DRG 872 ==
LOC: ENRESERVDT → ENRESERVTM → C.EDB 16:26 → C.2T 20:17
PROVIDERS: ADMIT Hospitalist; ATTEND Hospitalist
DX: A41.9 Sepsis, unspecified organism (principal); J44.1 Chronic obstructive pulmonary disease with (acute) exacerbation; N39.0 Urinary tract infection, site not specified; J96.11 Chronic respiratory failure with hypoxia; G45.0 Vertebro-basilar artery syndrome; I95.9 Hypotension, unspecified; K75.81 Nonalcoholic steatohepatitis (NASH); F17.210 Nicotine dependence, cigarettes, uncomplicated; F32.9 Major depressive disorder, single episode, unspecified; K74.60 Unspecified cirrhosis of liver; D64.9 Anemia, unspecified; E78.5 Hyperlipidemia, unspecified; K21.9 Gastro-esophageal reflux disease without esophagitis; D69.6 Thrombocytopenia, unspecified; I10 Essential (primary) hypertension; E11.65 Type 2 diabetes mellitus with hyperglycemia; I25.10 Atherosclerotic heart disease of native coronary artery without angina pectoris; I08.1 Rheumatic disorders of both mitral and tricuspid valves; R94.5 Abnormal results of liver function studies; R19.7 Diarrhea, unspecified; B96.89 Other specified bacterial agents as the cause of diseases classified elsewhere; R53.1 Weakness; R60.0 Localized edema; Z99.81 Dependence on supplemental oxygen; Z23 Encounter for immunization; Z95.5 Presence of coronary angioplasty implant and graft; Z79.82 Long term (current) use of aspirin; Z79.4 Long term (current) use of insulin; Z79.891 Long term (current) use of opiate analgesic; Z79.899 Other long term (current) drug therapy

== ENCOUNTER → 2017-02-14 | Outpatient (CLI) | payer OTHER ==
[~2017-02-14] MED LIST changes: +ALUM1SUS57 PO; +ALUMSUS37 PO; +ASPI81TA28 PO; +ATV5X PO; +AUG0.05O4 TP; +CHOL100027 PO; +CLBPO15 TOP; +DRGTP12 TOP; +ESCI1TAB10 PO; +FERR1TAB13 PO; -FERR325T51 PO; +FRRS300 PO; +FURO40TA3 PO; +GABA600T PO; +HYDR-5688 PO; +LPT10 PO; +LVMIPEN SQ; -LVQ750 PO; +MAGN400T5 PO; +MBXC PO; +METF-384 PO; +METH-589 PO; +METO25TA3 PO; +METR-163 PO; +MGCS/ PO; +NRN600 PO; +NVLGI/PEN SC; +NVLGI/PEN SQ; +OMEP40CA41 PO; +ONDA4TAB46 PO; +OXY/15 PO; -PRED10TA PO; +RIFA550T2 PO; +TIOT1AER INH; +TIOT1AER2 INH; +TRAZ100T29 PO; -TRMO2580 TOP; +VNTHFA/IN INH
[2017-02-14 14:56] LABS: ESTIMATED AVERAGE GLUCOSE 160 mg/dl; HA1C FLAG Normal (Normal)
[2017-02-14 14:59] LABS: AST/SGOT 43 U/L (15-37); BLOOD UREA NITROGEN 12 mg/dl (7-18); BUN/CREATININE RATIO 13.8 (10-20); CALCIUM 8.8 mg/dl (8.5-10.1); CARBON DIOXIDE 28 mmol/L (21-32); CHLORIDE 102 mmol/L (98-107); CREATININE 0.87 mg/dl (0.60-1.20); GLUCOSE 81 mg/dl (70-99); POTASSIUM 4.4 mmol/L (3.5-5.1); SODIUM 140 mmol/L (136-145)
[2017-02-14 15:07] LABS: ALKALINE PHOSPHATASE 92 U/L (45-117); ALT/SGPT 36 U/L (12-78); CHOLESTEROL 130 mg/dl (0-200); CHOLESTEROL/HDL RATIO 2.9; HDL CHOLESTEROL 45 mg/dl; LDL CHOLESTEROL CALCULATED 65 mg/dl; THYROID STIMULATING HORMONE 0.129 uIu/ml (0.300-4.500); TRIGLYCERIDES 98 mg/dl (0-150); VERY LOW DENSITY LIPOPROT CALC 20 mg/dl
[2017-02-14 15:30] LABS: RATIO 8.8 mcg/mg (0-30.0)
--- NOTE | 2017-02-19 09:32 | CODING QUERY MEDICAL NECESSITY ---
SUPPORTING DIAGNOSIS NEEDED A supporting diagnosis is required for the test/procedure performed on this patient in order for us to be reimbursed by the patient's insurance. Please provide a supporting diagnosis for the following test/procedure listed below next to the test name along with your signature. *If there is no additional diagnosis for this patient that would support the following test/procedure please document that below next to the test/procedure. Test(s)/Procedure(s) that require a supporting diagnosis: DOS 02/14 * Hba1c DIAGNOSIS: Provider Signature: Date: Thank you Minal Medley Health Information Management Once completed, please kindly fax back to [phone] For questions please call [phone]
[2017-02-19 14:17] LABS: ILGF1 Z SCORE FEMALE -0.6 SD (-2.0 - +2.0); INSULIN LIKE GROWTH FACTOR-I 80 ng/mL (34-245)
== END | disposition home or self-care (01) ==
LOC: C.LAB1850 12:34
PROVIDERS: ATTEND Family Medicine
DX: E05.90 Thyrotoxicosis, unspecified without thyrotoxic crisis or storm (principal); K74.60 Unspecified cirrhosis of liver; E11.49 Type 2 diabetes mellitus with other diabetic neurological complication

== ENCOUNTER 2017-03-08 16:52 | Emergency (ER) | payer OTHER ==
[~2017-03-08 16:52] MED LIST changes: -ALUM1SUS57 PO; -ALUMSUS37 PO; -ASPI81TA28 PO; -ATV5X PO; -AUG0.05O4 TP; -CHOL100027 PO; -CLBPO15 TOP; -DRGTP12 TOP; -ESCI1TAB10 PO; -FERR1TAB13 PO; -FRRS300 PO; -FURO40TA3 PO; -GABA600T PO; -HYDR-5688 PO; -IPRASOL4 INH; -LPT10 PO; -LVMIPEN SQ; -MAGN400T5 PO; -MBXC PO; -METF-384 PO; -METH-589 PO; -METO25TA3 PO; -METR-163 PO; -MGCS/ PO; -NRN600 PO; -NVLGI/PEN SC; -NVLGI/PEN SQ; -OMEP40CA41 PO; -ONDA4TAB46 PO; -OXYC-164 PO; -RIFA550T2 PO; -TIOT1AER INH; -TIOT1AER2 INH; -TRAZ100T29 PO; -VNTHFA/IN INH
[2017-03-08 17:07] VITALS: TEMP 36.6; Ht 154.9 cm
[2017-03-08] MEDS ORDERED: ONDANSETRON INJ 2 MG/ML 2 ML VIAL IV STA (18:31)
[2017-03-08] MEDS ORDERED: SODIUM CHLORIDE 0.9% 1000ML 1,000 ML IV STA (18:31)
[2017-03-08] MEDS ORDERED: ALBUT/IPRATROP 3MG/0.5MG NEB 3 ML VIAL INH STA (18:35)
--- NOTE | 2017-03-08 18:46 | EMERGENCY ROOM VISIT NOTE ---
History Report prepared by Latia: Collin Mason Under the Supervision of: Dr. Barney Kaminski D.O. First contact with patient: 18:25 Chief Complaint: FALL Stated Complaint: FALL, BACK PAIN History of Present Illness The patient is a 71 year old female who presents to the Emergency Room with complaints of persistent right sided back pain secondary to a fall that occurred 5 days ago. She rates her pain a 10/10 in intensity. The patient was standing at her sink when she slipped and fell backwards onto the floor. The patient reports hitting the back of her head during the fall. She denies loss of consciousness. Associated symptoms include a headache and abdominal pain. The patient also complains of shortness of breath at this time, which she states is not new. Patient denies urinary symptoms, weakness, numbness, or any additional associated symptoms. Patient takes baby aspirin every other day. Source of History: patient Onset: 5 days ago Position: back Symptom Intensity: 10/10 Timing: other (Persistent) Modifying Factors (Relieving): other (None) Associated Symptoms: + headache, No LOC Review of Systems See HPI for pertinent positives & negatives. A total of 10 systems reviewed and were otherwise negative. 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 Surgical Problems: (1) H/O cardiac catheterization (2) Heart stents (3) History of back surgery (4) S/P cholecystectomy Family History Diabetes mellitus FH: cancer FH: heart disease Hypertension Kidney disease Kidney stones Social History Smoking Status: Current Some Day Smoker Alcohol Use: none Marital Status: Housing Status: lives alone Occupation Status: unemployed Current/Historical Medications Scheduled Aspirin (Aspirin Ec), 81 MG PO Q2D Atorvastatin (Atorvastatin Calcium), 10 MG PO HS Cholecalciferol (Vitamin D 1000 Unit), 1,000 INTER.UNIT PO QAM Clobetasol Propionate (Clobetasol Propionate), 1 APPLN TOP BID Escitalopram Oxalate (Lexapro), 20 MG PO QAM Ferrous Sulfate (Ferrous Sulfate), 325 MG PO QAM Gabapentin (Gabapentin), 600 MG PO TID Insulin Aspart (Novolog Flexpen), 0 SQ BIDM Insulin Detemir (Levemir Flextouch), 40 UNITS SQ HS Magnesium Oxide (Mag-Ox), 2 TAB PO BID Metformin Hcl (Glucophage), 1,000 MG PO BID Metoprolol Succ (Toprol Xl) (Toprol-Xl), 12.5 MG PO HS Omeprazole (Prilosec), 40 MG PO QAM Ondasetron Odt (Zofran Odt), 4 MG SL Q6H Oxycodone Hcl (Oxycodone Hcl), 15 MG PO BID Oxygen (Oxygen), 2 LITERS NA CONTINOUS Tiotropium [place] (Spiriva Handihaler), 2 PUFFS INH BID Trazodone Hcl (Trazodone), 100 MG PO HS Scheduled PRN Albuterol Hfa (Ventolin Hfa), 2-4 PUFFS INH Q6H PRN for Shortness of Breath Alum & Mag Hydrox-Simethicone (Mylanta Double-Strength), 1 TBS PO bid between meals PRN for Indigestion Hydrocodone/Acetaminophen 5MG/325MG (Niota 5MG/325MG), 1 TABLET PO Q4 PRN for Pain Ipratropium-Albuterol (Duoneb), 1 TREATMENT INH Q4H PRN for SOB/Wheezing Lorazepam (Lorazepam), 0.5 MG PO Q6 PRN for Anxiety Allergies Coded Allergies: Iodinated Diagnostic Agents (Verified Allergy, Intermediate, RASH TO IVP DYE, 03/08/17) Adhesives (Verified Allergy, Unknown, rash, 03/08/17) Latex1 -Allergic Contact Dermititis (Verified Allergy, Unknown, RASH, 03/08) Sulfa Antibiotics (Verified Allergy, Unknown, unknown, 03/08/17) Physical Exam Vital Signs Date Time Temp Pulse Resp B/P Pulse Ox O2 Delivery O2 Flow Rate FiO2 03/08/17 21:45 85 14 82/46 95 Nasal Cannula 2.0 03/08/17 21:04 84 03/08/17 20:59 86 21 85/58 99 Nasal Cannula 2.0 03/08/17 19:24 82 20 110/60 98 Room Air 4/14/17 17:07 36.6 74 20 88/55 98 Room Air Physical Exam GENERAL: Patient is awake, alert, very uncomfortable and anxious appearing. Appears to be in significant pain. EYES: The conjunctivae are clear. The pupils are round and reactive. EARS, NOSE, MOUTH AND THROAT: The nose is without any evidence of any deformity. Mucous membranes are dry, tongue is midline NECK: ROM in tact, no tenderness appreciated. RESPIRATORY: Wheezing in all arreola, mild exertional dyspnea noted with patient moving around. CARDIOVASCULAR: Regular rate and rhythm noted there no murmurs rubs or gallops normal S1 normal S2 GASTROINTESTINAL: The abdomen is soft. Bowel sounds are present in all quadrants. Abdomen is nontender BACK: No thoracic tenderness to palpation, significant low lumbar spine tenderness to palpation, right lumbar paravertebral tenderness to palpation. MUSCULOSKELETAL/EXTREMITIES: No shortening or deformity of right lower extremity , significant pain with ROM of right hip. SKIN: No pedal edema. There is no obvious evidence of any rash. There are no petechiae, pallor or cyanosis noted. NEUROLOGIC: Patient is awake alert and oriented x3. Medical Decision & Procedures ER Provider Diagnostic Interpretation: Radiology results as stated below per my review and radiologist interpretation: CT SCAN OF THE LUMBAR SPINE WITHOUT IV CONTRAST CLINICAL HISTORY: Fall several days ago. COMPARISON STUDY: Abdominal CT dated 12/30/16 MRI of the lumbar spine dated 08/26/2014. TECHNIQUE: CT scan of lumbar spine is performed from the lower thoracic spine to the sacrum. Images are reviewed in the axial, sagittal, coronal planes. IV contrast was not administered for this examination. CT DOSE: 718.87 mGy.cm FINDINGS: The skeletal structures are osteopenic. There is a mild acute superior endplate compression fracture of L1. Fracture extends to the anterior vertebral body. There is no retropulsion of fragments. Fracture does not involve the posterior elements. Vertebral body height is otherwise maintained throughout the lumbar spine. Alignment is preserved. There are postoperative changes from laminectomy and posterior fusion from L4 -S1. Interpedicular screws are present at all levels. The Orthopedic hardware appears intact. The remaining spinous processes as well as the transverse processes are preserved. There is no evidence of spondylolysis. No lytic or blastic bony lesions are seen. Moderate degenerative disc space narrowing is seen at L2-L3. Advanced disc space narrowing is present at L5-S1. Small anterior osteophytes are seen throughout. The visualized sacrum and bony pelvis appear intact. Mild sclerotic degenerative change is noted in the sacroiliac joints. There is fatty atrophy of the paraspinous and iliopsoas musculature. There is a nonobstructing left renal calculus. Atherosclerotic calcification is noted in the abdominal aorta. Large collateral vessels are identified in the retroperitoneum. IMPRESSION: 1. There is a mild acute superior endplate compression fracture of L1. No retropulsion of fragments is seen. 2. No additional fracture is identified throughout the lumbosacral spine. 3. Osteopenia with spondylotic and postoperative change as above. 4. Nonobstructing left renal calculus. 5. Additional findings as above. Electronically signed by: Daniel Copeland M.D. 03/08/2017 9:01 PM Dictated Date/Time: 03/08/2017 8:35 PM SINGLE VIEW PELVIS; 2 VIEWS RIGHT HIP CLINICAL HISTORY: Fall several days ago with right hip pain. FINDINGS: An AP portable view of the pelvis with AP and frog-leg portable views of the right hip are correlated with pelvic CT dated 12/30/2016. The examination is degraded by large body habitus. The skeletal structures are osteopenic. There is no radiographic evidence of fracture in the hips or bony pelvis. Mild arthritic change is present in both hips. Enthesophytes arise from the left anterior superior iliac spine and the greater trochanter of the left femur. Sclerotic change is noted in the sacroiliac joints. Fusion hardware is identified in the lumbosacral spine. The overlying soft tissues are within normal limits. There is a nonobstructed abdominal bowel gas pattern. IMPRESSION: 1. There is no radiographic evidence of fracture in the hips or bony pelvis. 2. Osteopenia and arthritic change as above. Electronically signed by: Daniel Copeland M.D. 03/08/2017 7:21 PM Dictated Date/Time: 03/08/2017 7:[address] SCAN OF THE BRAIN WITHOUT IV CONTRAST CLINICAL HISTORY: Fall several days ago. COMPARISON STUDY: No priors. TECHNIQUE: Unenhanced axial CT scan of the brain is performed from the vertex to the skull base. FINDINGS: Brain parenchyma: There are age-related involutional changes noting mild subcortical and periventricular microangiopathic change. There is no hemorrhage, mass effect, or evidence of acute territorial ischemia by CT criteria. Miranda-white matter is preserved. No extra-axial fluid collection is seen. Ventricles, sulci, cisterns: Prominent secondary to involutional change. Intracranial vasculature: There is atherosclerotic calcification of the cavernous carotid and vertebral arteries. Calvarium: The skeletal structures are osteopenic. There is no depressed calvarial fracture. Sinuses and mastoids: The visualized paranasal sinuses are clear. The mastoid air cells are well pneumatized. Orbits: The bony orbits are grossly intact. IMPRESSION: There is no hemorrhage, mass effect, or evidence of acute territorial ischemia by CT criteria. Electronically signed by: Daniel Copeland M.D. 03/08/2017 8:16 PM Dictated Date/Time: 03/08/2017 8:15 PM SINGLE VIEW CHEST CLINICAL HISTORY: Generalized abdominal pain. Recent fall. FINDINGS: An AP, portable, semierect chest radiograph is compared to study dated 01/24/2017. The examination is degraded by portable technique, large body habitus, and patient rotation. The heart is enlarged and there is atherosclerotic calcification of the thoracic aorta. The pulmonary vasculature is noncongested. Bibasilar atelectasis is observed and there is chronic additional thickening. No airspace consolidation, large pleural effusion, or pneumothorax is seen. The skeletal structures are osteopenic. The bony thorax is grossly intact. Degenerative change is noted throughout the thoracic spine. Fusion hardware is seen in the cervical spine. Surgical clips are noted in the neck. IMPRESSION: Cardiomegaly with no acute cardiopulmonary abnormality. Electronically signed by: Daniel Copeland M.D. 03/08/2017 7:25 PM Dictated Date/Time: 03/08/2017 7:[address] SCAN OF THE CERVICAL SPINE CLINICAL HISTORY: Fall several days ago. COMPARISON STUDY: MRI of the cervical spine dated 08/26/2014. TECHNIQUE: CT scan of the cervical spine is performed from the skull base to the upper thoracic spine. Images are reviewed in the axial, sagittal, and coronal planes. IV contrast was not administered for this examination. The examination is degraded by streak artifact from extensive cervical orthopedic hardware. CT DOSE: 955.03 mGy.cm FINDINGS: Skeletal structures: The skeletal structures are osteopenic. There are postoperative changes from laminectomy and posterior spinal fusion seen from C3 through C7. Arthritic hardware is grossly intact. There is no evidence of fracture or subluxation involving the cervical spine. Vertebral body height and alignment are maintained. There is straightening of the cervical lordosis. The odontoid process and lateral masses are intact. The atlantoaxial articulation is preserved noting productive degenerative change with bony overgrowth and narrowing of the interval. Small anterior osteophytes are seen throughout. Intervertebral discs: Moderate degenerative disc space narrowing is seen from C4 to C5 through C6-C7. Mild disc space narrowing is seen at the remaining cervical levels. Central canal: Grossly patent. Soft tissues: The prevertebral and paraspinous soft tissues are within normal limits. There is atherosclerotic calcification of the left carotid bulb. Surgical clips are noted in the right lower neck. Calvarium: The visualized calvarium at the skull base appears intact. Brain parenchyma: Partially visualized brain parenchyma the skull base is within normal limits. Sinuses and mastoids: Trace dependent mucosal thickening is seen in the right maxillary antrum. The remaining visualized paranasal sinuses are clear. There is a small left mastoid effusion. The right mastoid air cells are well pneumatized. Lung apices: Clear as visualized. IMPRESSION: 1. There is no evidence of fracture or subluxation involving the cervical spine. 2. Osteopenia with spondylotic and postoperative change as above. Electronically signed by: Daniel Copeland M.D. 03/08/2017 8:35 PM Dictated Date/Time: 03/08/2017 8:32 PM Laboratory Results 03/08/17 18:58 Red Blood Count 3.60, Mean Corpuscular Volume 90.3, Mean Corpuscular Hemoglobin 28.3, Mean Corpuscular Hemoglobin Concent 31.4, Mean Platelet Volume 11.2, Neutrophils (%) (Auto) 66.3, Lymphocytes (%) (Auto) 24.5, Monocytes (%) (Auto) 6.9, Eosinophils (%) (Auto) 1.5, Basophils (%) (Auto) 0.4, Neutrophils # (Auto) 3.17, Lymphocytes # (Auto) 1.17, Monocytes # (Auto) 0.33, Eosinophils # (Auto) 0.07, Basophils # (Auto) 0.02 03/08/17 18:58 Test 03/08/17 00:00 03/08/17 18:58 Urine Color DK YELLOW Urine Appearance CLEAR (CLEAR) Urine pH 5.0 (4.5-7.5) Urine Specific [place] 1.021 (1.000-1.030) Urine Protein NEG (NEG) Urine Glucose (UA) 1+ (NEG) Urine Ketones NEG (NEG) Urine Occult Blood NEG (NEG) Urine Nitrite NEG (NEG) Urine Bilirubin NEG (NEG) Urine Urobilinogen NEG (NEG) Urine Leukocyte Esterase TRACE (NEG) Urine WBC (Auto) 5-10 /hpf (0-5) Urine RBC (Auto) 0-4 /hpf (0-4) Urine Hyaline Casts (Auto) 1-5 /lpf (0-5) Urine Epithelial Cells (Auto) >30 /lpf (0-5) Urine Bacteria (Auto) 1+ (NEG) White Blood Count 4.78 K/uL (4.8-10.8) Red Blood Count 3.60 M/uL (4.2-5.4) Hemoglobin 10.2 g/dL (12.0-16.0) Hematocrit 32.5 % (37-47) Mean Corpuscular Volume 90.3 fL (80-100) Mean Corpuscular Hemoglobin 28.3 pg (25-34) Mean Corpuscular Hemoglobin Concent 31.4 g/dl (32-36) Platelet Count 97 K/uL (130-400) Mean Platelet Volume 11.2 fL (7.4-10.4) Neutrophils (%) (Auto) 66.3 % Lymphocytes (%) (Auto) 24.5 % Monocytes (%) (Auto) 6.9 % Eosinophils (%) (Auto) 1.5 % Basophils (%) (Auto) 0.4 % Neutrophils # (Auto) 3.17 K/uL (1.4-6.5) Lymphocytes # (Auto) 1.17 K/uL (1.2-3.4) Monocytes # (Auto) 0.33 K/uL (0.11-0.59) Eosinophils # (Auto) 0.07 K/uL (0-0.5) Basophils # (Auto) 0.02 K/uL (0-0.2) RDW Standard Deviation 49.8 fL (36.4-46.3) RDW Coefficient of Variation 15.0 % (11.5-14.5) Immature Granulocyte % (Auto) 0.4 % Immature Granulocyte # (Auto) 0.02 K/uL (0.00-0.02) Prothrombin Time 12.0 SECONDS (9.0-12.0) Prothromb Time International Ratio 1.1 (0.9-1.1) Activated Partial Thromboplast Time 27.1 SECONDS (21.0-31.0) Partial Thromboplastin Ratio 1.0 Anion Gap 7.0 mmol/L (3-11) Estimated GFR () 58.9 Estimated GFR (Non- 50.8 BUN/Creatinine Ratio 11.2 (10-20) Calcium Level 8.7 mg/dl (8.5-10.1) Total Bilirubin 0.6 mg/dl (0.2-1) Direct Bilirubin 0.2 mg/dl (0-0.2) Aspartate Amino Transf (AST/SGOT) 67 U/L (15-37) Alanine Aminotransferase (ALT/SGPT) 37 U/L (12-78) Alkaline Phosphatase 109 U/L (45-117) Total Protein 6.7 gm/dl (6.4-8.2) Albumin 3.4 gm/dl (3.4-5.0) Lipase 251 U/L (73-393) Laboratory results per my review. Medications Administered Medications (Trade) Dose Ordered Sig/Diego Route Start Time Stop Time Status Last Admin Dose Admin Ondansetron HCl (Zofran Inj) 4 mg NOW STAT IV 03/08/17 18:31 03/08/17 18:34 DC 03/08/17 19:14 4 MG Morphine Sulfate 4 mg 4 mg Q15M PRN IV 03/08/17 18:45 03/22/17 18:44 03/08/17 19:46 4 MG Sodium Chloride (Nss 1000ml) 1,000 ml @ 125 mls/hr Q8H STAT IV 03/08/17 18:31 03/09/17 02:30 03/08/17 18:20 125 MLS/HR Albuterol/ Ipratropium (Duoneb) 3 ml NOW STAT INH 03/08/17 18:35 03/08/17 18:36 DC 03/08/17 20:59 3 ML Acetaminophen/ Hydrocodone Bitart ([place] 5/325mg Home Pack) 1 homepack UD ONCE PO 03/08/17 22:00 03/08/17 22:01 DC 03/08/17 22:24 1 HOMEPACK ED Course 182: The patient was evaluated in room B10. A complete history and physical examination were performed. 1830: Ordered Sodium Chloride 1,000 ml @ 125 mls/hr IV, Zofran Injection 4 mg IV. 1834: Ordered DuoNeb 3 ml INH. 1844: Ordered Morphine Sulfate 4 mg IV. 2199: Ordered Acetaminophen/ Hydrocodone Bitart 1 homepack PO. 2204: Upon reevaluation, the patient is resting more comfortably. I discussed the results and treatment plan with the patient and her family in room. They verbalized agreement of the treatment plan. She was discharged home. Medical Decision Differential diagnosis: Etiologies such as musculoskeletal, disc herniation, fracture, aortic disease, metastatic disease, cord compression, discitis, infection, renal colic, gastrointestinal, acute exacerbation of chronic back pain, sciatica, cauda equina, as well as others were entertained. Nursing notes reviewed. Additional history is obtained from the patient's family members. The patient is a 71-year-old female who presented to the emergency department after fall. The patient states that she had a fall earlier in the week. She was having worsening lower back pain. The patient also struck her head. She was treated with IV pain medication in the emergency department. On subsequent reevaluation she was feeling much better. I discussed the patient's laboratory and radiographic studies with her. She was found have a lumbar compression fracture. She was encouraged to rest and avoid any strenuous activity. She was encouraged to call her primary care physician to schedule a follow-up appointment and rest. She was also encouraged to return to the emergency department immediately if symptoms change worsen or the need arises. Impression Primary Impression: Fall Additional Impressions: Lumbar compression fracture Head injury Scribe Attestation The scribe's documentation has been prepared under my direction and personally reviewed by me in its entirety. I confirm that the note above accurately reflects all work, treatment, procedures, and medical decision making performed by me. Departure Information Dispostion Home / Self-Care Prescriptions Hydrocodone/Acetaminophen 5MG/325MG ([place] 5MG/325MG) Tab 1 TABLET PO Q4 Y for Pain, #25 TAB Prov: Barney Kaminski, 03/08/17 Referrals Arik Ryan D.O.[facility]. (PCP) Forms HOME CARE DOCUMENTATION FORM, IMPORTANT VISIT INFORMATION Patient Instructions My [facility] Additional Instructions Rest and avoid any strenuous activity. Continue all medications as prescribed. Follow-up with your family this week for reevaluation. Return to the emergency department immediately if symptoms change worsen or if the need arises. Problem Qualifiers Primary Impression: Fall Encounter type: initial encounter Qualified Codes: W19.XXXA - Unspecified fall, initial encounter Additional Impressions: Lumbar compression fracture Encounter type: initial encounter Fracture type: closed Qualified Codes: S32.000A - Wedge compression fracture of unspecified lumbar vertebra, initial encounter for closed fracture Head injury Encounter type: initial encounter Qualified Codes: S09.90XA - Unspecified injury of head, initial encounter
[2017-03-08 19:13] LABS: HEMATOCRIT 32.5 % (37-47); MEAN CELL VOLUME 90.3 fL (80-100); MEAN CORPUSCULAR HEMOGLOBIN 28.3 pg (25-34); MEAN CORPUSCULAR HGB CONC 31.4 g/dl (32-36); WHITE BLOOD COUNT 4.78 K/uL (4.8-10.8)
[2017-03-08] MEDS: MoRPHine SULFATE 4 MG/ML 1 ML CARP\\VIAL IV PRN ×2 (19:14→19:46)
[2017-03-08 19:15] LABS: BASO % 0.4 %; BASO ABS # 0.02 K/uL (0-0.2); COMPLETE YES; EOS % 1.5 %; IG% 0.4 %; LYMPH % 24.5 %; LYMPH ABS # 1.17 K/uL (1.2-3.4); MEAN PLATELET VOLUME 11.2 fL (7.4-10.4); MONO % 6.9 %; NEUT % 66.3 %; PLATELET COUNT 97 K/uL (130-400)
[2017-03-08 19:23] LABS: INR 1.1 (0.9-1.1)
--- NOTE | 2017-03-08 19:23 | DIAGNOSTIC IMAGING REPORT ---
SINGLE VIEW PELVIS; 2 VIEWS RIGHT HIP CLINICAL HISTORY: Fall several days ago with right hip pain. FINDINGS: An AP portable view of the pelvis with AP and frog-leg portable views of the right hip are correlated with pelvic CT dated 12/30/2016. The examination is degraded by large body habitus. The skeletal structures are osteopenic. There is no radiographic evidence of fracture in the hips or bony pelvis. Mild arthritic change is present in both hips. Enthesophytes arise from the left anterior superior iliac spine and the greater trochanter of the left femur. Sclerotic change is noted in the sacroiliac joints. Fusion hardware is identified in the lumbosacral spine. The overlying soft tissues are within normal limits. There is a nonobstructed abdominal bowel gas pattern. IMPRESSION: 1. There is no radiographic evidence of fracture in the hips or bony pelvis. 2. Osteopenia and arthritic change as above. Electronically signed by: Daniel Copeland M.D. 03/08/2017 7:21 PM Dictated Date/Time: 03/08/2017 7:19 PM
--- NOTE | 2017-03-08 19:27 | DIAGNOSTIC IMAGING REPORT ---
SINGLE VIEW CHEST CLINICAL HISTORY: Generalized abdominal pain. Recent fall. FINDINGS: An AP, portable, semierect chest radiograph is compared to study dated 01/24/2017. The examination is degraded by portable technique, large body habitus, and patient rotation. The heart is enlarged and there is atherosclerotic calcification of the thoracic aorta. The pulmonary vasculature is noncongested. Bibasilar atelectasis is observed and there is chronic additional thickening. No airspace consolidation, large pleural effusion, or pneumothorax is seen. The skeletal structures are osteopenic. The bony thorax is grossly intact. Degenerative change is noted throughout the thoracic spine. Fusion hardware is seen in the cervical spine. Surgical clips are noted in the neck. IMPRESSION: Cardiomegaly with no acute cardiopulmonary abnormality. Electronically signed by: Daniel Copeland M.D. 03/08/2017 7:25 PM Dictated Date/Time: 03/08/2017 7:23 PM
[2017-03-08 19:35] LABS: ALT/SGPT 37 U/L (12-78); AST/SGOT 67 U/L (15-37); BLOOD UREA NITROGEN 12 mg/dl (7-18); BUN/CREATININE RATIO 11.2 (10-20); CALCIUM 8.7 mg/dl (8.5-10.1); CARBON DIOXIDE 31 mmol/L (21-32); CHLORIDE 104 mmol/L (98-107); GLUCOSE 269 mg/dl (70-99); POTASSIUM 4.2 mmol/L (3.5-5.1); SODIUM 142 mmol/L (136-145)
[2017-03-08 19:36] LABS: ALKALINE PHOSPHATASE 109 U/L (45-117)
--- NOTE | 2017-03-08 20:18 | DIAGNOSTIC IMAGING REPORT ---
CT SCAN OF THE BRAIN WITHOUT IV CONTRAST CLINICAL HISTORY: Fall several days ago. COMPARISON STUDY: No priors. TECHNIQUE: Unenhanced axial CT scan of the brain is performed from the vertex to the skull base. FINDINGS: Brain parenchyma: There are age-related involutional changes noting mild subcortical and periventricular microangiopathic change. There is no hemorrhage, mass effect, or evidence of acute territorial ischemia by CT criteria. Miranda-white matter is preserved. No extra-axial fluid collection is seen. Ventricles, sulci, cisterns: Prominent secondary to involutional change. Intracranial vasculature: There is atherosclerotic calcification of the cavernous carotid and vertebral arteries. Calvarium: The skeletal structures are osteopenic. There is no depressed calvarial fracture. Sinuses and mastoids: The visualized paranasal sinuses are clear. The mastoid air cells are well pneumatized. Orbits: The bony orbits are grossly intact. IMPRESSION: There is no hemorrhage, mass effect, or evidence of acute territorial ischemia by CT criteria. Electronically signed by: Daniel Copeland M.D. 03/08/2017 8:16 PM Dictated Date/Time: 03/08/2017 8:15 PM
--- NOTE | 2017-03-08 20:37 | DIAGNOSTIC IMAGING REPORT ---
CT SCAN OF THE CERVICAL SPINE CLINICAL HISTORY: Fall several days ago. COMPARISON STUDY: MRI of the cervical spine dated 08/26/2014. TECHNIQUE: CT scan of the cervical spine is performed from the skull base to the upper thoracic spine. Images are reviewed in the axial, sagittal, and coronal planes. IV contrast was not administered for this examination. The examination is degraded by streak artifact from extensive cervical orthopedic hardware. CT DOSE: 955.03 mGy.cm FINDINGS: Skeletal structures: The skeletal structures are osteopenic. There are postoperative changes from laminectomy and posterior spinal fusion seen from C3 through C7. Arthritic hardware is grossly intact. There is no evidence of fracture or subluxation involving the cervical spine. Vertebral body height and alignment are maintained. There is straightening of the cervical lordosis. The odontoid process and lateral masses are intact. The atlantoaxial articulation is preserved noting productive degenerative change with bony overgrowth and narrowing of the interval. Small anterior osteophytes are seen throughout. Intervertebral discs: Moderate degenerative disc space narrowing is seen from C4 to C5 through C6-C7. Mild disc space narrowing is seen at the remaining cervical levels. Central canal: Grossly patent. Soft tissues: The prevertebral and paraspinous soft tissues are within normal limits. There is atherosclerotic calcification of the left carotid bulb. Surgical clips are noted in the right lower neck. Calvarium: The visualized calvarium at the skull base appears intact. Brain parenchyma: Partially visualized brain parenchyma the skull base is within normal limits. Sinuses and mastoids: Trace dependent mucosal thickening is seen in the right maxillary antrum. The remaining visualized paranasal sinuses are clear. There is a small left mastoid effusion. The right mastoid air cells are well pneumatized. Lung apices: Clear as visualized. IMPRESSION: 1. There is no evidence of fracture or subluxation involving the cervical spine. 2. Osteopenia with spondylotic and postoperative change as above. Electronically signed by: Daniel Copeland M.D. 03/08/2017 8:35 PM Dictated Date/Time: 03/08/2017 8:32 PM
[2017-03-08 20:43] LABS: MANUAL MICROSCOPIC REQUIRED? NO; REVIEW REQ? NO; URINE APPEARANCE CLEAR (CLEAR); URINE BILIRUBIN NEG (NEG); URINE COLOR DK YELLOW; URINE EPITHELIAL CELL AUTO >30 /lpf (0-5); URINE NITRITE NEG (NEG); URINE SPECIFIC GRAVITY 1.021 (1.000-1.030); UROBILINOGEN NEG (NEG)
--- NOTE | 2017-03-08 21:03 | DIAGNOSTIC IMAGING REPORT ---
CT SCAN OF THE LUMBAR SPINE WITHOUT IV CONTRAST CLINICAL HISTORY: Fall several days ago. COMPARISON STUDY: Abdominal CT dated 12/30/16 MRI of the lumbar spine dated 08/26/2014. TECHNIQUE: CT scan of lumbar spine is performed from the lower thoracic spine to the sacrum. Images are reviewed in the axial, sagittal, coronal planes. IV contrast was not administered for this examination. CT DOSE: 718.87 mGy.cm FINDINGS: The skeletal structures are osteopenic. There is a mild acute superior endplate compression fracture of L1. Fracture extends to the anterior vertebral body. There is no retropulsion of fragments. Fracture does not involve the posterior elements. Vertebral body height is otherwise maintained throughout the lumbar spine. Alignment is preserved. There are postoperative changes from laminectomy and posterior fusion from L4 -S1. Interpedicular screws are present at all levels. The Orthopedic hardware appears intact. The remaining spinous processes as well as the transverse processes are preserved. There is no evidence of spondylolysis. No lytic or blastic bony lesions are seen. Moderate degenerative disc space narrowing is seen at L2-L3. Advanced disc space narrowing is present at L5-S1. Small anterior osteophytes are seen throughout. The visualized sacrum and bony pelvis appear intact. Mild sclerotic degenerative change is noted in the sacroiliac joints. There is fatty atrophy of the paraspinous and iliopsoas musculature. There is a nonobstructing left renal calculus. Atherosclerotic calcification is noted in the abdominal aorta. Large collateral vessels are identified in the retroperitoneum. IMPRESSION: 1. There is a mild acute superior endplate compression fracture of L1. No retropulsion of fragments is seen. 2. No additional fracture is identified throughout the lumbosacral spine. 3. Osteopenia with spondylotic and postoperative change as above. 4. Nonobstructing left renal calculus. 5. Additional findings as above. Electronically signed by: Daniel Copeland M.D. 03/08/2017 9:01 PM Dictated Date/Time: 03/08/2017 8:35 PM
[2017-03-08] MEDS ORDERED: HYDR-5688 PO (21:50)
[2017-03-08] MEDS ORDERED: NORCO 5/325MG HOME PACK PO ONE (22:00)
[2017-03-08 22:30] VITALS: BP 95/53; PULSE 84; O2SAT 95
[2017-04-19] MEDS ORDERED: LPT10 PO (12:55)
[2017-04-19] MEDS ORDERED: ESCI1TAB10 PO (14:34)
[2017-04-19] MEDS ORDERED: TRAZ100T29 PO (14:34)
[2017-04-19] MEDS ORDERED: MAGN400T5 PO (15:05)
[2017-04-19] MEDS ORDERED: METO25TA3 PO (15:20)
[2017-04-19] MEDS ORDERED: OMEP40CA41 PO (15:26)
[2017-04-19] MEDS ORDERED: NRN600 PO (15:26)
[2017-04-19] MEDS ORDERED: CLBPO15 TOP (18:51)
[2017-04-19] MEDS ORDERED: IPRASOL4 INH (18:51)
[2017-04-19] MEDS ORDERED: METF-384 PO (18:51)
[2017-04-19] MEDS ORDERED: NVLGI/PEN SQ (18:52)
[2017-04-19] MEDS ORDERED: LVMIPEN SQ (18:52)
[2017-04-19] MEDS ORDERED: FRRS300 PO (18:52)
[2017-06-20] MEDS ORDERED: GABA600T PO (10:00)
[2017-06-20] MEDS ORDERED: METR-163 PO (10:00)
[2017-06-20] MEDS ORDERED: MGCS/ PO (10:00)
[2017-06-20] MEDS ORDERED: FURO40TA3 PO (10:00)
[2017-06-20] MEDS ORDERED: NVLGI/PEN SC (10:01)
[2017-06-20] MEDS ORDERED: DRGTP12 TOP (10:07)
[2017-08-31] MEDS ORDERED: IPRASOL4 INH (13:13)
== END 2017-03-08 22:30 | disposition home or self-care (01) ==
LOC: C.EDB 16:54
DX: S32.009A Unspecified fracture of unspecified lumbar vertebra, initial encounter for closed fracture (principal); S09.90XA Unspecified injury of head, initial encounter; W01.0XXA Fall on same level from slipping, tripping and stumbling without subsequent striking against object, initial encounter; I10 Essential (primary) hypertension; E11.9 Type 2 diabetes mellitus without complications; I25.10 Atherosclerotic heart disease of native coronary artery without angina pectoris; E78.00 Pure hypercholesterolemia, unspecified; K21.9 Gastro-esophageal reflux disease without esophagitis; J44.9 Chronic obstructive pulmonary disease, unspecified; J45.909 Unspecified asthma, uncomplicated; F32.9 Major depressive disorder, single episode, unspecified; K74.60 Unspecified cirrhosis of liver; F17.200 Nicotine dependence, unspecified, uncomplicated; Z98.61 Coronary angioplasty status; Z90.49 Acquired absence of other specified parts of digestive tract; Z79.4 Long term (current) use of insulin; Z79.82 Long term (current) use of aspirin; Z79.899 Other long term (current) drug therapy; Z88.2 Allergy status to sulfonamides; Z91.041 Radiographic dye allergy status; Z91.040 Latex allergy status; Z91.09 Other allergy status, other than to drugs and biological substances

== ENCOUNTER → 2017-04-03 | Outpatient (CLI) | payer OTHER ==
[~2017-04-03] MED LIST changes: +ALUM1SUS57 PO; +ALUMSUS37 PO; +ASPI81TA28 PO; +ATV5X PO; +AUG0.05O4 TP; +CHOL100027 PO; +CLBPO15 TOP; +DRGTP12 TOP; +ESCI1TAB10 PO; +FERR1TAB13 PO; +FRRS300 PO; -FURO-85 PO; +FURO40TA3 PO; +GABA600T PO; +HYDR-5688 PO; +IPRASOL4 INH; +LPT10 PO; +LVMIPEN SQ; +MAGN400T5 PO; +MBXC PO; +METF-384 PO; +METH-589 PO; +METO25TA3 PO; +METR-163 PO; +MGCS/ PO; +NRN600 PO; +NVLGI/PEN SC; +NVLGI/PEN SQ; +OMEP40CA41 PO; +ONDA4TAB46 PO; +OXYC-164 PO; +RIFA550T2 PO; +TIOT1AER INH; +TIOT1AER2 INH; +TRAZ100T29 PO; +VNTHFA/IN INH
--- NOTE | 2017-04-03 15:01 | DIAGNOSTIC IMAGING REPORT ---
CHEST CT WITHOUT CONTRAST CT DOSE: 461.91 mGycm HISTORY: Z00.00 Health [id number] Chronic obstructive pulmonary disease TECHNIQUE: Multiaxial CT images of the chest were performed without contrast. COMPARISON: Chest CT 09/25/2016. FINDINGS: Possible 7 mm nodule within the left lower lobe in image 194. Mild diffuse interstitial thickening has progressed. There are few linear scarlike densities within the right middle lobe and lingula. There are few additional tiny scattered nodules seen within the lungs. These are not significantly changed. The largest is within the left upper lobe on image 74 and measures 4 mm. The central airways are patent. No new focal lung consolidations. Posterior fusion within the lower cervical spine. No suspicious lytic or blastic osseous lesions. An old mild superior endplate compression fracture at L1. No hepatic or splenic masses. Calcified normal caliber thoracic aorta. The heart is mildly enlarged. Dense mitral annulus calcifications. A few prominent mediastinal lymph nodes are again noted. Dominant prevascular lymph node has increased in size and measures 8 mm, previously measuring 6 mm. No definite hilar lymphadenopathy. IMPRESSION: 1. Mild diffuse interstitial thickening which has progressed. This could be due to progression of the chronic interstitial change or an acute superimposed interstitial process such as congestive change or an atypical pneumonitis. 2. There is a possible 7 mm nodule within the left lower lobe which appears to be new from the prior study. [address] follow is recommended to ensure stability. 3. Slight increase in size in the few prominent mediastinal lymph nodes. This also bears watching on future examinations. Electronically signed by: Leonard Watters M.D. 04/03/2017 3:00 PM Dictated Date/Time: 04/03/2017 2:45 PM
== END | disposition home or self-care (01) ==
LOC: C.CTS 14:30
PROVIDERS: ATTEND Internal Medicine Pulmonary Disease
DX: Z00.00 Encounter for general adult medical examination without abnormal findings (principal); J44.9 Chronic obstructive pulmonary disease, unspecified

== ENCOUNTER → 2017-04-18 | Outpatient (CLI) | payer OTHER ==
[2017-04-18 18:06] LABS: INR 1.1 (0.9-1.1)
[2017-04-18 18:15] LABS: ALT/SGPT 28 U/L (12-78); AST/SGOT 36 U/L (15-37); BLOOD UREA NITROGEN 12 mg/dl (7-18); BUN/CREATININE RATIO 13.5 (10-20); CALCIUM 8.8 mg/dl (8.5-10.1); CARBON DIOXIDE 29 mmol/L (21-32); CHLORIDE 106 mmol/L (98-107); CREATININE 0.86 mg/dl (0.60-1.20); GLUCOSE 107 mg/dl (70-99); POTASSIUM 4.7 mmol/L (3.5-5.1); SODIUM 142 mmol/L (136-145)
[2017-04-18 18:23] LABS: ALB/GLOB RATIO 1.1 (0.9-2); ALKALINE PHOSPHATASE 122 U/L (45-117); CHOLESTEROL 99 mg/dl (0-200); CHOLESTEROL/HDL RATIO 2.9; HDL CHOLESTEROL 34 mg/dl; LDL CHOLESTEROL CALCULATED 54 mg/dl; THYROID STIMULATING HORMONE 0.232 uIu/ml (0.300-4.500); TRIGLYCERIDES 54 mg/dl (0-150); VERY LOW DENSITY LIPOPROT CALC 11 mg/dl
[2017-04-18 18:46] LABS: ANISOCYTOSIS PRESENT; BASO % 0.2 %; BASO ABS # 0.01 K/uL (0-0.2); COMPLETE YES; EOS % 0.9 %; HEMATOCRIT 29.3 % (37-47); IG% 0.2 %; LARGE PLATELETS 1+; LYMPH % 27.9 %; LYMPH ABS # 1.24 K/uL (1.2-3.4); MEAN CELL VOLUME 89.6 fL (80-100); MEAN CORPUSCULAR HEMOGLOBIN 27.2 pg (25-34); MEAN CORPUSCULAR HGB CONC 30.4 g/dl (32-36); MEAN PLATELET VOLUME 12.2 fL (7.4-10.4); MONO % 6.3 %; NEUT % 64.5 %; PLATELET COUNT 83 K/uL (130-400); RED BLOOD COUNT 3.27 M/uL (4.2-5.4); WHITE BLOOD COUNT 4.45 K/uL (4.8-10.8)
== END | disposition home or self-care (01) ==
LOC: C.LABPBG 14:39
PROVIDERS: ATTEND Internal Medicine Cardiovascular Disease
DX: E05.90 Thyrotoxicosis, unspecified without thyrotoxic crisis or storm (principal); E78.5 Hyperlipidemia, unspecified; J44.9 Chronic obstructive pulmonary disease, unspecified; R91.1 Solitary pulmonary nodule; R06.02 Shortness of breath

== ENCOUNTER 2017-04-19 19:52 | Emergency (ER) | payer OTHER ==
[~2017-04-19] VITALS: Ht 154.9 cm; Wt 71.0 kg
[~2017-04-19 19:52] MED LIST changes: -ALUM1SUS57 PO; -ALUMSUS37 PO; -ASPI81TA28 PO; -ATV5X PO; -AUG0.05O4 TP; -CHOL100027 PO; -DRGTP12 TOP; -FERR1TAB13 PO; -FURO40TA3 PO; -GABA600T PO; -MBXC PO; -METH-589 PO; -METR-163 PO; -MGCS/ PO; -NVLGI/PEN SC; -ONDA4TAB46 PO; -OXYC-164 PO; -RIFA550T2 PO; -TIOT1AER INH; -TIOT1AER2 INH; -VNTHFA/IN INH
[2017-04-19 19:54] VITALS: TEMP 36.9; Ht 154.9 cm; Wt 71.0 kg
[2017-04-19] MEDS ORDERED: ALBUT/IPRATROP 3MG/0.5MG NEB 3 ML VIAL INH STA (20:14)
[2017-04-19] MEDS ORDERED: VNTHFA/IN INH (20:18)
--- NOTE | 2017-04-19 20:39 | EMERGENCY ROOM VISIT NOTE ---
History Report prepared by Latia: Akilah Hernandez Under the Supervision of: Dr. Barney Kaminski D.O. First contact with patient: 19:58 Chief Complaint: ABNORMAL LABS Stated Complaint: LOW HEMOGLOBIN,SOB History of Present Illness The patient is a 71 year old female who presents to the Emergency Room with complaints of abnormal lab work yesterday. The patient received a call today that her hemoglobin was 8.5. She called her PCP to schedule an appointment, but was sent to the ED. She was also told that she was dehydrated when she went to pain management. She notes that her hemoglobin is often low. She complains of SOB, low energy, lightheadedness, and dizziness. She also has a productive cough. She has swelling in her legs which is normal. She is on Lasix. She reports abdominal swelling. She denies any fever, chills, nausea, vomiting, hematochezia, melena, chest pain. She has a history of COPD and cirrhosis. Her last blood transfusion was a long time ago. She takes aspirin. She has not had steroids recently. She has been using her nebulizer 2 times a day which has not been helping. She usually wears O2 at night, but has been wearing O2 during the day for several months. Source of History: patient Onset: yesterday Position: other (abnormal lab work) Symptom Intensity: hemoglobin 8.5 Quality: other (low hemoglobin) Associated Symptoms: + SOB, + cough, No chest pain, No chills, No fevers, No hematochezia, No melena, No nausea, No vomiting Note: Pt reports low energy, lightheadedness, dizziness, abdominal swelling. Review of Systems See HPI for pertinent positives & negatives. A total of 10 systems reviewed and were otherwise negative. 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 Surgical Problems: (1) H/O cardiac catheterization (2) Heart stents (3) History of back surgery (4) S/P cholecystectomy Family History Diabetes mellitus FH: cancer FH: heart disease Hypertension Kidney disease Kidney stones Social History Smoking Status: Current Every Day Smoker Alcohol Use: none Marital Status: Housing Status: lives alone Occupation Status: unemployed Current/Historical Medications Scheduled Alum & Mag Hydrox-Simethicone (Almacone-Ii Double Streng), 1 TBS PO BID Aspirin (Aspirin Ec), 81 MG PO Q2D Atorvastatin (Atorvastatin Calcium), 10 MG PO HS Cholecalciferol (Vitamin D 1000 Unit), 1,000 INTER.UNIT PO QAM Clobetasol Propionate (Clobetasol Propionate), 1 APPLN TOP BID Escitalopram Oxalate (Lexapro), 20 MG PO QAM Ferrous Sulfate (Ferrous Sulfate), 325 MG PO QAM Gabapentin (Gabapentin), 600 MG PO TID Insulin Aspart (Novolog Flexpen), 0 SQ BIDM Insulin Detemir (Levemir Flextouch), 40 UNITS SQ HS Magnesium Oxide (Mag-Ox), 2 TAB PO BID Metformin Hcl (Glucophage), 1,000 MG PO BID Metoprolol Succ (Toprol Xl) (Toprol-Xl), 12.5 MG PO HS Omeprazole (Prilosec), 40 MG PO QAM Oxycodone Hcl (Oxycodone Hcl), 1 TAB PO QAM Oxycodone Hcl (Oxycodone Hcl), 2 TAB PO HS Rifaximin (Xifaxan), 550 MG PO BID Tiotropium [place] Monohydrate (Spiriva Respimat), 2 PUFF INH DAILY Trazodone Hcl (Trazodone), 100 MG PO HS Scheduled PRN Albuterol Hfa (Ventolin Hfa), 2-4 PUFFS INH Q6H PRN for Shortness of Breath Ipratropium-Albuterol (Duoneb), 1 TREATMENT INH Q4H PRN for SOB/Wheezing Lorazepam (Lorazepam), 0.5 MG PO HS PRN for Sleep Ondansetron Hcl (Zofran), 4 MG PO Q6 PRN for Nausea Allergies Coded Allergies: Iodinated Diagnostic Agents (Verified Allergy, Intermediate, RASH TO IVP DYE, 04/19/17) Adhesives (Verified Allergy, Unknown, rash, 04/19/17) Latex1 -Allergic Contact Dermititis (Verified Allergy, Unknown, RASH, 04/19) Sulfa Antibiotics (Verified Allergy, Unknown, unknown, 04/19/17) Physical Exam Vital Signs Date Time Temp Pulse Resp B/P Pulse Ox O2 Delivery O2 Flow Rate FiO2 04/20/17 00:23 82 16 122/52 99 04/19/17 22:06 96 19 94/53 94 Room Air 04/19/17 20:48 91 04/19/17 20:39 95 Room Air 04/19/17 19:54 36.9 66 22 102/55 95 Room Air Physical Exam GENERAL: Patient is awake, alert, and in no acute distress. Patient is resting comfortably and showing no signs of anxiety EYES: The conjunctivae are clear. The pupils are round and reactive. EARS, NOSE, MOUTH AND THROAT: The nose is without any evidence of any deformity. Mucous membranes are moist tongue is midline NECK: The neck is nontender and supple. RESPIRATORY: Lung sounds diminished throughout, mild tachypnea noted, expiratory wheezing noted in both upper lung arreola. CARDIOVASCULAR: Regular rate and rhythm noted, systolic murmur suggested on auscultation. GASTROINTESTINAL: The abdomen is soft. Bowel sounds are present in all quadrants. Abdomen is nontender. Stool was brown, but strongly heme positive. MUSCULOSKELETAL/EXTREMITIES: There is no evidence of gross deformity full range of motion is noted in the hips and shoulders SKIN: There is no obvious evidence of any rash. There are no petechiae, pallor or cyanosis noted. Pedal edema bilaterally. NEUROLOGIC: Patient is awake alert and oriented x3 Medical Decision & Procedures ER Provider Diagnostic Interpretation: X-ray results as stated below per interpretation by me and the radiologist. CHEST ONE VIEW PORTABLE CLINICAL HISTORY: Shortness of breath. COMPARISON STUDY: Chest CT April 03, 2017. FINDINGS: Cervical spine fusion is incidentally noted. There is no pneumothorax or pleural effusion. Moderate cardiomegaly is unchanged. There is no consolidation. Mild diffuse interstitial thickening persists. IMPRESSION: No change in mild diffuse interstitial thickening since prior exam. Electronically signed by: Stoney Lovelace M.D. 04/19/2017 9:00 PM Dictated Date/Time: 04/19/2017 8:59 PM Laboratory Results 04/19/17 20:38 Red Blood Count 3.26, Mean Corpuscular Volume 87.4, Mean Corpuscular Hemoglobin 26.7, Mean Corpuscular Hemoglobin Concent 30.5, Mean Platelet Volume 12.5, Neutrophils (%) (Auto) 60.3, Lymphocytes (%) (Auto) 29.7, Monocytes (%) (Auto) 8.5, Eosinophils (%) (Auto) 1.1, Basophils (%) (Auto) 0.4, Neutrophils # (Auto) 2.70, Lymphocytes # (Auto) 1.33, Monocytes # (Auto) 0.38, Eosinophils # (Auto) 0.05, Basophils # (Auto) 0.02 04/19/17 20:38 Test 04/19/17 20:38 White Blood Count 4.48 K/uL (4.8-10.8) Red Blood Count 3.26 M/uL (4.2-5.4) Hemoglobin 8.7 g/dL (12.0-16.0) Hematocrit 28.5 % (37-47) Mean Corpuscular Volume 87.4 fL (80-100) Mean Corpuscular Hemoglobin 26.7 pg (25-34) Mean Corpuscular Hemoglobin Concent 30.5 g/dl (32-36) Platelet Count 92 K/uL (130-400) Mean Platelet Volume 12.5 fL (7.4-10.4) Neutrophils (%) (Auto) 60.3 % Lymphocytes (%) (Auto) 29.7 % Monocytes (%) (Auto) 8.5 % Eosinophils (%) (Auto) 1.1 % Basophils (%) (Auto) 0.4 % Neutrophils # (Auto) 2.70 K/uL (1.4-6.5) Lymphocytes # (Auto) 1.33 K/uL (1.2-3.4) Monocytes # (Auto) 0.38 K/uL (0.11-0.59) Eosinophils # (Auto) 0.05 K/uL (0-0.5) Basophils # (Auto) 0.02 K/uL (0-0.2) RDW Standard Deviation 47.5 fL (36.4-46.3) RDW Coefficient of Variation 14.8 % (11.5-14.5) Immature Granulocyte % (Auto) 0.0 % Immature Granulocyte # (Auto) 0.00 K/uL (0.00-0.02) Platelet Estimate DECREASED Ovalocytes 1+ Absolute Reticulocyte Count 0.08 10^6/uL (0.02-0.10) Percent Reticulocyte Count 2.5 % (0.5-2.0) Prothrombin Time 13.3 SECONDS (9.0-12.0) Prothromb Time International Ratio 1.2 (0.9-1.1) Activated Partial Thromboplast Time 27.3 SECONDS (21.0-31.0) Partial Thromboplastin Ratio 1.1 Anion Gap 9.0 mmol/L (3-11) Est Creatinine Clear Calc Drug Dose 53.0 ml/min Estimated GFR () 76.1 Estimated GFR (Non- 65.7 BUN/Creatinine Ratio 15.3 (10-20) Calcium Level 9.1 mg/dl (8.5-10.1) Total Bilirubin 1.0 mg/dl (0.2-1) Direct Bilirubin mg/dl (0-0.2) Aspartate Amino Transf (AST/SGOT) U/L (15-37) Alanine Aminotransferase (ALT/SGPT) 27 U/L (12-78) Alkaline Phosphatase 109 U/L (45-117) Total Creatine Kinase U/L (26-192) Creatine Kinase MB 2.1 ng/ml (0.5-3.6) Creatine Kinase MB Ratio (0-3.0) Troponin I 0.042 ng/ml (0-0.045) Total Protein 6.7 gm/dl (6.4-8.2) Albumin 3.2 gm/dl (3.4-5.0) Lipase 112 U/L (73-393) Laboratory results per my review. Medications Administered Medications (Trade) Dose Ordered Sig/Diego Route Start Time Stop Time Status Last Admin Dose Admin Albuterol/ Ipratropium (Duoneb) 3 ml NOW STAT INH 04/19/17 20:14 04/19/17 20:15 DC 04/19/17 21:03 3 ML Famotidine 20 mg 20 mg ONE STAT IV 04/19/17 22:09 04/19/17 22:11 DC 04/19/17 22:55 20 MG Pantoprazole Sodium/Syringe (Protonix Inj/ Syringe) 10 ml @ 5 mls/min NOW ONCE IV 04/19/17 22:15 04/19/17 22:16 DC 04/19/17 23:38 5 MLS/MIN ECG Indication: SOB/dyspnea Rate (beats per minute): 92 Rhythm: normal sinus Findings: RBBB, no ectopy, other (no acute ST segment abnormality) Comparison ECG Date: 23-Jan-2017 Change: no significant change ED Course 2008: The patient was evaluated in room C11B. A complete history and physical examination were performed. 2013: Duoneb 3 ml INH. 2208: Famotidine 20 mg IV. 2209: I discussed the patient's case with Dr. Patino [facility] [place] - internal medicine. The patient will be evaluated for further management. 3: I reevaluated the patient. I discussed results and treatment plan with her. She verbalizes agreement and understanding. The patient will be evaluated for further management and care. 5: Pantoprazole Sodium 40 mg/Syringe 10 ml @ 5 mls/hr IV. Medical Decision Prior records/ancillary studies reviewed. Triage Nursing notes reviewed. Additional history obtained from the family. Medication Reconciliation: I attest that I have personally reviewed the patient' s current medications list. The patient's history was concerning for respiratory difficulties. Differential diagnosis: Etiologies such as infections, reactive airway disease, pneumonia, pneumothorax , COPD, CHF, cardiac ischemia, pulmonary embolism, musculoskeletal, gastrointestinal, as well as others were entertained. The patient is a 71-year-old female who presented to the emergency department for an evaluation of multiple complaints. The patient doesn't a history of pulmonary fibrosis. She also has a history of anemia. It sounds though her anemia has slowly been worsening over the last 6 months. The patient was found have heme positive stool. She was treated with Protonix DuoNeb and Pepcid in the emergency department. I discussed her case with the on-call [facility] hospitalist group. They've agreed to evaluate the patient in the emergency department for further management and disposition. I discussed the patient's laboratory and radiographic studies with her. Consults Time Called: [phone] Consulting Physician: Dr. Patino [facility] [place] - internal medicine Returned Call: [phone] I discussed the patient's case with him. The patient will be evaluated for further management. Impression Primary Impression: Anemia Additional Impressions: SOB (shortness of breath) Pulmonary fibrosis Upper GI bleeding Weakness Scribe Attestation The scribe's documentation has been prepared under my direction and personally reviewed by me in its entirety. I confirm that the note above accurately reflects all work, treatment, procedures, and medical decision making performed by me. Departure Information Dispostion Being Evaluated By Hospitalist Referrals Arik Ryan D.O.Int.Med. (PCP) Patient Instructions My [facility] Problem Qualifiers Primary Impression: Anemia Anemia type: unspecified type Qualified Codes: D64.9 - Anemia, unspecified
--- NOTE | 2017-04-19 21:02 | DIAGNOSTIC IMAGING REPORT ---
CHEST ONE VIEW PORTABLE CLINICAL HISTORY: Shortness of breath. COMPARISON STUDY: Chest CT April 03, 2017. FINDINGS: Cervical spine fusion is incidentally noted. There is no pneumothorax or pleural effusion. Moderate cardiomegaly is unchanged. There is no consolidation. Mild diffuse interstitial thickening persists. IMPRESSION: No change in mild diffuse interstitial thickening since prior exam. Electronically signed by: Stoney Lovelace M.D. 04/19/2017 9:00 PM Dictated Date/Time: 04/19/2017 8:59 PM
[2017-04-19 21:09] LABS: INR 1.2 (0.9-1.1); PARTIAL THROMBOPLASTIN RATIO 1.1; PROTHROMBIN TIME (PATIENT) 13.3 SECONDS (9.0-12.0)
[2017-04-19 21:27] LABS: ALKALINE PHOSPHATASE 109 U/L (45-117); ALT/SGPT 27 U/L (12-78); BLOOD UREA NITROGEN 14 mg/dl (7-18); BUN/CREATININE RATIO 15.3 (10-20); CARBON DIOXIDE 26 mmol/L (21-32); CHLORIDE 105 mmol/L (98-107); CREATININE 0.89 mg/dl (0.60-1.20); GLUCOSE 94 mg/dl (70-99); SODIUM 140 mmol/L (136-145)
[2017-04-19 21:42] LABS: BASO % 0.4 %; BASO ABS # 0.02 K/uL (0-0.2); COMPLETE YES; EOS % 1.1 %; HEMATOCRIT 28.5 % (37-47); LYMPH % 29.7 %; LYMPH ABS # 1.33 K/uL (1.2-3.4); MEAN CELL VOLUME 87.4 fL (80-100); MEAN CORPUSCULAR HEMOGLOBIN 26.7 pg (25-34); MEAN CORPUSCULAR HGB CONC 30.5 g/dl (32-36); MEAN PLATELET VOLUME 12.5 fL (7.4-10.4); MONO % 8.5 %; NEUT % 60.3 %; OVALOCYTES 1+; PLATELET COUNT 92 K/uL (130-400); PLT ESTIMATE DECREASED; RED BLOOD COUNT 3.26 M/uL (4.2-5.4); WHITE BLOOD COUNT 4.48 K/uL (4.8-10.8)
[2017-04-19 21:52] LABS: CALCIUM 9.1 mg/dl (8.5-10.1)
[2017-04-19] MEDS ORDERED: FAMOTIDINE 20MG/102 ML D5W IV STA (22:09)
[2017-04-19] MEDS ORDERED: PANTOprazole INJ 40 MG in SYRINGE 0 ML IV ONE (22:15)
[2017-04-19] MEDS ORDERED: TIOT1AER2 INH (22:25)
[2017-04-19] MEDS ORDERED: ONDA4TAB46 PO (22:25)
[2017-04-19] MEDS ORDERED: ATV5X PO (22:25)
[2017-04-19] MEDS ORDERED: RIFA550T2 PO (22:25)
[2017-04-19] MEDS ORDERED: ALUMSUS37 PO (22:25)
[2017-04-19] MEDS ORDERED: OXYC-164 PO ×2 (22:35)
[2017-04-19] MEDS ORDERED: CHOL100027 PO (22:50)
[2017-04-19] MEDS ORDERED: ASPI81TA28 PO (22:50)
--- NOTE | 2017-04-19 23:41 | History and Physical ---
History & Physical Date & Time of Service: April 19, 2017 at 23:04 Chief Complaint: Low Hemoglobin,Sob Primary Care Physician: Arik Ryan D.O.Int.Med. History of Present Illness Source: patient 71 y/o F Hx COPD, cirrhosis 2/2 valdez, DM, CAD, severe . Pt has been admitted frequently with COPD exacerbations and has had an extensive workup for chronic complaints of weakness/fatigue and dizziness. She does not presently have any new symptoms however her PCP instructed her to attend the ER owing to a gradually declining hemoglobin. A rectal exam per the ER attending was guiac + but not grossly so. On review of recent labs it appears that her Hb has been stable. 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 Status: Chronic (8) Pure Hypercholesterolem Status: Chronic (9) Thrombocytopenia Nos Status: Chronic (10) Vertebral Artery Syndrom Status: Chronic 11) Severe - no echo on record - listed in recent history and follows w/ 12) Chronic anemia 13) Continued tobacco abuse 14) Chronic LE edema Surgical Problems: (1) H/O cardiac catheterization Status: Resolved (2) Heart stents Status: Resolved (3) History of back surgery Status: Resolved (4) S/P cholecystectomy Status: Chronic Family History Diabetes mellitus FH: cancer FH: heart disease Hypertension Kidney disease Kidney stones Social History Smoking Status: Current Every Day Smoker Marital Status: Housing status: lives alone Occupational Status: unemployed Allergies Coded Allergies: Iodinated Diagnostic Agents (Verified Allergy, Intermediate, RASH TO IVP DYE, 04/19/17) Adhesives (Verified Allergy, Unknown, rash, 04/19/17) Latex1 -Allergic Contact Dermititis (Verified Allergy, Unknown, RASH, 04/19) Sulfa Antibiotics (Verified Allergy, Unknown, unknown, 04/19/17) Home Medications Scheduled Alum & Mag Hydrox-Simethicone ([place]-Ii Double Streng), 1 TBS PO BID Aspirin (Aspirin Ec), 81 MG PO Q2D Atorvastatin (Atorvastatin Calcium), 10 MG PO HS Cholecalciferol (Vitamin D 1000 Unit), 1,000 INTER.UNIT PO QAM Clobetasol Propionate (Clobetasol Propionate), 1 APPLN TOP BID Escitalopram Oxalate (Lexapro), 20 MG PO QAM Ferrous Sulfate (Ferrous Sulfate), 325 MG PO QAM Gabapentin (Gabapentin), 600 MG PO TID Insulin Aspart (Novolog Flexpen), 0 SQ BIDM Insulin Detemir (Levemir Flextouch), 40 UNITS SQ HS Magnesium Oxide (Mag-Ox), 2 TAB PO BID Metformin Hcl (Glucophage), 1,000 MG PO BID Metoprolol Succ (Toprol Xl) (Toprol-Xl), 12.5 MG PO HS Omeprazole (Prilosec), 40 MG PO QAM Oxycodone Hcl (Oxycodone Hcl), 1 TAB PO QAM Oxycodone Hcl (Oxycodone Hcl), 2 TAB PO HS Rifaximin (Xifaxan), 550 MG PO BID Tiotropium [place] Monohydrate (Spiriva Respimat), 2 PUFF INH DAILY Trazodone Hcl (Trazodone), 100 MG PO HS Scheduled PRN Albuterol Hfa (Ventolin Hfa), 2-4 PUFFS INH Q6H PRN for Shortness of Breath Ipratropium-Albuterol (Duoneb), 1 TREATMENT INH Q4H PRN for SOB/Wheezing Lorazepam (Lorazepam), 0.5 MG PO HS PRN for Sleep Ondansetron Hcl (Zofran), 4 MG PO Q6 PRN for Nausea Review of Systems Constitutional: + fatigue (chronic), + weakness, No chills, No fever, No sweats Eyes: No eye pain, No worsening of vision ENT: No hearing loss, No nasal symptoms, No unusual epistaxis Respiratory: + dyspnea on exertion, + shortness of breath, No cough, No sputum , No wheezing Cardiovascular: No PND, No chest pain, No orthopnea Abdomen: No nausea, No pain, No vomiting Musculoskeletal: No joint pain, No muscle pain Genitourinary - Female: No dysuria, No hematuria, No urinary frequency, No urinary incontinence, No urinary retention, No urinary urgency Neurologic: + vertigo, + weakness, No memory loss, No paralysis Psychiatric: + anhedonism, + anxiety, + depression symptoms Endocrine: + fatigue, No excessive thirst Hematologic / Lymphatic: No abnormal bleeding/bruising Integumentary: No rash Allergic / Immunologic: No environmental allergies Physical Exam Vital Signs Date Time Temp Pulse Resp B/P Pulse Ox O2 Delivery O2 Flow Rate FiO2 04/19/17 22:06 96 19 94/53 94 Room Air 04/19/17 20:48 91 04/19/17 20:39 95 Room Air 04/19/17 19:54 36.9 66 22 102/55 95 Room Air General Appearance: WD/WN, + pertinent finding (Overweight, emotionallt distressed, elderly F - pursing lips with exhalation - completing sentences) Head: normocephalic, atraumatic Eyes: normal inspection, EOMI ENT: normal ENT inspection, pharynx normal Neck: supple, no JVD Respiratory/Chest: chest non-tender, lungs clear, normal breath sounds, no respiratory distress, no accessory muscle use Cardiovascular: regular rate, rhythm, no edema, no JVD, + systolic murmur Abdomen/GI: normal bowel sounds, non tender, soft, + distended Back: normal inspection, no CVA tenderness Extremities/Musculoskelatal: normal inspection, no calf tenderness, no pedal edema Neurologic/Psych: card scraper II-XII nml as tested, no motor/sensory deficits, alert, normal mood/affect, normal reflexes, oriented x 3 Skin: normal color, warm/dry, no rash Diagnostics Laboratory Results Results Past 24 Hours Test 04/19/17 20:38 Range/Units White Blood Count 4.48 4.8-10.8 K/uL Red Blood Count 3.26 4.2-5.4 M/uL Hemoglobin 8.7 12.0-16.0 g/dL Hematocrit 28.5 37-47 % Mean Corpuscular Volume 87.4 80-100 fL Mean Corpuscular Hemoglobin 26.7 25-34 pg Mean Corpuscular Hemoglobin Concent 30.5 32-36 g/dl Platelet Count 92 130-400 K/uL Mean Platelet Volume 12.5 7.4-10.4 fL Neutrophils (%) (Auto) 60.3 % Lymphocytes (%) (Auto) 29.7 % Monocytes (%) (Auto) 8.5 % Eosinophils (%) (Auto) 1.1 % Basophils (%) (Auto) 0.4 % Neutrophils # (Auto) 2.70 1.4-6.5 K/uL Lymphocytes # (Auto) 1.33 1.2-3.4 K/uL Monocytes # (Auto) 0.38 0.11-0.59 K/uL Eosinophils # (Auto) 0.05 0-0.5 K/uL Basophils # (Auto) 0.02 0-0.2 K/uL RDW Standard Deviation 47.5 36.4-46.3 fL RDW Coefficient of Variation 14.8 11.5-14.5 % Immature Granulocyte % (Auto) 0.0 % Immature Granulocyte # (Auto) 0.00 0.00-0.02 K/uL Platelet Estimate DECREASED Ovalocytes 1+ Absolute Reticulocyte Count 0.08 0.02-0.10 10^6/uL Percent Reticulocyte Count 2.5 0.5-2.0 % Prothrombin Time 13.3 9.0-12.0 SECONDS Prothromb Time International Ratio 1.2 0.9-1.1 Activated Partial Thromboplast Time 27.3 21.0-31.0 SECONDS Partial Thromboplastin Ratio 1.1 Sodium Level 140 136-145 mmol/L Potassium Level 3.5-5.1 mmol/L Chloride Level 105 98-107 mmol/L Carbon Dioxide Level 26 21-32 mmol/L Anion Gap 9.0 3-11 mmol/L Blood Urea Nitrogen 14 7-18 mg/dl Creatinine 0.89 0.60-1.20 mg/dl Est Creatinine Clear Calc Drug Dose 53.0 ml/min Estimated GFR () 76.1 Estimated GFR (Non- 65.7 BUN/Creatinine Ratio 15.3 10-20 Random Glucose 94 70-99 mg/dl Calcium Level 9.1 8.5-10.1 mg/dl Total Bilirubin 1.0 0.2-1 mg/dl Direct Bilirubin 0-0.2 mg/dl Aspartate Amino Transf (AST/SGOT) 15-37 U/L Alanine Aminotransferase (ALT/SGPT) 27 12-78 U/L Alkaline Phosphatase 109 45-117 U/L Total Creatine Kinase 26-192 U/L Creatine Kinase MB 2.1 0.5-3.6 ng/ml Creatine Kinase MB Ratio 0-3.0 Troponin I 0.042 0-0.045 ng/ml Total Protein 6.7 6.4-8.2 gm/dl Albumin 3.2 3.4-5.0 gm/dl Lipase 112 73-393 U/L Diagnostic Radiology :CXR No change in mild diffuse interstitial thickening since prior exam. Impression Assessment and Plan 71 y/o F Hx COPD, cirrhosis 2/2 valdez, DM, CAD, severe . Pt has been admitted frequently with COPD exacerbations and has had an extensive workup for chronic complaints of weakness/fatigue and dizziness. She does not presently have any new symptoms however her PCP instructed her to attend the ER owing to a gradually declining hemoglobin. A rectal exam per the ER attending was guiac + but not grossly so and her stool was brown in color. On review of recent labs it appears that her Hb has been stable. 1) Anemia - chronic and likely multifactorial - a + guiac would not be unexpected in this pt. She has had a stable hemoglobin over the last 24 hours and has not had any new symptoms although she is struggling with her symptoms as mentioned above. I do not believe she merits a transfusion at present. She did not then want to remain in the hospital. I have discussed discharge with her and her family members at bedside and have advised her to return to the hospital with worsening symptoms or evident bleeding. We have advised her on obtaining follow up labs in 2-3 days to reassess her Hb. 2) Severe - Pt is not a surgical candidate and would not likely qualify for TVAVR - she is aware of this and follows with Dr Caal regularly. 3) SOB - dizziness - fatigue - chronic Regarding her chronic symptoms, the pt appears emotionally distressed and physically uncomfortable. Her condition is complex and multifactorial. Owing to her severe and comorbidities including cirrhosis and advanced COPD, it is unclear if she can improve significantly with additional treatment modalities. I have advised her that she might consider attending a rehab facility to see if PT and smoking cessation will palliate her conditions. I have also offered to admit her and assess her for rehab as an inpatient. She prefers to return home presently and will be observed over the weekend by her siblings. She is advised to follow-up with her PCP and GI MD in the coming week. She states that she is also currently being evaluated for a new lung nodule and may need a bronchoscopy. She is advised to follow-up with her information and referral director. I have discussed the above extensively with the pt and her siblings at bedside - I have discussed the above with the ER attending in lite of the pts decision to go home. Total time for this consult including review of labs, meds, extensive records - 45 min The above is a consult ER out patient
[2017-04-20 00:23] VITALS: BP 122/52; PULSE 82; O2SAT 99
[2017-06-20] MEDS ORDERED: GABA600T PO (10:00)
[2017-06-20] MEDS ORDERED: FURO40TA3 PO (10:00)
[2017-06-20] MEDS ORDERED: METR-163 PO (10:00)
[2017-06-20] MEDS ORDERED: MGCS/ PO (10:00)
[2017-06-20] MEDS ORDERED: NVLGI/PEN SC (10:01)
[2017-06-20] MEDS ORDERED: DRGTP12 TOP (10:07)
[2017-08-31] MEDS ORDERED: IPRASOL4 INH (13:13)
== END 2017-04-20 00:23 | disposition home or self-care (01) ==
LOC: C.EDB 19:53 → C.EDC 04-20 00:23
DX: D64.9 Anemia, unspecified (principal); K92.2 Gastrointestinal hemorrhage, unspecified; J84.10 Pulmonary fibrosis, unspecified; R53.1 Weakness; R06.02 Shortness of breath; I10 Essential (primary) hypertension; I45.10 Unspecified right bundle-branch block; E78.00 Pure hypercholesterolemia, unspecified; E11.9 Type 2 diabetes mellitus without complications; F32.9 Major depressive disorder, single episode, unspecified; I25.10 Atherosclerotic heart disease of native coronary artery without angina pectoris; K21.9 Gastro-esophageal reflux disease without esophagitis; K70.2 Alcoholic fibrosis and sclerosis of liver; J45.909 Unspecified asthma, uncomplicated; F17.200 Nicotine dependence, unspecified, uncomplicated; Z90.49 Acquired absence of other specified parts of digestive tract; Z98.61 Coronary angioplasty status; Z79.82 Long term (current) use of aspirin; Z79.4 Long term (current) use of insulin; Z79.84 Long term (current) use of oral hypoglycemic drugs; Z79.899 Other long term (current) drug therapy; Z88.2 Allergy status to sulfonamides; Z91.040 Latex allergy status; Z91.09 Other allergy status, other than to drugs and biological substances; Z91.041 Radiographic dye allergy status; Z83.3 Family history of diabetes mellitus; Z80.9 Family history of malignant neoplasm, unspecified; Z82.49 Family history of ischemic heart disease and other diseases of the circulatory system; Z84.1 Family history of disorders of kidney and ureter

== ENCOUNTER → 2017-04-30 | Outpatient (CLI) | payer OTHER ==
[~2017-04-30] MED LIST changes: +ALUM1SUS57 PO; +ALUMSUS37 PO; -ALUMSUS68 PO; +ASPI81TA28 PO; -ATV5 PO; +ATV5X PO; +AUG0.05O4 TP; +CHOL100027 PO; +DRGTP12 TOP; +FERR1TAB13 PO; +FURO40TA3 PO; +GABA600T PO; -HYDR-5688 PO; +MBXC PO; +METH-589 PO; +METR-163 PO; +MGCS/ PO; +NVLGI/PEN SC; -ONDA4TAB10 SL; +ONDA4TAB46 PO; -OXY/15 PO; +OXYC-164 PO; +RIFA550T2 PO; -SPRIN INH; +TIOT1AER INH; +TIOT1AER2 INH; +VNTHFA/IN INH
[2017-04-30 13:26] LABS: HEMATOCRIT 29.3 % (37-47)
== END | disposition home or self-care (01) ==
LOC: C.LABPBG 12:03
PROVIDERS: ATTEND Internal Medicine Endocrinology, Diabetes & Metabolism
DX: D64.9 Anemia, unspecified (principal)

== ENCOUNTER → 2017-04-30 | Outpatient (CLI) | payer OTHER | END | disposition home or self-care (01) | LOC: C.LAB1850 15:59 | PROVIDERS: ATTEND Internal Medicine Cardiovascular Disease | DX: D64.9 Anemia, unspecified (principal) ==

== ENCOUNTER → 2017-05-07 | Day surgery (SDC) | payer OTHER ==
--- NOTE | 2017-05-06 17:40 | HISTORY & PHYSICAL EXAMINATION ---
For the the [facility] 6 pulmonary rehab 119 coming is not pulmonary rehab on the [facility] to [facility] DATE OF ADMISSION: 05/07/2017 PRIMARY CARE PHYSICIAN: Dr. Arik Ryan. HISTORY OF PRESENT ILLNESS: A 71-year-old female was evaluated in the outpatient office on 04/11/[address] of the chest, which was completed for monitor of a pulmonary nodule in the setting of COPD. The patient formerly follows with Dr. Ryan, seen here for symptoms of mild COPD and pulmonary emphysema. She denied any history of asthma in her childhood or lifelong history of allergies. She stated that she began to notice symptoms of mild dyspnea with exertion over the past 5 years. She is prescribed oxygen at nighttime (denies prior polysomnogram). Over the past 3 years, she developed symptoms of daily cough, productive of yellow/brown sputum. Additionally, she reported intermittent epistaxis with which she noticed expectoration of mucus streaked with bright red blood (last episode 2 months ago). Over the past 1 year, she reports symptoms of progressive dyspnea provoked with exertion and accompanied by wheeze. Initially nebulizers were helpful; however, she states that this is no longer the case. She will use albuterol-ipratropium nebulized b.i.d. without any significant improvement. She does have a Ventolin inhaler as well and will use this 3-4 times a day was short-lived relief. She has been prescribed Advair in the past (500/[address] Ryan on 11/2016 note). However, she states that she has not used this in several years. She does use a Spiriva Respimat 1.25 and states this has been more helpful and Advair had been previously. She has been admitted to [facility] x2 year (01/2017 and 12/2016 with COPD exacerbation). VBG from 12/29/2016 notable for CO2 retention, PCO2 57. 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 Currently, she lives alone in an apartment. No pets. Heat is gas. No mold or mildew. No alcohol consumption. She uses a wheelchair with a history of falls. She denies any symptoms of chronic sinusitis; however, states that she may notice some postnasal drip with increased pollen in the air. She denies any history of dyspnea or eliazar aspiration. She denies any nocturnal symptoms of cough or dyspnea. PFT 12/21/2016; FVC 1.55/60%, FEV1 1.04/59%, FEV1/FVC 67%/85%; FEF 25-75%, 0.57/32% - no change post bronchodilator; RV 2.07/106%, TLC 3.74/87%; RV/TLC 55/128%; and DLCO 54%. CT 09/25/2017; borderline enlarged lymph nodes. Minor lower lobe bronchial wall thickening. Bilateral lower lobe atelectatic changes. A 4-mm left upper lobe pulmonary nodule. CT 04/03/2017; mild diffuse interstitial thickening which has progressed from prior imaging, which could be due to progression of chronic interstitial changes or acute superimposed interstitial process such as congestive change or typical pneumonitis. Possible 7-mm nodule in the left lower lobe, which appears to be new from prior study. Slight increase in the size of few prominent mediastinal lymph nodes without pathologic enlargement. PAST MEDICAL HISTORY: 1. Mild COPD. 2. Pulmonary hypertension (PASP 60 mmHg). 3. Nocturnal hypoxemia, on supplemental oxygen. 4. Paroxysmal atrial fibrillation. 5. Coronary artery disease (RAJI: LAD, RCA, and left circumflex), severe aortic stenosis (0.8 cm2). 6. L1 compression fracture. 7. Psoriasis. 8. Nonalcoholic cirrhosis of liver. 9. Carpal tunnel syndrome. 10. Anxiety. 11. Anemia. 12. Depression. 13. Hypertension. 14. Pulmonary nodule. 15. Thyroid dysfunction. 16. Gastric ulcer. 17. Ascites. PAST SURGICAL HISTORY: 1. Cholecystectomy. 2. Knee surgery. 3. Spine repair. 4. History of transcatheter placement of intrathoracic carotid artery stent. FAMILY HISTORY: 1. Anxiety. 2. Bleeding disorder. 3. Cardiac disorder. 4. Diabetes mellitus. 5. Hypertension. 6. Myocardial infarction. 7. Ovarian cancer. 8. Leukemia 9. Malignant neoplasm of the prostate. SOCIAL HISTORY: 1. Current smoker: 1-1.5 packs per day for 55 years, current one-half pack per day. 2. Exercise is limited by physical condition. 3. Denies alcohol use. 4. Denies drug use. 5. The patient is retired. 6. . MEDICATIONS: 1. Ferrous sulfate 325 mg oral tablet: Take 1 tablet by mouth every day. 2. Citalopram 20 mg oral tablet: Take 1 tablet every morning. 3. Lorazepam 0.5 mg oral tablet: Take 1 tablet at bedtime as needed. 4. Ipratropium albuterol 0.5/2.5 per 3 mL inhalation solution: Inhale 1 unit dose every 4 hours as needed. 5. Spiriva Respimat 1.25 mcg/ACT: Inhale 2 puffs by mouth daily. 6. Furosemide 40 mg oral tablet: Take one-half tablet Saturday, Saturday and Saturday. 7. Magnesium 400 mg capsule: Take 1 capsule twice a day. 8. Ventolin HFA 108 mcg/ACT: Inhale 2 puffs every 4-6 hours as needed. 9. Omeprazole 40 mg oral capsule delayed release: Take 1 capsule by mouth in the morning before breakfast. 10. Atorvastatin calcium 10 mg oral tablet: Take 1 tablet by mouth at bedtime. 11. Methimazole 5 mg oral tablet: Take 1 tablet daily. 12. Sodium chloride 0.9% intravenous solution: Use as directed. 13. Trazodone hydrochloride 100 mg oral tablet: Take 1 tablet by mouth at bedtime for sleep. 14. Levemir FlexTouch 100 units per mL subcutaneous solution pen injector: Inject 40 units before bedtime. 15. NovoLog FlexPen 100 units per mL subcutaneous solution pen injector: 20 units at breakfast and 25 units with dinner. 16. Clobetasol propionate 0.05% external ointment: Apply sparingly to affected areas twice daily. 17. Betamethasone dipropionate 0.05 external ointment: Apply sparingly to affected areas. 18. Xifaxan 550 mg oral tablet: Take 1 tablet by mouth twice daily. 19. Metoprolol succinate ER 25 mg oral tablet extended release: Take one-half tablet at bedtime. 20. Metformin hydrochloride 1000 mg oral tablet: Take 1 tablet every 12 hours. 21. One touch lancet. 22. Aspirin 81 mg tablet: Take 1 tablet every other day. 23. Gabapentin 600 mg oral tablet: Take 1 tablet 3 times daily. 24. Mylanta double strength 400/400/40 mg per 5 mL suspension: Take 1 teaspoon full twice daily. 25. Neosporin ointment. 26. Oxycodone hydrochloride 10 mg oral tablet: Take 1 tablet by mouth in the morning, one in the afternoon, and 2 at bedtime. 27. Oxygen 2 L at bedtime. 28. Vitamin D3 1000 units oral capsule: Take 1 capsule daily. ALLERGIES: 1. IV DYE. 2. LATEX. PHYSICAL EXAMINATION: VITAL SIGNS: Height 4 feet 11 inches, weight 158 pounds. Blood pressure 102/66, left upper extremity sitting; oxygen saturation 95% on room air; heart rate 95 beats per minute; respiratory rate 20 respirations per minute and temperature 98.6 degrees Fahrenheit oral. CONSTITUTIONAL: Well-developed, well-nourished elderly female in a wheelchair. No acute distress. HEAD: Positive for facial symmetry. EYES: EOMI, PERRLA, no conjunctival injection. MOUTH: Mallampati 1. No erythema, exudate, or postnasal drip. NECK: Trachea is midline without adenopathy or masses. RESPIRATORY: Nonlabored respirations. Extended expiratory phase with bronchial breath sounds and rales. One episode of nonproductive cough during the visit. CARDIOVASCULAR: Regular rate and rhythm. 2/6 systolic murmur. +2 radial pulses, less than 1 second capillary refill. ABDOMEN: Soft, active bowel sounds. INTEGUMENTARY: No rashes or visible ecchymosis. MUSCULOSKELETAL AND EXTREMITIES: Moving and developed symmetrically. No peripheral edema. NEUROLOGIC: Alert and oriented, data recall intact. Appropriate affect. REVIEW OF SYSTEMS: CONSTITUTIONAL: Recent 10-pound weight gain over the past 1 year. Positive for feeling fatigued. Denies fevers or chills. EYES: Negative. ENT: Denies pharyngitis or nasal discharge. CARDIOVASCULAR: Denies chest pain or peripheral edema. RESPIRATORY: Positive for cough, wheeze, and dyspnea on exertion but as noted in the HPI. GASTROINTESTINAL: Negative. HEMATOLOGIC AND LYMPHATIC: Negative, denies lymphadenopathy, bleeding diathesis or tendency for easy bruising or swollen glands. DISCUSSION AND SUMMARY: 1. Abnormal CAT scan with interstitial changes and history of chronic cough with progressive dyspnea. - Repeat CT 06/2017. - Consideration for bronchoscopy if cleared by cardiology. 2. Mild COPD. - Smoking cessation recommended. - Continue nebulizers as prescribed. - Stop Spiriva 1.25 and start Stiolto as the patient has tolerated LAMA/LABA well in the past. 3. Pulmonary hypertension, on nocturnal oxygen. - Consider a polysomnogram to rule out obstructive sleep apnea. Patient reviewed in plan or agreed upon. MTDD
[~2017-05-07] VITALS: Ht 149.9 cm; Wt 75.0 kg
[2017-05-07] VITALS (18 sets, daily range): BP systolic 65–120; BP diastolic 40–69; PULSE 78–89; TEMP 36.5–37; O2SAT 95–100; Ht 149.9 cm; Wt 75.0 kg
[~2017-05-07] MED LIST changes: +ALBUT/IPRATROP 3MG/0.5MG NEB 3 ML VIAL INH ONE; +FENTANYL CITRATE INJ 50 MCG/1 ML 2 ML VIAL IV ONE; +FENTANYL CITRATE INJ 50 MCG/1 ML 2 ML VIAL IV SCH; +LIDOCAINE 4% INH SOLN 4 ML BTL ONE; +LIDOCAINE HCL 2% LOCAL 50ML VIAL INFIL ONE; +MIDAZOLAM HCL 1 MG/ML 2ML VIAL IV SCH; +MIDAZOLAM HCL 5 MG/ML 1 ML VIAL IV ONE; +NURSING VERBAL MED ORDER ONE; +SODIUM CHLORIDE 0.9% 1000ML 1,000 ML IV SCH
--- NOTE | 2017-05-07 08:48 | History & Physical Bridge Note ---
H&P Re-Evaluation Bridge Note: I have examined the patient, reviewed the History & Physical and in the interval since the performance of the History & Physical I have noted the following changes of clinical significance: No changes noted
--- NOTE | 2017-05-07 10:01 | Procedure Note ---
Pre-Mod Sedation Assessment General Date of Moderate Sedation: May 07, 2017. Vital Signs: Vital Signs Past 12 Hours Date Time Temp Pulse Resp B/P (MAP) Pulse Ox O2 Delivery O2 Flow Rate FiO2 05/07/17 09:20 36.5 89 20 94/69 (77) 95 Room Air Review Cardiovascular: regular rate, rhythm, no edema, no gallop, no JVD, no murmur, normal peripheral pulses Abdomen: normal bowel sounds, non tender, soft, no organomegaly, no pulsatile mass, normal rectal exam, occult blood negative Lungs: + rhonchi, + wheezing Pre-Sedation Airway Assessment Oral Cavity: Dentures Short Thick Neck: Yes Hx of Sleep Apnea: Yes Smoking Status: Current Every Day Smoker Mallampati Classification: Class III Procedure Planning Contraindications-for Mod Sed: None Yes Notes The planned sedation has been discussed with the patient and consent obtained. I have identified the patient, determined the appropriateness of sedation and have assessed the patient immediately prior to the procedure. All medicine(s) and interventions are by my order.
--- NOTE | 2017-05-07 10:46 | Bronchoscopy Procedure Note ---
Bronchoscopy Procedure Note Procedure: Bronchoscopy, conscious sedation, bronchial washing LLL Consent: Obtained through the patient placed into the chart Pre-procedural diagnosis: chronic dyspnea with LLL nodule Post-procedural diagnosis: chronic dyspnea with LLL nodule Start time: 1014 End time: 1027 Total time: 13 minutes Analgesia: 2% liquid lidocaine: Via nebulizer 4% gel lidocaine: Via right naris 2% liquid lidocaine: Via bronchoscopy Sedation: Versed IV: 3 mg Fentanyl IV: 25 g Procedure: The Olympus video bronchoscope was used for this procedure and passed down through the right naris Right naris/posterior naris/posterior oropharynx: notable redundant tissue and short neck Glottis: Anatomically within normal limits, minimal secretions Vocal cords: Proper abduction and abduction, anatomically within normal limits Subglottis/trachea/Destiney: 70% EDAC of the distal 1/3 of the tracheal Right bronchial tree: Right mainstem bronchus: 70% EDAC Right upper lobe: mild erythema Bronchus intermedius: 80% EDAC Right middle lobe: moderate erythema Right lower lobe: moderate erythema Findings: signs of possible aspiration vs. chronic cough Left bronchial tree: Left mainstem bronchus: 70% EDAC Left upper lobe: JESSICA LB2 is ball valving during respiration Lingula: Anatomically within normal limits Left lower lobe: moderate erythema Findings: signs of possible aspiration vs. chronic cough Bronchial alveolar Washing: LLL EBL: none Complications: None Follow-up: In the [facility]
--- NOTE | 2017-05-07 10:47 | Procedure Note ---
Post-Moderate Sedation Plan General Date of Moderate Sedation May 07, 2017. Vital Signs: Vital Signs Past 12 Hours Date Time Temp Pulse Resp B/P (MAP) Pulse Ox O2 Delivery O2 Flow Rate FiO2 05/07/17 10:10 81 17 99/58 99 Nasal Cannula 6.0 05/07/17 10:06 79 16 97/55 99 Nasal Cannula 6.0 05/07/17 09:58 36.5 89 20 94/69 95 Room Air 05/07/17 09:20 36.5 89 20 94/69 (77) 95 Room Air Review - Discharge Plan Post Moderate Sedation Plan: On clinical assessment, the patient appears to have tolerated the conscious sedation without complications. Patient is recovering as anticipated. Patient will continue to be monitored by nursing and may be discharged when conscious sedation discharge criteria are met.
--- NOTE | 2017-05-07 10:51 | Discharge Instructions ---
Discharge Instructions Date of Service May 07, 2017. Admission Reason for Admission: Copd, Pulmonary Nodule, Shortness Of Breath Discharge Discharge Diagnosis / Problem: Chronic shortness of breath Discharge Goals Goal(s): Diagnostic testing Activity Recommendations Activity Limitations: resume your previous activity . Instructions / Follow-Up Instructions / Follow-Up F/U with Naila Ba of the [facility] Current Hospital Diet Patient's current hospital diet: Discharge Diet Recommended Diet: Regular Diet Fluid Restriction: 1200 ml (5 cups) (for the next 24 hours) Procedures Procedures Performed: Bornchoscopy with bronchial washing of the left lower lobe Pending Studies Studies pending at discharge: no Laboratory Results Hemoglobin A1c Test 02/14/17 12:41 Range/Units Estimated Average Glucose 160 mg/dl Hemoglobin A1c 7.2 H 4.5-5.6 % Lipid Panel Test 04/18/17 14:43 Range/Units Triglycerides Level 54 0-150 mg/dl Cholesterol Level 99 0-200 mg/dl HDL Cholesterol 34 mg/dl Cholesterol/HDL Ratio 2.9 LDL Cholesterol, Calculated 54 mg/dl Medical Emergencies . Who to Call and When: Medical Emergencies: If at any time you feel your situation is an emergency, please call 911 immediately. . Non-Emergent Contact Non-Emergency issues call your: Partner Call Non-Emergent contact if: temperature is above 101.5 . . "Provider Documentation" section prepared by Praveen Dallas. . VTE Core Measure Inpt VTE Proph given/why not?: Treatment not indicated
== END | disposition home or self-care (01) ==
LOC: C.ACU 08:09
PROVIDERS: ATTEND Internal Medicine Critical Care Medicine
DX: D14.32 Benign neoplasm of left bronchus and lung (principal); J44.9 Chronic obstructive pulmonary disease, unspecified; I27.2 Other secondary pulmonary hypertension; G47.36 Sleep related hypoventilation in conditions classified elsewhere; Z99.81 Dependence on supplemental oxygen; I48.0 Paroxysmal atrial fibrillation; I25.10 Atherosclerotic heart disease of native coronary artery without angina pectoris; I10 Essential (primary) hypertension; K74.60 Unspecified cirrhosis of liver; F41.9 Anxiety disorder, unspecified; F32.9 Major depressive disorder, single episode, unspecified; E07.9 Disorder of thyroid, unspecified; F17.210 Nicotine dependence, cigarettes, uncomplicated; Z79.4 Long term (current) use of insulin; Z79.82 Long term (current) use of aspirin; Z79.899 Other long term (current) drug therapy

== ENCOUNTER → 2017-05-09 | Outpatient (CLI) | payer OTHER ==
[~2017-05-09] MED LIST changes: -ALBUT/IPRATROP 3MG/0.5MG NEB 3 ML VIAL INH ONE; -FENTANYL CITRATE INJ 50 MCG/1 ML 2 ML VIAL IV ONE; -FENTANYL CITRATE INJ 50 MCG/1 ML 2 ML VIAL IV SCH; -LIDOCAINE 4% INH SOLN 4 ML BTL ONE; -LIDOCAINE HCL 2% LOCAL 50ML VIAL INFIL ONE; -METO25TA3 PO; -MIDAZOLAM HCL 1 MG/ML 2ML VIAL IV SCH; -MIDAZOLAM HCL 5 MG/ML 1 ML VIAL IV ONE; -NURSING VERBAL MED ORDER ONE; -SODIUM CHLORIDE 0.9% 1000ML 1,000 ML IV SCH
[2017-05-09 18:01] LABS: HEMATOCRIT 36.1 % (37-47); MEAN CELL VOLUME 89.1 fL (80-100); MEAN CORPUSCULAR HEMOGLOBIN 27.4 pg (25-34); MEAN CORPUSCULAR HGB CONC 30.7 g/dl (32-36); MEAN PLATELET VOLUME 12.3 fL (7.4-10.4); PLATELET COUNT 77 K/uL (130-400); RED BLOOD COUNT 4.05 M/uL (4.2-5.4); WHITE BLOOD COUNT 5.06 K/uL (4.8-10.8)
[2017-05-09 18:02] LABS: FERRITIN 31.3 ng/ml (8.0-388.0)
[2017-05-09 18:04] LABS: BASO % 0.4 %; BASO ABS # 0.02 K/uL (0-0.2); COMPLETE YES; EOS % 1.2 %; IG% 0.2 %; LARGE PLATELETS 1+; LYMPH % 26.1 %; LYMPH ABS # 1.32 K/uL (1.2-3.4); MONO % 7.9 %; NEUT % 64.2 %; PLT ESTIMATE DECREASED
== END | disposition home or self-care (01) ==
LOC: C.LABPBG 15:40
PROVIDERS: ATTEND Family Medicine
DX: D64.9 Anemia, unspecified (principal)

== ENCOUNTER → 2017-05-16 | Outpatient (CLI) | payer OTHER ==
[2017-05-20 10:53] LABS: AFP TUMOR MARKER SERUM 4.5 NG/ML (<6.1)
== END | disposition home or self-care (01) ==
LOC: C.LABPBG 11:36
PROVIDERS: ATTEND Family Medicine
DX: K74.60 Unspecified cirrhosis of liver (principal); R19.5 Other fecal abnormalities

== ENCOUNTER → 2017-05-30 | Day surgery (SDC) | payer OTHER ==
[2017-05-21 11:41] VITALS: BMI 33.0
[~2017-05-30] VITALS: Ht 149.9 cm; Wt 75.0 kg
[~2017-05-30] MED LIST changes: +ETOMIDATE 2 MG/ML 20 ML VIAL IV ONE; +LIDOCAINE HCL 2% 2 ML VIAL (20MG/ML) ONE; +PHENYLEPHRINE 100MCG/ML 5ML SYR ONE; +PROPOFOL IV EMULSION 10 MG/ML 20 ML VIAL IV ONE
[2017-05-30 14:39] VITALS: Ht 149.9 cm; Wt 75.0 kg
--- NOTE | 2017-05-30 15:45 | Endo History and Physical ---
History & Physical Date of Service: May 30, 2017. Chief Complaint: VARICES Referring Physician: JAQUI PULIDO History of Present Illness 71 yo CF who presents for EGD secondary to Esophageal varices. Past Medical History Asthma, COPD Past Surgical History Hx Cardiac Surgery: Yes (HEART CATH WITH 3 STENT) Hx Internal Defibrillator: No Hx Pacemaker: No Hx Abdominal Surgery: Yes (cholecystectomy) Hx Post-Op Nausea and Vomiting: No Hx Cancer Surgery: No Hx Thoracic Surgery: No Hx Orthopedic: Yes (LUMBAR FUSION/ CERVICAL FUSION) Hx Urinary Tract Surgery: Yes (bladder sling) Family History None Social History Smoking Status: Current Every Day Smoker Hx Substance Use: No Hx Alcohol Use: No Allergies Coded Allergies: Iodinated Diagnostic Agents (Verified Allergy, Intermediate, RASH TO IVP DYE, 05/30/17) Adhesives (Verified Allergy, Unknown, rash, 05/30/17) Latex1 -Allergic Contact Dermititis (Verified Allergy, Unknown, RASH, ) Sulfa Antibiotics (Verified Allergy, Unknown, unknown, 05/30/17) Current Medications Reported Home Medications Medications Dose Route/Sig Max Daily Dose Days Date Category Dose Instructions Oxycodone Hcl 10 Mg Tab 2 Tab PO HS 30 04/19/17 Reported Oxycodone Hcl 10 Mg Tab 1 Tab PO QAM PRN 30 04/19/17 Reported Zofran (Ondansetron HCl) 4 Mg Tab 4 Mg PO Q6 PRN 04/19/17 Reported Xifaxan (Rifaximin) 550 Mg Tab 550 Mg PO BID 04/19/17 Reported Spiriva Respimat (Tiotropium [place]) 1.25 Mcg/Act Aer 2 Puff INH DAILY 04/19/17 Reported Lorazepam 0.5 Mg Tab 0.5 Mg PO HS PRN 04/19/17 Reported Almacone-Ii Double Streng (Alum & Mag Hydrox-Simethicone) 1 Jelly Jelly 1 Tbs PO BID 04/19/17 Reported BETWEEN MEALS Ferrous Sulfate 325 Mg Tab 325 Mg PO QAM 01/23/17 Reported Duoneb (Ipratropium-Albuterol) 3 Ml Nebu 1 Treatment INH Q4H PRN 01/23/17 Reported Clobetasol Propionate 45 Appln/15 Gm Oint 1 Appln TOP BID 30 01/23/17 Reported Ventolin Hfa (Albuterol) 200 Puffs/71616 Mcg Aers 2-4 Puffs INH Q6H PRN 12/29/16 Reported Gabapentin 600 Mg Tab 600 Mg PO TID 11/28/16 Reported Prilosec (Omeprazole) 40 Mg Cap 40 Mg PO QAM 11/28/16 Reported Levemir Flextouch (Insulin Detemir) 100 Unit/Ml Inj 40 Units SQ HS 08/26/16 Reported Mag-Ox (Magnesium Oxide) 400 Mg Tab 2 Tab PO BID 02/29/16 Reported Lexapro (Escitalopram Oxalate) 20 Mg Tab 20 Mg PO QAM 01/02/16 Reported Trazodone (Trazodone HCl) 100 Mg Tab 100 Mg PO HS 01/02/16 Reported Atorvastatin Calcium (Atorvastatin) 10 Mg Tab 10 Mg PO HS 11/01/14 Reported Vitamin D 1000 Unit (Cholecalciferol) 1,000 Unit Cap 1,000 Inter.unit PO QAM 04/25/14 Reported Aspirin Ec (Aspirin) 81 Mg Tab 81 Mg PO Q2D 04/25/14 Reported Vital Signs Weight (Kilograms): 75.00 Height (Feet): 4 Height (Inches): 11 Date Time Temp Pulse Resp B/P (MAP) Pulse Ox O2 Delivery O2 Flow Rate FiO2 05/30/17 14:56 36.8 89 24 78/45 (56) 95 Room Air Physical Exam General Appearance: WD/WN, no apparent distress Respiratory/Chest: Auscultation: breath sounds normal Cardiovascular: Heart Auscultation: RRR Abdomen: Bowel Sounds: normal Inspection & Palpation: soft, non-distended, no tenderness, guarding & rebound Assessment and Plan Assessment: 71 yo CF who presents for EGD secondary to Esophageal varices. Plan: Proceed with EGD
--- NOTE | 2017-05-30 15:58 | Discharge Instructions ---
Endoscopy Patient Instructions Date / Procedure(s) Performed May 30, 2017. EGD Allergy Information Coded Allergies: Iodinated Diagnostic Agents (Verified Allergy, Intermediate, RASH TO IVP DYE, 05/30/17) Adhesives (Verified Allergy, Unknown, rash, 05/30/17) Latex1 -Allergic Contact Dermititis (Verified Allergy, Unknown, RASH, ) Sulfa Antibiotics (Verified Allergy, Unknown, unknown, 05/30/17) Discharge Date / Findings May 30, 2017. Gastritis Esophageal varices Hiatal hernia Medication Instructions Stopped Medication(s): ASPIRIN 1) Non-selective beta-blockers are contraindicated for primary prophylaxis. Will consider Endoscopic variceal ligation for primary prophylaxis of esophageal varices. 2) Resume all other medications today as prescribed Reported Home Medications Medications Dose Route/Sig Max Daily Dose Days Date Category Dose Instructions Oxycodone Hcl 10 Mg Tab 2 Tab PO HS 30 04/19/17 Reported Oxycodone Hcl 10 Mg Tab 1 Tab PO QAM PRN 30 04/19/17 Reported Zofran (Ondansetron HCl) 4 Mg Tab 4 Mg PO Q6 PRN 04/19/17 Reported Xifaxan (Rifaximin) 550 Mg Tab 550 Mg PO BID 04/19/17 Reported Spiriva Respimat (Tiotropium [place]) 1.25 Mcg/Act Aer 2 Puff INH DAILY 04/19/17 Reported Lorazepam 0.5 Mg Tab 0.5 Mg PO HS PRN 04/19/17 Reported Almacone-Ii Double Streng (Alum & Mag Hydrox-Simethicone) 1 Jelly Jelly 1 Tbs PO BID 04/19/17 Reported BETWEEN MEALS Ferrous Sulfate 325 Mg Tab 325 Mg PO QAM 01/23/17 Reported Duoneb (Ipratropium-Albuterol) 3 Ml Nebu 1 Treatment INH Q4H PRN 01/23/17 Reported Clobetasol Propionate 45 Appln/15 Gm Oint 1 Appln TOP BID 30 01/23/17 Reported Ventolin Hfa (Albuterol) 200 Puffs/79184 Mcg Aers 2-4 Puffs INH Q6H PRN 12/29/16 Reported Gabapentin 600 Mg Tab 600 Mg PO TID 11/28/16 Reported Prilosec (Omeprazole) 40 Mg Cap 40 Mg PO QAM 11/28/16 Reported Levemir Flextouch (Insulin Detemir) 100 Unit/Ml Inj 40 Units SQ HS 08/26/16 Reported Mag-Ox (Magnesium Oxide) 400 Mg Tab 2 Tab PO BID 02/29/16 Reported Lexapro (Escitalopram Oxalate) 20 Mg Tab 20 Mg PO QAM 01/02/16 Reported Trazodone (Trazodone HCl) 100 Mg Tab 100 Mg PO HS 01/02/16 Reported Atorvastatin Calcium (Atorvastatin) 10 Mg Tab 10 Mg PO HS 11/01/14 Reported Vitamin D 1000 Unit (Cholecalciferol) 1,000 Unit Cap 1,000 Inter.unit PO QAM 04/25/14 Reported Aspirin Ec (Aspirin) 81 Mg Tab 81 Mg PO Q2D 04/25/14 Reported Provider Instructions Activity Restrictions - No exercising or heavy lifting for 24 hours. - Do not drink alcohol the day of the procedure. - Do not drive a car or operate machinery until the day after the procedure. - Do not make any important decisions or sign important papers in 24 hours after the procedure. Following Day: - Return to full activity which may include returning to work/school. Diet Start your diet with liquids and light foods (jello, soup, juice, toast). Then eat your usual diet if not nauseated. Treatment For Common After Affects For mild abdominal pain, bloating, or excessive gas: - Rest - Eat lightly - Lie on right side Follow-Up Information Follow-up with JAQUI PULIDO as scheduled Anesthesia Information What You Should Know You have had a procedure that required some medicine to reduce anxiety and discomfort. This treatment is called moderate sedation. After receiving the treatment, you may be sleepy, but you will be able to breathe on your own. The effects of the treatment may last for several hours. Follow these instructions along with Activity/Diet recommendations noted above: * Do NOT do anything where dizziness or clumsiness would be dangerous. * Rest quietly at home today, then you can be up and about tomorrow. * Have a responsible person stay with you the rest of today. * You may have had an I.V. today. If so, you may take the dressing off later today. Recommendations Call your doctor if: * Trouble breathing * Continuous vomiting for more than 24 hours * Temperature above 101 degrees * Severe abdominal pain or bloating * Pain not relieved by pain medicine ordered * There is increased drainage or redness from any incision * A large amount of rectal bleeding greater than 2-3 tablespoons. (If you had a polyp/s removed or have hemorrhoids, a small amount of blood - from the rectum is to be expected.) * You have any unanswered questions or concerns. IN THE EVENT OF A SERIOUS EMERGENCY, GO TO THE NEAREST EMERGENCY ROOM Your discharge instructions were prepared by provider Gilberto Walls. Patient Instructions Signature Page Amelie Frederick Patient (or Guardian) Signature/Date: I have read and understand the instructions given to me by my caregivers. Caregiver/RN/Doctor Signature/Date: The above-named patient and/or guardian has received patient instructions on this date. + Original Patient Signature Page (only) stays with chart. Please make copy for patient.
--- NOTE | 2017-05-30 16:02 | Anesthesiology Progress Note ---
Anesthesia Post Op Note Date & Time May 30, 2017 at 16:02 Vital Signs Pain Intensity: 0 Vital Signs Past 12 Hours Date Time Temp Pulse Resp B/P (MAP) Pulse Ox O2 Delivery O2 Flow Rate FiO2 05/30/17 14:56 36.8 89 24 78/45 (56) 95 Room Air Notes Mental Status: alert / awake / arousable, participated in evaluation Pt Amnestic to Procedure: Yes Nausea / Vomiting: adequately controlled Pain: adequately controlled Airway Patency, RR, SpO2: stable & adequate BP & HR: stable & adequate Hydration State: stable & adequate Anesthetic Complications: no major complications apparent
--- NOTE | 2017-05-30 16:04 | GI REPORT ---
Procedure Date: 05/30/2017 3:33 PM THIS REPORT HAS BEEN AMENDED Addendum Number: 1 Addendum Date: 05/30/2017 4:38:43 PM Due to patient's history of pulmonary disease, she is not a candidate for primary prophylaxis with non-selective beta blockers. Nitrates are not approved for primary prophylaxis in variceal bleeding, therefore, I will offer the patient a repeat EGD for Endoscopic variceal ligation. Procedure: Upper GI endoscopy Indications: Follow-up of esophageal varices Medicines: Monitored Anesthesia Care Complications: No immediate complications. Estimated Blood Loss: Estimated blood loss: none. Procedure: Pre-Anesthesia Assessment: - Prior to the procedure, a History and Physical was performed, and patient medications and allergies were reviewed. The patient's tolerance of previous anesthesia was also reviewed. The risks and benefits of the procedure and the sedation options and risks were discussed with the patient. All questions were answered, and informed consent was obtained. Prior Anticoagulants: The patient has taken aspirin, last dose was 5 days prior to procedure. ASA Grade Assessment: IV - A patient with severe systemic disease that is a constant threat to life. After reviewing the risks and benefits, the patient was deemed in satisfactory condition to undergo the procedure. After obtaining informed consent, the endoscope was passed under direct vision. Throughout the procedure, the patient's blood pressure, pulse, and oxygen saturations were monitored continuously. The scope was introduced through the mouth, and advanced to the second part of duodenum. The upper GI endoscopy was accomplished without difficulty. The patient tolerated the procedure well. Findings: Grade II varices were found in the lower third of the esophagus. They were 5 mm in largest diameter. A small hiatus hernia was present. Localized moderate inflammation characterized by erythema was found in the gastric antrum. Impression: - Grade II esophageal varices. - Small hiatus hernia. - Gastritis. - No specimens collected. Recommendation: - Resume previous diet. - Give a beta arnulfo with dosage titrated by the heart rate. Start Nadolol 40mg by mouth each morning. - Repeat the upper endoscopy in 1 year for screening purposes. - Return to GI office in 2 weeks. Gilberto Walls DO 05/30/2017 4:03:49 PM This report has been signed electronically. Note Initiated On: 05/30/2017 3:33 PM I attest to the content of the Intraoperative Record and orders documented therein, exceptions below Gilberto Walls DO 05/30/2017 4:40:17 PM This report has been signed electronically.
[2017-05-30 16:31] VITALS: BP 110/81; PULSE 93; O2SAT 96
== END | disposition home or self-care (01) ==
LOC: C.GI 14:04
PROVIDERS: ATTEND Internal Medicine
DX: I85.00 Esophageal varices without bleeding (principal); K44.9 Diaphragmatic hernia without obstruction or gangrene; K29.70 Gastritis, unspecified, without bleeding; J44.9 Chronic obstructive pulmonary disease, unspecified; F17.210 Nicotine dependence, cigarettes, uncomplicated; Z95.5 Presence of coronary angioplasty implant and graft; Z79.82 Long term (current) use of aspirin; Z79.899 Other long term (current) drug therapy

== ENCOUNTER → 2017-05-31 | Outpatient (CLI) | payer OTHER ==
[~2017-05-31] MED LIST changes: -ETOMIDATE 2 MG/ML 20 ML VIAL IV ONE; -LIDOCAINE HCL 2% 2 ML VIAL (20MG/ML) ONE; -PHENYLEPHRINE 100MCG/ML 5ML SYR ONE; -PROPOFOL IV EMULSION 10 MG/ML 20 ML VIAL IV ONE
[2017-05-31 17:14] LABS: ALT/SGPT 42 U/L (12-78); AST/SGOT 71 U/L (15-37)
== END | disposition home or self-care (01) ==
LOC: C.LABPBG 14:08
PROVIDERS: ATTEND Internal Medicine Cardiovascular Disease
DX: E78.5 Hyperlipidemia, unspecified (principal)

== ENCOUNTER → 2017-06-11 | Outpatient (CLI) | payer OTHER ==
[~2017-06-11] MED LIST changes: -ALUMSUS37 PO; -FRRS300 PO
--- NOTE | 2017-06-11 12:50 | DIAGNOSTIC IMAGING REPORT ---
VIDEO SWALLOW HISTORY: Pneumonia. Dysphagia. PNEUMONIA TECHNIQUE: Video fluoroscopic evaluation of swallowing was performed in the AP and lateral projections by the speech pathology staff. The patient is fed nectar-thick and thin liquid barium, a barium coated wafer, and barium pudding. FLUOROSCOPY TIME: 3 minutes. COMPARISON STUDY: None. FINDINGS: There is normal hyoid excursion and epiglottic deflection. No significant penetration or aspiration identified. Swallowing function is within normal limits. Moderate esophageal dysmotility IMPRESSION: 1. No aspiration identified. Moderate esophageal dysmotility/spasm. 2. Please see the speech pathologist report for detailed findings and recommendations. The above report was generated using voice recognition software. It may contain grammatical, syntax or spelling errors. Electronically signed by: Anuel Chavez M.D. 06/11/2017 12:49 PM Dictated Date/Time: 06/11/2017 12:48 PM
--- NOTE | 2017-06-11 13:43 | SWALLOWING EVALUATION ---
HISTORY: This 71 year-old woman, from home, was referred for a VFSS at [facility] secondary to complaints of feeling that something is stuck in her throat. She states that no food in particular gives her difficulty. Currently the patient's diet level is regular with thins. PROCEDURE: The patient was seen in the Radiology Department of [facility] for the VFSS. Cursory examination of the oral cavity revealed no lower dentition and upper dentures. Movement of the articulators was WNL. The patient was seated in a wheelchair and was viewed in both the Anterior-Posterior (A-P) and Lateral planes. Volitional phonation exercises completed in the A-P plane revealed bilateral vocal fold movement and vocal intensity within functional limits. In the lateral plane, the patient was given the following barium-infused boluses: 1 tsp thin barium with oral hold 1x, self presented single cup swallow-thin barium 1x, self presented serial cup swallow 1x. 1 tsp nectar thick barium with oral hold 1x, self presented single cup swallow- nectar thick barium 1x, self presented serial cup swallows 1x. 1 tsp barium pudding-self presented 1x. Cracker with barium paste 1x. In the A-P view, pt was given 1 tsp barium pudding with esophageal scan. RESULTS: Oral Phase: Pt. had no labial escape of any food or liquid items presented. Pt. demonstrated a cohesive bolus between tongue and palatal seal. Timely and efficient chewing and mashing was observed with all consistencies as well as brisk tongue motion and complete oral clearance. Initiation of pharyngeal swallow began with bolus head at posterior angle of hyoid excursion. Overall WFL for oral phase of swallow. Pharyngeal Phase: Soft Palate Elevation was complete for all boluses. Laryngeal elevation was WFL demonstrating complete movement of thyroid cartilage with complete approximation of arytenoids to epiglottic base. Complete Anterior Hyoid excursion was observed as well as complete epiglottic inversion. Laryngeal Vestibular closure was complete and no air or barium noted in laryngeal vestibule. Tongue base retraction was noted with all consistencies and tongue base made effective contact with posterior pharyngeal wall throughout study. No pharyngeal residue was observed resulting in complete pharyngeal clearance of all tested items. Overall WFL for Pharyngeal stage of the swallow. Esophageal Phase: Opening and closing of the UES was timely and efficient. PHOTOGRAPHY INTERN noted some esophageal dysmotility which would be contributing to her complaints of food sticking in his throat. SUMMARY/RECOMMENDATIONS: Overall pt. presented as WFL. Results of this study indicate no oral or pharyngeal dysphagia. Recommending SLIPPERY regular diet with thin liquids. Also recommending consideration for Barium Swallow to further address esophageal dysmotility. All results and recommendations were discussed with the pt. and her daughter at length. Paperwork provided. Thank you for referral of this patient. Please contact me at if any additional information is needed.
== END | disposition home or self-care (01) ==
LOC: C.RAD 11:23
PROVIDERS: ATTEND Physician Assistant
DX: J18.9 Pneumonia, unspecified organism (principal); R13.19 Other dysphagia; K22.4 Dyskinesia of esophagus

== ENCOUNTER → 2017-06-12 | Day surgery (SDC) | payer OTHER ==
[2017-06-04 13:10] VITALS: BMI 32.0
[~2017-06-12] VITALS: Ht 149.9 cm; Wt 72.3 kg
[~2017-06-12] MED LIST changes: +LIDOCAINE HCL 2% 2 ML VIAL (20MG/ML) ONE; +PHENYLEPHRINE 100MCG/ML 5ML SYR ONE; +PROPOFOL IV EMULSION 10 MG/ML 20 ML VIAL IV ONE
[2017-06-12 12:55] VITALS: Ht 149.9 cm; Wt 72.3 kg
--- NOTE | 2017-06-12 12:57 | Endo History and Physical ---
History & Physical Date of Service: Jun 12, 2017. Chief Complaint: Esophageal varices Referring Physician: Boone Paulson History of Present Illness 71 yo CF who presents for EGD secondary to esophageal varices. Past Medical History Asthma, COPD Past Surgical History Hx Cardiac Surgery: Yes (HEART CATH WITH 3 STENT) Hx Internal Defibrillator: No Hx Pacemaker: No Hx Abdominal Surgery: Yes (MARCELO) Hx of Implantable Prosthesis: No Hx Post-Op Nausea and Vomiting: No Hx Cancer Surgery: No Hx Thoracic Surgery: No Hx Orthopedic: Yes (LUMBAR FUSION/ CERVICAL FUSION) Hx Urinary Tract Surgery: Yes (BLADDER SLING) Family History None Social History Smoking Status: Current Every Day Smoker Hx Substance Use: No Hx Alcohol Use: No Allergies Coded Allergies: Iodinated Diagnostic Agents (Verified Allergy, Intermediate, RASH TO IVP DYE, 06/04/17) Adhesives (Verified Allergy, Unknown, RASH, 06/04/17) Latex1 -Allergic Contact Dermititis (Verified Allergy, Unknown, RASH, 06/04) Current Medications Reported Home Medications Medications Dose Route/Sig Max Daily Dose Days Date Category Dose Instructions Oxycodone Hcl 10 Mg Tab 2 Tab PO HS 04/19/17 Reported Oxycodone Hcl 10 Mg Tab 1 Tab PO QAM PRN 04/19/17 Reported Zofran (Ondansetron HCl) 4 Mg Tab 4 Mg PO Q6 PRN 04/19/17 Reported Spiriva Respimat (Tiotropium [place]) 1.25 Mcg/Act Aer 2 Puff INH DAILY 04/19/17 Reported Lorazepam 0.5 Mg Tab 0.5 Mg PO HS PRN 04/19/17 Reported Duoneb (Ipratropium-Albuterol) 3 Ml Nebu 1 Treatment INH Q4H PRN 01/23/17 Reported Clobetasol Propionate 45 Appln/15 Gm Oint 1 Appln TOP BID 01/23/17 Reported Ventolin Hfa (Albuterol) 200 Puffs/53840 Mcg Aers 2-4 Puffs INH Q6H PRN 12/29/16 Reported Gabapentin 600 Mg Tab 600 Mg PO TID 11/28/16 Reported Prilosec (Omeprazole) 40 Mg Cap 40 Mg PO QAM 11/28/16 Reported Novolog Flexpen (Insulin Aspart) 100 Units/Ml Inj 0 SQ BIDM 08/26/16 Reported 20 UNITS W/LUNCH, 25 UNITS W/SUPPER ALSO SLIDING SCALE Levemir Flextouch (Insulin Detemir) 100 Unit/Ml Inj 40 Units SQ HS 08/26/16 Reported Mag-Ox (Magnesium Oxide) 400 Mg Tab 2 Tab PO BID 02/29/16 Reported Lexapro (Escitalopram Oxalate) 20 Mg Tab 20 Mg PO QAM 01/02/16 Reported Trazodone (Trazodone HCl) 100 Mg Tab 100 Mg PO HS 01/02/16 Reported Atorvastatin Calcium (Atorvastatin) 10 Mg Tab 10 Mg PO HS 11/01/14 Reported Vitamin D 1000 Unit (Cholecalciferol) 1,000 Unit Cap 1,000 Inter.unit PO QAM 04/25/14 Reported Aspirin Ec (Aspirin) 81 Mg Tab 81 Mg PO Q2D 04/25/14 Reported Vital Signs Weight (Kilograms): 72.27 Height (Feet): 4 Height (Inches): 11 Physical Exam General Appearance: WD/WN, no apparent distress Respiratory/Chest: Auscultation: breath sounds normal Cardiovascular: Heart Auscultation: RRR Abdomen: Bowel Sounds: normal Inspection & Palpation: soft, non-distended, no tenderness, guarding & rebound Assessment and Plan Assessment: 71 yo CF who presents for EGD secondary to esophageal varices. Plan: Proceed with EGD
--- NOTE | 2017-06-12 13:40 | Discharge Instructions ---
Endoscopy Patient Instructions Date / Procedure(s) Performed Jun 12, 2017. EGD Allergy Information Coded Allergies: Iodinated Diagnostic Agents (Verified Allergy, Intermediate, RASH TO IVP DYE, 06/12/17) Adhesives (Verified Allergy, Unknown, RASH, 06/12/17) Latex1 -Allergic Contact Dermititis (Verified Allergy, Unknown, RASH, 06/12) Discharge Date / Findings Jun 12, 2017. Esophageal varices s/p banding x3 Medication Instructions Stopped Medication(s): ASPIRIN LAST DOSE 06/06/17 OK to resume all medications today as prescribed Reported Home Medications Medications Dose Route/Sig Max Daily Dose Days Date Category Dose Instructions Oxycodone Hcl 10 Mg Tab 2 Tab PO HS 04/19/17 Reported Oxycodone Hcl 10 Mg Tab 1 Tab PO QAM PRN 04/19/17 Reported Zofran (Ondansetron HCl) 4 Mg Tab 4 Mg PO Q6 PRN 04/19/17 Reported Spiriva Respimat (Tiotropium [place]) 1.25 Mcg/Act Aer 2 Puff INH DAILY 04/19/17 Reported Lorazepam 0.5 Mg Tab 0.5 Mg PO HS PRN 04/19/17 Reported Duoneb (Ipratropium-Albuterol) 3 Ml Nebu 1 Treatment INH Q4H PRN 01/23/17 Reported Clobetasol Propionate 45 Appln/15 Gm Oint 1 Appln TOP BID 01/23/17 Reported Ventolin Hfa (Albuterol) 200 Puffs/18215 Mcg Aers 2-4 Puffs INH Q6H PRN 12/29/16 Reported Gabapentin 600 Mg Tab 600 Mg PO TID 11/28/16 Reported Prilosec (Omeprazole) 40 Mg Cap 40 Mg PO QAM 11/28/16 Reported Novolog Flexpen (Insulin Aspart) 100 Units/Ml Inj 0 SQ BIDM 08/26/16 Reported 20 UNITS W/LUNCH, 25 UNITS W/SUPPER ALSO SLIDING SCALE Levemir Flextouch (Insulin Detemir) 100 Unit/Ml Inj 40 Units SQ HS 08/26/16 Reported Mag-Ox (Magnesium Oxide) 400 Mg Tab 2 Tab PO BID 02/29/16 Reported Lexapro (Escitalopram Oxalate) 20 Mg Tab 20 Mg PO QAM 01/02/16 Reported Trazodone (Trazodone HCl) 100 Mg Tab 100 Mg PO HS 01/02/16 Reported Atorvastatin Calcium (Atorvastatin) 10 Mg Tab 10 Mg PO HS 11/01/14 Reported Vitamin D 1000 Unit (Cholecalciferol) 1,000 Unit Cap 1,000 Inter.unit PO QAM 04/25/14 Reported Aspirin Ec (Aspirin) 81 Mg Tab 81 Mg PO Q2D 04/25/14 Reported Provider Instructions Activity Restrictions - No exercising or heavy lifting for 24 hours. - Do not drink alcohol the day of the procedure. - Do not drive a car or operate machinery until the day after the procedure. - Do not make any important decisions or sign important papers in 24 hours after the procedure. Following Day: - Return to full activity which may include returning to work/school. Diet Start your diet with liquids and light foods (jello, soup, juice, toast). Then eat your usual diet if not nauseated. Treatment For Common After Affects For mild abdominal pain, bloating, or excessive gas: - Rest - Eat lightly - Lie on right side Follow-Up Information Follow-up with DR JAQUI PULIDO as scheduled Anesthesia Information What You Should Know You have had a procedure that required some medicine to reduce anxiety and discomfort. This treatment is called moderate sedation. After receiving the treatment, you may be sleepy, but you will be able to breathe on your own. The effects of the treatment may last for several hours. Follow these instructions along with Activity/Diet recommendations noted above: * Do NOT do anything where dizziness or clumsiness would be dangerous. * Rest quietly at home today, then you can be up and about tomorrow. * Have a responsible person stay with you the rest of today. * You may have had an I.V. today. If so, you may take the dressing off later today. Recommendations Call your doctor if: * Trouble breathing * Continuous vomiting for more than 24 hours * Temperature above 101 degrees * Severe abdominal pain or bloating * Pain not relieved by pain medicine ordered * There is increased drainage or redness from any incision * A large amount of rectal bleeding greater than 2-3 tablespoons. (If you had a polyp/s removed or have hemorrhoids, a small amount of blood - from the rectum is to be expected.) * You have any unanswered questions or concerns. IN THE EVENT OF A SERIOUS EMERGENCY, GO TO THE NEAREST EMERGENCY ROOM Your discharge instructions were prepared by provider Gilberto Walls. Patient Instructions Signature Page Amelie Dowmons Patient (or Guardian) Signature/Date: I have read and understand the instructions given to me by my caregivers. Caregiver/RN/Doctor Signature/Date: The above-named patient and/or guardian has received patient instructions on this date. + Original Patient Signature Page (only) stays with chart. Please make copy for patient.
--- NOTE | 2017-06-12 13:53 | GI REPORT ---
Procedure Date: 06/12/2017 1:24 PM Procedure: Upper GI endoscopy Indications: For therapy of esophageal varices Medicines: Monitored Anesthesia Care Complications: No immediate complications. Estimated Blood Loss: Estimated blood loss: none. Procedure: Pre-Anesthesia Assessment: - Prior to the procedure, a History and Physical was performed, and patient medications and allergies were reviewed. The patient's tolerance of previous anesthesia was also reviewed. The risks and benefits of the procedure and the sedation options and risks were discussed with the patient. All questions were answered, and informed consent was obtained. Prior Anticoagulants: The patient has taken no previous anticoagulant or antiplatelet agents. ASA Grade Assessment: IV - A patient with severe systemic disease that is a constant threat to life. After reviewing the risks and benefits, the patient was deemed in satisfactory condition to undergo the procedure. After obtaining informed consent, the endoscope was passed under direct vision. Throughout the procedure, the patient's blood pressure, pulse, and oxygen saturations were monitored continuously. The Scope was introduced through the mouth, and advanced to the esophagus down to the cardia. The upper GI endoscopy was accomplished without difficulty. The patient tolerated the procedure well. Findings: Three columns of non-bleeding grade II varices were found in the lower third of the esophagus,. They were 5 mm in largest diameter. No stigmata of recent bleeding were evident and no red compa signs were present. Three bands were successfully placed with incomplete eradication of varices. There was no bleeding during the procedure. The cardia was normal. Impression: - Non-bleeding grade II esophageal varices. Incompletely eradicated. Banded. - Normal cardia. - No specimens collected. Recommendation: - Resume previous diet. - Continue present medications. - Repeat the upper endoscopy in 2 weeks for retreatment. - Return to GI office as previously scheduled. Gilberto Walls DO 06/12/2017 1:53:12 PM This report has been signed electronically. Note Initiated On: 06/12/2017 1:24 PM I attest to the content of the Intraoperative Record and orders documented therein, exceptions below
[2017-06-12 14:21] VITALS: BP 77/49; PULSE 83; O2SAT 98
--- NOTE | 2017-06-12 14:31 | Anesthesiology Progress Note ---
Anesthesia Post Op Note Date & Time Jun 12, 2017 at 14:31 Vital Signs Pain Intensity: 2 Vital Signs Past 12 Hours Date Time Temp Pulse Resp B/P (MAP) Pulse Ox O2 Delivery O2 Flow Rate FiO2 06/12/17 14:21 83 22 77/49 (58) 98 Nasal Cannula 2 06/12/17 14:06 87 22 66/50 (55) 99 Nasal Cannula 2 06/12/17 14:00 89 24 66/50 (55) 99 Nasal Cannula 4 06/12/17 13:55 90 24 116/99 (105) 99 Oxymask 10 06/12/17 13:45 98 24 77/65 (69) 98 Oxymask 10 06/12/17 13:43 92 88/64 (72) 98 Oxymask 10 06/12/17 12:53 37.0 90 20 73/52 (59) 93 Room Air Notes Mental Status: alert / awake / arousable, participated in evaluation Pt Amnestic to Procedure: Yes Nausea / Vomiting: adequately controlled Pain: adequately controlled Airway Patency, RR, SpO2: stable & adequate BP & HR: stable & adequate Hydration State: stable & adequate Anesthetic Complications: no major complications apparent The patient is at her baseline.
== END | disposition home or self-care (01) ==
LOC: C.GI 12:15
PROVIDERS: ATTEND Internal Medicine
DX: I85.00 Esophageal varices without bleeding (principal); J44.9 Chronic obstructive pulmonary disease, unspecified; Z95.818 Presence of other cardiac implants and grafts; Z90.49 Acquired absence of other specified parts of digestive tract; Z98.1 Arthrodesis status; F17.200 Nicotine dependence, unspecified, uncomplicated; Z79.82 Long term (current) use of aspirin; I10 Essential (primary) hypertension; E78.5 Hyperlipidemia, unspecified; E11.9 Type 2 diabetes mellitus without complications; E03.9 Hypothyroidism, unspecified; F41.9 Anxiety disorder, unspecified; F32.9 Major depressive disorder, single episode, unspecified

== ENCOUNTER 2017-06-14 11:59 | Emergency (ER) | payer OTHER ==
[~2017-06-14] VITALS: Ht 149.9 cm; Wt 70.5 kg
[~2017-06-14 11:59] MED LIST changes: -ALUM1SUS57 PO; -AUG0.05O4 TP; -DRGTP12 TOP; -FERR1TAB13 PO; -FURO40TA3 PO; -GABA600T PO; -MBXC PO; -METF-384 PO; -METH-589 PO; -METR-163 PO; -MGCS/ PO; -NVLGI/PEN SC; -OXGN; -RIFA550T2 PO; -TIOT1AER INH
[2017-06-14 12:06] VITALS: Ht 149.9 cm; Wt 70.5 kg
[2017-06-14 12:08] VITALS: O2SAT 97
[2017-06-14] MEDS ORDERED: SODIUM CHLORIDE 0.9% 1000ML 1,000 ML IV STA (12:32)
[2017-06-14] MEDS ORDERED: METF-384 PO (12:43)
[2017-06-14] MEDS ORDERED: AUG0.05O4 TP (12:43)
[2017-06-14] MEDS ORDERED: OXGN (12:43)
[2017-06-14] MEDS ORDERED: ALUM1SUS57 PO (12:43)
[2017-06-14] MEDS ORDERED: RIFA550T2 PO (12:43)
[2017-06-14] MEDS ORDERED: TIOT1AER INH (12:43)
[2017-06-14] MEDS ORDERED: FERR1TAB13 PO (12:43)
[2017-06-14] MEDS ORDERED: METH-589 PO (12:43)
[2017-06-14 12:45] LABS: HEMATOCRIT 35.3 % (37-47); MEAN CELL VOLUME 89.1 fL (80-100); MEAN CORPUSCULAR HEMOGLOBIN 28.3 pg (25-34); MEAN CORPUSCULAR HGB CONC 31.7 g/dl (32-36); RED BLOOD COUNT 3.96 M/uL (4.2-5.4); WHITE BLOOD COUNT 5.92 K/uL (4.8-10.8)
[2017-06-14 12:47] LABS: MEAN PLATELET VOLUME 11.3 fL (7.4-10.4); PLATELET COUNT 73 K/uL (130-400)
--- NOTE | 2017-06-14 13:04 | DIAGNOSTIC IMAGING REPORT ---
CHEST ONE VIEW PORTABLE CLINICAL HISTORY: 71 years-old Female presenting with Chest Pain. TECHNIQUE: Portable upright AP view of the chest was obtained. COMPARISON: 04/19/2017. FINDINGS: Atherosclerosis of the aortic arch. Cardiac silhouette stable. Bronchial wall thickening. Stable to slight interval increase in vague increased basilar predominant density. No large effusion or pneumothorax. Osseous structures and upper abdomen normal. IMPRESSION: 1. Vague increased density in the lung bases stable to slightly increased from prior. This is nonspecific and likely correlates to interstitial prominence. The presence of bronchial wall thickening could further evidence congestive changes. Electronically signed by: Boone Boss M.D. 06/14/2017 1:02 PM Dictated Date/Time: 06/14/2017 1:00 PM
[2017-06-14 13:05] LABS: BUN/CREATININE RATIO 14.9 (10-20); CALCIUM 8.9 mg/dl (8.5-10.1); CREATININE 0.74 mg/dl (0.60-1.20); POTASSIUM 3.7 mmol/L (3.5-5.1)
[2017-06-14 13:10] LABS: CKMB/CK RATIO 3.3 (0-3.0)
[2017-06-14 13:30] LABS: BASO % 0.3 %; BASO ABS # 0.02 K/uL (0-0.2); COMPLETE YES; EOS % 0.5 %; GIANT PLATELETS 2+; IG% 0.2 %; LYMPH % 20.4 %; LYMPH ABS # 1.21 K/uL (1.2-3.4); MONO % 6.6 %
[2017-06-14] MEDS ORDERED: GI COCKTAIL PO STA (13:43)
[2017-06-14] MEDS ORDERED: MoRPHine SULFATE 4 MG/ML 1 ML CARP\\VIAL IV STA (13:43)
[2017-06-14] MEDS ORDERED: LIDOCAINE HCL 2% VISC SOLN 20 ML UDC ONE (14:07)
[2017-06-14] MEDS ORDERED: ALUMINUM/MAGNESIUM SUSP 30 ML UDC ONE (14:07)
[2017-06-14] MEDS ORDERED: LIDOCAINE HCL 2% VISC SOLN 20 ML UDC MT ONE (14:45)
[2017-06-14] MEDS ORDERED: MBXC PO (15:30)
[2017-06-14 16:08] VITALS: BP 101/63; PULSE 81; O2SAT 99
--- NOTE | 2017-06-14 18:23 | EMERGENCY ROOM VISIT NOTE ---
History Report prepared by Latia: Shania Mathew Under the Supervision of: Dr. Ramirez Suarez D.O. First contact with patient: 12:29 Chief Complaint: CHEST PAIN Stated Complaint: CHEST PAIN Nursing Triage Summary: Patient reports substernal chest discomfort since her endo procedure on 06/12/17. Patient also c/o shortness of breath but states she is always short of breath. Patient does use oxygen at home reports positive cardiac history. History of Present Illness The patient is a 71 year old female who presents to the Emergency Room with complaints of constant, worsening chest pain for the past 2 days. The patient has a history of esophageal varices that she states were enlarged but not bleeding. Two days ago she had a procedure done by Dr. Giron where he put bands on her esophagus for these varices. Her pain started after this procedure and it has been worsening since then. She describes a heaviness in her chest. She also describes her chest pain as "burning." The patient rates her current pain as an 8/10 in severity. Eating and drinking exacerbate her pain. She is also feeling short of breath, which is normal for her because of her COPD. She typically wears 2L of O2 at all times. The patient called Dr. Giron's office this morning and spoke with the PA-Abilio. She was told to come to the ED for further evaluation and to rule out any complications from her endoscopic procedure two days ago. She had a normal bowel movement this morning. The patient has a significant cardiac history and states that this chest pain does not feel like her previous MIs. Source of History: patient Onset: 2 days ago Position: chest Symptom Intensity: 8/10 Quality: burning, other (heaviness) Timing: constant, worsening Modifying Factors (Worsening): eating, drinking Associated Symptoms: + SOB Review of Systems See HPI for pertinent positives & negatives. A total of 10 systems reviewed and were otherwise negative. 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 Surgical Problems: (1) H/O cardiac catheterization (2) Heart stents (3) History of back surgery (4) S/P cholecystectomy Family History Diabetes mellitus FH: cancer FH: heart disease Hypertension Kidney disease Kidney stones Social History Smoking Status: Current Every Day Smoker Alcohol Use: none Marital Status: Housing Status: lives alone Occupation Status: unemployed Current/Historical Medications Scheduled Alum & Mag Hydrox-Simethicone (Mylanta Maximum Strength 400-400-40 mg/5Ml), 1 TBS PO BID Aspirin (Aspirin Ec), 81 MG PO Q2D Atorvastatin (Atorvastatin Calcium), 10 MG PO HS Betamethasone Dip Aug 0.05% (Diprolene 0.05%), 1 APPLN TP BID Cholecalciferol (Vitamin D 1000 Unit), 1,000 INTER.UNIT PO QAM Clobetasol Propionate (Clobetasol Propionate), 1 APPLN TOP BID Escitalopram Oxalate (Lexapro), 20 MG PO QAM Ferrous Sulfate (Kp Ferrous Sulfate), 325 MG PO DAILY Home O2 Therapy (Oxygen), 2 LITERS NA HS Insulin Aspart (Novolog Flexpen), 0 SQ BIDM Insulin Detemir (Levemir Flextouch), 40 UNITS SQ HS Magic Swizzle (Magic Swizzle - SUCRALFA/ALUM/MAG/DIPHEN/LIDO), 3 TSP PO Q6H Magnesium Oxide (Mag-Ox), 400 MG PO BID Metformin Hcl (Glucophage), 1,000 MG PO Q12 Methimazole (Methimazole ), 5 MG PO DAILY Omeprazole (Prilosec), 40 MG PO QAM Oxycodone Hcl (Oxycodone Hcl), 10 MG PO BID Oxycodone Hcl (Oxycodone Hcl), 20 MG PO HS Rifaximin (Xifaxan), 550 MG PO BID Tiotropium [place]-Olodaterol (Stiolto Respimat 2.5-2.5 Mcg/Act), 2 PUFF INH DAILY Scheduled PRN Albuterol Hfa (Ventolin Hfa), 2-4 PUFFS INH Q6H PRN for Shortness of Breath Ipratropium-Albuterol (Duoneb), 1 TREATMENT INH Q4H PRN for SOB/Wheezing Lorazepam (Lorazepam), 0.5 MG PO HS PRN for Sleep Allergies Coded Allergies: Iodinated Diagnostic Agents (Verified Allergy, Intermediate, RASH TO IVP DYE, 06/12/17) Adhesives (Verified Allergy, Unknown, RASH, 06/12/17) Latex1 -Allergic Contact Dermititis (Verified Allergy, Unknown, RASH, 06/12) Physical Exam Vital Signs Date Time Temp Pulse Resp B/P (MAP) Pulse Ox O2 Delivery O2 Flow Rate FiO2 06/14/17 16:08 81 20 101/63 99 06/14/17 14:32 80 18 99/49 99 Nasal Cannula 2.0 06/14/17 13:21 81 17 103/59 99 Nasal Cannula 2.0 06/14/17 12:23 85 06/14/17 12:22 99 Room Air 06/14/17 12:08 97 Room Air 06/14/17 12:06 87 18 83/51 93 Room Air Physical Exam GENERAL: alert, sitting up in bed, holding her chest, well nourished, moderate distress, non-toxic EYE EXAM: normal conjunctiva OROPHARYNX: no exudate, no erythema, lips, buccal mucosa, and tongue normal and mucous membranes are moist NECK: supple, no nuchal rigidity, no adenopathy, non-tender LUNGS: Clear to auscultation. Normal chest wall mechanics HEART: no murmurs, S1 normal and S2 normal CHEST: Acute reproducible tenderness over the mid-sternum. ABDOMEN: abdomen soft, non-tender, normo-active bowel sounds, no masses, no rebound or guarding. BACK: Back is symmetrical on inspection and there is no deformity, no midline tenderness, no CVA tenderness. SKIN: no rashes and no bruising UPPER EXTREMITIES: upper extremities are grossly normal. radial pulses equal bilaterally. LOWER EXTREMITIES: No pitting edema. NEURO EXAM: Normal sensorium, cranial nerves II-XII grossly intact, normal speech, no gross weakness of arms, no gross weakness of legs. Medical Decision & Procedures ER Provider Diagnostic Interpretation: Chest CT from 09/25/2016 showed a normal thoracic aorta. Radiology results as stated below per my review and the radiologist's interpretation: CHEST ONE VIEW PORTABLE CLINICAL HISTORY: 71 years-old Female presenting with Chest Pain. TECHNIQUE: Portable upright AP view of the chest was obtained. COMPARISON: 04/19/2017. FINDINGS: Atherosclerosis of the aortic arch. Cardiac silhouette stable. Bronchial wall thickening. Stable to slight interval increase in vague increased basilar predominant density. No large effusion or pneumothorax. Osseous structures and upper abdomen normal. IMPRESSION: 1. Vague increased density in the lung bases stable to slightly increased from prior. This is nonspecific and likely correlates to interstitial prominence. The presence of bronchial wall thickening could further evidence congestive changes. Electronically signed by: Boone Boss M.D. 06/14/2017 1:02 PM Dictated Date/Time: 06/14/2017 1:00 PM Laboratory Results 06/14/17 12:30 Red Blood Count 3.96, Mean Corpuscular Volume 89.1, Mean Corpuscular Hemoglobin 28.3, Mean Corpuscular Hemoglobin Concent 31.7, Mean Platelet Volume 11.3, Neutrophils (%) (Auto) 72.0, Lymphocytes (%) (Auto) 20.4, Monocytes (%) (Auto) 6.6, Eosinophils (%) (Auto) 0.5, Basophils (%) (Auto) 0.3, Neutrophils # (Auto) 4.26, Lymphocytes # (Auto) 1.21, Monocytes # (Auto) 0.39, Eosinophils # (Auto) 0.03, Basophils # (Auto) 0.02 06/14/17 12:30 Test 06/14/17 12:30 White Blood Count 5.92 K/uL (4.8-10.8) Red Blood Count 3.96 M/uL (4.2-5.4) Hemoglobin 11.2 g/dL (12.0-16.0) Hematocrit 35.3 % (37-47) Mean Corpuscular Volume 89.1 fL (80-100) Mean Corpuscular Hemoglobin 28.3 pg (25-34) Mean Corpuscular Hemoglobin Concent 31.7 g/dl (32-36) Platelet Count 73 K/uL (130-400) Mean Platelet Volume 11.3 fL (7.4-10.4) Neutrophils (%) (Auto) 72.0 % Lymphocytes (%) (Auto) 20.4 % Monocytes (%) (Auto) 6.6 % Eosinophils (%) (Auto) 0.5 % Basophils (%) (Auto) 0.3 % Neutrophils # (Auto) 4.26 K/uL (1.4-6.5) Lymphocytes # (Auto) 1.21 K/uL (1.2-3.4) Monocytes # (Auto) 0.39 K/uL (0.11-0.59) Eosinophils # (Auto) 0.03 K/uL (0-0.5) Basophils # (Auto) 0.02 K/uL (0-0.2) RDW Standard Deviation 59.8 fL (36.4-46.3) RDW Coefficient of Variation 18.3 % (11.5-14.5) Immature Granulocyte % (Auto) 0.2 % Immature Granulocyte # (Auto) 0.01 K/uL (0.00-0.02) Giant Platelets 2+ Anion Gap 5.0 mmol/L (3-11) Est Creatinine Clear Calc Drug Dose 60.5 ml/min Estimated GFR () 95.1 Estimated GFR (Non- 82.1 BUN/Creatinine Ratio 14.9 (10-20) Calcium Level 8.9 mg/dl (8.5-10.1) Total Bilirubin 1.3 mg/dl (0.2-1) Direct Bilirubin 0.5 mg/dl (0-0.2) Aspartate Amino Transf (AST/SGOT) 60 U/L (15-37) Alanine Aminotransferase (ALT/SGPT) 37 U/L (12-78) Alkaline Phosphatase 109 U/L (45-117) Total Creatine Kinase 97 U/L (26-192) Creatine Kinase MB 3.2 ng/ml (0.5-3.6) Creatine Kinase MB Ratio 3.3 (0-3.0) Troponin I 0.026 ng/ml (0-0.045) Total Protein 6.8 gm/dl (6.4-8.2) Albumin 3.5 gm/dl (3.4-5.0) Laboratory results per my review. Medications Administered Medications (Trade) Dose Ordered Sig/Diego Route Start Time Stop Time Status Last Admin Dose Admin Sodium Chloride 1,000 ml @ 999 mls/hr Q1H1M STAT IV 06/14/17 12:32 06/14/17 13:32 DC 06/14/17 13:21 999 MLS/HR Morphine Sulfate (MoRPHine SULFATE INJ) 4 mg NOW STAT IV 06/14/17 13:43 06/14/17 13:44 DC 06/14/17 14:19 4 MG Al Hydroxide/Mg Hydroxide (Maalox Susp) 30 ml STK-MED ONCE .ROUTE 06/14/17 14:07 06/14/17 14:08 DC 06/14/17 14:18 30 ML Lidocaine HCl (Viscous Lidocaine 2% Soln) 20 ml STK-MED ONCE .ROUTE 06/14/17 14:07 06/14/17 14:08 DC 06/14/17 14:19 20 ML ECG Indication: chest pain Rate (beats per minute): 88 Rhythm: normal sinus Findings: Q waves (Inferior), RBBB, left axis deviation, other (normal axis) Comparison ECG Date: 04/19/17 Change: no significant change ED Course ED COURSE: Vital signs were reviewed and showed hypotensive The patients medical record was reviewed The above diagnostic studies were performed and reviewed. ED treatments and interventions as stated above. 1229: The patient was evaluated in room B10. A complete history and physical examination was performed. 1232: NSS 1000 ml @ 999 mls/hr IV 1327: I spoke with MATTHEW Trotter with GI. We discussed the patient's case and she will come to the ED to evaluate the patient. 1343: Morphine sulfate 4 mg IV, GI cocktail 24 ml PO 1407: MATTHEW Trotter is evaluating the patient at this time. 1428: I discussed the patient's case with Dr. Hook of GI. He recommends having the patient follow-up in the office as an outpatient. 1431: I updated the patient and she is in agreement with the treatment plan. 1522: Upon reevaluation, the patient is feeling much better. I discussed my findings with the patient and she understands and agrees with the treatment plan. Based on the patients age, coexisting illnesses, exam and lab findings the decision to treat as an outpatient was made. The patient remained stable while under my care. The patient appeared well at the time of discharge. Medical Decision Differential diagnoses includes but is not limited to acute coronary syndrome, myocardial infarction, pericarditis, pulmonary embolus, aortic dissection, pneumonia, pneumothorax, musculoskeletal, shingles, esophageal. Patient is a 71-year-old female who presents the ER following an EGD with banding by Dr. giron's past Saturday. Since then she has been having severe midsternal chest pain which has been worsening. She notes no arm pain, jaw pain or diaphoresis. This does not feel like her previous MIs. Pain is significantly worsened with eating or drinking. Pain was improved markedly with the GI cocktail. Patient was evaluated by GI. EKG was unchanged. Chest x -ray slight worsening/bronchial thickening. She has no upper history symptoms. Troponin was detectable but not positive as it has been for the past 3 years. This appears to be her baseline. With her symptoms being extremely consistent with GI and pathology she was evaluated by gastroenterology. They recommended discharging her and having her follow-up as an outpatient while taking magic swizzle. Patient family were updated at bedside. She felt slightly better. She is discharged as this is likely GI/secondary to the banding. Discussed with Pt concerning signs and symptoms to watch out for. Pt was instructed to follow up with their PCP and discussed with the patient their option to return to the ED at anytime for persistent or worsening symptoms. The appropriate anticipatory guidance and out-patient management, including indications for return to the emergency department, were explained at length to the patient and understood. Medication Reconcilliation Current Medication List: was personally reviewed by me Blood Pressure Screening Patient's blood pressure: Low blood pressure Blood pressure disposition: Did not require urgent referral Consults Time Called: 1324 Consulting Physician: Mars Morton Returned Call: 1327 I spoke with MATTHEW Trotter with GI. We discussed the patient's case and she will come to the ED to evaluate the patient. Additional Consults: Time Called: 1424 Consulted Physician: Dr. Hook Returned Call: 1428 Additional Comments: I discussed the patient's case with Dr. Hook of GI. He recommends having the patient follow-up in the office as an outpatient. Impression Primary Impression: Gastritis Additional Impression: Precordial chest pain Scribe Attestation The scribe's documentation has been prepared under my direction and personally reviewed by me in its entirety. I confirm that the note above accurately reflects all work, treatment, procedures, and medical decision making performed by me. Departure Information Dispostion Home / Self-Care Prescriptions Magic Swizzle (Magic Swizzle - SUCRALFA/ALUM/MAG/DIPHEN/LIDO) 240 Ml Susp 3 TSP PO Q6H for Pain, #240 ML 100ml Sucralfate 50ml Maalox 50ml Diphenhydramine 40ml 2% Aq. Lidocaine Swish and Swallow Prov: Ramirez Suarez, DO 06/14/17 Referrals No Doctor, Assigned (PCP) Boone Paulson M.D. Forms HOME CARE DOCUMENTATION FORM, IMPORTANT VISIT INFORMATION Patient Instructions Chest Pain - [facility], [facility] [place] Additional Instructions Please follow up with your primary care doctor with in the next 24 hours. Any worsening of your symptoms, please return to the ED immediately. This includes fevers greater than 100.4, vomiting blood, dark tarry stools, blood in her stool , worsening pain, or any other concerning signs or symptoms from your standpoint. Please use the magic swizzle every 6 hours as needed for pain. Please drink liquids and stay away from solid foods. Problem Qualifiers Primary Impression: Gastritis Gastritis type: unspecified gastritis Chronicity: unspecified Gastritis bleeding: without bleeding Qualified Codes: K29.70 - Gastritis, unspecified, without bleeding
[2017-06-20] MEDS ORDERED: METR-163 PO (10:00)
[2017-06-20] MEDS ORDERED: MGCS/ PO (10:00)
[2017-06-20] MEDS ORDERED: FURO40TA3 PO (10:00)
[2017-06-20] MEDS ORDERED: GABA600T PO (10:00)
[2017-06-20] MEDS ORDERED: NVLGI/PEN SC (10:01)
[2017-06-20] MEDS ORDERED: DRGTP12 TOP (10:07)
[2017-08-31] MEDS ORDERED: IPRASOL4 INH (13:13)
== END 2017-06-14 16:00 | disposition home or self-care (01) ==
LOC: C.EDB 12:01
DX: K29.70 Gastritis, unspecified, without bleeding (principal); R07.2 Precordial pain; J44.9 Chronic obstructive pulmonary disease, unspecified; I85.00 Esophageal varices without bleeding; I25.2 Old myocardial infarction; R18.8 Other ascites; J45.909 Unspecified asthma, uncomplicated; I25.10 Atherosclerotic heart disease of native coronary artery without angina pectoris; F32.9 Major depressive disorder, single episode, unspecified; E11.9 Type 2 diabetes mellitus without complications; K21.9 Gastro-esophageal reflux disease without esophagitis; I10 Essential (primary) hypertension; K74.60 Unspecified cirrhosis of liver; E78.00 Pure hypercholesterolemia, unspecified; D69.6 Thrombocytopenia, unspecified; G45.0 Vertebro-basilar artery syndrome; I45.10 Unspecified right bundle-branch block; F17.200 Nicotine dependence, unspecified, uncomplicated; Z79.82 Long term (current) use of aspirin; Z79.4 Long term (current) use of insulin; Z79.84 Long term (current) use of oral hypoglycemic drugs; Z83.3 Family history of diabetes mellitus; Z82.49 Family history of ischemic heart disease and other diseases of the circulatory system; Z84.1 Family history of disorders of kidney and ureter; R19.7 Diarrhea, unspecified

== ENCOUNTER → 2017-06-14 | Outpatient (CLI) | payer OTHER ==
[~2017-06-14] MED LIST changes: -LIDOCAINE HCL 2% 2 ML VIAL (20MG/ML) ONE; -PHENYLEPHRINE 100MCG/ML 5ML SYR ONE; -PROPOFOL IV EMULSION 10 MG/ML 20 ML VIAL IV ONE
== END | disposition home or self-care (01) ==
LOC: C.LABSPEC 11:43
PROVIDERS: ATTEND Internal Medicine
DX: R19.7 Diarrhea, unspecified (principal)

== ENCOUNTER → 2017-06-25 | Outpatient (CLI) | payer OTHER ==
[~2017-06-25] MED LIST changes: +ALUM1SUS57 PO; +AUG0.05O4 TP; +DRGTP12 TOP; +FERR1TAB13 PO; +FURO40TA3 PO; +GABA600T PO; +METF-384 PO; +METH-589 PO; +METR-163 PO; +MGCS/ PO; -NRN600 PO; +NVLGI/PEN SC; -NVLGI/PEN SQ; -ONDA4TAB46 PO; +OXGN; +RIFA550T2 PO; +TIOT1AER INH; -TIOT1AER2 INH
[2017-06-25 17:42] LABS: HEMATOCRIT 34.8 % (37-47); MEAN CELL VOLUME 90.2 fL (80-100); MEAN CORPUSCULAR HEMOGLOBIN 28.5 pg (25-34); MEAN CORPUSCULAR HGB CONC 31.6 g/dl (32-36); RED BLOOD COUNT 3.86 M/uL (4.2-5.4); WHITE BLOOD COUNT 5.12 K/uL (4.8-10.8)
[2017-06-25 17:45] LABS: BASO % 0.4 %; BASO ABS # 0.02 K/uL (0-0.2); COMPLETE YES; IG% 0.2 %; LYMPH % 26.4 %; LYMPH ABS # 1.35 K/uL (1.2-3.4); MEAN PLATELET VOLUME 11.8 fL (7.4-10.4); MONO % 6.4 %; NEUT % 65.6 %; PLATELET COUNT 78 K/uL (130-400)
[2017-06-25 17:55] LABS: INR 1.2 (0.9-1.1); PROTHROMBIN TIME (PATIENT) 13.4 SECONDS (9.0-12.0)
[2017-06-25 18:03] LABS: ALT/SGPT 24 U/L (12-78); AST/SGOT 41 U/L (15-37); BLOOD UREA NITROGEN 8 mg/dl (7-18); CALCIUM 8.8 mg/dl (8.5-10.1); CARBON DIOXIDE 33 mmol/L (21-32); CHLORIDE 103 mmol/L (98-107); CREATININE 0.86 mg/dl (0.60-1.20); GLUCOSE 94 mg/dl (70-99); POTASSIUM 4.1 mmol/L (3.5-5.1); SODIUM 140 mmol/L (136-145)
[2017-06-25 18:05] LABS: ALB/GLOB RATIO 0.9 (0.9-2); ALKALINE PHOSPHATASE 99 U/L (45-117)
== END | disposition home or self-care (01) ==
LOC: C.LABPBG 14:49
PROVIDERS: ATTEND Physician Assistant
DX: K74.60 Unspecified cirrhosis of liver (principal)

== ENCOUNTER → 2017-06-27 | Day surgery (SDC) | payer OTHER ==
[2017-06-20 10:02] VITALS: Ht 149.9 cm; Wt 70.5 kg
[~2017-06-27] VITALS: Ht 149.9 cm; Wt 70.5 kg
[~2017-06-27] MED LIST changes: +FENTANYL CITRATE INJ 50 MCG/1 ML 2 ML VIAL ONE; +LIDOCAINE HCL 2% 2 ML VIAL (20MG/ML) ONE; +PROPOFOL IV EMULSION 10 MG/ML 20 ML VIAL IV ONE; +SODIUM CHLORIDE 0.9% 500ML 500 ML IV ONE
[2017-06-27 13:42] VITALS: TEMP 36.9
--- NOTE | 2017-06-27 14:03 | Endo History and Physical ---
History & Physical Date of Service: Jun 27, 2017. Chief Complaint: Esophageal varices Referring Physician: Boone Paulson History of Present Illness 71 yo CF who presents for EGD secondary to esophageal varices. Past Medical History Asthma, COPD Past Surgical History Hx Cardiac Surgery: Yes (HEART CATH WITH 3 STENTS) Hx Internal Defibrillator: No Hx Pacemaker: No Hx Abdominal Surgery: Yes (MARCELO) Hx of Implantable Prosthesis: No Hx Post-Op Nausea and Vomiting: No Hx Cancer Surgery: No Hx Thoracic Surgery: No Hx Orthopedic: Yes (LUMBAR FUSION/ CERVICAL FUSION) Hx Urinary Tract Surgery: Yes (BLADDER SLING) Family History None Social History Smoking Status: Current Every Day Smoker Hx Substance Use: No Hx Alcohol Use: No Allergies Coded Allergies: Iodinated Diagnostic Agents (Verified Allergy, Intermediate, RASH TO IVP DYE, 06/27/17) Adhesives (Verified Allergy, Unknown, RASH, 06/27/17) Latex1 -Allergic Contact Dermititis (Verified Allergy, Unknown, RASH, ) Current Medications Reported Home Medications Medications Dose Route/Sig Max Daily Dose Days Date Category Dose Instructions Fentanyl 12 Mcg Tdsy 1 Dose TOP UD PRN 06/20/17 Reported PT STATES HAS NOT STARTED NEW PRESCRIPTION YET Novolog Flexpen (Insulin Aspart) 100 Units/Ml Inj Units SC UD 06/20/17 Reported 20 UNITS BREAKFAST 25 UNITS SUPPER +SLIDING SCALE Neurontin (Gabapentin) 600 Mg Tab 600 Mg PO TID 06/20/17 Reported Lasix (Furosemide) 40 Mg Tab 0.5 Tab PO MWF 06/20/17 Reported Magic Swizzle (Maalox/Diphen/Visc. [place]/Glyc) 240 Ml Btl 3 Tsp PO Q6H PRN 06/20/17 Reported Flagyl (Metronidazole) 500 Mg Tab 500 Mg PO TID 06/20/17 Reported WILL COMPLETE 06-24-17 Methimazole (Methimazole) 5 Mg Tab 5 Mg PO QAM 06/14/17 Reported Mylanta Maximum Strength 400-400-40 mg/5Ml (Alum & Mag Hydrox-Simethicone) 1 Jelly Jelly 1 Tbs PO BID 06/14/17 Reported TAKE BETWEEN MEALS Kp Ferrous Sulfate (Ferrous Sulfate) 325 Mg Tab 325 Mg PO QAM 06/14/17 Reported Oxygen Gas 2 Liters NA HS 06/14/17 Reported Xifaxan (Rifaximin) 550 Mg Tab 550 Mg PO BID 06/14/17 Reported Diprolene 0.05% (Betamethasone Dip Aug 0.05%) 0.05 % Oin 1 Appln TP BID 06/14/17 Reported Stiolto Respimat 2.5-2.5 Mcg/Act (Tiotropium [place]-Olodaterol) 1 Aer Aer 2 Puff INH DAILY 06/14/17 Reported Glucophage (Metformin Hcl) 1,000 Mg Tab 1,000 Mg PO Q12 06/14/17 Reported Oxycodone Hcl 10 Mg Tab 10 Mg PO BID PRN 04/19/17 Reported Lorazepam 0.5 Mg Tab 0.5 Mg PO HS PRN 04/19/17 Reported Duoneb (Ipratropium-Albuterol) 3 Ml Nebu 1 Treatment INH Q4H PRN 01/23/17 Reported Clobetasol Propionate 45 Appln/15 Gm Oint 1 Appln TOP BID 01/23/17 Reported Ventolin Hfa (Albuterol) 200 Puffs/92999 Mcg Aers 2-4 Puffs INH Q6H PRN 12/29/16 Reported Prilosec (Omeprazole) 40 Mg Cap 40 Mg PO QAM 11/28/16 Reported Levemir Flextouch (Insulin Detemir) 100 Unit/Ml Inj 40 Units SQ HS 08/26/16 Reported Mag-Ox (Magnesium Oxide) 400 Mg Tab 400 Mg PO BID 02/29/16 Reported Lexapro (Escitalopram Oxalate) 20 Mg Tab 20 Mg PO QAM 01/02/16 Reported Atorvastatin Calcium (Atorvastatin) 10 Mg Tab 10 Mg PO HS 11/01/14 Reported Vitamin D 1000 Unit (Cholecalciferol) 1,000 Unit Cap 1,000 Inter.unit PO QAM 04/25/14 Reported Aspirin Ec (Aspirin) 81 Mg Tab 81 Mg PO Q2D 04/25/14 Reported Vital Signs Weight (Kilograms): 70.45 Height (Feet): 4 Height (Inches): 11 Date Time Temp Pulse Resp B/P (MAP) Pulse Ox O2 Delivery O2 Flow Rate FiO2 06/27/17 13:42 36.9 89 20 114/73 (87) 97 Room Air Physical Exam General Appearance: WD/WN, no apparent distress Respiratory/Chest: Auscultation: breath sounds normal Cardiovascular: Heart Auscultation: RRR Abdomen: Bowel Sounds: normal Inspection & Palpation: soft, non-distended, no tenderness, guarding & rebound Assessment and Plan Assessment: 71 yo CF who presents for EGD secondary to esophageal varices. Plan: Proceed with EGD.
--- NOTE | 2017-06-27 14:29 | GI REPORT ---
Procedure Date: 06/27/2017 1:17 PM Procedure: Upper GI endoscopy Indications: Follow-up of esophageal varices Medicines: Monitored Anesthesia Care Complications: No immediate complications. Estimated Blood Loss: Estimated blood loss: none. Procedure: Pre-Anesthesia Assessment: - Prior to the procedure, a History and Physical was performed, and patient medications and allergies were reviewed. The patient's tolerance of previous anesthesia was also reviewed. The risks and benefits of the procedure and the sedation options and risks were discussed with the patient. All questions were answered, and informed consent was obtained. Prior Anticoagulants: The patient has taken aspirin, last dose was 7 days prior to procedure. ASA Grade Assessment: IV - A patient with severe systemic disease that is a constant threat to life. After reviewing the risks and benefits, the patient was deemed in satisfactory condition to undergo the procedure. After obtaining informed consent, the endoscope was passed under direct vision. Throughout the procedure, the patient's blood pressure, pulse, and oxygen saturations were monitored continuously. The scope was introduced through the mouth, and advanced to the second part of duodenum. The upper GI endoscopy was accomplished with ease. The patient tolerated the procedure well. Findings: Two cratered esophageal ulcers with status post eradication and no bleeding and no stigmata of recent bleeding were found. The largest lesion was 5 mm in largest dimension. The stomach was normal. The examined duodenum was normal. Impression: - Non-bleeding esophageal ulcers. - Normal stomach. - Normal examined duodenum. - No specimens collected. Recommendation: - Resume previous diet. - Continue present medications. - Return to primary care physician as previously scheduled. Gilberto Walls, 06/27/2017 2:28:10 PM This report has been signed electronically. Note Initiated On: 06/27/2017 1:17 PM I attest to the content of the Intraoperative Record and orders documented therein, exceptions below
--- NOTE | 2017-06-27 14:37 | Anesthesiology Progress Note ---
Anesthesia Post Op Note Date & Time Jun 27, 2017 at 14:37 Vital Signs Pain Intensity: 0 Vital Signs Past 12 Hours Date Time Temp Pulse Resp B/P (MAP) Pulse Ox O2 Delivery O2 Flow Rate FiO2 06/27/17 14:31 90 20 85/61 (69) 98 Room Air 06/27/17 14:24 91 20 105/63 (77) 99 Room Air 06/27/17 13:42 36.9 89 20 114/73 (87) 97 Room Air Notes Mental Status: alert / awake / arousable, participated in evaluation Pt Amnestic to Procedure: Yes Nausea / Vomiting: adequately controlled Pain: adequately controlled Airway Patency, RR, SpO2: stable & adequate BP & HR: stable & adequate Hydration State: stable & adequate Anesthetic Complications: no major complications apparent
[2017-06-27 14:46] VITALS: PULSE 89
[2017-06-27 14:56] VITALS: BP 85/68; O2SAT 96
--- NOTE | 2017-06-27 15:16 | Discharge Instructions ---
Endoscopy Patient Instructions Date / Procedure(s) Performed Jun 27, 2017. EGD Allergy Information Coded Allergies: Iodinated Diagnostic Agents (Verified Allergy, Intermediate, RASH TO IVP DYE, 06/27/17) Adhesives (Verified Allergy, Unknown, RASH, 06/27/17) Latex1 -Allergic Contact Dermititis (Verified Allergy, Unknown, RASH, ) Discharge Date / Findings Jun 27, 2017. Ulcers from prior esophageal variceal banding Provider Instructions Activity Restrictions - No exercising or heavy lifting for 24 hours. - Do not drink alcohol the day of the procedure. - Do not drive a car or operate machinery until the day after the procedure. - Do not make any important decisions or sign important papers in 24 hours after the procedure. Following Day: - Return to full activity which may include returning to work/school. Diet Start your diet with liquids and light foods (jello, soup, juice, toast). Then eat your usual diet if not nauseated. Treatment For Common After Affects For mild abdominal pain, bloating, or excessive gas: - Rest - Eat lightly - Lie on right side Follow-Up Information Follow-up with Boone Paulson as scheduled Anesthesia Information What You Should Know You have had a procedure that required some medicine to reduce anxiety and discomfort. This treatment is called moderate sedation. After receiving the treatment, you may be sleepy, but you will be able to breathe on your own. The effects of the treatment may last for several hours. Follow these instructions along with Activity/Diet recommendations noted above: * Do NOT do anything where dizziness or clumsiness would be dangerous. * Rest quietly at home today, then you can be up and about tomorrow. * Have a responsible person stay with you the rest of today. * You may have had an I.V. today. If so, you may take the dressing off later today. Recommendations Call your doctor if: * Trouble breathing * Continuous vomiting for more than 24 hours * Temperature above 101 degrees * Severe abdominal pain or bloating * Pain not relieved by pain medicine ordered * There is increased drainage or redness from any incision * A large amount of rectal bleeding greater than 2-3 tablespoons. (If you had a polyp/s removed or have hemorrhoids, a small amount of blood - from the rectum is to be expected.) * You have any unanswered questions or concerns. IN THE EVENT OF A SERIOUS EMERGENCY, GO TO THE NEAREST EMERGENCY ROOM Your discharge instructions were prepared by provider Gilberto Walls. Patient Instructions Signature Page Amelie Frederick Patient (or Guardian) Signature/Date: I have read and understand the instructions given to me by my caregivers. Caregiver/RN/Doctor Signature/Date: The above-named patient and/or guardian has received patient instructions on this date. + Original Patient Signature Page (only) stays with chart. Please make copy for patient.
== END | disposition home or self-care (01) ==
LOC: C.GI 13:02
PROVIDERS: ATTEND Internal Medicine
DX: I85.00 Esophageal varices without bleeding (principal); K22.10 Ulcer of esophagus without bleeding; Z95.818 Presence of other cardiac implants and grafts; J44.9 Chronic obstructive pulmonary disease, unspecified; F17.200 Nicotine dependence, unspecified, uncomplicated; Z79.82 Long term (current) use of aspirin; I10 Essential (primary) hypertension; I48.91 Unspecified atrial fibrillation; E11.9 Type 2 diabetes mellitus without complications; E03.9 Hypothyroidism, unspecified; F41.9 Anxiety disorder, unspecified; F32.9 Major depressive disorder, single episode, unspecified; Z90.49 Acquired absence of other specified parts of digestive tract; Z98.1 Arthrodesis status

== ENCOUNTER → 2017-08-15 | Outpatient (CLI) | payer OTHER ==
[~2017-08-15] MED LIST changes: -FENTANYL CITRATE INJ 50 MCG/1 ML 2 ML VIAL ONE; -LIDOCAINE HCL 2% 2 ML VIAL (20MG/ML) ONE; -PROPOFOL IV EMULSION 10 MG/ML 20 ML VIAL IV ONE; -SODIUM CHLORIDE 0.9% 500ML 500 ML IV ONE
[2017-08-15 17:45] LABS: URINE APPEARANCE CLEAR (CLEAR); URINE BILIRUBIN NEG (NEG); URINE COLOR DK YELLOW; URINE EPITHELIAL CELL AUTO >30 /lpf (0-5); URINE NITRITE NEG (NEG); URINE PH 6.5 (4.5-7.5); URINE SPECIFIC GRAVITY 1.022 (1.000-1.030); UROBILINOGEN NEG (NEG)
[2017-08-15 17:48] LABS: MANUAL MICROSCOPIC REQUIRED? NO; REVIEW REQ? YES
== END | disposition home or self-care (01) ==
LOC: C.LABPBG 13:36
PROVIDERS: ATTEND Physician Assistant Medical
DX: R32 Unspecified urinary incontinence (principal)

== ENCOUNTER → 2017-08-22 | Outpatient (CLI) | payer OTHER ==
--- NOTE | 2017-08-22 16:17 | DIAGNOSTIC IMAGING REPORT ---
(CHEST) THORAX WITHOUT CT DOSE: 399.62 mGycm HISTORY: Pulmonary nodule R91.1 Pulmonary noduleAPPT SCHED 928-17@ 3:30 PT AWARE. /SCCT TECHNIQUE: Multiaxial CT images of the chest were performed without contrast. A dose lowering technique was utilized adhering to the principles of ALARA. COMPARISON: 04/03/2017 FINDINGS: Moderate stable cardiomegaly. Stable mid mediastinal and pericardial adenopathy. The largest precarinal node is 1.4 cm unchanged. Additional smaller nodules also remain stable. Considerable atherosclerotic change thoracic aorta. Interstitial prominence throughout both hemithoraces moderately improved from the prior exam. Scattered bibasilar atelectatic and interstitial changes. No focal infiltrative process. Faint parenchymal nodularity is stable. IMPRESSION: 1. Stable to mildly improved exam. 2. Mediastinal adenopathy as well as pulmonary nodularity is stable. 3. Improved interstitial change throughout both hemithoraces. The above report was generated using voice recognition software. It may contain grammatical, syntax or spelling errors. Electronically signed by: Anuel Chavez M.D. 08/22/2017 4:16 PM Dictated Date/Time: 08/22/2017 4:09 PM
== END | disposition home or self-care (01) ==
LOC: C.CTS 15:05
PROVIDERS: ATTEND Physician Assistant
DX: K74.60 Unspecified cirrhosis of liver (principal); R91.1 Solitary pulmonary nodule

== ENCOUNTER → 2017-08-26 | Outpatient (CLI) | payer OTHER ==
[2017-08-26 16:59] LABS: ALT/SGPT 35 U/L (12-78); BLOOD UREA NITROGEN 10 mg/dl (7-18); BUN/CREATININE RATIO 11.8 (10-20); CALCIUM 9.1 mg/dl (8.5-10.1); CARBON DIOXIDE 30 mmol/L (21-32); CHLORIDE 100 mmol/L (98-107); CREATININE 0.82 mg/dl (0.60-1.20); GLUCOSE 85 mg/dl (70-99); POTASSIUM 3.8 mmol/L (3.5-5.1); SODIUM 138 mmol/L (136-145)
[2017-08-26 17:10] LABS: ALKALINE PHOSPHATASE 155 U/L (45-117); AST/SGOT 61 U/L (15-37); FERRITIN 17.7 ng/ml (8.0-388.0); THYROID STIMULATING HORMONE 0.419 uIu/ml (0.300-4.500)
[2017-08-26 17:59] LABS: BASO % 0.5 %; BASO ABS # 0.02 K/uL (0-0.2); COMPLETE YES; EOS % 0.5 %; HEMATOCRIT 36.7 % (37-47); IG% 0.3 %; LARGE PLATELETS 1+; LYMPH % 29.8 %; LYMPH ABS # 1.18 K/uL (1.2-3.4); MEAN CELL VOLUME 93.4 fL (80-100); MEAN CORPUSCULAR HEMOGLOBIN 28.8 pg (25-34); MEAN CORPUSCULAR HGB CONC 30.8 g/dl (32-36); MEAN PLATELET VOLUME 12.1 fL (7.4-10.4); MONO % 6.8 %; NEUT % 62.1 %; PLATELET COUNT 75 K/uL (130-400); PLT ESTIMATE DECREASED; RED BLOOD COUNT 3.93 M/uL (4.2-5.4); WHITE BLOOD COUNT 3.96 K/uL (4.8-10.8)
== END | disposition home or self-care (01) ==
LOC: C.LABPBG 12:34
PROVIDERS: ATTEND Internal Medicine
DX: Z51.81 Encounter for therapeutic drug level monitoring (principal); K74.60 Unspecified cirrhosis of liver; K72.90 Hepatic failure, unspecified without coma; E11.65 Type 2 diabetes mellitus with hyperglycemia; Z79.4 Long term (current) use of insulin; I25.10 Atherosclerotic heart disease of native coronary artery without angina pectoris; E05.90 Thyrotoxicosis, unspecified without thyrotoxic crisis or storm; I35.0 Nonrheumatic aortic (valve) stenosis

== ENCOUNTER 2017-08-27 14:46 | Inpatient (IN) | payer OTHER ==
[~2017-08-27] VITALS: Ht 149.9 cm; Wt 69.5 kg
[~2017-08-27 14:46] MED LIST changes: -TRAZ100T29 PO
[2017-08-27] MEDS ORDERED: SODIUM CHLORIDE 0.9% 500ML 500 ML IV STA (15:01)
[2017-08-27 15:22] LABS: HEMATOCRIT 37.9 % (37-47); MEAN CORPUSCULAR HEMOGLOBIN 30.3 pg (25-34); RED BLOOD COUNT 4.12 M/uL (4.2-5.4); WHITE BLOOD COUNT 6.79 K/uL (4.8-10.8)
[2017-08-27] MEDS ORDERED: ADENOSINE IV SOLN 3 MG/ML 2 ML VIAL IV STA ×2 (15:25)
--- NOTE | 2017-08-27 15:26 | EMERGENCY ROOM VISIT NOTE ---
History Report prepared by Latia: Remigio Crockett Under the Supervision of: Dr. Abram Woodall M.D. First contact with patient: 14:57 Chief Complaint: CARDIAC ASSESSMENT Stated Complaint: HIGH HEART RATE History of Present Illness The patient is a 71 year old female with a past medical history of pulmonary HTN , COPD, A-fib, aortic stenosis who presents to the ED with a cc of constant tachycardia beginning a week ago. Positive chest pain, coughing up colored phlegm, SOB which has worsened and is worsened with walking. Negative abdominal pain, nausea, vomiting. 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 She denies any history of blood clots, and she takes an aspirin every day. The patient recently had a EGD that showed non-bleeding ulcers. Source of History: patient Onset: a week ago Position: other (global) Quality: other (tachycardia) Timing: constant Associated Symptoms: + cough, + chest pain, + SOB, No nausea, No vomiting, No abdominal pain Review of Systems See HPI for pertinent positives and negatives. A total of ten systems were reviewed and were otherwise negative. 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 Surgical Problems: (1) H/O cardiac catheterization (2) Heart stents (3) History of back surgery (4) S/P cholecystectomy Family History Diabetes mellitus FH: cancer FH: heart disease Hypertension Kidney disease Kidney stones Social History Smoking Status: Never Smoker Alcohol Use: none Marital Status: Housing Status: lives alone Occupation Status: unemployed Current/Historical Medications Scheduled Alum & Mag Hydrox-Simethicone (Mylanta Maximum Strength 400-400-40 mg/5Ml), 1 TBS PO BID Aspirin (Aspirin Ec), 81 MG PO Q2D Atorvastatin (Atorvastatin Calcium), 10 MG PO HS Betamethasone Dip Aug 0.05% (Diprolene 0.05%), 1 APPLN TP BID Cholecalciferol (Vitamin D 1000 Unit), 1,000 INTER.UNIT PO QAM Clobetasol Propionate (Clobetasol Propionate), 1 APPLN TOP BID Escitalopram Oxalate (Lexapro), 20 MG PO QAM Ferrous Sulfate (Kp Ferrous Sulfate), 325 MG PO QAM Furosemide (Lasix), 0.5 TAB PO MWF Gabapentin (Neurontin), 600 MG PO TID Home O2 Therapy (Oxygen), 2 LITERS NA HS Insulin Aspart (Novolog Flexpen), UNITS SC UD Insulin Detemir (Levemir Flextouch), 40 UNITS SQ HS Magnesium Oxide (Mag-Ox), 400 MG PO BID Metformin Hcl (Glucophage), 1,000 MG PO Q12 Methimazole (Methimazole ), 5 MG PO QAM Omeprazole (Prilosec), 40 MG PO QAM Rifaximin (Xifaxan), 550 MG PO BID Tiotropium [place]-Olodaterol (Stiolto Respimat 2.5-2.5 Mcg/Act), 2 PUFF INH DAILY Trazodone Hcl (Trazodone), 100 MG PO HS Scheduled PRN Albuterol Hfa (Ventolin Hfa), 2-4 PUFFS INH Q6H PRN for Shortness of Breath Ipratropium-Albuterol (Duoneb), 1 TREATMENT INH Q4H PRN for SOB/Wheezing Lorazepam (Lorazepam), 0.5 MG PO HS PRN for Sleep Maalox/Diphen/Visc. [place]/Glyc (Magic Swizzle), 3 TSP PO Q6H PRN for Pain Oxycodone Hcl (Oxycodone Hcl), 10 MG PO BID PRN for Pain Allergies Coded Allergies: Iodinated Diagnostic Agents (Verified Allergy, Intermediate, RASH TO IVP DYE, 08/27/17) Adhesives (Verified Allergy, Unknown, RASH, 08/27/17) Latex1 -Allergic Contact Dermititis (Verified Allergy, Unknown, RASH, 08/27) Physical Exam Vital Signs Date Time Temp Pulse Resp B/P (MAP) Pulse Ox O2 Delivery O2 Flow Rate FiO2 08/27/17 17:57 86 20 85/47 97 Nasal Cannula 2.0 08/27/17 15:53 88 20 88/56 99 Nasal Cannula 2.0 08/27/17 15:35 77 08/27/17 15:33 147 08/27/17 15:16 98 Room Air 08/27/17 15:06 98 Room Air 08/27/17 14:49 36.7 150 22 77/48 99 Room Air Physical Exam GENERAL: Awake, alert, mildly ill-appearing, NAD HENT: Normocephalic, atraumatic. EYES: Normal conjunctiva. Sclera non-icteric. NECK: Supple. No nuchal rigidity. FROM. RESPIRATORY: Coarse breath sounds throughout. Wheezing throughout. CARDIAC: RRR, no MRG ABDOMEN: Soft, NTND, BS+ MSK: No chest wall TTP, no LE edema NEURO: GCS 15, CN 2-12 intact, moves all 4s on command SKIN: No rash or jaundice noted. Medical Decision & Procedures ER Provider Diagnostic Interpretation: Radiology results as stated below per my review and radiologist interpretation: SINGLE VIEW CHEST CLINICAL HISTORY: Atypical chest pain. Dyspnea. FINDINGS: An AP, portable, semierect chest radiograph is compared to study dated 06/14/2017 and correlated with chest CT dated 08/22/2017. The examination is degraded by portable technique and patient rotation. The heart is enlarged and there is atherosclerotic calcification of the thoracic aorta. There is prominence of the pulmonary vasculature. Bibasilar atelectasis is observed and there is chronic interstitial thickening. No airspace consolidation, large pleural effusion, or pneumothorax is seen. The skeletal structures are osteopenic. The bony thorax is grossly intact. Degenerative change is noted throughout the thoracic spine. Fusion hardware is partially imaged in the lower cervical spine. IMPRESSION: 1. Cardiomegaly with prominence of the central pulmonary vasculature. Correlate clinically for evidence of mild congestive failure. 2. No airspace consolidation or large pleural effusion is identified. Electronically signed by: Daniel Copeland M.D. 08/27/2017 3:46 PM Dictated Date/Time: 08/27/2017 3:44 PM Laboratory Results 08/27/17 15:10 Red Blood Count 4.12, Mean Corpuscular Volume 92.0, Mean Corpuscular Hemoglobin 30.3, Mean Corpuscular Hemoglobin Concent 33.0, Mean Platelet Volume 11.1, Neutrophils (%) (Auto) 67.0, Lymphocytes (%) (Auto) 24.4, Monocytes (%) (Auto) 7.2, Eosinophils (%) (Auto) 0.9, Basophils (%) (Auto) 0.4, Neutrophils # (Auto) 4.54, Lymphocytes # (Auto) 1.66, Monocytes # (Auto) 0.49, Eosinophils # (Auto) 0.06, Basophils # (Auto) 0.03 08/27/17 15:10 Test 08/27/17 15:10 08/27/17 15:18 White Blood Count 6.79 K/uL (4.8-10.8) Red Blood Count 4.12 M/uL (4.2-5.4) Hemoglobin 12.5 g/dL (12.0-16.0) Hematocrit 37.9 % (37-47) Mean Corpuscular Volume 92.0 fL (80-100) Mean Corpuscular Hemoglobin 30.3 pg (25-34) Mean Corpuscular Hemoglobin Concent 33.0 g/dl (32-36) Platelet Count 90 K/uL (130-400) Mean Platelet Volume 11.1 fL (7.4-10.4) Neutrophils (%) (Auto) 67.0 % Lymphocytes (%) (Auto) 24.4 % Monocytes (%) (Auto) 7.2 % Eosinophils (%) (Auto) 0.9 % Basophils (%) (Auto) 0.4 % Neutrophils # (Auto) 4.54 K/uL (1.4-6.5) Lymphocytes # (Auto) 1.66 K/uL (1.2-3.4) Monocytes # (Auto) 0.49 K/uL (0.11-0.59) Eosinophils # (Auto) 0.06 K/uL (0-0.5) Basophils # (Auto) 0.03 K/uL (0-0.2) RDW Standard Deviation 52.9 fL (36.4-46.3) RDW Coefficient of Variation 15.7 % (11.5-14.5) Immature Granulocyte % (Auto) 0.1 % Immature Granulocyte # (Auto) 0.01 K/uL (0.00-0.02) Prothrombin Time 13.2 SECONDS (9.0-12.0) Prothromb Time International Ratio 1.2 (0.9-1.1) Activated Partial Thromboplast Time 30.4 SECONDS (21.0-31.0) Partial Thromboplastin Ratio 1.2 Anion Gap 7.0 mmol/L (3-11) Est Creatinine Clear Calc Drug Dose 40.5 ml/min Estimated GFR () 58.9 Estimated GFR (Non- 50.8 BUN/Creatinine Ratio 10.5 (10-20) Calcium Level 8.8 mg/dl (8.5-10.1) Phosphorus Level 3.7 mg/dl (2.5-4.9) Magnesium Level 1.6 mg/dl (1.8-2.4) Total Bilirubin 1.4 mg/dl (0.2-1) Direct Bilirubin 0.5 mg/dl (0-0.2) Aspartate Amino Transf (AST/SGOT) 54 U/L (15-37) Alanine Aminotransferase (ALT/SGPT) 34 U/L (12-78) Alkaline Phosphatase 127 U/L (45-117) Pro-B-Type Natriuretic Peptide 1632 pg/ml (0-900) Total Protein 6.9 gm/dl (6.4-8.2) Albumin 3.6 gm/dl (3.4-5.0) Lipase 104 U/L (73-393) Thyroid Stimulating Hormone (TSH) 0.415 uIu/ml (0.300-4.500) Bedside Troponin I 0.060 ng/ml (0-0.045) Laboratory results reviewed by me Medications Administered Medications (Trade) Dose Ordered Sig/Diego Route Start Time Stop Time Status Last Admin Dose Admin Sodium Chloride 500 ml @ 500 mls/hr Q1H STAT IV 08/27/17 15:01 08/27/17 16:00 DC 08/27/17 15:15 500 MLS/HR Adenosine (Adenosine IV) 6 mg NOW STAT IV 08/27/17 15:25 08/27/17 15:26 DC 08/27/17 15:25 6 MG Magnesium Sulfate 100 ml @ 100 mls/hr NOW STAT IV 08/27/17 16:32 08/27/17 17:31 DC 08/27/17 16:51 100 MLS/HR ECG Indication: tachycardia Rate (beats per minute): 149 Rhythm: other (Stable monomorphic wide-complex tachycardia) Findings: Q waves (AVF), RBBB, ST depression (subtle in the lateral leads), other (QRS is 130) ED Course 1457: The patient was evaluated in room C6. A complete history and physical exam was performed. Bedside US revealed: LV and RV are dilated. Appears there is evidence of right heart strain. IVC is fairly full with inspiration. 1523: Discussed the patient's case with Dr. De Guzman. The patient will be evaluated for further treatment and disposition. 1535: I reevaluated the patient, and she was doing okay. Medical Decision The patient is a 71 year old female with a past medical history of pulmonary HTN , COPD, A-fib, aortic stenosis who presents to the ED with a cc of constant tachycardia beginning a week ago. Positive chest pain, coughing up colored phlegm, SOB which has worsened and is worsened with walking. Negative abdominal pain, nausea, vomiting. Triage Nursing notes reviewed. The patient's presentation and history were concerning for etiologies such as infections, reactive airway disease, pneumonia, pneumothorax, COPD, CHF, cardiac ischemia, pulmonary embolism, musculoskeletal, gastrointestinal, as well as others were entertained. Patient was seen and evaluated at the bedside. Patient does state that she had been feeling unwell for approximately the last week with some worsening shortness of breath and symptoms today. Patient was seen at her resistor tester office or she had an EKG completed which show that she was fairly tachycardic. Patient does have a history of paroxysmal atrial fibrillation but does not take any blood thinning medications and nothing for rate control. Patient's EKG as 80s stable monomorphic wide complex tachycardia rate of 140s. Patient did have blood work IV access, and pads were placed on the chest. Patient did have a bedside echocardiogram which did show some evidence of right heart strain which may be indicative of her prior pulmonary hypertension and COPD. Patient's IVC was fairly plethoric. Patient was given a small amount of fluids and I did speak with cardiology believe that this was supraventricular tachycardia given her unchanged QRS pattern. Patient was given adenosine 6 mg which converted her back to a normal sinus rhythm. Given the patient's history of aortic stenosis it was important that she be further evaluated by electrophysiology in terms of either an antiarrhythmic versus an ablation. I spoke with the medicine team who agreed patient would benefit from admission. Medication Reconcilliation Current Medication List: was personally reviewed by me Blood Pressure Screening Patient's blood pressure: Low blood pressure Monitored by hospitalist Consults Time Called: 151 Consulting Physician: Dr. De Guzman Returned Call: [phone] Discussed the patient's case with Dr. Condon. The patient will be evaluated for further treatment and disposition. Impression Primary Impression: Supraventricular arrhythmia Additional Impressions: Supraventricular aortic stenosis SOB (shortness of breath) Critical Care I have personally spent greater than 42 minutes of critical care time in the direct management of this patient. This includes bedside care, interpretation of diagnostic studies, and testing, discussion with consultants, patient, and family members, and other required patient management activities. This 42 minutes is in excess of all separately billable procedures. Scribe Attestation The scribe's documentation has been prepared under my direction and personally reviewed by me in its entirety. I confirm that the note above accurately reflects all work, treatment, procedures, and medical decision making performed by me. Departure Information Dispostion Being Evaluated By Hospitalist Referrals Boone Paulson M.D. (PCP) Patient Instructions My [facility] Problem Qualifiers
[2017-08-27 15:32] LABS: INR 1.2 (0.9-1.1); PARTIAL THROMBOPLASTIN RATIO 1.2; PROTHROMBIN TIME (PATIENT) 13.2 SECONDS (9.0-12.0)
[2017-08-27 15:33] LABS: MEAN PLATELET VOLUME 11.1 fL (7.4-10.4); PLATELET COUNT 90 K/uL (130-400)
[2017-08-27 15:42] LABS: BUN/CREATININE RATIO 10.5 (10-20); CALCIUM 8.8 mg/dl (8.5-10.1); CREATININE 1.1 mg/dl (0.60-1.20); MAGNESIUM 1.6 mg/dl (1.8-2.4)
--- NOTE | 2017-08-27 15:48 | DIAGNOSTIC IMAGING REPORT ---
SINGLE VIEW CHEST CLINICAL HISTORY: Atypical chest pain. Dyspnea. FINDINGS: An AP, portable, semierect chest radiograph is compared to study dated 06/14/2017 and correlated with chest CT dated 08/22/2017. The examination is degraded by portable technique and patient rotation. The heart is enlarged and there is atherosclerotic calcification of the thoracic aorta. There is prominence of the pulmonary vasculature. Bibasilar atelectasis is observed and there is chronic interstitial thickening. No airspace consolidation, large pleural effusion, or pneumothorax is seen. The skeletal structures are osteopenic. The bony thorax is grossly intact. Degenerative change is noted throughout the thoracic spine. Fusion hardware is partially imaged in the lower cervical spine. IMPRESSION: 1. Cardiomegaly with prominence of the central pulmonary vasculature. Correlate clinically for evidence of mild congestive failure. 2. No airspace consolidation or large pleural effusion is identified. Electronically signed by: Daniel Copealnd M.D. 08/27/2017 3:46 PM Dictated Date/Time: 08/27/2017 3:44 PM
[2017-08-27 15:49] LABS: BASO % 0.4 %; BASO ABS # 0.03 K/uL (0-0.2); COMPLETE YES; EOS % 0.9 %; IG% 0.1 %; LYMPH % 24.4 %; LYMPH ABS # 1.66 K/uL (1.2-3.4); MONO % 7.2 %
[2017-08-27 15:50] LABS: PHOSPHORUS 3.7 mg/dl (2.5-4.9); THYROID STIMULATING HORMONE 0.415 uIu/ml (0.300-4.500)
[2017-08-27 15:51] LABS: POTASSIUM 4.5 mmol/L (3.5-5.1)
[2017-08-27] MEDS ORDERED: TRAZ100T29 PO (16:13)
[2017-08-27] MEDS ORDERED: MAGNESIUM SULFATE 1GM / D5W 1 GM IV STA (16:32)
--- NOTE | 2017-08-27 17:57 | CARDIOLOGY CONSULTATION ---
DATE OF CONSULTATION: 08/27/2017 TIME: 16:37 p.m. CONSULTING PHYSICIAN: Dr. Woodall. REASON FOR CONSULTATION: Tachycardia and hypotension. PRIMARY SCHOOL ADMINISTRATOR: Dr. Barney Caal. HISTORY OF PRESENT ILLNESS: Mrs. Frederick is a pleasant 71-year-old female with a history significant for aortic stenosis, hypertension, mitral stenosis, severe pulmonary hypertension, COPD, multivessel CAD status post PCI, esophageal varices status post bleed, anemia, and chronic oxygen supplementation 2 liters per nasal cannula. She reported to pulmonology today through outpatient follow up and was sent to the Emergency Department for further evaluation due to tachycardia, reportedly. She states that for the past week she has not felt well. She feels weak, short of breath, and has also had a sensation in her chest. She does not describe it as palpitations, though she described it not as pain but rather a sensation in the center of her chest. This sensation has been present constantly for 1 week but she admits having it over the past several months, intermittently lasting 1 or 2 days in duration. She has been coughing up yellow/brown sputum for the past 1 week as well. No documented fevers, no shaking chills, but she does feel cold at times. She has not noted any edema. She has felt lightheaded but no syncope. In the Emergency Department, she was found to be tachycardic. An ECG was done which was also personally reviewed. ECG demonstrated SVT at 149 beats per minute. She has a baseline right bundle branch block as well. Dr. Woodall in the Emergency Department contacted me and we discussed via telephone. I promptly reported to the bedside. On telemetry, it was noted that she was in SVT. Her systolic blood pressure at that time was in the 70s. She states that she typically has lower blood pressures and an outpatient readings demonstrates systolic blood pressures as low as the 60s or 70s, but also at times normotensive. She did not feel well while lying in the ER hospital bed. She did have pads in place. Carotid massage was attempted with no change in her rhythm. Please see below for further recommendations and ER course. She denies any recent melena, hematochezia, hematuria, or other bleeding. She has been taking her medications as prescribed. She states that she just has felt quite weak over the past week. Her daughters Valerio and Lili presented to the bedside and states that her mother has felt weak and short of breath for much longer than 1 week and that this is not a new issue for her. The patient states that it is a worsening of a chronic issue. REVIEW OF SYSTEMS: As above and review of systems otherwise unremarkable/negative. PAST MEDICAL HISTORY: 1. Severe aortic stenosis per records. 2. Mild mitral stenosis. 3. Cerebrovascular disease. 4. Severe pulmonary hypertension. 5. COPD. 6. Multivessel coronary artery disease status post drug-eluting stents in her LAD, RCA and circumflex. 7. Esophageal varices. 8. Status post banding. 9. Esophageal ulcers on 06/27/2017 EGD. 10. Anemia. 11. Cirrhosis. 12. Thrombocytopenia. 13. Hypertension. 14. GERD. 15. Dyslipidemia. 16. Hyperthyroidism. 17. Hypotension. 18. Nocturnal hypoxia. 19. Orthostatic hypotension. 20. Osteoporosis. 21. Osteoarthritis. 22. Peripheral neuropathy. 23. COPD. 24. Carpal tunnel syndrome. 25. Carotid artery stenosis. 26. Anxiety. 27. Paroxysmal atrial fibrillation, not on anticoagulation secondary to esophageal varices. 28. Psoriasis. 29. Pulmonary hypertension. 30. Vitamin B12 deficiency. 31. Type 2 diabetes. HOME MEDICATIONS: Include: 1. Aspirin 81 mg every other day. 2. Atorvastatin 10 mg at bedtime. 3. Escitalopram 20 mg daily. 4. Ferrous sulfate 325 mg daily. 5. Lasix 20 mg Saturday, Saturday, Saturday. 6. Gabapentin 600 mg t.i.d. 7. Lactulose 30 mL t.i.d. 8. Levemir. 9. Magnesium 400 mg twice daily. 10. Metformin 1000 mg q. 12 hours. 11. Methimazole 5 mg daily. 12. NovoLog. 13. Omeprazole 40 mg daily. 14. Zofran 4 mg q. 8 hours p.r.n. nausea. 15. Oxycodone 10 mg in the morning, 1 in the afternoon and 2 tabs at bedtime. 16. Stiolto Respimat inhaler 2 puffs daily. 17. Trazodone 100 mg at bedtime. 18. Ventolin 2 puffs q. 4-6 hours p.r.n. 19. Xifaxan 550 mg twice daily. ALLERGIES: LATEX CAUSED RASH. IV DYE CAUSED RASH. SOCIAL HISTORY: He has smoked for approximately 55 years up to 1.5 packs per day. Currently, smoking approximately 1 pack per day. No alcohol. No drugs. She is a . She lives alone. She does have a caregiver who helps out 5 hours per day. She has 2 daughters, Lili and Valerio who presented to the bedside. FAMILY HISTORY: Family history of hypertension, diabetes and CAD. PHYSICAL EXAMINATION: VITAL SIGNS: Temperature 36.7 degrees, heart rate was in the high 140s, respiration rate 20, blood pressure 77/48 mmHg, oxygen saturation 98% on room air. GENERAL: She did not look in acute distress, but she appeared uncomfortable. She was awake and alert. She was oriented. HEENT: Anicteric sclerae. NECK: No appreciable JVD. No audible bruits; however, she had extensive airway sounds and therefore carotid bruit may not have been auscultated. Normal carotid upstrokes bilaterally. CARDIAC: PMI was nonpalpable. There was no ventricular heave. Regular but tachycardic. Once her heart rate slowed, a 2/6 moderate to late peaking systolic ejection murmur was best heard at the right upper sternal border. No rubs or gallops. LUNGS: Bilateral rhonchi and expiratory wheezing. Lung sounds were extensive bilaterally. ABDOMEN: Soft. Tenderness in the right quadrant, which she states is chronic. No rebound tenderness. Normoactive bowel sounds. No bruits. EXTREMITIES: No cyanosis or edema. 1+ radial pulses bilaterally. 1+ dorsalis pedis pulses bilaterally. No palpable cords. PSYCHIATRIC: Affect appears appropriate. DATA: ECG personally reviewed as noted above. Telemetry reviewed as above. Most recent echocardiogram on 12/26/[address] Caal, reporting normal LV systolic function and wall motion. EF 55-60%. Type 2 diastolic dysfunction. Mild LVH. Severe aortic stenosis. Mild mitral stenosis. Mild mitral regurgitation. Moderate tricuspid regurgitation. The aortic valve area is reported at 0.82 cm2. The mean gradient was 31 and the peak velocity was 3.63 m/sec with an LVOT velocity of 0.99 m/sec. Estimated RVSP was 69 mmHg. LABORATORY DATA: White blood cell count 6.79, hemoglobin 12.5, platelets 90. Sodium 137, potassium 4.5, BUN 12, creatinine 1.1, magnesium 1.6, total bilirubin 1.4, AST 54, ALT 34. Point of care troponin 0.060, TSH 0.415, lipase 104, albumin 3.6. INR 1.2. IMAGING DATA: Chest x-ray - image personally reviewed. No obvious infiltrate upon personal review. Radiology has reported no airspace consolidation. Cardiomegaly with prominence of central pulmonary vasculature reported. ASSESSMENT AND PLAN: 1. Supraventricular tachycardia: Supraventricular tachycardia was identified on electrocardiogram and telemetry. Carotid massage was personally performed with no improvement in her rhythm. She was also asked bear down for further vagal maneuvers, but this was ineffective. Adenosine 6 mg was recommended. Nursing staff promptly reported to the bedside and administered 6 mg of IV adenosine and converted supraventricular tachycardia to sinus rhythm. Immediately her chest discomfort/sensation resolved, but she continued to feel weak. Her blood pressure improved from systolic readings in the 70s up into the 80s. Recommend electrophysiology consultation. Recommend continuous telemetry. Replete magnesium. 2. Hypotension: She states that she is chronically hypotensive. Her blood pressure did improve with buddhist of sinus rhythm and her heart rate was then in the 80s for the most part while in sinus. Initially, it was recommended that she have her IV fluids administered wide open for bolus and a 250 mL bolus was completed. Her blood pressure immediately improved after buddhist of sinus rhythm. 3. Severe aortic stenosis: Her aortic stenosis has been reported as severe. She has had conversations with Dr. Caal regarding this and decision was made for medical management given her other comorbidities. Repeat echo is pending given her supraventricular tachycardia and slightly elevated troponin upon presentation. Dr. Caal to further follow her aortic stenosis for long-term planning. With her valvular heart disease, maintaining normal heart rates and maintaining sinus rhythm would be important as she may not tolerate rapid heart rates for prolonged periods of time. 4. Chest sensations/discomfort: Difficult to understand if this is pain or palpitations. She cannot further describe it. Recommend serial troponin evaluation. Would not be surprised if her troponins become elevated given her underlying valvular heart disease and prolonged SVT. 5. Elevated troponin: Slightly elevated troponin likely secondary to SVT and underlying CAD. Trend troponins. 6. CAD status post multivessel PCI: Continue anti-platelet therapy. Trend troponins. No beta-arnulfo due to hypotension. If blood pressure improves, could consider low-dose beta-arnulfo but she apparently has had issues in the past. Continue statin therapy as tolerated. 7. Hypomagnesemia: 2 g of magnesium ordered to supplement given presentation of SVT. Repeat magnesium level. 8. Disposition: Cardiology will continue to follow. Dr. Caal, her primary manager unit will be available tomorrow. Electrophysiology was also asked to see her regarding SVT long-term treatment plans such as ablation verses anti rhythmic therapy. Dr. Pope was personally contacted and presentation and patient care was discussed with him. She will be seen tomorrow by either Dr. Pope or Dr. Toribio of . Plan of care was also discussed with Dr. Patino of the admitting hospitalist service. 45 minutes critical care time spent managing her symptomatic SVT with hypotension in the setting of multiple comorbidities as noted. Thank you for allowing me to participate in the care of your patient. Please call for any other questions or concerns. Sincerely, Maurice De Guzman M.D. AURELIA
[2017-08-27] MEDS ORDERED: POLYETHYLENE (MIRALAX) 17 GM PACK PO PRN (18:15)
[2017-08-27] MEDS ORDERED: ACETAMINOPHEN 325 MG TAB PO PRN (18:15)
[2017-08-27] MEDS ORDERED: MoRPHine SULFATE 2 MG/ML CARP IV PRN (18:15)
[2017-08-27] MEDS ORDERED: ALUMINUM/MAGNESIUM/SIMETH (MAALOX MAX) 30 ML UDC PO PRN (18:15)
[2017-08-27] MEDS ORDERED: MAGNESIUM HYDROXIDE SUSP 30 ML UDC PO PRN (18:15)
[2017-08-27] MEDS ORDERED: ALBUT/IPRATROP 3MG/0.5MG NEB 3 ML VIAL INH PRN (18:15)
[2017-08-27] MEDS ORDERED: ONDANSETRON INJ 2 MG/ML 2 ML VIAL IV PRN (18:15)
--- NOTE | 2017-08-27 18:58 | History and Physical ---
History & Physical Date & Time of Service: Aug 27, 2017 at 18:17 Chief Complaint: High Heart Rate Primary Care Physician: Boone Paulson M.D. 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 The pt was at her aircraft servicer office earlier today for a routine visit. She was complaining of feeling generally ill , lightheaded and weak. She did not describe SOB above baseline, CP and could not discern palpitations. She did have a sensation of fullness in her chest. The pt was notably tachycardic at the aircraft servicer office and an EKG revealed SVT. She was sent into the hospital for evaluation. On arrival, she was evaluated by cardiology and noted to be hypotensive, although close to her baseline. She was provided with a dose of adenosine and reverted to a sinus rhythm. She continued to c/o lightheadedness and weakness despite reversion and will be assigned to observation on telemetry. Her BP remained stable. Initial labs are notable for a marginally elevated troponin. 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 (8) Hypelipidemia (9) Thrombocytopenia (10) Vertebral Artery Syndrome (11) Severe - follows w/ (12) Chronic anemia (13) Continued tobacco abuse (14) Chronic LE edema (15) Esophageal varices - upper GI bleed (16) RBBB Surgical Problems: (1) H/O cardiac catheterization (2) Heart stents (3) History of back surgery (4) S/P cholecystectomy Family History Diabetes mellitus FH: cancer FH: heart disease Hypertension Kidney disease Kidney stones Social History Smoking Status: Never Smoker Marital Status: Housing status: lives alone Occupational Status: unemployed Allergies Coded Allergies: Iodinated Diagnostic Agents (Verified Allergy, Intermediate, RASH TO IVP DYE, 08/27/17) Adhesives (Verified Allergy, Unknown, RASH, 08/27/17) Latex1 -Allergic Contact Dermititis (Verified Allergy, Unknown, RASH, 08/27) Home Medications Scheduled Alum & Mag Hydrox-Simethicone (Mylanta Maximum Strength 400-400-40 mg/5Ml), 1 TBS PO BID Aspirin (Aspirin Ec), 81 MG PO Q2D Atorvastatin (Atorvastatin Calcium), 10 MG PO HS Betamethasone Dip Aug 0.05% (Diprolene 0.05%), 1 APPLN TP BID Cholecalciferol (Vitamin D 1000 Unit), 1,000 INTER.UNIT PO QAM Clobetasol Propionate (Clobetasol Propionate), 1 APPLN TOP BID Escitalopram Oxalate (Lexapro), 20 MG PO QAM Ferrous Sulfate (Kp Ferrous Sulfate), 325 MG PO QAM Furosemide (Lasix), 0.5 TAB PO MWF Gabapentin (Neurontin), 600 MG PO TID Home O2 Therapy (Oxygen), 2 LITERS NA HS Insulin Aspart (Novolog Flexpen), UNITS SC UD Insulin Detemir (Levemir Flextouch), 40 UNITS SQ HS Magnesium Oxide (Mag-Ox), 400 MG PO BID Metformin Hcl (Glucophage), 1,000 MG PO Q12 Methimazole (Methimazole ), 5 MG PO QAM Omeprazole (Prilosec), 40 MG PO QAM Rifaximin (Xifaxan), 550 MG PO BID Tiotropium Silas-Olodaterol (Stiolto Respimat 2.5-2.5 Mcg/Act), 2 PUFF INH DAILY Trazodone Hcl (Trazodone), 100 MG PO HS Scheduled PRN Albuterol Hfa (Ventolin Hfa), 2-4 PUFFS INH Q6H PRN for Shortness of Breath Ipratropium-Albuterol (Duoneb), 1 TREATMENT INH Q4H PRN for SOB/Wheezing Lorazepam (Lorazepam), 0.5 MG PO HS PRN for Sleep Maalox/Diphen/Visc. Bonilla/Glyc (Magic Swizzle), 3 TSP PO Q6H PRN for Pain Oxycodone Hcl (Oxycodone Hcl), 10 MG PO BID PRN for Pain Review of Systems Constitutional: + weakness, + fatigue, No fever, No chills, No sweats Eyes: No worsening of vision ENT: No hearing loss, No unusual epistaxis, No nasal symptoms Respiratory: + wheezing, + shortness of breath (chronic), No cough, No sputum Cardiovascular: No chest pain, No orthopnea, No PND Abdomen: No pain, No nausea, No vomiting Musculoskeletal: + joint pain (chronic back pain) Genitourinary - Female: No dysuria, No urinary frequency, No urinary urgency Neurologic: No memory loss, No paralysis, No weakness Psychiatric: No depression symptoms Endocrine: No fatigue Hematologic / Lymphatic: No abnormal bleeding/bruising Integumentary: No rash Allergic / Immunologic: No environmental allergies Physical Exam Vital Signs Date Time Temp Pulse Resp B/P (MAP) Pulse Ox O2 Delivery O2 Flow Rate FiO2 08/27/17 17:57 86 20 85/47 97 Nasal Cannula 2.0 08/27/17 15:53 88 20 88/56 99 Nasal Cannula 2.0 08/27/17 15:35 77 08/27/17 15:33 147 08/27/17 15:16 98 Room Air 08/27/17 15:06 98 Room Air 08/27/17 14:49 36.7 150 22 77/48 99 Room Air General Appearance: + pertinent finding (Pleasant, slightly lethargic elderly female in no acute distress) Head: normocephalic Eyes: normal inspection, PERRL, EOMI ENT: normal ENT inspection, pharynx normal Neck: supple, + JVD Respiratory/Chest: chest non-tender, lungs clear Cardiovascular: regular rate, rhythm, no edema, no gallop, + systolic murmur Abdomen/GI: normal bowel sounds, non tender, soft Back: normal inspection, no CVA tenderness Extremities/Musculoskelatal: no calf tenderness, normal capillary refill, + pedal edema Neurologic/Psych: pricing lead II-XII nml as tested, no motor/sensory deficits, alert, oriented x 3 Skin: normal color, warm/dry, no rash Diagnostics Laboratory Results Results Past 24 Hours Test 08/27/17 15:10 08/27/17 15:18 08/27/17 16:27 Range/Units White Blood Count 6.79 4.8-10.8 K/uL Red Blood Count 4.12 4.2-5.4 M/uL Hemoglobin 12.5 12.0-16.0 g/dL Hematocrit 37.9 37-47 % Mean Corpuscular Volume 92.0 80-100 fL Mean Corpuscular Hemoglobin 30.3 25-34 pg Mean Corpuscular Hemoglobin Concent 33.0 32-36 g/dl Platelet Count 90 130-400 K/uL Mean Platelet Volume 11.1 7.4-10.4 fL Neutrophils (%) (Auto) 67.0 % Lymphocytes (%) (Auto) 24.4 % Monocytes (%) (Auto) 7.2 % Eosinophils (%) (Auto) 0.9 % Basophils (%) (Auto) 0.4 % Neutrophils # (Auto) 4.54 1.4-6.5 K/uL Lymphocytes # (Auto) 1.66 1.2-3.4 K/uL Monocytes # (Auto) 0.49 0.11-0.59 K/uL Eosinophils # (Auto) 0.06 0-0.5 K/uL Basophils # (Auto) 0.03 0-0.2 K/uL RDW Standard Deviation 52.9 36.4-46.3 fL RDW Coefficient of Variation 15.7 11.5-14.5 % Immature Granulocyte % (Auto) 0.1 % Immature Granulocyte # (Auto) 0.01 0.00-0.02 K/uL Prothrombin Time 13.2 9.0-12.0 SECONDS Prothromb Time International Ratio 1.2 0.9-1.1 Activated Partial Thromboplast Time 30.4 21.0-31.0 SECONDS Partial Thromboplastin Ratio 1.2 Sodium Level 137 136-145 mmol/L Potassium Level 4.5 3.5-5.1 mmol/L Chloride Level 101 98-107 mmol/L Carbon Dioxide Level 29 21-32 mmol/L Anion Gap 7.0 3-11 mmol/L Blood Urea Nitrogen 12 7-18 mg/dl Creatinine 1.10 0.60-1.20 mg/dl Est Creatinine Clear Calc Drug Dose 40.5 ml/min Estimated GFR () 58.9 Estimated GFR (Non- 50.8 BUN/Creatinine Ratio 10.5 10-20 Random Glucose 128 70-99 mg/dl Calcium Level 8.8 8.5-10.1 mg/dl Phosphorus Level 3.7 2.5-4.9 mg/dl Magnesium Level 1.6 1.8-2.4 mg/dl Total Bilirubin 1.4 0.2-1 mg/dl Direct Bilirubin 0.5 0-0.2 mg/dl Aspartate Amino Transf (AST/SGOT) 54 15-37 U/L Alanine Aminotransferase (ALT/SGPT) 34 12-78 U/L Alkaline Phosphatase 127 45-117 U/L Total Protein 6.9 6.4-8.2 gm/dl Albumin 3.6 3.4-5.0 gm/dl Lipase 104 73-393 U/L Thyroid Stimulating Hormone (TSH) 0.415 0.300-4.500 uIu/ml Bedside Troponin I 0.060 0-0.045 ng/ml EKG Initial: SVT Follow-up: Sinus , RBBB Impression Assessment and Plan 71 y/o F Hx COPD, 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 The pt was at her aircraft servicer office earlier today for a routine visit. She was complaining of feeling generally ill , lightheaded and weak. She did not describe SOB above baseline, CP and could not discern palpitations. She did have a sensation of fullness in her chest. The pt was notably tachycardic at the aircraft servicer office and an EKG revealed SVT. She was sent into the hospital for evaluation. On arrival, she was evaluated by cardiology and noted to be hypotensive, although close to her baseline. She was provided with a dose of adenosine and reverted to a sinus rhythm. She continued to c/o lightheadedness and weakness despite reversion and will be assigned to observation on telemetry. Her BP remained stable. Initial labs are notable for a marginally elevated troponin. 1) SVT - evaluated by cardiology on arrival and reverted to a sinus rhythm - c/ o weakness and lighthead are chronic on review of chart, however, she has multiple risk factors for a cardiac event and will be observed overnight. Serial enzymes requested. Can then f/u with cardio on DC. 2) CAD - multivessel - initial trop negative above baseline - repeat pending - takes ASA EOD - cont Statin Tx - we will avoid anticoagulation if possible due to recent variceal bleeding. 3) Advanced COPD - 02 protocol - continue home inhalers and PRN duoneb - chronic wheezing is noted - she does not c/o SOB - castro consider steroid treatment if she develops dyspnea 4) Cirrhosis - recent variceal bleeding - Hb above baseline - no active bleeding - f/u with GI. 5) DM - placed on SS 6) Severe - she is on Lasix EOD which we will maintain to avoid overdiuresis - can administer additional as needed - she is not a surgical candidate. 7) Active smoker - has not shown any interest in cessation. Full code - SCDs Total time for this admit including review of labs, meds, imaginig, EKG - discussion with pt, ER attending and wholesale account executive - 40 min Level of Care Telemetry Resuscitation Status FULL RESUSCITATION VTE Prophylaxis VTE Risk Assessment Done? Y/N: Yes Risk Level: Moderate Given or contraindicated: SCD's
[2017-08-27 19:50] VITALS: BP 98/52; PULSE 83; TEMP 36.8; O2SAT 98; BMI 31.1
[2017-08-27 20:00] VITALS: O2SAT 98
[2017-08-27] MEDS ORDERED: MAGNESIUM SULFATE 1GM / D5W 1 GM in PREMIXED IN D5W 100 ML IV ONE (20:30)
[2017-08-27] MEDS: INSULIN ASPART 100 UNITS/ML 3 ML PEN SC SCH (21:00)
[2017-08-27] MEDS: CLOBETASOL PROPIONATE 0.05% OINT 15 GM TUBE EXT SCH (21:10)
[2017-08-27] MEDS: ATORVASTATIN 10 MG TAB PO SCH (21:11)
[2017-08-27] MEDS: TRAZODONE HCL 100 MG TAB PO SCH (21:11)
[2017-08-27] MEDS: MAGNESIUM OXIDE 400 MG TAB PO SCH (21:12)
[2017-08-27] MEDS: ALUMINUM/MAGNESIUM/SIMETH (MAALOX MAX) 30 ML UDC PO SCH (21:12)
[2017-08-27] MEDS: GABAPENTIN 600 MG TAB PO SCH (21:13)
[2017-08-27] MEDS: RIFAXIMIN TAB 550 MG TAB PO SCH (21:13)
[2017-08-27] MEDS: INSULIN DETEMIR FLEXPEN/FLEX TOUCH 100 UNITS/ML 3ML SQ SCH (21:19)
[2017-08-27] MEDS ORDERED: METOPROLOL TARTRATE 1 MG/ML VIAL IV STA (21:43)
[2017-08-27] MEDS ORDERED: SODIUM CHLORIDE 0.9% 1000ML 1,000 ML IV SCH (21:45)
[2017-08-27 23:19] VITALS: BP 100/63; PULSE 81; TEMP 36.9; O2SAT 98
[2017-08-27] MEDS ORDERED: NURSING VERBAL MED ORDER ONE (23:30)
[2017-08-28] VITALS (11 sets, daily range): BP systolic 69–114; BP diastolic 45–71; PULSE 74–91; TEMP 36.6–37.3; O2SAT 96–100
--- NOTE | 2017-08-28 00:25 | Progress Note ---
Progress Note Date of Service Aug 28, 2017. Progress Note I was paged in the evening notifying my that patient had gone back into SVT Patient had BP In the 60s/40s. At the bedside, the patient was mentating well and not complaining of chest pain , shortness of breath or orthopnea. 2.5 mg IV Lopressor give with HR going down into the 80s BP recovered to 90/59 Patient comfortable at this time; will continue to follow through the night
[2017-08-28 00:37] LABS: MANUAL MICROSCOPIC REQUIRED? NO; REVIEW REQ? NO; URINE APPEARANCE CLEAR (CLEAR); URINE BILIRUBIN NEG (NEG); URINE COLOR YELLOW; URINE EPITHELIAL CELL AUTO >30 /lpf (0-5); URINE NITRITE NEG (NEG); URINE PH 5.5 (4.5-7.5); URINE SPECIFIC GRAVITY 1.013 (1.000-1.030); UROBILINOGEN NEG (NEG)
[2017-08-28 06:06] LABS: MAGNESIUM 1.8 mg/dl (1.8-2.4)
[2017-08-28] MEDS: INSULIN ASPART 100 UNITS/ML 3 ML PEN SC SCH ×4 (07:00→22:01)
[2017-08-28] MEDS: PANTOprazole SOD 40 MG TAB PO SCH (07:55)
[2017-08-28] MEDS: ALUMINUM/MAGNESIUM/SIMETH (MAALOX MAX) 30 ML UDC PO SCH ×2 (07:55→21:56)
[2017-08-28] MEDS: RIFAXIMIN TAB 550 MG TAB PO SCH ×2 (07:55→21:58)
[2017-08-28] MEDS: METHIMAZOLE 5 MG TAB PO SCH (07:55)
[2017-08-28] MEDS: ESCITALOPRAM OXALATE 20 MG TAB PO SCH (07:55)
[2017-08-28] MEDS: GABAPENTIN 600 MG TAB PO SCH ×3 (07:56→21:57)
[2017-08-28] MEDS: MAGNESIUM OXIDE 400 MG TAB PO SCH ×2 (07:56→21:57)
[2017-08-28] MEDS: CLOBETASOL PROPIONATE 0.05% OINT 15 GM TUBE EXT SCH ×2 (07:56→21:56)
[2017-08-28] MEDS: ASPIRIN 81 MG ECTAB PO SCH (07:56)
--- NOTE | 2017-08-28 08:46 | Clinical Documentation Query ---
ORLIN Guan : CLINICAL DOCUMENTATION QUERY Patient is a 71 year old female admitted for evaluation and treatment of SVT. Serum troponin elevated to 0.083 ng/ml. She has been treated with IV Adenosine, IV Lopressor, ASA, cardiology consultation, admission to telemetry, IVF, O2, serial cardiac enzymes. area development consultant documentation included "Elevated troponin: Slightly elevated troponin likely secondary to SVT and underlying CAD. Trend troponins". As appropriate, consider documentation as suggested below. Thank you. In your clinical opinion is this patient being managed for: ( ) Myocardial demand ischemia ( ) Not Agree ( ) Other explanation of clinical findings (Please Explain) ( ) Unable to determine (Please Define) ( ) Need to Discuss The medical record reflects the following clinical findings, treatment, and risk factors. Clinical Indicators: Troponin elevation in the setting of multivessel CAD and SVT Treatment: PCU, cardiology consultation, serial cardiac enzymes. Risk Factors: SVT, Age, hypertension, aortic stenosis, multivessel CAD, anemia, COPD Please clarify and document your clinical opinion in the progress notes and discharge summary. Terms such as "probable", "suspected", "likely", "questionable", "possible", or "still to be ruled out" are acceptable. IF IN AGREEMENT, YOU MUST DOCUMENT ABOVE DIAGNOSTIC STATEMENT IN DAILY PROGRESS NOTES AND DISCHARGE SUMMARY. This document is not part of the patient's record. Thank You, Sergo Monson RN [phone]
--- NOTE | 2017-08-28 08:47 | Clinical Documentation Query ---
Dr. [facility] : CLINICAL DOCUMENTATION QUERY Patient is a 71 year old female admitted for evaluation and treatment of SVT. Serum troponin elevated to 0.083 ng/ml. She has been treated with IV Adenosine, IV Lopressor, ASA, cardiology consultation, admission to telemetry, IVF, O2, serial cardiac enzymes. independent marketing consultant documentation included "Elevated troponin: Slightly elevated troponin likely secondary to SVT and underlying CAD. Trend troponins". As appropriate, consider documentation as suggested below. Thank you. In your clinical opinion is this patient being managed for: ( ) Myocardial demand ischemia ( ) Not Agree ( ) Other explanation of clinical findings (Please Explain) ( ) Unable to determine (Please Define) ( ) Need to Discuss The medical record reflects the following clinical findings, treatment, and risk factors. Clinical Indicators: Troponin elevation in the setting of multivessel CAD and SVT Treatment: PCU, cardiology consultation, serial cardiac enzymes. Risk Factors: SVT, Age, hypertension, aortic stenosis, multivessel CAD, anemia, COPD Please clarify and document your clinical opinion in the progress notes and discharge summary. Terms such as "probable", "suspected", "likely", "questionable", "possible", or "still to be ruled out" are acceptable. IF IN AGREEMENT, YOU MUST DOCUMENT ABOVE DIAGNOSTIC STATEMENT IN DAILY PROGRESS NOTES AND DISCHARGE SUMMARY. This document is not part of the patient's record. Thank You, Sergo Monson, DALE [phone]
[2017-08-28] MEDS ORDERED: FUROSEMIDE 40 MG TAB PO SCH ×2 (09:00)
[2017-08-28] MEDS ORDERED: FERROUS SULFATE 325 MG TAB PO SCH (09:00)
--- NOTE | 2017-08-28 09:54 | Cardiology Consultation ---
Cardiology Consultation Date of Consultation: Aug 28, 2017. Requesting Physician: Gege Reason for Consultation: SVT Pt evaluation today including: conversation w/ patient, physical exam, chart review, lab review, review of studies, conversation w/ fitness consultant History of Present Illness The patient is a 71-year-old woman with an extensive medical history to include several severe comorbidities who presented to her online project manager yesterday for routine evaluation. In general the patient has been feeling poorly. She states that she has little energy and is able to perform little activity due to fatigue, dyspnea and neuropathy in her legs. She was noted to be hypotensive on occasion and during yesterday's evaluation in the clinic she was also noted to be tachycardic. An EKG suggested an SVT and she was referred to [facility] Emergency room where she underwent conversion with administration of adenosine. Patient was admitted for observation and did have another brief episode of SVT over the course of the evening. This appeared to respond to a small dose of intravenous metoprolol. At the time of the interview this morning the patient claims to be feeling tired. She denies overt dyspnea and states that she feels the best when she is lying in bed. She did not report any sense of palpitations or tachycardia over the preceding days. She states that she did not feel markedly worse leading up to her admission to [facility]. She does have an element of mild dizziness on occasion. She has chronic dyspnea which is worse with activity. She has not report significant orthopnea however. She did have a sense of pressure or fullness in the left upper chest area recently. She would not describe this as pain. This appeared to be relatively new sensation. In general the patient is very sedentary. She has a caregiver help her with meals and routine housework 5 hours per day. She is able to ambulate in her residence with a cane and often sits on her deck during the day. She generally does not leave her apartment or perform routine activity such as shopping or going for walks. Overall she is limited by fatigue, neuropathy in her legs and dyspnea. She uses oxygen around the clock. Past Medical/Surgical History 1. Aortic stenosis. Her echocardiogram performed in December of this year demonstrated and calculated valve area of 0.8. Mild mitral stenosis and regurgitation Cerebral vascular disease Severe pulmonary hypertension estimated over 60 millimeters of mercury on last echocardiogram COPD currently oxygen dependent Coronary artery disease with multivessel stenting to include LAD, right coronary artery and circumflex Esophageal varices status post banding Nonalcoholic cirrhosis Chronic anemia and thrombocytopenia Hypertension Gastroesophageal reflux disease Hyperlipidemia Hyperthyroidism Osteoporosis Osteoarthritis Diabetes mellitus Carpal tunnel syndrome Remote history of paroxysmal atrial fibrillation Psoriasis Past surgical history: Cholecystectomy Spinal surgery Cataract surgery Esophageal banding Family History Diabetes mellitus FH: cancer FH: heart disease Hypertension Kidney disease Kidney stones Noncontributory Social History Smoking Status: Current Every Day Smoker History of Alcohol Use: No Currently lives independently with a caregiver who provides help 5 hours per day Review of Systems She has not described any recent bleeding. She denies swelling in her lower extremities. All Other Systems: Reviewed and Negative Allergies Coded Allergies: Iodinated Diagnostic Agents (Verified Allergy, Intermediate, RASH TO IVP DYE, 08/27/17) Adhesives (Verified Allergy, Unknown, RASH, 08/27/17) Latex1 -Allergic Contact Dermititis (Verified Allergy, Unknown, RASH, 08/27) Medications Current Inpatient Medications Medications (Trade) Dose Ordered Sig/Diego Route Start Time Stop Time Status Last Admin Dose Admin Al Hydrox/Mg Hydrox/Simethicone (Maalox Max Susp) 15 ml BID PO 08/27/17 21:00 09/26/17 20:59 08/28/17 07:55 15 ML Aspirin (Ecotrin Tab) 81 mg Q2D PO 08/28/17 09:00 09/27/17 08:59 08/28/17 07:56 81 MG Atorvastatin Calcium (Lipitor Tab) 10 mg HS PO 08/27/17 21:00 09/26/17 20:59 08/27/17 21:11 10 MG Escitalopram Oxalate (Lexapro Tab) 20 mg QAM PO 08/28/17 09:00 09/27/17 08:59 08/28/17 07:55 20 MG Gabapentin (Neurontin Tab) 600 mg TID PO 08/27/17 21:00 09/26/17 20:59 08/28/17 07:56 600 MG Insulin Detemir (Levemir Flexpen/ FlexTouch) 40 units HS SQ 08/27/17 21:00 09/26/17 20:59 08/27/17 21:19 40 UNITS Albuterol/ Ipratropium (Duoneb) 1 ml Q6H PRN INH 08/27/17 18:15 09/26/17 18:14 Magnesium Oxide (Mag-Ox Tab) 400 mg BID PO 08/27/17 21:00 09/26/17 20:59 08/28/17 07:56 400 MG Methimazole (Methimazole Tab) 5 mg QAM PO 08/28/17 09:00 09/27/17 08:59 08/28/17 07:55 5 MG Rifaximin (Xifaxan Tab) 550 mg BID PO 08/27/17 21:00 09/26/17 20:59 08/28/17 07:55 550 MG Trazodone HCl (Desyrel Tab) 100 mg HS PO 08/27/17 21:00 09/26/17 20:59 08/27/17 21:11 100 MG Clobetasol Propionate (Clobetasol Propionate Oint) 1 appln BID EXT 08/27/17 21:00 09/26/17 20:59 08/27/17 21:10 1 APPLN Ferrous Sulfate (Feosol Tab) 325 mg QAM PO 08/28/17 09:00 09/27/17 08:59 08/28/17 07:55 325 MG Pantoprazole Sodium (Protonix Tab) 40 mg QAM PO 08/28/17 09:00 09/27/17 08:59 08/28/17 07:55 40 MG Oxycodone HCl (Roxicodone Immediate Rel Tab) 10 mg BID PRN PO 08/27/17 18:15 09/26/17 18:14 Miscellaneous Information (Order Awaiting Action) 1 ea QS N/A 08/28/17 00:00 09/27/17 00:00 Acetaminophen (Tylenol Tab) 650 mg Q4H PRN PO 08/27/17 18:15 09/26/17 18:14 Al Hydrox/Mg Hydrox/Simethicone (Maalox Max Susp) 15 ml Q4H PRN PO 08/27/17 18:15 09/26/17 18:14 Magnesium Hydroxide (Milk Of Magnesia Susp) 30 ml Q12H PRN PO 08/27/17 18:15 09/26/17 18:14 Ondansetron HCl (Zofran Inj) 4 mg Q6H PRN IV 08/27/17 18:15 09/26/17 18:14 Morphine Sulfate (MoRPHine SULFATE INJ) 2 mg Q30M PRN IV 08/27/17 18:15 09/10/17 18:14 Polyethylene (Miralax Powder Packet) 17 gm DAILY PRN PO 08/27/17 18:15 09/26/17 18:14 Furosemide (Lasix Tab) 20 mg MoWeFr PO 08/28/17 00:00 09/27/17 00:00 Future hold Insulin Aspart (novoLOG ASPART) SLIDING SCALE G... ACHS SC 08/27/17 21:00 09/26/17 20:59 Sodium Chloride 1,000 ml @ 75 mls/hr [id number] IV 08/27/17 21:45 09/26/17 21:44 08/27/17 21:49 75 MLS/HR Physical Exam Vital Signs Past 12 Hours Date Time Temp Pulse Resp B/P (MAP) Pulse Ox O2 Delivery O2 Flow Rate FiO2 08/28/17 08:01 36.6 81 20 91/55 (67) 97 2.0 08/28/17 08:00 Nasal Cannula 2.0 08/28/17 04:00 Nasal Cannula 2.0 08/28/17 03:25 37.3 80 22 106/63 (77) 98 Nasal Cannula 2.0 08/28/17 00:00 Nasal Cannula 2.0 08/27/17 23:19 36.9 81 22 100/63 (75) 98 Nasal Cannula 2.0 08/27/17 21:51 143 84/60 She is alert and oriented x3. Mood affect appear normal. She answered all questions appropriately. HEENT: Sclerae are anicteric. Pupils are equal and reactive to light and accommodation. Extraocular movements were intact. Neuro: Cranial nerves intact Neck: Examination of the submandibular region did not reveal any significant lymphadenopathy. Carotids are palpable bilaterally and free of bruits on auscultation. There was no evidence of jugular venous distention. The thyroid was not enlarged. Lungs: Distant breath sounds with poor excursion. She had normal respiratory of without use of accessory muscles. There were crackles in the left base and wheezing on expiration Cardiac: The rhythm was regular. S1 and S2 were normal. Mid-peaking crescendo systolic murmur. The PMI was not markedly displaced on palpation. Abdomen: The abdomen was soft and nontender. Extremities: Patient has bilateral radial pulses that are equal in intensity. There is no evidence cyanosis or clubbing. There was no evidence of significant peripheral edema bilaterally. Skin: There are no rashes noted on examination today. Data Laboratory Results: Last 24 Hours Test 08/27/17 15:10 08/27/17 15:18 08/27/17 20:26 08/27/17 22:56 White Blood Count 6.79 K/uL Red Blood Count 4.12 M/uL Hemoglobin 12.5 g/dL Hematocrit 37.9 % Mean Corpuscular Volume 92.0 fL Mean Corpuscular Hemoglobin 30.3 pg Mean Corpuscular Hemoglobin Concent 33.0 g/dl Platelet Count 90 K/uL Mean Platelet Volume 11.1 fL Neutrophils (%) (Auto) 67.0 % Lymphocytes (%) (Auto) 24.4 % Monocytes (%) (Auto) 7.2 % Eosinophils (%) (Auto) 0.9 % Basophils (%) (Auto) 0.4 % Neutrophils # (Auto) 4.54 K/uL Lymphocytes # (Auto) 1.66 K/uL Monocytes # (Auto) 0.49 K/uL Eosinophils # (Auto) 0.06 K/uL Basophils # (Auto) 0.03 K/uL RDW Standard Deviation 52.9 fL RDW Coefficient of Variation 15.7 % Immature Granulocyte % (Auto) 0.1 % Immature Granulocyte # (Auto) 0.01 K/uL Prothrombin Time 13.2 SECONDS Prothromb Time International Ratio 1.2 Activated Partial Thromboplast Time 30.4 SECONDS Partial Thromboplastin Ratio 1.2 Sodium Level 137 mmol/L Potassium Level 4.5 mmol/L Chloride Level 101 mmol/L Carbon Dioxide Level 29 mmol/L Anion Gap 7.0 mmol/L Blood Urea Nitrogen 12 mg/dl Creatinine 1.10 mg/dl Est Creatinine Clear Calc Drug Dose 40.5 ml/min Estimated GFR () 58.9 Estimated GFR (Non- 50.8 BUN/Creatinine Ratio 10.5 Random Glucose 128 mg/dl Calcium Level 8.8 mg/dl Phosphorus Level 3.7 mg/dl Magnesium Level 1.6 mg/dl Total Bilirubin 1.4 mg/dl Direct Bilirubin 0.5 mg/dl Aspartate Amino Transf (AST/SGOT) 54 U/L Alanine Aminotransferase (ALT/SGPT) 34 U/L Alkaline Phosphatase 127 U/L Pro-B-Type Natriuretic Peptide 1632 pg/ml Total Protein 6.9 gm/dl Albumin 3.6 gm/dl Lipase 104 U/L Thyroid Stimulating Hormone (TSH) 0.415 uIu/ml Bedside Troponin I 0.060 ng/ml Bedside Glucose 94 mg/dl Troponin I 0.083 ng/ml Test 08/28/17 00:08 08/28/17 04:42 08/28/17 06:54 08/28/17 07:11 Urine Color YELLOW Urine Appearance CLEAR Urine pH 5.5 Urine Specific [place] 1.013 Urine Protein NEG Urine Glucose (UA) NEG Urine Ketones NEG Urine Occult Blood NEG Urine Nitrite NEG Urine Bilirubin NEG Urine Urobilinogen NEG Urine Leukocyte Esterase SMALL Urine WBC (Auto) 1-5 /hpf Urine RBC (Auto) 0-4 /hpf Urine Hyaline Casts (Auto) 0 /lpf Urine Epithelial Cells (Auto) >30 /lpf Urine Bacteria (Auto) NEG Magnesium Level 1.8 mg/dl Troponin I 0.077 ng/ml Bedside Glucose 75 mg/dl 79 mg/dl EKG: I reviewed the source image of her EKGs obtained emergency room as well as the pollard. This reveals right bundle branch block with an SVT Telemetry reviewed: Generally sinus rhythm with 1 episode of SVT I reviewed her outpatient echocardiogram reports from earlier in 2017: Preserved LV systolic function, severe pulmonary hypertension, severe aortic stenosis, mild mitral stenosis and regurgitation Assessment & Plan 1. SVT: Patient has a history of paroxysmal atrial fibrillation but the SVT for which she was treated appears to have been reentrant in nature. This is supported by the EKG appearance, the regularity as well as its response to adenosine. Given her pulmonary disease she is certainly at risk for atrial flutter. However, I believe this was a reentrant phenomenon. Despite feeling quite poorly she did tolerate the arrhythmia well. She presented simply for routine evaluation and was found to be tachycardic. She had an appointment 1 day prior at which time her heart rate was reportedly normal. We had a discussion regarding options for treatment. Generally speaking catheter based therapy is the preferred method of eliminating SVT. Although this was fairly well tolerated in this appears to be her 1st episode, she did have a recurrence over the course of the evening and her ability to tolerate medical therapy is questionable. Use of beta-blockade or calcium channel blockers may affect worsening of her baseline hypotension. I suspect also that for recurrent episodes of SVT she would have some symptoms and likely repeat hospitalizations. I therefore felt that this should be treated more aggressively. We did discuss the risks of catheter based therapy and I do have some concerns given her severe comorbidities. She is oxygen-dependent, chronically hypotensive, has severe pulmonary hypertension and severe aortic stenosis as well as thrombocytopenia. An alternative would be medical therapy perhaps with amiodarone. His complicated by her significant lung disease. I asked for a consult from Anesthesiology to better gauge her risk of sedation for any procedure. She did recently undergo esophageal banding and cataract surgery without complication. I think we can plan on proceeding with electrophysiologic study and possible ablation tomorrow. The patient does plan to have discussion with her sister and we will wait for anesthesiology evaluation as well before committing entirely to a procedure.
--- NOTE | 2017-08-28 10:06 | CARDIOLOGY PROGRESS NOTE ---
DATE: 08/28/2017 SUBJECTIVE: Mrs. Frederick is resting comfortably in bed without complaints of chest pain or dyspnea. She had recurrence of her SVT at 07:30 last evening. This broke with intravenous metoprolol. The patient met with Dr. Toribio earlier this morning. OBJECTIVE: VITAL SIGNS: Blood pressure is 100/60 with a regular pulse of 80. Respiratory rate is 20 and the patient is afebrile at 36.6 degrees Celsius. Saturation is 96% on 2 liters nasal cannula. NECK: Supple with delayed and prolonged carotid upstrokes. No obvious bruits. Jugular venous pressure is difficult to assess. CARDIOVASCULAR: Reveals a regular rhythm with a 2/6 crescendo-decrescendo systolic murmur heard loudest at the base. LUNGS: Note diffuse rhonchi and expiratory wheezes. ABDOMEN: Soft without bruits. EXTREMITIES: Reveal intact radial artery pulses bilaterally. There is no peripheral edema. LABORATORY DATA: CBC notes hemoglobin of 12.5, hematocrit 37.9, white count 6.8, and platelet count 90,000. Electrolytes note a sodium of 137, potassium 4.5, chloride 101, bicarb 29, BUN 12, creatinine 1.1, and glucose 128. Point of care troponin was mildly elevated at 0.06 with followup values of 0.083 and 0.077. TSH level is normal at 0.415. EKG from the Emergency Room yesterday noted an SVT with a complete right bundle branch block pattern. laundry aid confirms the same. IMPRESSION AND PLAN: 1. Paroxysmal supraventricular tachycardia -- initial episode broke with adenosine yesterday. Recurrent episode last evening broke with intravenous metoprolol. The patient has been seen by Dr. Toribio and she may have an EP study performed tomorrow. Appreciate Dr. Toribio's point. 2. Coronary artery disease -- status post LAD, RCA and LCX stents between May 2004 and June 2007. Cardiac catheterization performed in September 2015 noted patent stents. Quiescent on current medical regimen. 3. Severe aortic stenosis -- valve area was 0.8 square cm in December 2016. 4. Mild mitral stenosis. 5. Severe pulmonary hypertension. 6. Chronic obstructive pulmonary disease. 7. Esophageal ulcers - June 2017. 8. Nonalcoholic cirrhosis. 9. Hypertension. 10. Hypercholesterolemia.
[2017-08-28] MEDS: ALBUT/IPRATROP 3MG/0.5MG NEB 3 ML VIAL INH SCH ×3 (13:59→19:55)
--- NOTE | 2017-08-28 14:20 | ECHOCARDIOGRAM REPORT ---
*NOTICE TO RECEIVING [employer]Y This information is strictly Confidential and protected under [place] law. [place] law prohibits you from making any further disclosure of this information unless further disclosure is expressly permitted by the written consent of the person to whom it pertains or is authorized by law. A general authorization for the release of medical or other information is not sufficient for this purpose. Hospital accepts no responsibility if the information is made available to any other person, INCLUDING THE PATIENT. Interpretation Summary * Name: ARIANE GU Study Date: 08/28/2017 06:36 AM BP: 106/63 mmHg * Patient Location: [facility] HR: 80 * : 1945 (M/d/yyyy) Gender: Female Height: 59 in * Age: 71 yrs Ethnicity: [place] Weight: 154 lb * Ordering Physician: Radu De Guzman * Referring Physician: Self, Referred * Performed By: Kyra Montes RCS * * Reason For Study: SVT * BSA: 1.7 m2 * Normal left ventricular systolic function. * Mild concentric left ventricular hypertrophy. * Class 2 left ventricular diastolic dysfunction. * Mild right ventricular dilatation. * Mild right ventricular systolic dysfunction. * Moderate left atrial dilatation. * Mild left atrial dilatation. * Moderate calcific aortic stenosis. * Trace aortic regurgitation. * Moderate mitral stenosis. * Mild mitral regurgitation. * Moderate to severe tricuspid regurgitation. * Severely elevated estimated right ventricular systolic pressure. Procedure Details * A complete two-dimensional transthoracic echocardiogram was performed (2D, M-mode, Doppler and color flow Doppler). Left Ventricle * The left ventricle is normal in size. * There is mild concentric left ventricular hypertrophy. * Ejection Fraction = 65-70%. * Left ventricular systolic function is normal. * A full diastolic examination was done with clinical findings of Class II diastolic dysfunction. * The left ventricular wall motion is normal. Right Ventricle * The right ventricle is mildly dilated. * The right ventricular systolic function is mildly reduced. * The right ventricular systolic function is reduced as assessed by tricuspid annular plane systolic excursion (TAPSE) (TAPSE <1.6 cm). Atria * The left atrium is moderately dilated. * The right atrium is mildly dilated. * No ASD detected; PFO is not assessed. Mitral Valve * There is severe mitral annular calcification. * Calcified mitral apparatus causing mitral stenosis. * There is moderate mitral stenosis. * Mitral valve orifice area determined by pressure half-time measurement is 2.2 cm\S\2 * There is mild mitral regurgitation. Tricuspid Valve * The tricuspid valve is normal. * There is no tricuspid stenosis. * There is moderate to severe tricuspid regurgitation. * Right ventricular systolic pressure is elevated at >60mmHg. Aortic Valve * The aortic valve is trileaflet. * The valve is calcified and has decreased opening. * Moderate valvular aortic stenosis. * Aortic valve area was calculated at 1.1 cm\S\2 using the continuity equation. * Dimensionless aortic valve index 0.36. * Trace aortic regurgitation. Pulmonic Valve * The pulmonic valve is not well visualized. * The pulmonary valve is inadequately visualized, but the Doppler data is adequate for interpretation. * There is no pulmonic valvular stenosis. * Trace pulmonic valvular regurgitation. Great Vessels * The aortic root is normal size. Pericardium/Pleural * There is no pericardial effusion. Great Vessels * Normal inferior vena cava diameter and respiratory variation suggests normal central venous pressure. MMode 2D Measurements and Calculations IVSd 1.4 cm IVSs 1.2 cm LVIDd 4.2 cm LVIDs 2.4 cm LVPWd 1.4 cm LVPWs 1.2 cm IVS/LVPW 1.0 FS 41.7 % EDV(Teich) 77.7 ml ESV(Teich) 21.0 ml EF(Teich) 73.0 % EDV(cubed) 73.0 ml ESV(cubed) 14.5 ml EF(cubed) 80.2 % % IVS thick -16.59 % % LVPW thick -15.84 % LV mass(C)d 222.6 grams LV mass(C)dI 134.9 grams/m\S\2 LV mass(C)s 79.6 grams LV mass(C)sI 48.2 grams/m\S\2 SV(Teich) 56.7 ml SI(Teich) 34.4 ml/m\S\2 SV(cubed) 58.6 ml SI(cubed) 35.5 ml/m\S\2 Ao root diam 3.3 cm Ao root area 8.6 cm\S\2 LA dimension 4.7 cm asc Aorta Diam 2.3 cm LA/Ao 1.4 LVOT diam 2.0 cm LVOT area 3.0 cm\S\2 LVAd ap4 20.7 cm\S\2 LVLd ap4 6.3 cm EDV(MOD-sp4) 56.2 ml EDV(sp4-el) 58.2 ml LVAs ap4 11.1 cm\S\2 LVLs ap4 5.5 cm ESV(MOD-sp4) 19.9 ml ESV(sp4-el) 19.1 ml EF(MOD-sp4) 64.6 % EF(sp4-el) 67.2 % SV(MOD-sp4) 36.3 ml SI(MOD-sp4) 22.0 ml/m\S\2 SV(sp4-el) 39.1 ml SI(sp4-el) 23.7 ml/m\S\2 Doppler Measurements and Calculations MV E max radha 198.8 cm/sec MV A max radha 132.8 cm/sec MV E/A 1.5 MV P1/2t max radha 231.1 cm/sec MV P1/2t 98.9 msec MVA(P1/2t) 2.2 cm\S\2 MV dec slope 684.3 cm/sec\S\2 MV dec time 0.39 sec Ao V2 max 349.1 cm/sec Ao max PG 48.8 mmHg Ao max PG (full) 42.1 mmHg Ao V2 mean 253.0 cm/sec Ao mean PG 28.4 mmHg Ao mean PG (full) 24.6 mmHg Ao V2 VTI 82.4 cm MAICO(I,A) 1.1 cm\S\2 MAICO(I,D) 1.1 cm\S\2 MAICO(V,A) 1.1 cm\S\2 MAICO(V,D) 1.1 cm\S\2 AI max radha 288.7 cm/sec AI max PG 33.3 mmHg AI dec slope 228.6 cm/sec\S\2 AI P1/2t 369.9 msec LV V1 max PG 6.6 mmHg LV V1 mean PG 3.8 mmHg LV V1 max 128.5 cm/sec LV V1 mean 93.7 cm/sec LV V1 VTI 30.3 cm SV(Ao) 705.1 ml SI(Ao) 427.3 ml/m\S\2 SV(LVOT) 90.7 ml SI(LVOT) 55.0 ml/m\S\2 TR max radha 413.2 cm/sec
--- NOTE | 2017-08-28 14:24 | DIAGNOSTIC IMAGING REPORT ---
CHEST 2 VIEWS ROUTINE CLINICAL HISTORY: 71 years-old Female presenting with extensive b/l wheezing; question of pulm edema?. TECHNIQUE: Portable upright AP view of the chest was obtained. COMPARISON: 08/27/2017. FINDINGS: Atherosclerosis of aortic arch. Cardiac silhouette remains enlarged. Prominence of central pulmonary vasculature unchanged. Increased interstitial lung markings. No other focal infiltrate. No large effusion or pneumothorax. Osseous structures normal. Upper abdomen normal. IMPRESSION: 1. Cardiomegaly with persistent point vascular prominence and increased interstitial lung markings. This could suggest volume overload with developing pulmonary edema. Electronically signed by: Boone Boss M.D. 08/28/2017 2:22 PM Dictated Date/Time: 08/28/2017 2:20 PM
--- NOTE | 2017-08-28 14:30 | ECHOCARDIOGRAM REPORT ---
*NOTICE TO RECEIVING DEMOCRAT AGENCY This information is strictly Confidential and protected under [place] law. [place] law prohibits you from making any further disclosure of this information unless further disclosure is expressly permitted by the written consent of the person to whom it pertains or is authorized by law. A general authorization for the release of medical or other information is not sufficient for this purpose. Hospital accepts no responsibility if the information is made available to any other person, INCLUDING THE PATIENT. Interpretation Summary * Name: ARIANE GU Study Date: 08/28/2017 06:36 AM BP: 106/63 mmHg * Patient Location: [facility] HR: 80 * : 1945 (M/d/yyyy) Gender: Female Height: 59 in * Age: 71 yrs Ethnicity: [place] Weight: 154 lb * Ordering Physician: Radu De Guzman * Referring Physician: Self, Referred * Performed By: Kyra Montes RCS * * Reason For Study: SVT * BSA: 1.7 m2 * Normal left ventricular systolic function. * Mild concentric left ventricular hypertrophy. * Class 2 left ventricular diastolic dysfunction. * Mild right ventricular dilatation. * Mild right ventricular systolic dysfunction. * Moderate left atrial dilatation. * Mild left atrial dilatation. * Moderate calcific aortic stenosis. * Trace aortic regurgitation. * Severe calcific mitral stenosis. * Mild mitral regurgitation. * Moderate to severe tricuspid regurgitation. * Severely elevated estimated right ventricular systolic pressure. Procedure Details * A complete two-dimensional transthoracic echocardiogram was performed (2D, M-mode, Doppler and color flow Doppler). Left Ventricle * The left ventricle is normal in size. * There is mild concentric left ventricular hypertrophy. * Ejection Fraction = 65-70%. * Left ventricular systolic function is normal. * A full diastolic examination was done with clinical findings of Class II diastolic dysfunction. * The left ventricular wall motion is normal. Right Ventricle * The right ventricle is mildly dilated. * The right ventricular systolic function is mildly reduced. * The right ventricular systolic function is reduced as assessed by tricuspid annular plane systolic excursion (TAPSE) (TAPSE <1.6 cm). Atria * The left atrium is moderately dilated. * The right atrium is mildly dilated. * No ASD detected; PFO is not assessed. Mitral Valve * There is severe mitral annular calcification. * Calcified mitral apparatus causing mitral stenosis. * Mean gradient across mitral valve 15.8 mm Hg. * There is severe mitral stenosis. * There is mild mitral regurgitation. Tricuspid Valve * The tricuspid valve is normal. * There is no tricuspid stenosis. * There is moderate to severe tricuspid regurgitation. * Right ventricular systolic pressure is elevated at >60mmHg. Aortic Valve * The aortic valve is trileaflet. * The valve is calcified and has decreased opening. * Moderate valvular aortic stenosis. * Aortic valve area was calculated at 1.1 cm\S\2 using the continuity equation. * Dimensionless aortic valve index 0.36. * Trace aortic regurgitation. Pulmonic Valve * The pulmonic valve is not well visualized. * The pulmonary valve is inadequately visualized, but the Doppler data is adequate for interpretation. * There is no pulmonic valvular stenosis. * Trace pulmonic valvular regurgitation. Great Vessels * The aortic root is normal size. Pericardium/Pleural * There is no pericardial effusion. Great Vessels * Normal inferior vena cava diameter and respiratory variation suggests normal central venous pressure. MMode 2D Measurements and Calculations IVSd 1.4 cm IVSs 1.2 cm LVIDd 4.2 cm LVIDs 2.4 cm LVPWd 1.4 cm LVPWs 1.2 cm IVS/LVPW 1.0 FS 41.7 % EDV(Teich) 77.7 ml ESV(Teich) 21.0 ml EF(Teich) 73.0 % EDV(cubed) 73.0 ml ESV(cubed) 14.5 ml EF(cubed) 80.2 % % IVS thick -16.59 % % LVPW thick -15.84 % LV mass(C)d 222.6 grams LV mass(C)dI 134.9 grams/m\S\2 LV mass(C)s 79.6 grams LV mass(C)sI 48.2 grams/m\S\2 SV(Teich) 56.7 ml SI(Teich) 34.4 ml/m\S\2 SV(cubed) 58.6 ml SI(cubed) 35.5 ml/m\S\2 Ao root diam 3.3 cm Ao root area 8.6 cm\S\2 LA dimension 4.7 cm asc Aorta Diam 2.3 cm LA/Ao 1.4 LVOT diam 2.0 cm LVOT area 3.0 cm\S\2 LVAd ap4 20.7 cm\S\2 LVLd ap4 6.3 cm EDV(MOD-sp4) 56.2 ml EDV(sp4-el) 58.2 ml LVAs ap4 11.1 cm\S\2 LVLs ap4 5.5 cm ESV(MOD-sp4) 19.9 ml ESV(sp4-el) 19.1 ml EF(MOD-sp4) 64.6 % EF(sp4-el) 67.2 % SV(MOD-sp4) 36.3 ml SI(MOD-sp4) 22.0 ml/m\S\2 SV(sp4-el) 39.1 ml SI(sp4-el) 23.7 ml/m\S\2 Doppler Measurements and Calculations MV E max radha 198.8 cm/sec MV A max radha 132.8 cm/sec MV E/A 1.5 MV P1/2t max radha 231.1 cm/sec Ao V2 max 349.1 cm/sec Ao max PG 48.8 mmHg Ao max PG (full) 42.1 mmHg Ao V2 mean 253.0 cm/sec Ao mean PG 28.4 mmHg Ao mean PG (full) 24.6 mmHg Ao V2 VTI 82.4 cm MAICO(I,A) 1.1 cm\S\2 MAICO(I,D) 1.1 cm\S\2 MAICO(V,A) 1.1 cm\S\2 MAICO(V,D) 1.1 cm\S\2 AI max radha 288.7 cm/sec AI max PG 33.3 mmHg AI dec slope 228.6 cm/sec\S\2 AI P1/2t 369.9 msec LV V1 max PG 6.6 mmHg LV V1 mean PG 3.8 mmHg LV V1 max 128.5 cm/sec LV V1 mean 93.7 cm/sec LV V1 VTI 30.3 cm SV(Ao) 705.1 ml SI(Ao) 427.3 ml/m\S\2 SV(LVOT) 90.7 ml SI(LVOT) 55.0 ml/m\S\2 TR max radha 413.2 cm/sec
[2017-08-28] MEDS ORDERED: FUROSEMIDE INJ 20 MG in SYRINGE 0 ML IV ONE (15:00)
--- NOTE | 2017-08-28 17:24 | Anesthesiology Progress Note ---
Anesthesia Progress Note Date of Service Aug 28, 2017. Progress Notes Ms. Frederick has a complex medical history significant for O2 dependent COPD, SOB , severe valvular disease, HTN, HLD, CAD, SVT, nonalcoholic liver cirrhosis ( recent esophageal banding 06/2017), GERD, NIDDM, anemia, anxiety, thryoid dysfunction with 40PPD smoking. Echo showed normal LV function with diastolic dysfunction, severe MS, Moderate and pulmonary HTN. Airway exam showed MP 2, patient edentulous with LISA and b/l wheezes and rhonchi. Spoke with attending hospitalist and he stated patient had worsening SOB this AM and was given lasix as there was concern for mild CHF exacerbation. Her SOB has improved throughout the day and she is being given nebulizer treatments. Dr. Toribio is to be made aware. Patient consented for MAC and will need to be reassessed in the AM to ensure that she is fully optimized from a heart/lung perspective prior to undergoing this procedure.
--- NOTE | 2017-08-28 18:17 | Progress Note ---
Subjective Date of Service: Aug 28, 2017. Subjective Pt evaluation today including: conversation w/ patient, conversation w/ family (sister at bedside), physical exam, chart review, lab review, review of studies (echo), conversation w/ budget consultant (cardiology, anesthesia), review of inpatient medication list Pain: denies PO Intake: fair Voiding: no voiding problems tele overnight - another run of SVT - broke with IV metoprolol patient reports that as the day went on today her breathing got worse and more labored Problem List Medical Problems: (1) Anemia Status: Acute (2) Chest pain Status: Acute (3) COPD (chronic obstructive pulmonary disease) Status: Acute (4) COPD exacerbation Status: Acute (5) COPD exacerbation Status: Acute (6) Fall Status: Acute (7) Foot contusion Status: Acute (8) Head injury Status: Acute (9) Hyperglycemia Status: Acute (10) Hypotension Status: Acute (11) Hypotension Status: Acute (12) Lumbar compression fracture Status: Acute (13) Nausea Status: Acute (14) Positive D dimer Status: Acute (15) Psoriasis Status: Acute (16) Pulmonary fibrosis Status: Acute (17) Respiratory distress Status: Acute (18) SOB (shortness of breath) Status: Acute (19) SOB (shortness of breath) Status: Acute (20) Supraventricular aortic stenosis Status: Acute (21) Supraventricular arrhythmia Status: Acute (22) Upper GI bleeding Status: Acute (23) UTI (urinary tract infection) Status: Acute (24) Weakness Status: Acute Review of Systems Constitutional: No fever Respiratory: + wheezing, + shortness of breath, + dyspnea on exertion, No cough Cardiac: No chest pain Abdomen: No pain Objective Vital Signs Date Time Temp Pulse Resp B/P (MAP) Pulse Ox O2 Delivery O2 Flow Rate FiO2 08/28/17 16:29 74 14 96 Nasal Cannula 2.0 08/28/17 15:23 36.7 87 20 90/59 (69) 100 Nasal Cannula 2.0 08/28/17 12:00 Nasal Cannula 2.0 08/28/17 11:08 36.9 82 20 114/71 (85) 99 2.0 08/28/17 08:01 36.6 81 20 91/55 (67) 97 2.0 08/28/17 08:00 Nasal Cannula 2.0 08/28/17 04:00 Nasal Cannula 2.0 08/28/17 03:25 37.3 80 22 106/63 (77) 98 Nasal Cannula 2.0 08/28/17 00:00 Nasal Cannula 2.0 08/27/17 23:19 36.9 81 22 100/63 (75) 98 Nasal Cannula 2.0 08/27/17 21:51 143 84/60 08/27/17 20:00 98 Nasal Cannula 2.0 08/27/17 19:50 36.8 83 20 98/52 98 Nasal Cannula 2.0 08/27/17 19:12 36.7 87 20 109/67 98 Physical Exam General Appearance: + mild distress (tachypneic, mild accessory muscle use ) ENT: pharynx normal Neck: no JVD Respiratory/Chest: + respiratory distress, + accessory muscle use, + rales ( bases), + wheezing (extensive) Cardiovascular: regular rate, rhythm, no gallop, + systolic murmur (2/6 holosystolic murmur RUSB) Abdomen: normal bowel sounds, non tender, soft, no organomegaly Extremities: no pedal edema Neurologic/Psychiatric: alert, oriented x 3 Laboratory Results Last 24 Hours Test 08/27/17 20:26 08/27/17 22:56 08/28/17 00:08 08/28/17 04:42 Bedside Glucose 94 mg/dl Troponin I 0.083 ng/ml 0.077 ng/ml Urine Color YELLOW Urine Appearance CLEAR Urine pH 5.5 Urine Specific [place] 1.013 Urine Protein NEG Urine Glucose (UA) NEG Urine Ketones NEG Urine Occult Blood NEG Urine Nitrite NEG Urine Bilirubin NEG Urine Urobilinogen NEG Urine Leukocyte Esterase SMALL Urine WBC (Auto) 1-5 /hpf Urine RBC (Auto) 0-4 /hpf Urine Hyaline Casts (Auto) 0 /lpf Urine Epithelial Cells (Auto) >30 /lpf Urine Bacteria (Auto) NEG Magnesium Level 1.8 mg/dl Test 08/28/17 06:54 08/28/17 07:11 08/28/17 11:30 08/28/17 16:29 Bedside Glucose 75 mg/dl 79 mg/dl 75 mg/dl 259 mg/dl Assessment and Plan 71yo female - 1. recurrent SVT, now back in NSR. Evaluated by Dr. Toribio. After discussing med management vs EP study w/ ablation - latter is favored. NPO after MN for possible EP study in AM. 2. acute/chronic diastolic CHF in setting of cor pulmonale/right-sided CHF - cxr this afternoon with worsening edema. stopped IVF. lasix 20mg IV x 1. I rechecked the patient after receiving nebs and lasix - improved lung exam. 3. severe pulmonary HTN - noted. 4. moderate /severe MS/severe TR - noted. 5. CAD - no apparent ischemic symptoms at this time. Minimal troponin elevation likely demand ischemia in setting of SVT. 6. COPD - with possible exacerbation - I am unsure if wheezing is "cardiac" in nature (ie pulmonary edema) or from COPD. Start duonebs q6h. Lasix diuresis. 7. Esophageal ulcers - June 2017 - PPI. 8. Nonalcoholic cirrhosis - appears compensated. Cont rifaximin for prevention of hepatic encephalopathy. 9. Hypertension - controlled with low-normal BPs likely due to cirrhosis. 10. hypomagnesemia - replaced, resolved. Add mag oxide 400mg BID due to diuresis. 11. hyperthyroidism - on methimazole and TSH is normal. Cont such. sister updated plan d/w Dr. Toribio Continued [facility] stay due to: multiple IV medications needed Discharge planning: uncertain
[2017-08-28] MEDS: ATORVASTATIN 10 MG TAB PO SCH (21:56)
[2017-08-28] MEDS: TRAZODONE HCL 100 MG TAB PO SCH (21:56)
[2017-08-28] MEDS: INSULIN DETEMIR FLEXPEN/FLEX TOUCH 100 UNITS/ML 3ML SQ SCH (22:02)
[2017-08-28] MEDS: OXYCODONE HCL IR 5 MG TAB (IMMEDIATE RELEASE) PO PRN (22:04)
[2017-08-29] VITALS (12 sets, daily range): BP systolic 88–100; BP diastolic 52–60; PULSE 75–93; TEMP 36.7–36.9; O2SAT 95–99; Ht 149.9 cm; Wt 69.5 kg
[2017-08-29] MEDS: ALBUT/IPRATROP 3MG/0.5MG NEB 3 ML VIAL INH SCH ×4 (02:14→19:33)
[2017-08-29 06:42] LABS: HEMATOCRIT 32.6 % (37-47); MEAN CELL VOLUME 92.6 fL (80-100); MEAN CORPUSCULAR HEMOGLOBIN 29.3 pg (25-34); MEAN CORPUSCULAR HGB CONC 31.6 g/dl (32-36); RED BLOOD COUNT 3.52 M/uL (4.2-5.4); WHITE BLOOD COUNT 4.14 K/uL (4.8-10.8)
[2017-08-29 06:51] LABS: MEAN PLATELET VOLUME 11.1 fL (7.4-10.4); PLATELET COUNT 62 K/uL (130-400)
[2017-08-29] MEDS: INSULIN ASPART 100 UNITS/ML 3 ML PEN SC SCH ×4 (07:00→20:36)
[2017-08-29 07:27] LABS: BUN/CREATININE RATIO 13.3 (10-20); CALCIUM 8.6 mg/dl (8.5-10.1); CREATININE 0.75 mg/dl (0.60-1.20); MAGNESIUM 1.7 mg/dl (1.8-2.4); POTASSIUM 3.8 mmol/L (3.5-5.1)
[2017-08-29] MEDS ORDERED: DEXTROSE 5% 1000ML 1,000 ML IV SCH (07:45)
[2017-08-29] MEDS: ALUMINUM/MAGNESIUM/SIMETH (MAALOX MAX) 30 ML UDC PO SCH ×2 (08:38→20:50)
[2017-08-29] MEDS: CLOBETASOL PROPIONATE 0.05% OINT 15 GM TUBE EXT SCH ×2 (08:38→20:51)
[2017-08-29] MEDS: MAGNESIUM OXIDE 400 MG TAB PO SCH ×3 (08:39→20:49)
[2017-08-29] MEDS: MAGNESIUM SULFATE 1GM / D5W 1 GM in PREMIXED IN D5W 100 ML IV SCH ×2 (08:41→10:49)
[2017-08-29] MEDS: GABAPENTIN 600 MG TAB PO SCH ×4 (09:00→20:50)
--- NOTE | 2017-08-29 09:52 | CARDIOLOGY PROGRESS NOTE ---
DATE: 08/29/2017 SUBJECTIVE: Mrs. Frederick is resting comfortably in bed without complaints of chest pain, dyspnea or palpitations. The patient will have an EP study performed later today. OBJECTIVE: VITAL SIGNS: Blood pressure is 90/60 with a regular pulse of 80. Respiratory rate is 20 and the patient is afebrile at 36.7 degrees Celsius. Saturations 97% on room air. NECK: Supple with delayed and prolonged carotid upstrokes. A transmitted murmur is noted bilaterally. CARDIOVASCULAR: Reveals a regular rhythm with a 2/6 crescendo decrescendo systolic murmur heard loudest at the base. No diastolic murmurs. No S3. LUNGS: Diffuse rhonchi and expiratory wheezes. ABDOMEN: Soft without bruits. EXTREMITIES: Reveal intact radial artery pulses bilaterally. There is no peripheral edema. DATA: CBC notes hemoglobin of 10.3, hematocrit 32.6, white count 4.1, platelet count 62,000. Electrolytes note sodium of 141, potassium 3.8, chloride 104, bicarbonate 34, BUN 10, creatinine 0.75, glucose 87. monitoring analyst is benign. IMPRESSION AND PLAN: 1. Paroxysmal supraventricular tachycardia -- appreciate Dr. Toribio's evaluation. Will undergo an EP study and possible ablation later today. 2. Coronary artery disease -- status post left anterior descending artery, right coronary artery and left circumflex artery stents between 05/2004 and 06/2007. Cardiac catheterization performed in 09/2015 noted patent stents. Continue medical management. 3. Severe aortic stenosis -- valve area was 0.8 cm2 in 12/2016. 4. Mild mitral stenosis. 5. Severe pulmonary hypertension. 6. Chronic obstructive pulmonary disease. 7. Esophageal ulcers -- 06/2017. 8. Nonalcoholic cirrhosis. 9. Hypertension 10. Hypercholesterolemia.
--- NOTE | 2017-08-29 11:25 | Progress Note ---
Subjective Date of Service: Aug 29, 2017. Subjective Pt evaluation today including: conversation w/ patient, physical exam, chart review, lab review, review of inpatient medication list Pain: denies chest pain PO Intake: npo for EP study Voiding: no voiding problems tele overnight w/o runs of SVT breathing better today no orthopnea still with wheezing but slightly better no chest pain Problem List Medical Problems: (1) Anemia Status: Acute (2) Chest pain Status: Acute (3) COPD (chronic obstructive pulmonary disease) Status: Acute (4) COPD exacerbation Status: Acute (5) COPD exacerbation Status: Acute (6) Fall Status: Acute (7) Foot contusion Status: Acute (8) Head injury Status: Acute (9) Hyperglycemia Status: Acute (10) Hypotension Status: Acute (11) Hypotension Status: Acute (12) Lumbar compression fracture Status: Acute (13) Nausea Status: Acute (14) Positive D dimer Status: Acute (15) Psoriasis Status: Acute (16) Pulmonary fibrosis Status: Acute (17) Respiratory distress Status: Acute (18) SOB (shortness of breath) Status: Acute (19) SOB (shortness of breath) Status: Acute (20) Supraventricular aortic stenosis Status: Acute (21) Supraventricular arrhythmia Status: Acute (22) Upper GI bleeding Status: Acute (23) UTI (urinary tract infection) Status: Acute (24) Weakness Status: Acute Review of Systems Constitutional: No fever Respiratory: + dyspnea on exertion Cardiac: No orthopnea, No PND, No edema Abdomen: No pain Objective Vital Signs Date Time Temp Pulse Resp B/P (MAP) Pulse Ox O2 Delivery O2 Flow Rate FiO2 08/29/17 10:50 36.7 80 20 88/53 (65) 98 08/29/17 08:00 Nasal Cannula 2.0 08/29/17 07:50 36.7 80 20 92/57 (69) 97 Nasal Cannula 08/29/17 07:16 75 16 97 Nasal Cannula 2.0 08/29/17 05:17 Nasal Cannula 2.0 08/29/17 04:00 Nasal Cannula 2.0 08/29/17 03:54 36.7 85 18 89/54 (66) 96 Nasal Cannula 2.0 08/29/17 02:14 85 14 98 Nasal Cannula 2.0 08/29/17 00:00 Nasal Cannula 2.0 08/28/17 23:21 37.0 91 18 93/61 (72) 98 Nasal Cannula 2.0 08/28/17 21:15 78/52 (61) 08/28/17 20:00 97 Nasal Cannula 2.0 08/28/17 19:55 85 14 99 Nasal Cannula 2.0 08/28/17 18:43 36.7 84 20 69/45 (53) 99 Nasal Cannula 2.0 08/28/17 16:29 74 14 96 Nasal Cannula 2.0 08/28/17 16:00 98 Nasal Cannula 2.0 08/28/17 15:23 36.7 87 20 90/59 (69) 100 Nasal Cannula 2.0 08/28/17 12:00 Nasal Cannula 2.0 Physical Exam General Appearance: no apparent distress, + pertinent finding (lying flat in bed comfortably) ENT: pharynx normal Neck: no JVD Respiratory/Chest: no respiratory distress, no accessory muscle use, + wheezing (extensive b/l), + pertinent finding (no rales today) Cardiovascular: regular rate, rhythm, no gallop, + systolic murmur (2/6 RUSB, holosystolic) Abdomen: normal bowel sounds, non tender, soft, no organomegaly Extremities: no pedal edema Neurologic/Psychiatric: alert, oriented x 3 Laboratory Results Last 24 Hours Test 08/28/17 11:30 08/28/17 16:29 08/28/17 20:37 08/29/17 06:23 Bedside Glucose 75 mg/dl 259 mg/dl 228 mg/dl White Blood Count 4.14 K/uL Red Blood Count 3.52 M/uL Hemoglobin 10.3 g/dL Hematocrit 32.6 % Mean Corpuscular Volume 92.6 fL Mean Corpuscular Hemoglobin 29.3 pg Mean Corpuscular Hemoglobin Concent 31.6 g/dl RDW Standard Deviation 52.7 fL RDW Coefficient of Variation 15.4 % Platelet Count 62 K/uL Mean Platelet Volume 11.1 fL Sodium Level 141 mmol/L Potassium Level 3.8 mmol/L Chloride Level 104 mmol/L Carbon Dioxide Level 34 mmol/L Anion Gap 3.0 mmol/L Blood Urea Nitrogen 10 mg/dl Creatinine 0.75 mg/dl Est Creatinine Clear Calc Drug Dose 60.2 ml/min Estimated GFR () 93.6 Estimated GFR (Non- 80.8 BUN/Creatinine Ratio 13.3 Random Glucose 45 mg/dl Calcium Level 8.6 mg/dl Magnesium Level 1.7 mg/dl Test 08/29/17 06:30 08/29/17 06:45 Bedside Glucose 55 mg/dl 87 mg/dl Assessment and Plan 71yo female - 1. recurrent SVT, now back in NSR. Evaluated by Dr. Toribio. After discussing med management vs EP study w/ ablation - latter is favored. NPO for EP study today. 2. acute/chronic diastolic CHF in setting of cor pulmonale/right-sided CHF - Improved. 3. severe pulmonary HTN - noted. 4. moderate /severe MS/severe TR - noted. 5. CAD - no ischemic symptoms at this time. Minimal troponin elevation likely demand ischemia in setting of SVT. 6. COPD - seems to be at baseline based on her symptoms. Continue scheduled nebs. 7. Esophageal ulcers - June 2017 - PPI. 8. Nonalcoholic cirrhosis - appears compensated. Cont rifaximin for prevention of hepatic encephalopathy. 9. Hypertension - controlled with low-normal BPs likely due to cirrhosis. 10. hypomagnesemia - replace with 2 grams mag sulfate this am. 11. hyperthyroidism - on methimazole and TSH is normal. Cont such. 12. thrombocytopenia - due to #8 - low but acceptable. No Rx. Follow. Continued [facility] stay due to: multiple IV medications needed Discharge planning: uncertain
[2017-08-29] MEDS: METHIMAZOLE 5 MG TAB PO SCH (13:19)
[2017-08-29] MEDS: ESCITALOPRAM OXALATE 20 MG TAB PO SCH (13:19)
[2017-08-29] MEDS: PANTOprazole SOD 40 MG TAB PO SCH (13:19)
[2017-08-29] MEDS: RIFAXIMIN TAB 550 MG TAB PO SCH ×2 (13:20→20:49)
[2017-08-29] MEDS: OXYCODONE HCL IR 5 MG TAB (IMMEDIATE RELEASE) PO PRN (13:26)
[2017-08-29] MEDS ORDERED: NURSING VERBAL MED ORDER ONE ×2 (14:30→14:45)
[2017-08-29] MEDS: FERROUS SULFATE 325 MG TAB PO SCH (16:42)
[2017-08-29] MEDS: TRAZODONE HCL 100 MG TAB PO SCH (20:50)
[2017-08-29] MEDS: ATORVASTATIN 10 MG TAB PO SCH (20:50)
[2017-08-29] MEDS: INSULIN DETEMIR FLEXPEN/FLEX TOUCH 100 UNITS/ML 3ML SQ SCH (20:52)
[2017-08-30] VITALS (11 sets, daily range): BP systolic 84–100; BP diastolic 51–61; PULSE 76–94; TEMP 36.4–37.4; O2SAT 90–100
[2017-08-30] MEDS: DEXTROSE 5% 1000ML 1,000 ML IV SCH (00:06)
[2017-08-30] MEDS: ALBUT/IPRATROP 3MG/0.5MG NEB 3 ML VIAL INH SCH ×4 (02:07→20:31)
[2017-08-30] MEDS ORDERED: GLUCOSE 40% GEL 15 GM TUBE ONE (06:44)
[2017-08-30] MEDS: INSULIN ASPART 100 UNITS/ML 3 ML PEN SC SCH ×4 (07:00→21:18)
[2017-08-30] MEDS ORDERED: MIDAZOLAM HCL 1 MG/ML 2ML VIAL ONE ×2 (07:15→12:09)
[2017-08-30] MEDS ORDERED: FENTANYL CITRATE INJ 50 MCG/1 ML 2 ML VIAL ONE (07:15)
[2017-08-30 08:43] LABS: HEMATOCRIT 31.3 % (37-47); MEAN CELL VOLUME 92.1 fL (80-100); MEAN CORPUSCULAR HEMOGLOBIN 29.4 pg (25-34); MEAN CORPUSCULAR HGB CONC 31.9 g/dl (32-36); MEAN PLATELET VOLUME 12.3 fL (7.4-10.4); PLATELET COUNT 63 K/uL (130-400); WHITE BLOOD COUNT 3.15 K/uL (4.8-10.8)
[2017-08-30] MEDS: CLOBETASOL PROPIONATE 0.05% OINT 15 GM TUBE EXT SCH ×2 (09:00→21:13)
[2017-08-30] MEDS ORDERED: ALBUT/IPRATROP 3MG/0.5MG NEB 3 ML VIAL INH ONE (09:30)
[2017-08-30] MEDS ORDERED: METOCLOPRAMIDE HCL INJ 5 MG/ML 2 ML VIAL ONE (09:44)
[2017-08-30] MEDS ORDERED: LIDOCAINE HCL 1% 20 ML VIAL ONE (10:09)
--- NOTE | 2017-08-30 12:23 | Procedure Note ---
Procedure Note Date of Service Aug 30, 2017. Procedure Note Procedure performed: SVT ablation, complete electrophysiologic testing including pacing left atrium via the coronary sinus, arrhythmia induction using program stimulation on and off isoproterenol, mapping of tachycardia sites using roving catheter, ultrasound guided vascular access Staff [employer] Driver: Luis Alfredo Toribio MD Indication: The patient is a 71-year-old woman with a history of SVT. She recently presented with a rapid heart rate that responded to adenosine. She was symptomatic with the arrhythmia and did have recurrence in the hospital. Based on her significant comorbidities and likelihood of recurrence, she was felt to be a good candidate for definitive therapy with ablation. Procedure in detail: The patient was informed of the risks benefits and alternatives to the procedure and understood such. She wished to proceed. She was taken to the electrophysiology suite in a fasting state. Conscious sedation was administered by the Anesthesiology Service and the patient was monitored electrocardiographically throughout today's procedure. The right internal jugular area and right femoral areas were prepped and draped in usual sterile fashion. The right internal jugular vein was accessed using modified Seldinger technique under ultrasound guidance. A 6 Welsh venous sheath was placed at the site over guidewire. Right femoral vein was then accessed 3 times using modified Selinger technique and sheaths were placed over guidewires at the sites. The she has reduced facilitate passage of the EP catheters to the respective chambers under fluoroscopic guidance. This included right ventricular, coronary sinus and his bundle catheters. The patient's baseline conduction system was characterized. At this point and arrhythmia was induced. The nature of the arrhythmia was then identified prior to advancement of a ablation catheter to the area of interest. Tachycardia sites were mapped using a roving catheter and ablation was performed. At the conclusion of the ablation arrhythmia induction was then performed using program stimulation and burst atrial pacing. This was performed on and off isoproterenol. At the conclusion of the case the catheters and sheaths were removed. Hemostasis was achieved at the access sites using manual pressure. The patient tolerated the procedure well. There were no immediate complications. Findings: Baseline intracardiac intervals: Cycle length in the atrium 702 milliseconds Cycle length in the ventricle 680 milliseconds MN interval 146 milliseconds QRS duration 136 milliseconds QT interval 386 milliseconds AH interval 100 milliseconds HV interval 35 milliseconds Av Wenckebach occurred at 330 milliseconds The AV node effective refractory period of the fast pathway was 290 milliseconds VA Wenckebach was 360 milliseconds The the retrograde paris refractory period was 340 milliseconds. It should be noted that retrograde conduction was concentric and decremental in nature Tachycardia: With program stimulation from the atrium a tachycardia was induced. Ventricular entrainment of the tachycardia revealed a post pacing interval greater than 115 milliseconds different from the tachycardia cycle length. Tachycardia cycle length 400 milliseconds VA interval 14 milliseconds Ablation: A 4 mm 7 Welsh radiofrequency ablation catheter was advanced to the area of the slow pathway. Multiple lesions were placed with good power and temperature and multiple junctional beats. There was a very brief period of complete heart block which required pacing. This reversed rapidly. Post ablation intervals: Cycle length in the atrium 708 milliseconds Cycle length in the ventricle 710 milliseconds MN interval 144 milliseconds QRS duration 142 milliseconds QT interval 366 milliseconds AH interval 105 milliseconds HV interval 40 milliseconds Av Wenckebach occurred at 320 milliseconds The AV node effective refractory period was less than 250 milliseconds Aggressive program stimulation from the atrium including up to 2 extrastimuli on isoproterenol failed to induce a tachycardia. Impression: Successful modification of the slow input to the AV node rendering typical slow fast AVNRT noninducible No echo beats or tachycardia at the conclusion of the case No evidence of accessory pathway conduction Transient period of complete heart block during ablation which resolved entirely. Normal AV paris function at the conclusion of the case
[2017-08-30] MEDS ORDERED: ISOPROTERENOL 200 MCG / 50ML D5W IV ONE (12:24)
--- NOTE | 2017-08-30 12:48 | Anesthesiology Progress Note ---
Anesthesia Post Op Note Date & Time Aug 30, 2017 at 12:47 Vital Signs Pain Intensity: 0.0 Vital Signs Past 12 Hours Date Time Temp Pulse Resp B/P (MAP) Pulse Ox O2 Delivery O2 Flow Rate FiO2 08/30/17 12:40 82 16 105/66 (79) 95 Room Air 08/30/17 12:30 82 16 118/72 (87) 98 Room Air 08/30/17 09:55 78 16 99 Nasal Cannula 2.5 08/30/17 07:30 Nasal Cannula 2.0 08/30/17 07:27 36.7 77 20 90/52 96 Nasal Cannula 2.0 08/30/17 07:00 76 16 94 Nasal Cannula 2.0 08/30/17 04:05 Nasal Cannula 2.0 08/30/17 04:05 37.0 81 18 100/61 (74) 98 Nasal Cannula 2.0 08/30/17 02:07 85 16 100 Nasal Cannula 2.0 Notes Mental Status: alert / awake / arousable, participated in evaluation Pt Amnestic to Procedure: Yes Nausea / Vomiting: adequately controlled Pain: adequately controlled Airway Patency, RR, SpO2: stable & adequate BP & HR: stable & adequate Hydration State: stable & adequate Anesthetic Complications: no major complications apparent Pt awake, doing well, tolerated procedure well. VSS.
[2017-08-30] MEDS: GABAPENTIN 600 MG TAB PO SCH ×3 (13:14→21:14)
[2017-08-30] MEDS: METHIMAZOLE 5 MG TAB PO SCH (13:14)
[2017-08-30] MEDS: RIFAXIMIN TAB 550 MG TAB PO SCH ×2 (13:14→21:15)
[2017-08-30] MEDS: ASPIRIN 81 MG ECTAB PO SCH (13:14)
[2017-08-30] MEDS: PANTOprazole SOD 40 MG TAB PO SCH (13:14)
[2017-08-30] MEDS: ESCITALOPRAM OXALATE 20 MG TAB PO SCH (13:15)
[2017-08-30] MEDS: MAGNESIUM OXIDE 400 MG TAB PO SCH ×2 (13:15→21:14)
[2017-08-30] MEDS: FERROUS SULFATE 325 MG TAB PO SCH (13:15)
[2017-08-30] MEDS: ALUMINUM/MAGNESIUM/SIMETH (MAALOX MAX) 30 ML UDC PO SCH ×2 (13:16→21:00)
--- NOTE | 2017-08-30 15:58 | Progress Note ---
Subjective Date of Service: Aug 30, 2017. Subjective pt is s/p svt ablation today by Dr Toribio, was seen after procedure and doing well, minor dyspnea at laying back Problem List Medical Problems: (1) Anemia Status: Acute (2) Chest pain Status: Acute (3) COPD (chronic obstructive pulmonary disease) Status: Acute (4) COPD exacerbation Status: Acute (5) COPD exacerbation Status: Acute (6) Fall Status: Acute (7) Foot contusion Status: Acute (8) Head injury Status: Acute (9) Hyperglycemia Status: Acute (10) Hypotension Status: Acute (11) Hypotension Status: Acute (12) Lumbar compression fracture Status: Acute (13) Nausea Status: Acute (14) Positive D dimer Status: Acute (15) Psoriasis Status: Acute (16) Pulmonary fibrosis Status: Acute (17) Respiratory distress Status: Acute (18) SOB (shortness of breath) Status: Acute (19) SOB (shortness of breath) Status: Acute (20) Supraventricular aortic stenosis Status: Acute (21) Supraventricular arrhythmia Status: Acute (22) Upper GI bleeding Status: Acute (23) UTI (urinary tract infection) Status: Acute (24) Weakness Status: Acute Review of Systems Constitutional: + weakness, + fatigue, No fever, No chills Respiratory: + shortness of breath, + dyspnea on exertion, No cough, No sputum Cardiac: + orthopnea, No chest pain, No edema Abdomen: No pain, No nausea, No vomiting Objective Vital Signs Date Time Temp Pulse Resp B/P (MAP) Pulse Ox O2 Delivery O2 Flow Rate FiO2 08/30/17 04:05 Nasal Cannula 2.0 08/30/17 04:05 37.0 81 18 100/61 (74) 98 Nasal Cannula 2.0 08/30/17 02:07 85 16 100 Nasal Cannula 2.0 08/30/17 00:10 Nasal Cannula 2.0 08/29/17 23:28 36.7 93 20 89/52 (64) 95 Nasal Cannula 2.0 08/29/17 20:10 99 Nasal Cannula 2.0 08/29/17 19:33 84 16 99 Nasal Cannula 2.0 08/29/17 19:13 36.9 83 16 93/56 (68) 97 Nasal Cannula 2.0 08/29/17 15:55 Nasal Cannula 2.0 08/29/17 15:48 Nasal Cannula 2.0 08/29/17 15:38 87 16 98 Nasal Cannula 2.0 08/29/17 15:26 36.7 92 18 100/60 (73) 99 Nasal Cannula 2.0 08/29/17 12:00 Nasal Cannula 2.0 08/29/17 10:50 36.7 80 20 88/53 (65) 98 08/29/17 08:00 Nasal Cannula 2.0 08/29/17 07:50 36.7 80 20 92/57 (69) 97 Nasal Cannula 08/29/17 07:16 75 16 97 Nasal Cannula 2.0 Physical Exam General Appearance: WD/WN, + mild distress Respiratory/Chest: chest non-tender, lungs clear, normal breath sounds Cardiovascular: regular rate, rhythm, no murmur Abdomen: normal bowel sounds, non tender, soft Extremities: no pedal edema, no calf tenderness Neurologic/Psychiatric: alert, oriented x 3 Laboratory Results Last 24 Hours Test 08/29/17 06:23 08/29/17 06:30 08/29/17 06:45 08/29/17 11:13 White Blood Count 4.14 K/uL Red Blood Count 3.52 M/uL Hemoglobin 10.3 g/dL Hematocrit 32.6 % Mean Corpuscular Volume 92.6 fL Mean Corpuscular Hemoglobin 29.3 pg Mean Corpuscular Hemoglobin Concent 31.6 g/dl RDW Standard Deviation 52.7 fL RDW Coefficient of Variation 15.4 % Platelet Count 62 K/uL Mean Platelet Volume 11.1 fL Sodium Level 141 mmol/L Potassium Level 3.8 mmol/L Chloride Level 104 mmol/L Carbon Dioxide Level 34 mmol/L Anion Gap 3.0 mmol/L Blood Urea Nitrogen 10 mg/dl Creatinine 0.75 mg/dl Est Creatinine Clear Calc Drug Dose 60.2 ml/min Estimated GFR () 93.6 Estimated GFR (Non- 80.8 BUN/Creatinine Ratio 13.3 Random Glucose 45 mg/dl Calcium Level 8.6 mg/dl Magnesium Level 1.7 mg/dl Bedside Glucose 55 mg/dl 87 mg/dl 78 mg/dl Test 08/29/17 16:09 08/29/17 20:32 08/30/17 04:44 Bedside Glucose 191 mg/dl 148 mg/dl Assessment and Plan 71yo F with acute on chronic diastolic heart failure, SVT and thrombocytopenia SVT, now back in [facility]. Cardiology has performed SVT ablation today acute/chronic diastolic CHF in setting of cor pulmonale, severe pulmonary HTN, right-sided CHF -. associated with moderate /severe MS/severe TR CAD - troponin elevation likely demand ischemia in setting of SVT. COPD - scheduled nebs. Esophageal ulcers - June 2017 - PPI. Nonalcoholic steatohepatitis and cirrhosis - appears compensated. Cont rifaximin thrombocytopenia - Follow. hypomagnesemia - replete hyperthyroidism - on methimazole and TSH is normal. Cont such. Continued [facility] stay due to: multiple IV medications needed Discharge planning: uncertain
[2017-08-30] MEDS: TRAZODONE HCL 100 MG TAB PO SCH (21:13)
[2017-08-30] MEDS: ATORVASTATIN 10 MG TAB PO SCH (21:13)
[2017-08-30] MEDS: INSULIN DETEMIR FLEXPEN/FLEX TOUCH 100 UNITS/ML 3ML SQ SCH (21:19)
[2017-08-31] VITALS (7 sets, daily range): BP systolic 88–95; BP diastolic 52–64; PULSE 78–88; TEMP 36.7–37; O2SAT 94–98
[2017-08-31] MEDS: DEXTROSE 5% 1000ML 1,000 ML IV SCH (00:59)
[2017-08-31] MEDS: ALBUT/IPRATROP 3MG/0.5MG NEB 3 ML VIAL INH SCH ×2 (01:57→07:22)
[2017-08-31] MEDS: INSULIN ASPART 100 UNITS/ML 3 ML PEN SC SCH ×2 (07:00→11:00)
[2017-08-31] MEDS: MAGNESIUM OXIDE 400 MG TAB PO SCH (08:24)
[2017-08-31] MEDS: ALUMINUM/MAGNESIUM/SIMETH (MAALOX MAX) 30 ML UDC PO SCH (08:24)
[2017-08-31] MEDS: PANTOprazole SOD 40 MG TAB PO SCH (08:25)
[2017-08-31] MEDS: CLOBETASOL PROPIONATE 0.05% OINT 15 GM TUBE EXT SCH (08:25)
[2017-08-31] MEDS: FERROUS SULFATE 325 MG TAB PO SCH (08:25)
[2017-08-31] MEDS: GABAPENTIN 600 MG TAB PO SCH (08:25)
[2017-08-31] MEDS: METHIMAZOLE 5 MG TAB PO SCH (08:25)
[2017-08-31] MEDS: ESCITALOPRAM OXALATE 20 MG TAB PO SCH (08:25)
[2017-08-31] MEDS: RIFAXIMIN TAB 550 MG TAB PO SCH (08:25)
[2017-08-31] MEDS ORDERED: IPRASOL4 INH (13:13)
--- NOTE | 2017-08-31 13:15 | Discharge Instructions ---
Discharge Instructions Date of Service Aug 31, 2017. Admission Reason for Admission: Hypotension, Svt Discharge Discharge Diagnosis / Problem: Supraventricular tachycardia s/p ablation Discharge Goals Goal(s): Diagnostic testing, Therapeutic intervention Activity Recommendations Activity Limitations: resume your previous activity Please follow Dr Toribio instructions for wound care, do not submerge in tub, take shower for next few days, and notify Dr Toribio if redness or discharge at sites . Current Hospital Diet Patient's current hospital diet: AHA Diet (Heart Healthy), Diabetes Type 2 Diet Discharge Diet Recommended Diet: Low Sodium Diet (2gm Na) Pending Studies Studies pending at discharge: no Laboratory Results Hemoglobin A1c Test 08/26/17 12:41 Range/Units Estimated Average Glucose 123 mg/dl Hemoglobin A1c 5.9 H 4.5-5.6 % Medical Emergencies . Who to Call and When: Medical Emergencies: If at any time you feel your situation is an emergency, please call 911 immediately. . Non-Emergent Contact Non-Emergency issues call your: Machine I Trimmer Call Non-Emergent contact if: temperature is above 101, your pain is unusual for you . . "Provider Documentation" section prepared by Praveen Lambert. . VTE Core Measure Inpt VTE Proph given/why not?: SCD's
--- NOTE | 2017-08-31 13:27 | Discharge Summary ---
Discharge Summary Date of Service Aug 31, 2017. Discharge Summary Admission Date: Aug 27, 2017 at 18:14 Discharge Date: Aug 31, 2017 Discharge Disposition: Home with services Principal Diagnosis: supraventricular tachycardia, s/p ablation Procedures: EP study with ablation Medication Reconciliation Changed Medications: Ipratropium-Albuterol (Duoneb) 3 Ml Nebu 1 TREATMENT INH QID, #1 INHA (Changed from: Q4H; Removed Reason) Continued Medications: Albuterol Hfa (Ventolin Hfa) 200 Puffs/07886 Mcg Aers 2-4 PUFFS INH Q6H PRN for Shortness of Breath, #1 INHALER Alum & Mag Hydrox-Simethicone (Mylanta Maximum Strength 400-400-40 mg/5Ml) 1 Jelly Jelly 1 TBS PO BID TAKE BETWEEN MEALS Aspirin (Aspirin Ec) 81 Mg Tab 81 MG PO Q2D Atorvastatin (Atorvastatin Calcium) 10 Mg Tab 10 MG PO HS Betamethasone Dip Aug 0.05% (Diprolene 0.05%) 0.05 % Oin 1 APPLN TP BID Cholecalciferol (Vitamin D 1000 Unit) 1,000 Unit Cap 1000 INTER.UNIT PO QAM, CAP Clobetasol Propionate (Clobetasol Propionate) 45 Appln/15 Gm Oint 1 APPLN TOP BID Escitalopram Oxalate (Lexapro) 20 Mg Tab 20 MG PO QAM, TAB Ferrous Sulfate (Kp Ferrous Sulfate) 325 Mg Tab 325 MG PO QAM Furosemide (Lasix) 40 Mg Tab 0.5 TAB PO MWF Gabapentin (Neurontin) 600 Mg Tab 600 MG PO TID Home O2 Therapy (Oxygen) Gas 2 LITERS NA HS, BTL Insulin Aspart (Novolog Flexpen) 100 Units/Ml Inj UNITS SC UD 20 UNITS BREAKFAST 25 UNITS SUPPER +SLIDING SCALE Insulin Detemir (Levemir Flextouch) 100 Unit/Ml Inj 40 UNITS SQ HS Lorazepam (Lorazepam) 0.5 Mg Tab 0.5 MG PO HS PRN for Sleep Maalox/Diphen/Visc. [place]/Glyc (Magic Swizzle) 240 Ml Btl 3 TSP PO Q6H PRN for Pain Magnesium Oxide (Mag-Ox) 400 Mg Tab 400 MG PO BID, TAB Metformin Hcl (Glucophage) 1,000 Mg Tab 1000 MG PO Q12, TAB Methimazole (Methimazole ) 5 Mg Tab 5 MG PO QAM Omeprazole (Prilosec) 40 Mg Cap 40 MG PO QAM Oxycodone Hcl (Oxycodone Hcl) 10 Mg Tab 10 MG PO BID PRN for Pain Rifaximin (Xifaxan) 550 Mg Tab 550 MG PO BID, TAB Tiotropium [place]-Olodaterol (Stiolto Respimat 2.5-2.5 Mcg/Act) 1 Aer Aer 2 PUFF INH DAILY Trazodone Hcl (Trazodone) 100 Mg Tab 100 MG PO HS, TAB Discharge Exam Review of Systems: Constitutional: No fever, No chills Respiratory: + shortness of breath, + dyspnea on exertion, No cough, No sputum Cardiovascular: No chest pain, No PND Abdomen: No pain, No nausea Neurologic: No memory loss, No weakness Physical Exam: General Appearance: WD/WN, no apparent distress Eyes: PERRL, EOMI Respiratory/Chest: chest non-tender, lungs clear, normal breath sounds Cardiovascular: regular rate, rhythm, no murmur Abdomen / GI: normal bowel sounds, non tender, soft Extremities: no pedal edema, normal range of motion Neurologic/Psychiatric: alert, oriented x 3 Hospital Course 71yo F with acute on chronic diastolic heart failure, SVT and thrombocytopenia SVT, now back in [facility]. Cardiology has performed SVT ablation 08/30 doing well, ok for home acute/chronic diastolic CHF in setting of cor pulmonale, severe pulmonary HTN, right-sided CHF -. associated with moderate /severe MS/severe TR CAD - troponin elevation likely demand ischemia in setting of SVT. COPD - scheduled nebs. Esophageal ulcers - June 2017 - PPI. Nonalcoholic steatohepatitis and cirrhosis - appears compensated. Cont rifaximin thrombocytopenia - Follow. hypomagnesemia - replete hyperthyroidism - on methimazole and TSH is normal. Cont such. Total Time Spent: Greater than 30 minutes This includes examination of the patient, discharge planning, medication reconciliation, and communication with other providers. Discharge Instructions Please refer to the electronic Patient Visit Report (Discharge Instructions) for additional information.
--- NOTE | 2017-08-31 13:40 | Cardiology Follow-Up ---
Subjective Date of Service: Aug 31, 2017. Pt evaluation today including: conversation w/ patient, conversation w/ family , physical exam History of Present Illness This morning patient is feeling well. She is somewhat tired but denies any symptoms of chest discomfort or worsening breathing trouble. She has been ambulatory to the bathroom and around the pollard. The Social History Smoking Status: Heavy Tobacco Smoker History of Alcohol Use: No Review of Systems Respiratory: + shortness of breath, + dyspnea on exertion, No cough, No sputum Cardiac: + orthopnea, No chest pain, No edema She has not described any recent bleeding. She denies swelling in her lower extremities. Objective Vital Signs Past 12 Hours Date Time Temp Pulse Resp B/P (MAP) Pulse Ox O2 Delivery O2 Flow Rate FiO2 08/31/17 12:07 36.9 78 19 95/56 (69) 98 Nasal Cannula 2.0 08/31/17 12:00 Nasal Cannula 2.0 08/31/17 08:00 Nasal Cannula 2.0 08/31/17 07:23 80 16 98 Nasal Cannula 2.0 08/31/17 07:19 37.0 79 18 93/52 (66) 94 Nasal Cannula 2.0 08/31/17 04:00 36.7 80 24 88/64 (72) 95 Room Air 08/31/17 04:00 98 Nasal Cannula 2.0 08/31/17 01:57 88 14 98 Nasal Cannula 2.0 Last Recorded Weight-Kilograms: 69.500 Intake & Output 8-Hour Column 08/31/17 09/01/17 09/01/17 16:00 00:00 08:00 Intake Total 360 ml Balance 360 ml 24-Hour Column 09/01/17 08:00 Intake Total 360 ml Balance 360 ml Physical Exam She is alert and oriented x3. Mood affect appear normal. She answered all questions appropriately. Examination of her access site in the groin reveals a small amount of ecchymosis but no bleeding or hematoma. Data Laboratory Results: Last 24 Hours Test 08/30/17 16:24 08/30/17 20:33 08/31/17 06:36 08/31/17 10:57 Bedside Glucose 145 mg/dl 172 mg/dl 85 mg/dl 141 mg/dl Telemetry reviewed: No arrhythmia Assessment and Plan 1. SVT: Her EP study yesterday revealed typical slow fast AVNRT. She did have a few seconds of complete heart block during the ablation which resolved quickly. There is no evidence of AV paris dysfunction at the conclusion of the procedure, in fact she had quite good AV paris conduction. Aggressive pacing maneuvers including up to 2 extrastimuli on isoproterenol were used in an attempt to induce the tachycardia at the conclusion of the case. No tachycardia was inducible. There were no echo beats. This would suggest a successful ablation. There did not appear to be any vascular complications. At this point she can be discharged home from a cardiac standpoint. No new medications are required at this time.
== END 2017-08-31 13:51 | disposition home or self-care (01) | DRG 273 ==
LOC: C.EDB 14:48 → C.2T 18:14 → ENRESERV 18:22
PROVIDERS: ADMIT Internal Medicine; ATTEND Internal Medicine
PROC: 02583ZZ Destruction of Conduction Mechanism, Percutaneous Approach (ICD-10-PCS; principal; 2017-08-30 09:00)
DX: I47.1 Supraventricular tachycardia (principal); I50.33 Acute on chronic diastolic (congestive) heart failure; I27.81 Cor pulmonale (chronic); I25.10 Atherosclerotic heart disease of native coronary artery without angina pectoris; I95.9 Hypotension, unspecified; I08.0 Rheumatic disorders of both mitral and aortic valves; I48.0 Paroxysmal atrial fibrillation; K21.9 Gastro-esophageal reflux disease without esophagitis; E78.5 Hyperlipidemia, unspecified; J44.9 Chronic obstructive pulmonary disease, unspecified; E83.42 Hypomagnesemia; K75.81 Nonalcoholic steatohepatitis (NASH); E11.9 Type 2 diabetes mellitus without complications; I27.20 Pulmonary hypertension, unspecified; D64.9 Anemia, unspecified; E05.90 Thyrotoxicosis, unspecified without thyrotoxic crisis or storm; Z79.4 Long term (current) use of insulin; Z79.82 Long term (current) use of aspirin; Z79.84 Long term (current) use of oral hypoglycemic drugs; Z79.899 Other long term (current) drug therapy; F17.200 Nicotine dependence, unspecified, uncomplicated

== ENCOUNTER → 2017-09-13 | Outpatient (CLI) | payer OTHER ==
[~2017-09-13] MED LIST changes: -DRGTP12 TOP; -METR-163 PO; +TRAZ100T29 PO
--- NOTE | 2017-09-13 14:13 | DIAGNOSTIC IMAGING REPORT ---
CT SCAN OF THE ABDOMEN AND PELVIS WITHOUT IV CONTRAST CLINICAL HISTORY: Cirrhosis. Hepatic encephalopathy. COMPARISON STUDY: Abdominal CT dated 12/30/16. TECHNIQUE: CT scan of the abdomen and pelvis is performed from the lung bases to the proximal femora. Images are reviewed in the axial, sagittal, and coronal planes. IV contrast was not administered for this examination as per the referring clinician. Note that the examination was performed in suboptimal fashion without oral and IV contrast. The examination is also degraded by streak artifact from extensive spinal fusion hardware. A dose lowering technique was utilized adhering to the principles of ALARA. CT DOSE: 578.18 mGy.cm FINDINGS: Lung bases: The heart is normal in size and without pericardial effusion. The coronary arteries and mitral annulus are densely calcified. The lung bases are clear. Liver: The unenhanced liver is the liver is cirrhotic in morphology and heterogeneous in attenuation. There is hypertrophy of the left lobe and nodularity of the surface contour. There is no intrahepatic biliary ductal dilatation. Gallbladder: Surgically absent noting clips in the gallbladder fossa. Spleen: The spleen is enlarged measuring 15.2 cm in length. Pancreas: The unenhanced pancreas is atrophic and grossly unremarkable. Adrenal glands: Unremarkable. Kidneys: The unenhanced kidneys demonstrate cortical atrophy and are without hydronephrosis. There is a 4 mm nonobstructing calculus in the upper pole of the left kidney. Additional renal vascular calcifications are identified. A 12 mm exophytic cyst arises from the left lower pole. Abdominal vasculature: The abdominal aorta is normal in course and caliber noting advanced atherosclerotic calcification. Bowel: The small bowel and colon are normal in course and caliber. The appendix is well-visualized and normal. Peritoneum: There is no intraperitoneal free air or abdominal ascites. Large retroperitoneal collaterals are identified on the left. Lymphadenopathy: None. Pelvic viscera: The bladder wall appears circumferentially thickened. The uterus and adnexa are normal as visualized. Prominent pelvic veins are noted. Skeletal structures: The skeletal structures are osteopenic. There is a moderate compression deformity of L1 with small fragments are retropulsed by up to 5 mm. This is new from 12/30/2016. There are postoperative changes from L4 to S1 spinal fusion. No lytic or blastic lesions are seen. IMPRESSION: 1. Suboptimal examination without oral and IV contrast. 2. There are no acute infectious or inflammatory findings in the abdomen or pelvis. 3. Cirrhotic liver morphology. 4. Splenomegaly indicates portal hypertension. 5. Nonobstructing left renal calculus. 6. Large left retroperitoneal collateral vessels are again seen. 7. There is a moderate compression deformity of L1 with mildly retropulsed fragments. This is new from 12/30/2016. 8. Additional changes as above. Electronically signed by: Daniel Copeland M.D. 09/13/2017 2:11 PM Dictated Date/Time: 09/13/2017 1:56 PM
== END | disposition home or self-care (01) ==
LOC: C.CTS 13:35
PROVIDERS: ATTEND Physician Assistant
DX: K74.60 Unspecified cirrhosis of liver (principal); K72.90 Hepatic failure, unspecified without coma; R16.1 Splenomegaly, not elsewhere classified; N20.0 Calculus of kidney; S32.010A Wedge compression fracture of first lumbar vertebra, initial encounter for closed fracture; X58.XXXA Exposure to other specified factors, initial encounter

== ENCOUNTER → 2017-10-29 | Outpatient (CLI) | payer OTHER ==
[2017-10-29 15:23] LABS: HEMATOCRIT 37.6 % (37-47); MEAN CELL VOLUME 97.4 fL (80-100); MEAN CORPUSCULAR HEMOGLOBIN 30.8 pg (25-34); MEAN CORPUSCULAR HGB CONC 31.6 g/dl (32-36); RED BLOOD COUNT 3.86 M/uL (4.2-5.4); WHITE BLOOD COUNT 4.66 K/uL (4.8-10.8)
[2017-10-29 15:32] LABS: ALT/SGPT 35 U/L (12-78); BLOOD UREA NITROGEN 12 mg/dl (7-18); BUN/CREATININE RATIO 14.7 (10-20); CARBON DIOXIDE 31 mmol/L (21-32); CHLORIDE 103 mmol/L (98-107); CREATININE 0.78 mg/dl (0.60-1.20); GLUCOSE 108 mg/dl (70-99); POTASSIUM 4.2 mmol/L (3.5-5.1); SODIUM 139 mmol/L (136-145)
[2017-10-29 15:35] LABS: ALKALINE PHOSPHATASE 117 U/L (45-117); AST/SGOT 45 U/L (15-37)
[2017-10-29 15:43] LABS: INR 1.1 (0.9-1.1)
[2017-10-29 15:49] LABS: MEAN PLATELET VOLUME 11.9 fL (7.4-10.4); PLATELET COUNT 66 K/uL (130-400)
[2017-10-29 15:50] LABS: BASO % 0.2 %; BASO ABS # 0.01 K/uL (0-0.2); COMPLETE YES; EOS % 0.9 %; GIANT PLATELETS 1+; IG% 0.2 %; LYMPH % 27.9 %; MONO % 5.2 %; NEUT % 65.6 %
[2017-10-31 09:36] LABS: AFP TUMOR MARKER SERUM 5.6 NG/ML (<6.1)
== END | disposition home or self-care (01) ==
LOC: C.LAB1850 14:17
PROVIDERS: ATTEND Physician Assistant
DX: K74.60 Unspecified cirrhosis of liver (principal)

== ENCOUNTER → 2017-11-13 | Outpatient (CLI) | payer OTHER ==
--- NOTE | 2017-11-13 14:25 | DIAGNOSTIC IMAGING REPORT ---
CHEST 2 VIEWS ROUTINE HISTORY: 71 years-old Female J44.9 Chronic obstructive pulmonary [id number] Dyspnea on exe acute shortness of breath COMPARISON: Chest radiographs 08/28/2017 TECHNIQUE: PA and lateral views of the chest FINDINGS: Cardiac silhouette is mildly enlarged. Atherosclerosis of the aorta. Mitral annular calcifications redemonstrated. No pneumothorax or large pleural effusion. Mild pulmonary vascular congestion with associated interstitial coarsening is unchanged. Linear subsegmental bibasilar opacities suggest atelectasis. No lobar airspace consolidation. The bones of the chest appear grossly intact. Surgical clips project over the right neck. Fusion hardware of the cervical spine. Multilevel endplate spurring of the spine. Chronic compression deformity of what appears to be T12 or L1. IMPRESSION: 1. Cardiomegaly and pulmonary vascular congestion with unchanged interstitial coarsening suggesting chronic changes without definite overt pulmonary edema. 2. Linear subsegmental bibasilar opacities suggest atelectasis. The above report was generated using voice recognition software. It may contain grammatical, syntax or spelling errors. Electronically signed by: Jayson Bravo M.D. 11/13/2017 2:24 PM Dictated Date/Time: 11/13/2017 2:20 PM
== END | disposition home or self-care (01) ==
LOC: C.RAD1850 14:09
PROVIDERS: ATTEND Physician Assistant
DX: J44.9 Chronic obstructive pulmonary disease, unspecified (principal); R06.09 Other forms of dyspnea; I51.7 Cardiomegaly; R09.89 Other specified symptoms and signs involving the circulatory and respiratory systems; R91.8 Other nonspecific abnormal finding of lung field

== ENCOUNTER → 2017-12-04 | Outpatient (CLI) | payer OTHER ==
[2017-12-04 14:43] LABS: HEMATOCRIT 35.5 % (37-47); HEMOGLOBIN 11.7 g/dL (12.0-16.0); MEAN CELL VOLUME 96.5 fL (80-100); MEAN CORPUSCULAR HEMOGLOBIN 31.8 pg (25-34); RED CELL DISTRIBUTION WIDTH CV 14.5 % (11.5-14.5); RED CELL DISTRIBUTION WIDTH SD 51.3 fL (36.4-46.3); WHITE BLOOD COUNT 5.66 K/uL (4.8-10.8)
[2017-12-04 15:06] LABS: MEAN PLATELET VOLUME 11.4 fL (7.4-10.4); PLATELET COUNT 70 K/uL (130-400)
[2017-12-04 15:08] LABS: BASO % 0.2 %; BASO ABS # 0.01 K/uL (0-0.2); EOS % 0.4 %; EOS ABS # 0.02 K/uL (0-0.5); IG# 0.01 K/uL (0.00-0.02); LYMPH % 17.1 %; LYMPH ABS # 0.97 K/uL (1.2-3.4); MONO % 2.3 %; MONO ABS # 0.13 K/uL (0.11-0.59); NEUT % 79.8 %; NEUT ABS # 4.52 K/uL (1.4-6.5)
[2017-12-04 15:09] LABS: BLOOD UREA NITROGEN 16 mg/dl (7-18); CALCIUM 9.2 mg/dl (8.5-10.1); CARBON DIOXIDE 26 mmol/L (21-32); GLUCOSE 225 mg/dl (70-99); SODIUM 135 mmol/L (136-145)
== END | disposition home or self-care (01) ==
LOC: C.LAB1850 13:46
PROVIDERS: ATTEND Physician Assistant
DX: R42 Dizziness and giddiness (principal); R06.02 Shortness of breath

== ENCOUNTER → 2018-01-15 | Outpatient (CLI) | payer OTHER ==
[~2018-01-15] MED LIST changes: +HYDR-5688 PO; +VANC5CAP PO
[2018-01-15 17:45] LABS: HEMATOCRIT 31.1 % (37-47); HEMOGLOBIN 9.7 g/dL (12.0-16.0); MEAN CELL VOLUME 99.4 fL (80-100); MEAN CORPUSCULAR HGB CONC 31.2 g/dl (32-36); RED CELL DISTRIBUTION WIDTH CV 15.1 % (11.5-14.5); RED CELL DISTRIBUTION WIDTH SD 54.4 fL (36.4-46.3)
[2018-01-15 18:54] LABS: PLATELET COUNT 95 K/uL (130-400)
[2018-01-15 18:56] LABS: BASO % 0.6 %; BASO ABS # 0.03 K/uL (0-0.2); EOS % 1.7 %; EOS ABS # 0.09 K/uL (0-0.5); IG# 0.01 K/uL (0.00-0.02); LYMPH % 35.4 %; LYMPH ABS # 1.84 K/uL (1.2-3.4); MEAN PLATELET VOLUME 11.8 fL (7.4-10.4); MONO % 7.7 %; NEUT % 54.4 %; NEUT ABS # 2.83 K/uL (1.4-6.5)
== END | disposition home or self-care (01) ==
LOC: C.LABPBG 14:03
PROVIDERS: ATTEND Internal Medicine
DX: D64.9 Anemia, unspecified (principal)

== ENCOUNTER → 2018-01-23 | Outpatient (CLI) | payer OTHER ==
[2018-01-23 17:43] LABS: HEMOGLOBIN 9.8 g/dL (12.0-16.0); MEAN CELL VOLUME 100.6 fL (80-100); MEAN CORPUSCULAR HEMOGLOBIN 30.8 pg (25-34); MEAN CORPUSCULAR HGB CONC 30.6 g/dl (32-36); RED CELL DISTRIBUTION WIDTH CV 15.6 % (11.5-14.5); RED CELL DISTRIBUTION WIDTH SD 57.1 fL (36.4-46.3); WHITE BLOOD COUNT 4.85 K/uL (4.8-10.8)
[2018-01-23 18:08] LABS: MEAN PLATELET VOLUME 11.5 fL (7.4-10.4); PLATELET COUNT 91 K/uL (130-400)
[2018-01-23 18:21] LABS: BASO % 0.4 %; BASO ABS # 0.02 K/uL (0-0.2); EOS % 0.8 %; EOS ABS # 0.04 K/uL (0-0.5); IG# 0.01 K/uL (0.00-0.02); LYMPH % 24.3 %; LYMPH ABS # 1.18 K/uL (1.2-3.4); MONO % 6.8 %; MONO ABS # 0.33 K/uL (0.11-0.59); NEUT % 67.5 %; NEUT ABS # 3.27 K/uL (1.4-6.5)
== END | disposition home or self-care (01) ==
LOC: C.LABPBG 12:46
PROVIDERS: ATTEND Internal Medicine
DX: D64.9 Anemia, unspecified (principal)

== ENCOUNTER 2018-01-27 12:27 | Inpatient (IN) | payer OTHER ==
[~2018-01-27] VITALS: Ht 149.9 cm; Wt 75.9 kg
[~2018-01-27 12:27] MED LIST changes: -HYDR-5688 PO; -VANC5CAP PO
[2018-01-27] MEDS ORDERED: LACTATED RINGER'S 1000ML 1,000 ML IV ONE (13:00)
[2018-01-27] MEDS ORDERED: LACTATED RINGER'S 1000ML 1,000 ML IV SCH (13:30)
[2018-01-27 13:32] LABS: HEMATOCRIT 29.9 % (37-47); HEMOGLOBIN 9.5 g/dL (12.0-16.0); MEAN CELL VOLUME 99.7 fL (80-100); MEAN CORPUSCULAR HEMOGLOBIN 31.7 pg (25-34); MEAN CORPUSCULAR HGB CONC 31.8 g/dl (32-36); MEAN PLATELET VOLUME 11.8 fL (7.4-10.4); PLATELET COUNT 89 K/uL (130-400); RED CELL DISTRIBUTION WIDTH CV 15.7 % (11.5-14.5); WHITE BLOOD COUNT 5.89 K/uL (4.8-10.8)
--- NOTE | 2018-01-27 13:38 | DIAGNOSTIC IMAGING REPORT ---
CHEST ONE VIEW PORTABLE CLINICAL HISTORY: 72 years-old Female presenting with EVALUATE WEAKNESS. TECHNIQUE: Portable supine AP view of the chest was obtained. COMPARISON: 11/13/2017. FINDINGS: Atherosclerosis of aortic arch. Cardiac silhouette enlarged. No vascular prominence. Prominent lung markings bilaterally. No focal opacity. Trace bilateral pleural effusions may present. No pneumothorax. Posterior cervical fusion hardware. Surgical clips project over the right base of the neck. Upper abdomen normal. IMPRESSION: 1. Cardiomegaly. Pulmonary vascular prominence may relate to supine positioning. No eliazar pulmonary edema. 2. Possible trace bilateral pleural effusions. Electronically signed by: Boone Boss M.D. 01/27/2018 1:37 PM Dictated Date/Time: 01/27/2018 1:36 PM
[2018-01-27 13:43] LABS: INR 1.1 (0.9-1.1); PTT PATIENT 25.9 SECONDS (21.0-31.0)
[2018-01-27 13:54] LABS: BASO % 0.3 %; BASO ABS # 0.02 K/uL (0-0.2); EOS % 0.7 %; EOS ABS # 0.04 K/uL (0-0.5); IG# 0.01 K/uL (0.00-0.02); LYMPH % 22.8 %; LYMPH ABS # 1.34 K/uL (1.2-3.4); MONO % 5.1 %; NEUT % 70.9 %; NEUT ABS # 4.18 K/uL (1.4-6.5)
--- NOTE | 2018-01-27 14:01 | DIAGNOSTIC IMAGING REPORT ---
CT SCAN OF THE ABDOMEN AND PELVIS WITHOUT CONTRAST CLINICAL HISTORY: lower abd pain, profound diarrhea COMPARISON STUDY: 09/13/2017 TECHNIQUE: CT scan of the abdomen and pelvis was performed from the lung bases to the proximal femurs. Images are reviewed in the axial, sagittal, and coronal planes. IV contrast was not administered for this examination. A dose lowering technique was utilized adhering to the principles of ALARA. CT DOSE: 859.61 mGycm FINDINGS: Lower chest: There is a small right pleural effusion. There is interlobular septal edema. Liver: The liver has a cirrhotic morphology. No focal hepatic masses are visualized. Gallbladder: Surgically absent Spleen: The spleen is enlarged measuring 15 cm Pancreas: Unremarkable. Adrenal glands: Unremarkable. Kidneys: There are renal vascular calcifications. There is a 2 mm nonobstructing left renal calculus. This 12 mm lower pole left renal hypodensity likely representing a cyst Bowel: There are no transition zones to indicate bowel obstruction. There is no evidence of acute appendicitis. The bowel wall is difficult to evaluate given the absence of intravenous and oral contrast on the current study Peritoneum: There is low volume ascites. No free intraperitoneal air is visualized. Vasculature: There are moderately extensive mesenteric vascular calcifications. There is no evidence of abdominal aortic aneurysm. Adenopathy: None. Pelvic viscera: The bladder, and pelvic viscera are unremarkable. Skeletal structures: There are postsurgical changes present within the lumbar spine. There is an old L1 compression deformity IMPRESSION: 1. Cirrhotic morphology of the liver. Splenomegaly. Prominent retroperitoneal venous collaterals 2. No evidence of bowel obstruction. No evidence of free air 3. Nonobstructing 2 mm left renal calculus 4. No evidence of acute appendicitis. No evidence of acute diverticulitis 5. Small right pleural effusion. Interlobular septal edema. Electronically signed by: Wero Jean Baptiste M.D. 01/27/2018 2:00 PM Dictated Date/Time: 01/27/2018 1:53 PM
[2018-01-27 14:03] LABS: ALKALINE PHOSPHATASE 110 U/L (45-117); ALT/SGPT 36 U/L (12-78); AST/SGOT 48 U/L (15-37); BLOOD UREA NITROGEN 13 mg/dl (7-18); CALCIUM 9.1 mg/dl (8.5-10.1); CARBON DIOXIDE 28 mmol/L (21-32); CKMB 2.1 ng/ml (0.5-3.6); CREATININE 0.78 mg/dl (0.60-1.20); GLUCOSE 163 mg/dl (70-99); LIPASE 189 U/L (73-393); POTASSIUM 4.1 mmol/L (3.5-5.1); SODIUM 137 mmol/L (136-145)
[2018-01-27] MEDS ORDERED: HYDR-5688 PO (14:15)
[2018-01-27] MEDS ORDERED: IPRASOL4 INH (14:25)
[2018-01-27] MEDS ORDERED: ALBUT/IPRATROP 3MG/0.5MG NEB 3 ML VIAL INH STA (16:00)
[2018-01-27] MEDS ORDERED: HYDROCODONE/ACETAMIN 5/325MG TAB PO PRN (16:45)
[2018-01-27] MEDS ORDERED: SODIUM CHLORIDE 0.9% 1000ML 1,000 ML IV SCH (16:45)
[2018-01-27] MEDS ORDERED: ACETAMINOPHEN 325 MG TAB PO PRN (16:45)
[2018-01-27] MEDS ORDERED: ONDANSETRON INJ 2 MG/ML 2 ML VIAL IV PRN (16:45)
[2018-01-27] MEDS ORDERED: SODIUM CHLORIDE 0.9% 500ML 500 ML IV SCH (17:00)
[2018-01-27] MEDS ORDERED: GABAPENTIN 600 MG TAB PO ONE (17:00)
[2018-01-27] MEDS ORDERED: ALBUT/IPRATROP 3MG/0.5MG NEB 3 ML VIAL INH PRN (17:15)
--- NOTE | 2018-01-27 17:25 | History and Physical ---
History & Physical Date & Time of Service: Jan 27, 2018 at 17:15 Chief Complaint: Light Headed, Weak, Diarrhea Primary Care Physician: Boone Paulson M.D. History of Present Illness Patient presents here with a week's worth of diarrhea she is low blood pressure on presentation as an outpatient she is some focal lower abdominal pain which is intermittent and since resolved. The patient says her diarrhea is liquid and dark(she does take iron daily and ). C. difficile has been ordered in the ER but not resulted she is a history of having a C. difficile infection in the past. She also has Waters and has known esophageal varices of been banded in the distant past. She has not been around any ill contacts nor she had any fevers she did have a CT scan of her abdomen and pelvis in the ER which does not specifically comment on any ascites she has cirrhotic changes to her liver and large portal veins. 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 (12) Pneumonia (13) Pure Hypercholesterolem (14) Shortness of breath (15) SOB (shortness of breath) (16) SVT (supraventricular tachycardia) (17) Thrombocytopenia Nos (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 Surgical Problems: (1) H/O cardiac catheterization (2) Heart stents (3) History of back surgery (4) S/P cholecystectomy Family History Diabetes mellitus FH: cancer FH: heart disease Hypertension Kidney disease Kidney stones Social History Smoking Status: Current Every Day Smoker Marital Status: Housing status: lives alone Occupational Status: unemployed Allergies Coded Allergies: Iodinated Diagnostic Agents (Verified Allergy, Intermediate, RASH TO IVP DYE, 01/27/18) Adhesives (Verified Allergy, Unknown, RASH, 01/27/18) Latex1 -Allergic Contact Dermititis (Verified Allergy, Unknown, RASH, ) Home Medications Scheduled Aspirin (Aspirin Ec), 81 MG PO Q2D Atorvastatin (Lipitor), 10 MG PO HS Betamethasone Dip Aug 0.05% (Diprolene 0.05%), 1 APPLN TP BID Cholecalciferol (Vitamin D 1000 Unit), 1,000 INTER.UNIT PO QAM Clobetasol Propionate (Clobetasol Propionate), 1 APPLN TOP BID Escitalopram Oxalate (Lexapro), 20 MG PO QAM Ferrous Sulfate (Kp Ferrous Sulfate), 325 MG PO QAM Gabapentin (Neurontin), 600 MG PO TID Home O2 Therapy (Oxygen), 2 LITERS NA HS Insulin Aspart (Novolog Flexpen), UNITS SC UD Insulin Detemir (Levemir Flextouch), 40 UNITS SQ HS Ipratropium-Albuterol (Duoneb), 1 TREATMENT INH QID Magnesium Oxide (Mag-Ox), 400 MG PO BID Metformin Hcl (Glucophage), 1,000 MG PO Q12 Methimazole (Methimazole ), 5 MG PO QAM Omeprazole (Prilosec), 40 MG PO QAM Rifaximin (Xifaxan), 550 MG PO BID Tiotropium [place]-Olodaterol (Stiolto Respimat 2.5-2.5 Mcg/Act), 2 PUFF INH DAILY Trazodone Hcl (Trazodone), 100 MG PO HS Scheduled PRN Albuterol Hfa (Ventolin Hfa), 2-4 PUFFS INH Q6H PRN for Shortness of Breath Alum & Mag Hydrox-Simethicone (Mylanta Maximum Strength 400-400-40 mg/5Ml), 1 TBS PO BID PRN for Heartburn Furosemide (Lasix), 0.5 TAB PO MWF PRN for FLUID Hydrocodone/Acetaminophen 5MG/325MG ([place] 5MG/325MG), 1 TABLET PO Q4H PRN for Pain Lorazepam (Lorazepam), 0.5 MG PO HS PRN for Sleep Review of Systems ROS: Patient appears chronically ill she is pale is fatigued No double vision blurry vision No problems with speech or swallowing No palpitations, chest pain or pressure Patient has chronic wheezing and breathing issues is typically on oxygen 24 hours a day Lower abdominal pain intermittent not exacerbated by eating or relieved by diarrhea but no nausea or vomiting. Diarrhea is unusual for her up and persistent for a week does not remind her of her previous C. difficile No burning urine urine frequency or changes in color No focal joint pain or muscle pain She does have skin rashes that she has been told is psoriatic plaques treated with topical steroid cream also rashes on her face treated also with steroid cream No unusual bruising or bleeding No focused back pain or numbness or loss of strength No changes in memory or confusion but does have some mild memory impairment Physical Exam Vital Signs Date Time Temp Pulse Resp B/P (MAP) Pulse Ox O2 Delivery O2 Flow Rate FiO2 01/27/18 15:59 95 16 71/48 100 Nasal Cannula 2.0 01/27/18 15:50 97 22 71/48 100 Nasal Cannula 2.0 01/27/18 15:00 90 18 88/47 97 Nasal Cannula 2.0 01/27/18 14:32 87 16 83/48 96 Nasal Cannula 2.0 01/27/18 14:00 85 18 62/41 100 Nasal Cannula 2.0 01/27/18 13:15 89 16 76/56 98 Nasal Cannula 2.0 01/27/18 13:00 86 20 66/46 98 Nasal Cannula 2.0 01/27/18 12:56 98 Nasal Cannula 2.0 01/27/18 12:47 86 16 70/43 95 Nasal Cannula 2.0 01/27/18 12:30 86 Room Air 01/27/18 12:30 37.0 94 20 82/53 95 Room Air General Appearance: WD/WN, + moderate distress Head: normocephalic, + abnormal shape Eyes: normal inspection, sclerae normal, + pertinent finding (May have mild ptosis of her left eye patient cannot recall whether new or not) ENT: hearing grossly normal, pharynx normal Neck: supple, no JVD Respiratory/Chest: chest non-tender, + decreased breath sounds, + rhonchi Cardiovascular: regular rate, rhythm, + systolic murmur Abdomen/GI: soft, + pertinent finding (I cannot assess for hepatomegaly there appears to be no fluid wave nor focal guarding or rebound tenderness there is no reproducible tenderness to examination) Back: no muscle spasm, normal range of motion Extremities/Musculoskelatal: no pedal edema, normal range of motion Neurologic/Psych: alert, oriented x 3 Skin: + pertinent finding (Well-circumscribed plaques about her anterior shins which she states are psoriatic plaques) Diagnostics Laboratory Results Results Past 24 Hours Test 01/27/18 12:50 01/27/18 13:03 01/27/18 13:12 01/27/18 14:00 Range/Units White Blood Count 5.89 4.8-10.8 K/uL Red Blood Count 3.00 4.2-5.4 M/uL Hemoglobin 9.5 12.0-16.0 g/dL Hematocrit 29.9 37-47 % Mean Corpuscular Volume 99.7 80-100 fL Mean Corpuscular Hemoglobin 31.7 25-34 pg Mean Corpuscular Hemoglobin Concent 31.8 32-36 g/dl Platelet Count 89 130-400 K/uL Mean Platelet Volume 11.8 7.4-10.4 fL Neutrophils (%) (Auto) 70.9 % Lymphocytes (%) (Auto) 22.8 % Monocytes (%) (Auto) 5.1 % Eosinophils (%) (Auto) 0.7 % Basophils (%) (Auto) 0.3 % Neutrophils # (Auto) 4.18 1.4-6.5 K/uL Lymphocytes # (Auto) 1.34 1.2-3.4 K/uL Monocytes # (Auto) 0.30 0.11-0.59 K/uL Eosinophils # (Auto) 0.04 0-0.5 K/uL Basophils # (Auto) 0.02 0-0.2 K/uL RDW Standard Deviation 57.0 36.4-46.3 fL RDW Coefficient of Variation 15.7 11.5-14.5 % Immature Granulocyte % (Auto) 0.2 % Immature Granulocyte # (Auto) 0.01 0.00-0.02 K/uL Prothrombin Time 12.0 9.0-12.0 SECONDS Prothromb Time International Ratio 1.1 0.9-1.1 Activated Partial Thromboplast Time 25.9 21.0-31.0 SECONDS Partial Thromboplastin Ratio 1.0 Sodium Level 137 136-145 mmol/L Potassium Level 4.1 3.5-5.1 mmol/L Chloride Level 102 98-107 mmol/L Carbon Dioxide Level 28 21-32 mmol/L Anion Gap 7.0 3-11 mmol/L Blood Urea Nitrogen 13 7-18 mg/dl Creatinine 0.78 0.60-1.20 mg/dl Est Creatinine Clear Calc Drug Dose 56.3 ml/min Estimated GFR () 88.6 Estimated GFR (Non- 76.5 BUN/Creatinine Ratio 16.3 10-20 Random Glucose 163 70-99 mg/dl Calcium Level 9.1 8.5-10.1 mg/dl Magnesium Level 1.6 1.8-2.4 mg/dl Total Bilirubin 0.9 0.2-1 mg/dl Direct Bilirubin 0.4 0-0.2 mg/dl Aspartate Amino Transf (AST/SGOT) 48 15-37 U/L Alanine Aminotransferase (ALT/SGPT) 36 12-78 U/L Alkaline Phosphatase 110 45-117 U/L Total Creatine Kinase 72 26-192 U/L Creatine Kinase MB 2.1 0.5-3.6 ng/ml Creatine Kinase MB Ratio 2.9 0-3.0 Troponin I < 0.015 0-0.045 ng/ml Total Protein 6.0 6.4-8.2 gm/dl Albumin 3.0 3.4-5.0 gm/dl Lipase 189 73-393 U/L Thyroid Stimulating Hormone (TSH) 5.940 0.300-4.500 uIu/ml Bedside Lactic Acid Venous 2.73 2.33 0.90-1.70 mmol/L Urine Color PALLAVI Urine Appearance CLEAR CLEAR Urine pH 5.5 4.5-7.5 Urine Specific [place] 1.025 1.000-1.030 Urine Protein TRACE NEG Urine Glucose (UA) NEG NEG Urine Ketones TRACE NEG Urine Occult Blood NEG NEG Urine Nitrite NEG NEG Urine Bilirubin NEG NEG Urine Urobilinogen NEG NEG Urine Leukocyte Esterase NEG NEG Urine RBC 0-4 0-4 /hpf Urine WBC 1-5 0-5 /hpf Urine Epithelial Cells 5-10 0-5 /lpf Urine Renal Cells 0-5 FEW /lpf Urine Bacteria NEG NEG Urine Hyaline Casts 1-5 0-5 /lpf Urine Mucus PRESENT NONE PRSENT Microbiology Results 01/27/18 Blood Culture, Received Pending 01/27/18 Blood Culture, Received Pending 01/27/18 Urine Culture, Received Pending Diagnostic Radiology CT scan of abdomen and pelvis IMPRESSION: 1. Cirrhotic morphology of the liver. Splenomegaly. Prominent retroperitoneal venous collaterals 2. No evidence of bowel obstruction. No evidence of free air 3. Nonobstructing 2 mm left renal calculus 4. No evidence of acute appendicitis. No evidence of acute diverticulitis 5. Small right pleural effusion. Interlobular septal edema. CXR normal (Except for may be mild vascular congestion) other (Sinus rhythm right bundle branch block) Impression Assessment and Plan 72-year-old female with history of Waters presents with diarrhea and hypotension Hypotension might be caused from dehydration and she does also take occasional diuretic therapy. We will give her fluid bolus of 500 continue saline evaluate for infectious causes of diarrhea including C. difficile as she has a history of the same we will begin oral treatment for C. difficile prior to the test coming back as likely she will only get 1 dose or 2 at the most and that if the test is negative we will stop it. Concerned the hypotension may be from blood loss, she has had a recent mild reduction in hemoglobin has a history of portal hypertension and esophageal varices we will repeat hemoglobin at 2300 hrs. after she is hydrated we will continue proton pump inhibitor. She is quizzed and whether she been on propranolol in the past she says she does not think so Possibility of SBP is low the patient has no other clinical signs or symptoms will not pursue a diagnostic paracentesis unless she develops changes to prompt us in this direction with regard to her diabetes because she is going to be n.p.o. 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
[2018-01-27] MEDS ORDERED: GLUCOSE 40% GEL 15 GM TUBE PO PRN (17:45)
[2018-01-27] MEDS ORDERED: GLUCOSE 10 TABS/TUBE PO PRN (17:45)
[2018-01-27] MEDS ORDERED: DEXTROSE 50% 50 ML SYR IV PRN (17:45)
[2018-01-27] MEDS ORDERED: GLUCAGON FOR INJ 1 MG VIAL SQ PRN (17:45)
[2018-01-27] MEDS: SODIUM CHLORIDE 0.9% 1000ML 1,000 ML IV SCH ×2 (18:00→23:51)
[2018-01-27 18:42] VITALS: BP 83/55; PULSE 94; TEMP 36.5; O2SAT 99
--- NOTE | 2018-01-27 19:08 | EMERGENCY ROOM VISIT NOTE ---
History Report prepared by Latia: Sherrill Vogt Under the Supervision of: Dr. Manish Lorenzana M.D. First contact with patient: 12:46 Chief Complaint: WEAKNESS Stated Complaint: LIGHT HEADED, WEAK, DIARRHEA Nursing Triage Summary: pt to the ED with c/o calling dr blair and pt c/o feeling light headed and no strength x1 wk c/o lower abd pain with diarrhea History of Present Illness The patient is a 72 year old female who presents to the Emergency Room with complaints of constant lightheadedness, weakness, diarrhea, and constant lower abdominal pain beginning two weeks bell captain. She notes she has been having more than 10 episodes of diarrhea a day. She states she is eating and drinking normally and not vomiting. She also reports feeling very dehydrated. She notes she has had problems like this before, but not this bad. Pt denies LOC, headache, fevers , chills, diaphoresis, visual changes, neck pain, chest pain, breathing difficulties, nausea, vomiting, back pain, melena, hematochezia, urinary symptoms, numbness, lymphadenopathy, rash, or other complaints. Source of History: patient Onset: two weeks bell captain Position: abdomen (lower) Timing: constant Associated Symptoms: + cough, + diarrhea, + weakness Note: Positive lightheadedness and dizziness. Review of Systems See HPI for pertinent positives and negatives. A total of ten systems were reviewed and were otherwise negative. 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 (12) Pneumonia (13) Pure Hypercholesterolem (14) Shortness of breath (15) SOB (shortness of breath) (16) SVT (supraventricular tachycardia) (17) Thrombocytopenia Nos (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 Surgical Problems: (1) H/O cardiac catheterization (2) Heart stents (3) History of back surgery (4) S/P cholecystectomy Family History Diabetes mellitus FH: cancer FH: heart disease Hypertension Kidney disease Kidney stones Social History Smoking Status: Current Every Day Smoker Alcohol Use: none Marital Status: Housing Status: lives alone Occupation Status: unemployed Current/Historical Medications Scheduled Aspirin (Aspirin Ec), 81 MG PO Q2D Atorvastatin (Lipitor), 10 MG PO HS Betamethasone Dip Aug 0.05% (Diprolene 0.05%), 1 APPLN TP BID Cholecalciferol (Vitamin D 1000 Unit), 1,000 INTER.UNIT PO QAM Clobetasol Propionate (Clobetasol Propionate), 1 APPLN TOP BID Escitalopram Oxalate (Lexapro), 20 MG PO QAM Ferrous Sulfate (Kp Ferrous Sulfate), 325 MG PO QAM Gabapentin (Neurontin), 600 MG PO TID Home O2 Therapy (Oxygen), 2 LITERS NA HS Insulin Aspart (Novolog Flexpen), UNITS SC UD Insulin Detemir (Levemir Flextouch), 40 UNITS SQ HS Ipratropium-Albuterol (Duoneb), 1 TREATMENT INH QID Magnesium Oxide (Mag-Ox), 400 MG PO BID Metformin Hcl (Glucophage), 1,000 MG PO Q12 Methimazole (Methimazole ), 5 MG PO QAM Omeprazole (Prilosec), 40 MG PO QAM Rifaximin (Xifaxan), 550 MG PO BID Tiotropium [place]-Olodaterol (Stiolto Respimat 2.5-2.5 Mcg/Act), 2 PUFF INH DAILY Trazodone Hcl (Trazodone), 100 MG PO HS Scheduled PRN Albuterol Hfa (Ventolin Hfa), 2-4 PUFFS INH Q6H PRN for Shortness of Breath Alum & Mag Hydrox-Simethicone (Mylanta Maximum Strength 400-400-40 mg/5Ml), 1 TBS PO BID PRN for Heartburn Furosemide (Lasix), 0.5 TAB PO MWF PRN for FLUID Hydrocodone/Acetaminophen 5MG/325MG (Branch 5MG/325MG), 1 TABLET PO Q4H PRN for Pain Lorazepam (Lorazepam), 0.5 MG PO HS PRN for Sleep Allergies Coded Allergies: Iodinated Diagnostic Agents (Verified Allergy, Intermediate, RASH TO IVP DYE, 01/27/18) Adhesives (Verified Allergy, Unknown, RASH, 01/27/18) Latex1 -Allergic Contact Dermititis (Verified Allergy, Unknown, RASH, ) Physical Exam Vital Signs Date Time Temp Pulse Resp B/P (MAP) Pulse Ox O2 Delivery O2 Flow Rate FiO2 01/27/18 15:59 95 16 71/48 100 Nasal Cannula 2.0 01/27/18 15:50 97 22 71/48 100 Nasal Cannula 2.0 01/27/18 15:00 90 18 88/47 97 Nasal Cannula 2.0 01/27/18 14:32 87 16 83/48 96 Nasal Cannula 2.0 01/27/18 14:00 85 18 62/41 100 Nasal Cannula 2.0 01/27/18 13:15 89 16 76/56 98 Nasal Cannula 2.0 01/27/18 13:00 86 20 66/46 98 Nasal Cannula 2.0 01/27/18 12:56 98 Nasal Cannula 2.0 01/27/18 12:47 86 16 70/43 95 Nasal Cannula 2.0 01/27/18 12:30 86 Room Air 01/27/18 12:30 37.0 94 20 82/53 95 Room Air Physical Exam GENERAL: Awake, alert, mildly ill-appearing, in no distress HENT: Normocephalic, atraumatic. Oropharynx unremarkable. Dry mucous membranes EYES: Normal conjunctiva. Sclera non-icteric. NECK: Supple. No nuchal rigidity. FROM. No masses. RESPIRATORY: Coarse breath sounds. No wheezes. CARDIAC: Normal rate. Normal rhythm. No murmurs. No rubs. Extremities warm and well perfused. Pulses equal. No JVD. GI: Soft, non-distended. No rebound or guarding. No masses. Lower and epigastric tenderness. RECTAL: Deferred. MUSCULOSKELETAL: Atraumatic. Chest examination reveals no tenderness. LOWER EXTREMITIES: Calves are equal size bilaterally and non-tender. No edema. No discoloration. NEURO: Normal sensorium. No sensory or motor deficits noted. SKIN: No rash or jaundice noted. Tenting of the skin. Medical Decision & Procedures ER Provider Diagnostic Interpretation: Radiology results as stated below per my review and radiologist interpretation: CHEST ONE VIEW PORTABLE CLINICAL HISTORY: 72 years-old Female presenting with EVALUATE WEAKNESS. TECHNIQUE: Portable supine AP view of the chest was obtained. COMPARISON: 11/13/2017. FINDINGS: Atherosclerosis of aortic arch. Cardiac silhouette enlarged. No vascular prominence. Prominent lung markings bilaterally. No focal opacity. Trace bilateral pleural effusions may present. No pneumothorax. Posterior cervical fusion hardware. Surgical clips project over the right base of the neck. Upper abdomen normal. IMPRESSION: 1. Cardiomegaly. Pulmonary vascular prominence may relate to supine positioning. No eliazar pulmonary edema. 2. Possible trace bilateral pleural effusions. Electronically signed by: Boone Boss M.D. 01/27/2018 1:37 PM Dictated Date/Time: 01/27/2018 1:[address] SCAN OF THE ABDOMEN AND PELVIS WITHOUT CONTRAST CLINICAL HISTORY: lower abd pain, profound diarrhea COMPARISON STUDY: 09/13/2017 TECHNIQUE: CT scan of the abdomen and pelvis was performed from the lung bases to the proximal femurs. Images are reviewed in the axial, sagittal, and coronal planes. IV contrast was not administered for this examination. A dose lowering technique was utilized adhering to the principles of ALARA. CT DOSE: 859.61 mGycm FINDINGS: Lower chest: There is a small right pleural effusion. There is interlobular septal edema. Liver: The liver has a cirrhotic morphology. No focal hepatic masses are visualized. Gallbladder: Surgically absent Spleen: The spleen is enlarged measuring 15 cm Pancreas: Unremarkable. Adrenal glands: Unremarkable. Kidneys: There are renal vascular calcifications. There is a 2 mm nonobstructing left renal calculus. This 12 mm lower pole left renal hypodensity likely representing a cyst Bowel: There are no transition zones to indicate bowel obstruction. There is no evidence of acute appendicitis. The bowel wall is difficult to evaluate given the absence of intravenous and oral contrast on the current study Peritoneum: There is low volume ascites. No free intraperitoneal air is visualized. Vasculature: There are moderately extensive mesenteric vascular calcifications. There is no evidence of abdominal aortic aneurysm. Adenopathy: None. Pelvic viscera: The bladder, and pelvic viscera are unremarkable. Skeletal structures: There are postsurgical changes present within the lumbar spine. There is an old L1 compression deformity IMPRESSION: 1. Cirrhotic morphology of the liver. Splenomegaly. Prominent retroperitoneal venous collaterals 2. No evidence of bowel obstruction. No evidence of free air 3. Nonobstructing 2 mm left renal calculus 4. No evidence of acute appendicitis. No evidence of acute diverticulitis 5. Small right pleural effusion. Interlobular septal edema. Electronically signed by: Wero Jean Baptiste M.D. 01/27/2018 2:00 PM Dictated Date/Time: 01/27/2018 1:53 PM Laboratory Results 3/5/18 12:50 Red Blood Count 3.00, Mean Corpuscular Volume 99.7, Mean Corpuscular Hemoglobin 31.7, Mean Corpuscular Hemoglobin Concent 31.8, Mean Platelet Volume 11.8, Neutrophils (%) (Auto) 70.9, Lymphocytes (%) (Auto) 22.8, Monocytes (%) (Auto) 5.1, Eosinophils (%) (Auto) 0.7, Basophils (%) (Auto) 0.3, Neutrophils # (Auto) 4.18, Lymphocytes # (Auto) 1.34, Monocytes # (Auto) 0.30, Eosinophils # (Auto) 0.04, Basophils # (Auto) 0.02 01/27/18 12:50 Test 01/27/18 12:50 01/27/18 13:12 01/27/18 14:00 White Blood Count 5.89 K/uL (4.8-10.8) Red Blood Count 3.00 M/uL (4.2-5.4) Hemoglobin 9.5 g/dL (12.0-16.0) Hematocrit 29.9 % (37-47) Mean Corpuscular Volume 99.7 fL (80-100) Mean Corpuscular Hemoglobin 31.7 pg (25-34) Mean Corpuscular Hemoglobin Concent 31.8 g/dl (32-36) Platelet Count 89 K/uL (130-400) Mean Platelet Volume 11.8 fL (7.4-10.4) Neutrophils (%) (Auto) 70.9 % Lymphocytes (%) (Auto) 22.8 % Monocytes (%) (Auto) 5.1 % Eosinophils (%) (Auto) 0.7 % Basophils (%) (Auto) 0.3 % Neutrophils # (Auto) 4.18 K/uL (1.4-6.5) Lymphocytes # (Auto) 1.34 K/uL (1.2-3.4) Monocytes # (Auto) 0.30 K/uL (0.11-0.59) Eosinophils # (Auto) 0.04 K/uL (0-0.5) Basophils # (Auto) 0.02 K/uL (0-0.2) RDW Standard Deviation 57.0 fL (36.4-46.3) RDW Coefficient of Variation 15.7 % (11.5-14.5) Immature Granulocyte % (Auto) 0.2 % Immature Granulocyte # (Auto) 0.01 K/uL (0.00-0.02) Prothrombin Time 12.0 SECONDS (9.0-12.0) Prothromb Time International Ratio 1.1 (0.9-1.1) Activated Partial Thromboplast Time 25.9 SECONDS (21.0-31.0) Partial Thromboplastin Ratio 1.0 Anion Gap 7.0 mmol/L (3-11) Est Creatinine Clear Calc Drug Dose 56.3 ml/min Estimated GFR () 88.6 Estimated GFR (Non- 76.5 BUN/Creatinine Ratio 16.3 (10-20) Calcium Level 9.1 mg/dl (8.5-10.1) Magnesium Level 1.6 mg/dl (1.8-2.4) Total Bilirubin 0.9 mg/dl (0.2-1) Direct Bilirubin 0.4 mg/dl (0-0.2) Aspartate Amino Transf (AST/SGOT) 48 U/L (15-37) Alanine Aminotransferase (ALT/SGPT) 36 U/L (12-78) Alkaline Phosphatase 110 U/L (45-117) Total Creatine Kinase 72 U/L (26-192) Creatine Kinase MB 2.1 ng/ml (0.5-3.6) Creatine Kinase MB Ratio 2.9 (0-3.0) Troponin I < 0.015 ng/ml (0-0.045) Total Protein 6.0 gm/dl (6.4-8.2) Albumin 3.0 gm/dl (3.4-5.0) Lipase 189 U/L (73-393) Thyroid Stimulating Hormone (TSH) 5.940 uIu/ml (0.300-4.500) Bedside Lactic Acid Venous 2.33 mmol/L (0.90-1.70) Urine Color PALLAVI Urine Appearance CLEAR (CLEAR) Urine pH 5.5 (4.5-7.5) Urine Specific [place] 1.025 (1.000-1.030) Urine Protein TRACE (NEG) Urine Glucose (UA) NEG (NEG) Urine Ketones TRACE (NEG) Urine Occult Blood NEG (NEG) Urine Nitrite NEG (NEG) Urine Bilirubin NEG (NEG) Urine Urobilinogen NEG (NEG) Urine Leukocyte Esterase NEG (NEG) Urine RBC 0-4 /hpf (0-4) Urine WBC 1-5 /hpf (0-5) Urine Epithelial Cells 5-10 /lpf (0-5) Urine Renal Cells 0-5 /lpf (FEW) Urine Bacteria NEG (NEG) Urine Hyaline Casts 1-5 /lpf (0-5) Urine Mucus PRESENT (NONE PRSENT) Laboratory results reviewed by me Medications Administered Medications (Trade) Dose Ordered Sig/Diego Route Start Time Stop Time Status Last Admin Dose Admin Lactated Ringer's 1,000 ml @ 999 mls/hr Q1H1M ONCE IV 01/27/18 13:00 01/27/18 14:00 DC 01/27/18 13:00 999 MLS/HR Lactated Ringer's 1,000 ml @ 125 mls/hr Q8H IV 01/27/18 13:30 01/27/18 18:38 DC 01/27/18 14:31 125 MLS/HR Albuterol/ Ipratropium (Duoneb) 3 ml NOW STAT INH 01/27/18 16:00 01/27/18 16:01 DC 01/27/18 16:11 3 ML Gabapentin (Neurontin Tab) 600 mg 1700 ONCE PO 01/27/18 17:00 01/27/18 17:01 DC 01/27/18 17:21 600 MG Sodium Chloride 1,000 ml @ 100 mls/hr Q10H IV 01/27/18 17:00 01/28/18 12:59 01/27/18 18:00 100 MLS/HR Sodium Chloride 500 ml @ 500 mls/hr Q1H IV 01/27/18 17:00 01/27/18 17:59 DC 01/27/18 18:00 500 MLS/HR ECG Per My Interpretation Indication: weakness Rate (beats per minute): 93 Rhythm: normal sinus Findings: RBBB, no acute ischemic change, left axis deviation, no ectopy ED Course 1300: Lactated Ringer's 1000 ml @ 999 mls/hr IV 1313: The patient was evaluated in room B5. A complete history and physical exam was performed. 1317: Prior records were reviewed. Patient was found to be consistently hypotensive for the past four years. 1330: Lactated Ringer's 1000 ml @ 125 mls/hr IV 1410: I reevaluated the patient at this time She is stable and finishing her fluids 1600: Duoneb 3 ml INH 1625: Discussed the patient's case. The patient will be evaluated for further treatment and disposition by Dr. Mcdonald [facility] Hospitalist. Medical Decision Triage Nursing notes reviewed. The patient's presentation and history were concerning for weakness and diarrhea. Etiologies such as dehydration, C. difficile, metabolic, infection, hypo/ hyperglycemia, electrolyte abnormalities, cardiac sources, intracerebral event, toxicologic, neurologic, as well as others were entertained. The patient was evaluated. Clinically she looked dry. She was given a bolus of lactated Ringer's, 1 L. She was started on hydration. The patient had a mild anemia on CBC but no leukocytosis. Chemistry panel was unremarkable. Minimal elevation of LFTs. The patient underwent chest imaging and CT of the abdomen and pelvis. Findings as noted above. She was somewhat wheezy. She has a history of smoking and COPD. She was given a DuoNeb. Her blood pressure is low and has been in the past. She is generally weak I discussed further management in the hospital. Family and the patient are in agreement and she is doing poorly at home. C. difficile testing has been ordered but is not complete. Consultation was made with internal medicine for further management. Medication Reconcilliation Current Medication List: was personally reviewed by me Blood Pressure Screening Patient's blood pressure: Low blood pressure Blood pressure disposition: Did not require urgent referral Consults Time Called: 1620 Consulting Physician: Dr. Mcdonald [facility] Hospitalist Returned Call: 1625 He will further evaluate the patient. Impression Primary Impression: Dehydration Additional Impression: Diarrhea Scribe Attestation The scribe's documentation has been prepared under my direction and personally reviewed by me in its entirety. I confirm that the note above accurately reflects all work, treatment, procedures, and medical decision making performed by me. Departure Information Dispostion Being Evaluated By Hospitalist (Dr. Mcdonald, [facility] Hospitalist ) Referrals Boone Blair M.D. (PCP) Patient Instructions My [facility] Problem Qualifiers
[2018-01-27] MEDS: RASPBERRY SYRUP 5 ML UDP PO SCH ×2 (19:09→23:50)
[2018-01-27] MEDS: MAGNESIUM SULFATE 1GM / D5W 1 GM in PREMIXED IN D5W 100 ML IV SCH ×2 (19:10→21:20)
[2018-01-27] MEDS: VANCOMYCIN HCL 125 MG/2.5ML SOLN PO SCH ×2 (19:10→23:50)
[2018-01-27] MEDS: BETAMETHASONE DIP AUG (DIPROLENE) 0.05% OINT 15 GM TUBE EXT SCH (19:11)
[2018-01-27 19:26] VITALS: BP 83/55; PULSE 94; TEMP 36.5; Ht 149.9 cm; Wt 75.9 kg
[2018-01-27] MEDS ORDERED: INSULIN DETEMIR FLEXPEN/FLEX TOUCH 100 UNITS/ML 3ML SQ SCH (21:00)
[2018-01-27] MEDS: INSULIN ASPART 100 UNITS/ML 3 ML PEN SC SCH (21:00)
[2018-01-27] MEDS: RIFAXIMIN TAB 550 MG TAB PO SCH (21:20)
[2018-01-27] MEDS: GABAPENTIN 600 MG TAB PO SCH (21:21)
[2018-01-27] MEDS: ATORVASTATIN 10 MG TAB PO SCH (21:21)
[2018-01-27] MEDS: TRAZODONE HCL 100 MG TAB PO SCH (21:21)
[2018-01-27] MEDS: PANTOprazole INJ 40 MG in SYRINGE 0 ML IV SCH (21:23)
[2018-01-27] MEDS: ALBUT/IPRATROP 3MG/0.5MG NEB 3 ML VIAL INH SCH (21:55)
[2018-01-27 22:18] VITALS: O2SAT 99
[2018-01-27] MEDS: INSULIN DETEMIR FLEXPEN/FLEX TOUCH 100 UNITS/ML 3ML SQ SCH (22:35)
[2018-01-27 23:36] LABS: HEMATOCRIT 29.7 % (37-47); HEMOGLOBIN 9.6 g/dL (12.0-16.0)
[2018-01-28] VITALS (20 sets, daily range): BP systolic 57–106; BP diastolic 42–65; PULSE 79–97; TEMP 36.5–37.1; O2SAT 93–100
[2018-01-28] MEDS: VANCOMYCIN HCL 125 MG/2.5ML SOLN PO SCH ×4 (06:04→23:40)
[2018-01-28] MEDS: RASPBERRY SYRUP 5 ML UDP PO SCH ×4 (06:04→23:41)
[2018-01-28] MEDS: INSULIN ASPART 100 UNITS/ML 3 ML PEN SC SCH ×4 (06:30→20:40)
[2018-01-28 07:22] LABS: MEAN CELL VOLUME 100.7 fL (80-100); MEAN CORPUSCULAR HEMOGLOBIN 31.3 pg (25-34); RED CELL DISTRIBUTION WIDTH CV 15.6 % (11.5-14.5); RED CELL DISTRIBUTION WIDTH SD 57.2 fL (36.4-46.3); WHITE BLOOD COUNT 4.44 K/uL (4.8-10.8)
[2018-01-28] MEDS: ALBUT/IPRATROP 3MG/0.5MG NEB 3 ML VIAL INH SCH ×4 (07:22→19:13)
[2018-01-28 07:26] LABS: MEAN PLATELET VOLUME 11.2 fL (7.4-10.4); PLATELET COUNT 77 K/uL (130-400)
--- NOTE | 2018-01-28 07:28 | Progress Note ---
Subjective Date of Service: Jan 28, 2018. Subjective pt states she had a terrible night, felt weak and tired. she is having diarrhea and has confirmed C diff, has lower blood pressure and this maybe Problem List Medical Problems: (1) Anemia Status: Acute (2) Chest pain Status: Acute (3) COPD (chronic obstructive pulmonary disease) Status: Acute (4) COPD exacerbation Status: Acute (5) COPD exacerbation Status: Acute (6) Dehydration Status: Acute (7) Diarrhea Status: Acute (8) Fall Status: Acute (9) Foot contusion Status: Acute (10) Head injury Status: Acute (11) Hyperglycemia Status: Acute (12) Hypotension Status: Acute (13) Hypotension Status: Acute (14) Lumbar compression fracture Status: Acute (15) Nausea Status: Acute (16) Positive D dimer Status: Acute (17) Psoriasis Status: Acute (18) Pulmonary fibrosis Status: Acute (19) Respiratory distress Status: Acute (20) SOB (shortness of breath) Status: Acute (21) SOB (shortness of breath) Status: Acute (22) Supraventricular aortic stenosis Status: Acute (23) Supraventricular arrhythmia Status: Acute (24) Upper GI bleeding Status: Acute (25) UTI (urinary tract infection) Status: Acute (26) Weakness Status: Acute Review of Systems Constitutional: + weakness, + fatigue, No fever, No chills Respiratory: No cough, No shortness of breath, No dyspnea on exertion Cardiac: No chest pain, No edema Abdomen: + diarrhea, No pain, No nausea, No vomiting Female : No dysuria, No urinary frequency Neurologic: + weakness, No memory loss Psychiatric: No depression symptoms, No anhedonism Objective Vital Signs Date Time Temp Pulse Resp B/P (MAP) Pulse Ox O2 Delivery O2 Flow Rate FiO2 01/28/18 07:22 90 18 94 Nasal Cannula 2.0 01/28/18 04:23 37.0 92 18 82/56 (65) 97 Nasal Cannula 2.0 01/28/18 04:00 99 Nasal Cannula 2.0 01/28/18 03:20 86/55 (65) 01/28/18 01:10 37.1 92 57/44 (48) 95 Nasal Cannula 2.0 01/28/18 00:00 99 Nasal Cannula 2.0 01/27/18 22:18 99 Nasal Cannula 2.0 01/27/18 19:26 36.5 94 18 83/55 01/27/18 18:42 36.5 94 18 83/55 (64) 99 2.0 01/27/18 17:48 96 20 110/64 100 Nasal Cannula 2.0 01/27/18 17:22 95 18 96/59 100 Nasal Cannula 2.0 01/27/18 15:59 95 16 71/48 100 Nasal Cannula 2.0 01/27/18 15:50 97 22 71/48 100 Nasal Cannula 2.0 01/27/18 15:00 90 18 88/47 97 Nasal Cannula 2.0 01/27/18 14:32 87 16 83/48 96 Nasal Cannula 2.0 01/27/18 14:00 85 18 62/41 100 Nasal Cannula 2.0 01/27/18 13:15 89 16 76/56 98 Nasal Cannula 2.0 01/27/18 13:00 86 20 66/46 98 Nasal Cannula 2.0 01/27/18 12:56 98 Nasal Cannula 2.0 01/27/18 12:47 86 16 70/43 95 Nasal Cannula 2.0 01/27/18 12:30 86 Room Air 01/27/18 12:30 37.0 94 20 82/53 95 Room Air Physical Exam General Appearance: WD/WN, + mild distress Eyes: normal inspection, sclerae normal Neck: supple, no JVD Respiratory/Chest: chest non-tender, lungs clear, normal breath sounds Cardiovascular: regular rate, rhythm, no murmur Abdomen: normal bowel sounds, soft, + tenderness (lower abdomen) Neurologic/Psychiatric: alert, oriented x 3 Laboratory Results Last 24 Hours Test 01/27/18 12:50 01/27/18 13:03 01/27/18 13:12 01/27/18 14:00 White Blood Count 5.89 K/uL Red Blood Count 3.00 M/uL Hemoglobin 9.5 g/dL Hematocrit 29.9 % Mean Corpuscular Volume 99.7 fL Mean Corpuscular Hemoglobin 31.7 pg Mean Corpuscular Hemoglobin Concent 31.8 g/dl Platelet Count 89 K/uL Mean Platelet Volume 11.8 fL Neutrophils (%) (Auto) 70.9 % Lymphocytes (%) (Auto) 22.8 % Monocytes (%) (Auto) 5.1 % Eosinophils (%) (Auto) 0.7 % Basophils (%) (Auto) 0.3 % Neutrophils # (Auto) 4.18 K/uL Lymphocytes # (Auto) 1.34 K/uL Monocytes # (Auto) 0.30 K/uL Eosinophils # (Auto) 0.04 K/uL Basophils # (Auto) 0.02 K/uL RDW Standard Deviation 57.0 fL RDW Coefficient of Variation 15.7 % Immature Granulocyte % (Auto) 0.2 % Immature Granulocyte # (Auto) 0.01 K/uL Prothrombin Time 12.0 SECONDS Prothromb Time International Ratio 1.1 Activated Partial Thromboplast Time 25.9 SECONDS Partial Thromboplastin Ratio 1.0 Sodium Level 137 mmol/L Potassium Level 4.1 mmol/L Chloride Level 102 mmol/L Carbon Dioxide Level 28 mmol/L Anion Gap 7.0 mmol/L Blood Urea Nitrogen 13 mg/dl Creatinine 0.78 mg/dl Est Creatinine Clear Calc Drug Dose 56.3 ml/min Estimated GFR () 88.6 Estimated GFR (Non- 76.5 BUN/Creatinine Ratio 16.3 Random Glucose 163 mg/dl Calcium Level 9.1 mg/dl Magnesium Level 1.6 mg/dl Total Bilirubin 0.9 mg/dl Direct Bilirubin 0.4 mg/dl Aspartate Amino Transf (AST/SGOT) 48 U/L Alanine Aminotransferase (ALT/SGPT) 36 U/L Alkaline Phosphatase 110 U/L Total Creatine Kinase 72 U/L Creatine Kinase MB 2.1 ng/ml Creatine Kinase MB Ratio 2.9 Troponin I < 0.015 ng/ml Total Protein 6.0 gm/dl Albumin 3.0 gm/dl Lipase 189 U/L Thyroid Stimulating Hormone (TSH) 5.940 uIu/ml Bedside Lactic Acid Venous 2.73 mmol/L 2.33 mmol/L Urine Color PALLAVI Urine Appearance CLEAR Urine pH 5.5 Urine Specific [place] 1.025 Urine Protein TRACE Urine Glucose (UA) NEG Urine Ketones TRACE Urine Occult Blood NEG Urine Nitrite NEG Urine Bilirubin NEG Urine Urobilinogen NEG Urine Leukocyte Esterase NEG Urine RBC 0-4 /hpf Urine WBC 1-5 /hpf Urine Epithelial Cells 5-10 /lpf Urine Renal Cells 0-5 /lpf Urine Bacteria NEG Urine Hyaline Casts 1-5 /lpf Urine Mucus PRESENT Test 01/27/18 20:25 01/27/18 23:25 01/28/18 06:58 Bedside Glucose 130 mg/dl Hemoglobin 9.6 g/dL 9.0 g/dL Hematocrit 29.7 % 29.0 % White Blood Count 4.44 K/uL Red Blood Count 2.88 M/uL Mean Corpuscular Volume 100.7 fL Mean Corpuscular Hemoglobin 31.3 pg Mean Corpuscular Hemoglobin Concent 31.0 g/dl RDW Standard Deviation 57.2 fL RDW Coefficient of Variation 15.6 % Platelet Count 77 K/uL Mean Platelet Volume 11.2 fL Assessment and Plan 72-year-old female with history of Gomez presents with diarrhea and hypotension, found to have c diff and sirs Hypotension secondary to infectious causes and SIRS, diarrhea including C. difficile as she has a history of the same we will begin oral treatment for C. difficile, is on oral vancomycin and also cipro / flagyl iv Her slight drop in hgb is likely dilutional, and not concerned that is acute blood loss Not concerned about SBP US does not suggest ascites, will advance diet Cirrhosis will maintain her Xifaxan therapy she is tolerating a reduction long-term insulin by 50% continue sliding scale holding her metformin Hypothyroidism in the setting of methimazole treatment we will continue her methimazole at 5 Chronic respiratory failure with hypoxia we will continue oxygen supplementation as mayb influenced by SIRS depression Lexapro at bedtime trazodone and as needed Ativan DVT prevention is going based on mechanical means given the consideration of bleeding
[2018-01-28] MEDS ORDERED: LACTATED RINGER'S 1000ML 1,000 ML IV SCH (07:45)
[2018-01-28 07:57] LABS: CREATININE 0.59 mg/dl (0.60-1.20)
[2018-01-28] MEDS ORDERED: METRONIDAZOLE / NSS 500 MG in PREMIXED NSS 100 ML IV SCH (08:00)
[2018-01-28 08:29] LABS: HEMOGLOBIN A1C 5.5 % (4.5-5.6)
[2018-01-28] MEDS ORDERED: CIPROFLOXACIN / D5W 400 MG in PREMIXED IN D5W 200 ML IV SCH (09:00)
[2018-01-28] MEDS ORDERED: PANTOprazole SOD 40 MG TAB PO SCH (09:00)
[2018-01-28] MEDS: BETAMETHASONE DIP AUG (DIPROLENE) 0.05% OINT 15 GM TUBE EXT SCH ×2 (09:22→20:34)
[2018-01-28] MEDS: ASPIRIN 81 MG ECTAB PO SCH (09:24)
[2018-01-28] MEDS: FERROUS SULFATE 325 MG TAB PO SCH (09:24)
[2018-01-28] MEDS: ESCITALOPRAM OXALATE 20 MG TAB PO SCH (09:25)
[2018-01-28] MEDS: METHIMAZOLE 5 MG TAB PO SCH (09:25)
[2018-01-28] MEDS: GABAPENTIN 600 MG TAB PO SCH ×3 (09:25→20:35)
[2018-01-28] MEDS: RIFAXIMIN TAB 550 MG TAB PO SCH ×2 (09:26→20:35)
[2018-01-28] MEDS: CHOLECALCIFEROL 1000 INTER.UNIT TAB PO SCH (09:26)
--- NOTE | 2018-01-28 09:41 | DIAGNOSTIC IMAGING REPORT ---
ULTRASOUND ASCITES CHECK CLINICAL HISTORY: Cirrhosis and ascites. COMPARISON STUDY: Abdominal CT dated 01/27/2018. FINDINGS: Real-time grayscale sonography of all 4 quadrants of the abdomen is performed to assess for abdominal ascites. Cirrhotic liver morphology is noted. There is a small volume of abdominopelvic ascites. The largest pocket of fluid is in the left lower quadrant. IMPRESSION: 1. There is a small volume of ascites. 2. The liver is cirrhotic in morphology. Electronically signed by: Daniel Copeland M.D. 01/28/2018 9:40 AM Dictated Date/Time: 01/28/2018 9:39 AM
[2018-01-28] MEDS: PANTOprazole INJ 40 MG in SYRINGE 0 ML IV SCH ×2 (10:05→20:49)
[2018-01-28] MEDS: ATORVASTATIN 10 MG TAB PO SCH (20:35)
[2018-01-28] MEDS: TRAZODONE HCL 100 MG TAB PO SCH (20:35)
[2018-01-28] MEDS: INSULIN DETEMIR FLEXPEN/FLEX TOUCH 100 UNITS/ML 3ML SQ SCH (20:40)
[2018-01-28] MEDS: LORAZEPAM 0.5 MG TAB PO PRN (21:51)
[2018-01-28] MEDS: SODIUM CHLORIDE 0.9% 1000ML 1,000 ML IV SCH (23:40)
[2018-01-29] VITALS (12 sets, daily range): BP systolic 84–112; BP diastolic 53–69; PULSE 82–108; TEMP 36.4–37.2; O2SAT 94–99
[2018-01-29] MEDS: RASPBERRY SYRUP 5 ML UDP PO SCH ×4 (06:07→23:37)
[2018-01-29] MEDS: VANCOMYCIN HCL 125 MG/2.5ML SOLN PO SCH ×4 (06:07→23:37)
[2018-01-29 07:24] LABS: CALCIUM 7.9 mg/dl (8.5-10.1); CREATININE 0.6 mg/dl (0.60-1.20); POTASSIUM 3.7 mmol/L (3.5-5.1)
[2018-01-29] MEDS: ALBUT/IPRATROP 3MG/0.5MG NEB 3 ML VIAL INH SCH ×4 (07:25→19:40)
[2018-01-29] MEDS: INSULIN ASPART 100 UNITS/ML 3 ML PEN SC SCH ×4 (07:40→21:10)
[2018-01-29] MEDS: PANTOprazole INJ 40 MG in SYRINGE 0 ML IV SCH (09:01)
[2018-01-29] MEDS: METHIMAZOLE 5 MG TAB PO SCH (09:02)
[2018-01-29] MEDS: RIFAXIMIN TAB 550 MG TAB PO SCH ×2 (09:02→20:56)
[2018-01-29] MEDS: ESCITALOPRAM OXALATE 20 MG TAB PO SCH (09:03)
[2018-01-29] MEDS: CHOLECALCIFEROL 1000 INTER.UNIT TAB PO SCH (09:03)
[2018-01-29] MEDS: GABAPENTIN 600 MG TAB PO SCH ×3 (09:03→20:56)
[2018-01-29] MEDS: FERROUS SULFATE 325 MG TAB PO SCH (09:03)
[2018-01-29] MEDS: SODIUM CHLORIDE 0.9% 1000ML 1,000 ML IV SCH (09:04)
[2018-01-29] MEDS: BETAMETHASONE DIP AUG (DIPROLENE) 0.05% OINT 15 GM TUBE EXT SCH ×2 (09:04→20:52)
[2018-01-29] MEDS: FLUTICASONE/SALMETEROL 250/50 (ADVAIR) 14 PUFF/1 INHALER INH SCH ×2 (12:36→20:54)
[2018-01-29] MEDS: TIOTROPIUM BROMIDE 5 PUFF/90 MCG INH INH SCH (12:36)
[2018-01-29] MEDS: FAMOTIDINE 20 MG TAB PO SCH ×2 (12:37→20:56)
--- NOTE | 2018-01-29 12:50 | Progress Note ---
Subjective Date of Service: Jan 29, 2018. Subjective this pt states she feel better but is now concerned about her breathing and states her inhaled medicines are not what is on her med rec, that she takes spiriva and advair in addition to nebulized albuterol and albuterol MDI. she states that her blood pressure is low all the time, and that is normal to her Problem List Medical Problems: (1) Anemia Status: Acute (2) Chest pain Status: Acute (3) COPD (chronic obstructive pulmonary disease) Status: Acute (4) COPD exacerbation Status: Acute (5) COPD exacerbation Status: Acute (6) Dehydration Status: Acute (7) Diarrhea Status: Acute (8) Fall Status: Acute (9) Foot contusion Status: Acute (10) Head injury Status: Acute (11) Hyperglycemia Status: Acute (12) Hypotension Status: Acute (13) Hypotension Status: Acute (14) Lumbar compression fracture Status: Acute (15) Nausea Status: Acute (16) Positive D dimer Status: Acute (17) Psoriasis Status: Acute (18) Pulmonary fibrosis Status: Acute (19) Respiratory distress Status: Acute (20) SOB (shortness of breath) Status: Acute (21) SOB (shortness of breath) Status: Acute (22) Supraventricular aortic stenosis Status: Acute (23) Supraventricular arrhythmia Status: Acute (24) Upper GI bleeding Status: Acute (25) UTI (urinary tract infection) Status: Acute (26) Weakness Status: Acute Review of Systems Constitutional: + weakness, + fatigue, No fever, No chills Respiratory: + shortness of breath, + dyspnea on exertion, No cough Cardiac: No chest pain, No edema Abdomen: No pain, No nausea, No vomiting, No diarrhea Female : No dysuria, No hematuria Neurologic: No memory loss, No weakness Objective Vital Signs Date Time Temp Pulse Resp B/P (MAP) Pulse Ox O2 Delivery O2 Flow Rate FiO2 01/29/18 12:00 Nasal Cannula 2.0 01/29/18 11:11 91 18 95 Nasal Cannula 2.0 01/29/18 11:09 36.8 98 20 112/69 (83) 96 01/29/18 08:45 92/62 (72) 01/29/18 08:00 Nasal Cannula 2.0 01/29/18 07:28 82 18 97 Nasal Cannula 2.0 01/29/18 04:44 36.5 101 18 84/53 (63) 95 Nasal Cannula 3.0 01/29/18 04:00 Nasal Cannula 2.0 01/29/18 00:00 Nasal Cannula 2.0 01/28/18 23:39 36.6 97 17 84/51 (62) 100 Nasal Cannula 3.0 01/28/18 20:00 Nasal Cannula 2.0 01/28/18 19:41 36.5 84 20 92/63 (73) 99 Nasal Cannula 3.0 01/28/18 19:14 88 18 95 Nasal Cannula 2.0 01/28/18 16:00 94 Nasal Cannula 2.0 01/28/18 15:38 36.7 90 18 96/65 (75) 97 Nasal Cannula 2.0 01/28/18 15:31 87 18 98 Nasal Cannula 1.0 Physical Exam General Appearance: WD/WN, + mild distress Eyes: normal inspection, sclerae normal Respiratory/Chest: + decreased breath sounds, + accessory muscle use, + rhonchi Cardiovascular: regular rate, rhythm, no murmur Abdomen: normal bowel sounds, non tender, soft Neurologic/Psychiatric: alert, oriented x 3 Laboratory Results Last 24 Hours Test 01/28/18 16:22 01/28/18 20:25 01/29/18 06:20 01/29/18 07:30 Bedside Glucose 147 mg/dl 166 mg/dl 103 mg/dl Sodium Level 142 mmol/L Potassium Level 3.7 mmol/L Chloride Level 108 mmol/L Carbon Dioxide Level 29 mmol/L Anion Gap 5.0 mmol/L Blood Urea Nitrogen 7 mg/dl Creatinine 0.60 mg/dl Est Creatinine Clear Calc Drug Dose 76.4 ml/min Estimated GFR () 106.3 Estimated GFR (Non- 91.7 BUN/Creatinine Ratio 10.8 Random Glucose 91 mg/dl Calcium Level 7.9 mg/dl Test 01/29/18 11:37 Bedside Glucose 108 mg/dl Assessment and Plan 72-year-old female with history of Gomez presents with diarrhea and hypotension, found to have c diff and sirs Hypotension secondary to infectious causes and SIRS sirs has improved, diarrhea from C. difficile, is on oral vancomycin and improved Her slight drop in hgb is likely dilutional, and not concerned that is acute blood loss, is on pepcid Not concerned about SBP US does not suggest ascites, will advance diet Cirrhosis will maintain her Xifaxan therapy, ammonia was 60 but is not confused she is tolerating a reduction long-term insulin by 50% continue sliding scale holding her metformin Hypothyroidism in the setting of methimazole treatment we will continue her methimazole at 5 Chronic respiratory failure with hypoxia improving, will add advair and spriva to nebs depression seems in good spirits Lexapro at bedtime trazodone and as needed Ativan DVT prevention is going based on mechanical means given the consideration of bleeding
[2018-01-29] MEDS: ATORVASTATIN 10 MG TAB PO SCH (20:55)
[2018-01-29] MEDS: TRAZODONE HCL 100 MG TAB PO SCH (20:55)
[2018-01-29] MEDS: INSULIN DETEMIR FLEXPEN/FLEX TOUCH 100 UNITS/ML 3ML SQ SCH (21:11)
[2018-01-29] MEDS: LORAZEPAM 0.5 MG TAB PO PRN (21:14)
[2018-01-30 04:38] VITALS: BP 103/60; PULSE 89; TEMP 36.5; O2SAT 96
[2018-01-30] MEDS: VANCOMYCIN HCL 125 MG/2.5ML SOLN PO SCH ×2 (06:13→12:56)
[2018-01-30] MEDS: RASPBERRY SYRUP 5 ML UDP PO SCH ×2 (06:13→12:55)
[2018-01-30] MEDS: ALBUT/IPRATROP 3MG/0.5MG NEB 3 ML VIAL INH SCH ×2 (07:09→11:14)
[2018-01-30 07:10] VITALS: PULSE 94; O2SAT 95
[2018-01-30 07:24] VITALS: BP 81/54; PULSE 94; TEMP 36.8; O2SAT 95
[2018-01-30 07:47] LABS: HEMATOCRIT 28.7 % (37-47); HEMOGLOBIN 8.8 g/dL (12.0-16.0); MEAN CELL VOLUME 101.4 fL (80-100); MEAN CORPUSCULAR HEMOGLOBIN 31.1 pg (25-34); MEAN CORPUSCULAR HGB CONC 30.7 g/dl (32-36); RED CELL DISTRIBUTION WIDTH CV 15.4 % (11.5-14.5); RED CELL DISTRIBUTION WIDTH SD 56.5 fL (36.4-46.3); WHITE BLOOD COUNT 3.99 K/uL (4.8-10.8)
[2018-01-30 08:04] LABS: CALCIUM 8.2 mg/dl (8.5-10.1); CREATININE 0.67 mg/dl (0.60-1.20); POTASSIUM 3.7 mmol/L (3.5-5.1)
[2018-01-30 08:15] LABS: MEAN PLATELET VOLUME 11.3 fL (7.4-10.4); PLATELET COUNT 68 K/uL (130-400)
[2018-01-30] MEDS: FLUTICASONE/SALMETEROL 250/50 (ADVAIR) 14 PUFF/1 INHALER INH SCH (09:46)
[2018-01-30] MEDS: METHIMAZOLE 5 MG TAB PO SCH (09:46)
[2018-01-30] MEDS: GABAPENTIN 600 MG TAB PO SCH ×2 (09:46→14:42)
[2018-01-30] MEDS: INSULIN ASPART 100 UNITS/ML 3 ML PEN SC SCH ×2 (09:46→12:59)
[2018-01-30] MEDS: CHOLECALCIFEROL 1000 INTER.UNIT TAB PO SCH (09:47)
[2018-01-30] MEDS: FERROUS SULFATE 325 MG TAB PO SCH (09:47)
[2018-01-30] MEDS: FAMOTIDINE 20 MG TAB PO SCH (09:47)
[2018-01-30] MEDS: ESCITALOPRAM OXALATE 20 MG TAB PO SCH (09:47)
[2018-01-30] MEDS: ASPIRIN 81 MG ECTAB PO SCH (09:47)
[2018-01-30] MEDS: RIFAXIMIN TAB 550 MG TAB PO SCH (09:47)
[2018-01-30] MEDS: TIOTROPIUM BROMIDE 5 PUFF/90 MCG INH INH SCH (09:48)
[2018-01-30] MEDS: BETAMETHASONE DIP AUG (DIPROLENE) 0.05% OINT 15 GM TUBE EXT SCH (09:49)
[2018-01-30 11:15] VITALS: PULSE 88; O2SAT 95
[2018-01-30 11:26] VITALS: BP 77/45; PULSE 89; TEMP 36.8; O2SAT 95
[2018-01-30] MEDS ORDERED: VANC5CAP PO (12:44)
--- NOTE | 2018-01-30 12:49 | Discharge Instructions ---
Discharge Instructions Date of Service Jan 30, 2018. Admission Reason for Admission: Hypotension Discharge Discharge Diagnosis / Problem: c diff colitis Discharge Goals Goal(s): Diagnostic testing, Therapeutic intervention Activity Recommendations Activity Limitations: resume your previous activity . Instructions / Follow-Up Instructions / Follow-Up 72-year-old female with history of Gomez presents with diarrhea and hypotension, found to have c diff and systemic inflammatory response syndrome worsened low blood pressure, diarrhea from C. difficile,will be on oral vancomycin for a two week total treatment will recommend probiotics at home Cirrhosis contine Xifaxan therapy, ammonia was 60 but is not confused Please return to your normal diabetic diet and medication regime for diabetes Current Hospital Diet Patient's current hospital diet: Diabetes Type 2 Diet, Low Sodium Diet (2gm Na) Discharge Diet Recommended Diet: Diabetes Type 2 Diet Pending Studies Studies pending at discharge: no Laboratory Results Hemoglobin A1c Test 01/28/18 06:58 Range/Units Estimated Average Glucose 111 mg/dl Hemoglobin A1c 5.5 4.5-5.6 % Medical Emergencies . Who to Call and When: Medical Emergencies: If at any time you feel your situation is an emergency, please call 911 immediately. . Non-Emergent Contact Non-Emergency issues call your: Primary Care Provider Call Non-Emergent contact if: temperature is above 101, your pain is unusual for you . . "Provider Documentation" section prepared by Praveen Lambert. .
[2018-01-30 14:23] VITALS: BP 77/45; PULSE 89; TEMP 36.8; O2SAT 95
--- NOTE | 2018-01-30 16:24 | Discharge Summary ---
Discharge Summary Date of Service Jan 30, 2018. Discharge Summary Admission Date: Jan 27, 2018 at 17:00 Discharge Date: Jan 30, 2018 Discharge Disposition: Home Principal Diagnosis: c diff and sirs Medication Reconciliation New Medications: Vancomycin Hcl (Vancomycin) 125 Mg Cap 125 MG PO QID, #44 DOSE 3 Refills Continued Medications: Albuterol Hfa (Ventolin Hfa) 200 Puffs/57422 Mcg Aers 2-4 PUFFS INH Q6H PRN for Shortness of Breath Alum & Mag Hydrox-Simethicone (Mylanta Maximum Strength 400-400-40 mg/5Ml) 1 Jelly Jelly 1 TBS PO BID PRN for Heartburn TAKE BETWEEN MEALS Aspirin (Aspirin Ec) 81 Mg Tab 81 MG PO Q2D Atorvastatin (Lipitor) 10 Mg Tab 10 MG PO HS Betamethasone Dip Aug 0.05% (Diprolene 0.05%) 0.05 % Oin 1 APPLN TP BID Cholecalciferol (Vitamin D 1000 Unit) 1,000 Unit Cap 1000 INTER.UNIT PO QAM Clobetasol Propionate (Clobetasol Propionate) 45 Appln/15 Gm Oint 1 APPLN TOP BID Escitalopram Oxalate (Lexapro) 20 Mg Tab 20 MG PO QAM Ferrous Sulfate (Kp Ferrous Sulfate) 325 Mg Tab 325 MG PO QAM Furosemide (Lasix) 40 Mg Tab 0.5 TAB PO MWF PRN for FLUID Gabapentin (Neurontin) 600 Mg Tab 600 MG PO TID Home O2 Therapy (Oxygen) Gas 2 LITERS NA HS Hydrocodone/Acetaminophen 5MG/325MG ([place] 5MG/325MG) Tab 1 TABLET PO Q4H PRN for Pain PRN PAIN Insulin Aspart (Novolog Flexpen) 100 Units/Ml Inj UNITS SC UD 20 UNITS BREAKFAST 25 UNITS SUPPER +SLIDING SCALE Insulin Detemir (Levemir Flextouch) 100 Unit/Ml Inj 40 UNITS SQ HS Ipratropium-Albuterol (Duoneb) 3 Ml Nebu 1 TREATMENT INH QID Lorazepam (Lorazepam) 0.5 Mg Tab 0.5 MG PO HS PRN for Sleep Magnesium Oxide (Mag-Ox) 400 Mg Tab 400 MG PO BID Metformin Hcl (Glucophage) 1,000 Mg Tab 1000 MG PO Q12 Methimazole (Methimazole ) 5 Mg Tab 5 MG PO QAM Omeprazole (Prilosec) 40 Mg Cap 40 MG PO QAM Rifaximin (Xifaxan) 550 Mg Tab 550 MG PO BID Tiotropium Caret-Olodaterol (Stiolto Respimat 2.5-2.5 Mcg/Act) 1 Aer Aer 2 PUFF INH DAILY Trazodone Hcl (Trazodone) 100 Mg Tab 100 MG PO HS Discharge Exam Review of Systems: Constitutional: No fever, No chills Respiratory: No cough, No sputum, No wheezing Cardiovascular: No chest pain, No orthopnea Abdomen: No pain, No nausea, No vomiting Musculoskeletal: No joint pain, No muscle pain Psychiatric: No depression symptoms, No anxiety Physical Exam: General Appearance: WD/WN, + mild distress Eyes: normal inspection, sclerae normal Neck: supple, no JVD Respiratory/Chest: chest non-tender, lungs clear, normal breath sounds Cardiovascular: regular rate, rhythm, no murmur Abdomen / GI: normal bowel sounds, non tender, soft Extremities: no pedal edema, normal range of motion Neurologic/Psychiatric: alert, oriented x 3 Skin: normal color, warm/dry Hospital Course 72-year-old female with history of Gomez presents with diarrhea and hypotension, found to have c diff and sirs Hypotension secondary to infectious causes and SIRS sirs has improved, diarrhea from C. difficile,will be on oral vancomycin for 14 days total Her slight drop in hgb is likely dilutional, and not concerned that is acute blood loss, is on pepcid Not concerned about SBP US does not suggest ascites, will advance diet Cirrhosis will maintain her Xifaxan therapy, ammonia was 60 but is not confused she will resume her usual home regime for diabetes Hypothyroidism in the setting of methimazole treatment we will continue her methimazole at 5, will recommend follow up with pcp or endo Chronic respiratory failure with hypoxia has resolved continues home advair and spriva Total Time Spent: Greater than 30 minutes This includes examination of the patient, discharge planning, medication reconciliation, and communication with other providers. Discharge Instructions Please refer to the electronic Patient Visit Report (Discharge Instructions) for additional information.
== END 2018-01-30 15:08 | disposition home or self-care (01) | DRG 372 ==
LOC: C.EDB 12:28 → C.MED 17:00 → EDBEDREQTM 17:10 → EDBEDREQSVC 17:10 → ENRESERV 17:45
PROVIDERS: ADMIT Internal Medicine; ATTEND Internal Medicine
DX: A04.71 Enterocolitis due to Clostridium difficile, recurrent (principal); J96.11 Chronic respiratory failure with hypoxia; I95.9 Hypotension, unspecified; E86.0 Dehydration; K74.60 Unspecified cirrhosis of liver; K75.81 Nonalcoholic steatohepatitis (NASH); E11.9 Type 2 diabetes mellitus without complications; E03.9 Hypothyroidism, unspecified; F32.9 Major depressive disorder, single episode, unspecified; F17.200 Nicotine dependence, unspecified, uncomplicated; Z99.81 Dependence on supplemental oxygen; Z95.5 Presence of coronary angioplasty implant and graft; Z79.2 Long term (current) use of antibiotics; Z79.4 Long term (current) use of insulin; Z79.51 Long term (current) use of inhaled steroids; Z79.82 Long term (current) use of aspirin; Z79.899 Other long term (current) drug therapy; Z91.040 Latex allergy status; Z91.041 Radiographic dye allergy status; Z91.048 Other nonmedicinal substance allergy status

== ENCOUNTER → 2018-02-10 | Outpatient (CLI) | payer OTHER ==
[~2018-02-10] MED LIST changes: +HYDR-5688 PO; -MGCS/ PO; -OXYC-164 PO; +VANC5CAP PO
[2018-02-10 14:37] LABS: HEMATOCRIT 33.9 % (37-47); HEMOGLOBIN 10.7 g/dL (12.0-16.0); MEAN CELL VOLUME 99.1 fL (80-100); MEAN CORPUSCULAR HEMOGLOBIN 31.3 pg (25-34); MEAN CORPUSCULAR HGB CONC 31.6 g/dl (32-36); RED CELL DISTRIBUTION WIDTH SD 54.5 fL (36.4-46.3); WHITE BLOOD COUNT 5.14 K/uL (4.8-10.8)
[2018-02-10 14:39] LABS: MEAN PLATELET VOLUME 11.1 fL (7.4-10.4); PLATELET COUNT 88 K/uL (130-400)
[2018-02-10 14:59] LABS: BASO % 0.2 %; BASO ABS # 0.01 K/uL (0-0.2); EOS % 0.8 %; EOS ABS # 0.04 K/uL (0-0.5); IG# 0.01 K/uL (0.00-0.02); LYMPH % 23.2 %; LYMPH ABS # 1.19 K/uL (1.2-3.4); MONO % 7.2 %; MONO ABS # 0.37 K/uL (0.11-0.59); NEUT % 68.4 %; NEUT ABS # 3.52 K/uL (1.4-6.5)
[2018-02-10 15:07] LABS: BLOOD UREA NITROGEN 11 mg/dl (7-18); CALCIUM 9.1 mg/dl (8.5-10.1); CARBON DIOXIDE 28 mmol/L (21-32); CREATININE 0.69 mg/dl (0.60-1.20); GLUCOSE 149 mg/dl (70-99); POTASSIUM 4.1 mmol/L (3.5-5.1); SODIUM 138 mmol/L (136-145)
== END | disposition home or self-care (01) ==
LOC: C.LAB1850 13:17
PROVIDERS: ATTEND Internal Medicine
DX: D64.9 Anemia, unspecified (principal); I48.0 Paroxysmal atrial fibrillation

== ENCOUNTER 2018-03-20 14:22 | Inpatient (IN) | payer OTHER ==
[~2018-03-20] VITALS: Ht 149.9 cm; Wt 67.6 kg
--- NOTE | 2018-03-20 15:47 | EMERGENCY ROOM VISIT NOTE ---
History Report prepared by Latia: Leoncio Luevano Under the Supervision of: Dr. Casie Olivas D.O. First contact with patient: 15:28 Chief Complaint: SHORTNESS OF BREATH Stated Complaint: SOB,TIGHTNESS IN CHEST Nursing Triage Summary: triage note: Pt reports for the past week she has been short of breath and productive yellow sputum. pt reports "i think i have pnemonia." History of Present Illness The patient is a 72 year old female with a history of asthma and COPD who presents to the Emergency Room with complaints of worsening shortness of breath over the past week. She states that she is chronically short of breath, but her breathing has really worsened started a week ago. The patient notes that she started out with a stomach virus, with some diarrhea and one episode of vomiting , and then the breathing difficulties worsened. She says that she has had a new productive cough with yellow sputum this week as well, and notes some tightness and pressure in her chest. The patient states that she wears 2 liters of oxygen at home at night, but over the past week she has been wearing it all day. She says that she still has some achiness in her abdomen but it is not bad and she is a known cirrhotic. The patient states that she felt warm one night but did not take her temperature. She says that she has been using a nebulizer twice a day, which has not been helping this week. The patient denies any leg swelling. She says that she has a history of 3 stent placements, and takes an 81 mg Aspirin every other day, but no other blood thinners. She adds that she got her flu shot this season. Source of History: patient Onset: Over past week Position: other (global) Quality: other (shortness of breath) Timing: worsening Associated Symptoms: + cough, + chest pain, + vomiting (but resolved), + abdominal pain (achiness), + diarrhea (but resolved) Note: Associated symptoms: [place] warm one night. Denies leg swelling. Review of Systems See HPI for pertinent positives & negatives. A total of 10 systems reviewed and were otherwise negative. 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 (14) Pneumonia (15) Pure Hypercholesterolem (16) Shortness of breath (17) SOB (shortness of breath) (18) SVT (supraventricular tachycardia) (19) Thrombocytopenia Nos (20) Vertebral Artery Syndrom Surgical Problems: (1) H/O cardiac catheterization (2) Heart stents (3) History of back surgery (4) S/P cholecystectomy Family History Diabetes mellitus FH: cancer FH: heart disease Hypertension Kidney disease Kidney stones Social History Smoking Status: Current Every Day Smoker Marital Status: Housing Status: lives alone Occupation Status: unemployed Current/Historical Medications Scheduled Aspirin (Aspirin Ec), 81 MG PO Q2D Atorvastatin (Lipitor), 10 MG PO HS Betamethasone Dip Aug 0.05% (Diprolene 0.05%), 1 APPLN TP BID Cholecalciferol (Vitamin D 1000 Unit), 1,000 INTER.UNIT PO QAM Clobetasol Propionate (Clobetasol Propionate), 1 APPLN TOP BID Escitalopram Oxalate (Lexapro), 20 MG PO QAM Ferrous Sulfate (Kp Ferrous Sulfate), 325 MG PO QAM Fluticasone Prop/Salmeterol (Advair Diskus 500/50 60 Dose), 1 PUFF INH BID Gabapentin (Neurontin), 600 MG PO TID Home O2 Therapy (Oxygen), 2 LITERS NA HS Insulin Aspart (Novolog Flexpen), UNITS SC UD Insulin Detemir (Levemir Flextouch), 40 UNITS SQ HS Ipratropium-Albuterol (Duoneb), 1 TREATMENT INH QID Magnesium Oxide (Mag-Ox), 400 MG PO BID Metformin Hcl (Glucophage), 1,000 MG PO DAILY Methimazole (Methimazole ), 5 MG PO QAM Omeprazole (Prilosec), 40 MG PO QAM Rifaximin (Xifaxan), 550 MG PO BID Trazodone Hcl (Trazodone), 100 MG PO HS Umeclidinium [place] (Incruse Ellipta), 62.5 MCG INH DAILY Scheduled PRN Albuterol Hfa (Ventolin Hfa), 2-4 PUFFS INH Q6H PRN for Shortness of Breath Alum & Mag Hydrox-Simethicone (Mylanta Maximum Strength 400-400-40 mg/5Ml), 1 TBS PO BID PRN for Heartburn Furosemide (Lasix), 20 MG PO MWF PRN for FLUID Hydrocodone/Acetaminophen 5MG/325MG ([place] 5MG/325MG), 1 TABLET PO Q4H PRN for Pain Lorazepam (Lorazepam), 0.5 MG PO HS PRN for Sleep Allergies Coded Allergies: Iodinated Diagnostic Agents (Verified Allergy, Intermediate, RASH TO IVP DYE, 03/20/18) Adhesives (Verified Allergy, Unknown, RASH, 03/20/18) Latex1 -Allergic Contact Dermititis (Verified Allergy, Unknown, RASH, 03/20) Physical Exam Vital Signs Date Time Temp Pulse Resp B/P (MAP) Pulse Ox O2 Delivery O2 Flow Rate FiO2 03/20/18 17:37 89 22 109/64 98 Nasal Cannula 2.0 03/20/18 16:34 88 03/20/18 16:03 83 22 97/59 98 Nasal Cannula 2.0 03/20/18 14:32 92 Room Air 03/20/18 14:32 37.7 88 20 103/67 92 Room Air Physical Exam GENERAL: wearing nasal cannula, alert, well appearing, well nourished, no distress, non-toxic EYE EXAM: normal conjunctiva, PERRL and EOM's grossly intact OROPHARYNX: no exudate, no erythema, lips, buccal mucosa, and tongue normal and mucous membranes are dry NECK: supple, no nuchal rigidity, no adenopathy, non-tender LUNGS: Bilateral expiratory wheezes and scattered rhonchi. Normal chest wall mechanics HEART: no murmurs, S1 normal and S2 normal ABDOMEN: abdomen soft, some mild central discomfort with palpation, normo- active bowel sounds, no masses, no rebound or guarding. BACK: Back is symmetrical on inspection and there is no deformity, no midline tenderness, no CVA tenderness. SKIN: no rashes and no bruising UPPER EXTREMITIES: upper extremities are grossly normal. Full range of motion, normal pulses. LOWER EXTREMITIES: No pitting edema. Full range of motion, normal pulses. NEURO EXAM: Normal sensorium, cranial nerves II-XII grossly intact, normal speech, no gross weakness of arms, no gross weakness of legs. Medical Decision & Procedures ER Provider Diagnostic Interpretation: X-ray results have been interpreted by the radiologist and reviewed by me. CHEST 2 VIEWS ROUTINE CLINICAL HISTORY: Shortness of breath and cough. COMPARISON STUDY: Chest radiograph January 27, 2018. FINDINGS: Incidental note is made of right neck surgical clips and a cervical spine fusion. No pneumothorax or pleural effusion is present. Note is made of moderate cardiomegaly. Mild interstitial thickening favors pulmonary edema. IMPRESSION: Mild interstitial thickening suggestive of pulmonary edema. Electronically signed by: Stoney Lovelace M.D. 03/20/2018 4:51 PM Dictated Date/Time: 03/20/2018 4:50 PM Laboratory Results Test 03/20/18 16:10 03/20/18 16:12 03/20/18 16:17 Influenza Type A Antigen Neg for Influ A (NEG) Influenza Type B Antigen Neg for Influ B (NEG) Prothrombin Time 11.5 SECONDS (9.0-12.0) Prothromb Time International Ratio 1.1 (0.9-1.1) Magnesium Level 1.5 mg/dl (1.8-2.4) Total Bilirubin 0.8 mg/dl (0.2-1) Aspartate Amino Transf (AST/SGOT) 51 U/L (15-37) Alanine Aminotransferase (ALT/SGPT) 35 U/L (12-78) Alkaline Phosphatase 128 U/L (45-117) Troponin I 0.025 ng/ml (0-0.045) Pro-B-Type Natriuretic Peptide 551 pg/ml (0-900) Total Protein 6.8 gm/dl (6.4-8.2) Albumin 3.1 gm/dl (3.4-5.0) Globulin 3.7 gm/dl (2.5-4.0) Albumin/Globulin Ratio 0.8 (0.9-2) Bedside Lactic Acid Venous 1.66 mmol/L (0.90-1.70) Laboratory results per my review. Medications Administered Medications (Trade) Dose Ordered Sig/Diego Route Start Time Stop Time Status Last Admin Dose Admin Albuterol/ Ipratropium (Duoneb) 3 ml NOW STAT INH 03/20/18 15:49 03/20/18 15:51 DC 03/20/18 16:21 3 ML Methylprednisolone Sodium Succinate (Solu-Medrol IV) 125 mg NOW STAT IV 03/20/18 17:19 03/20/18 17:20 DC 03/20/18 17:35 125 MG Albuterol/ Ipratropium (Duoneb) 3 ml NOW STAT INH 03/20/18 17:26 03/20/18 17:27 DC 03/20/18 17:35 3 ML Furosemide (Lasix Inj) 40 mg NOW STAT IV 03/20/18 17:26 03/20/18 17:27 DC 03/20/18 17:35 40 MG Magnesium Sulfate (Magnesium Sulfate 1gm / D5W) 2 gm NOW STAT IV 03/20/18 18:19 03/20/18 18:21 DC 03/20/18 18:47 2 GM ECG Per My Interpretation Indication: SOB/dyspnea Rate (beats per minute): 82 Rhythm: sinus rhythm Findings: RBBB, no acute ischemic change, left axis deviation ED Course 153: The patient was evaluated in room B5. A complete history and physical exam was performed. 1549: DuoNeb 3 ml INH. 1719: Solu-Medrol IV 125 mg. 172: I reevaluated the patient and she still feels the same. 1726: Lasix Inj 40 mg IV. 1815: Upon reevaluation, the patient is resting. I discussed the findings and the treatment plan with the patient. She expresses agreement and understanding. The patient will be evaluated for further management. 1816: I reviewed the patient's case with Dr. Leal - [facility] professor of radiology. He will evaluate the patient for further management. Medical Decision Differential diagnoses includes but is not limited to pneumonia, bronchitis, COPD/Asthma exacerbation, pneumothorax, pulmonary embolism, congestive heart failure, acute coronary syndrome Patient well-appearing here with likely COPD exacerbation. Patient with no fever and no significant leukocytosis, given steroids and nebulizer treatments here. Patient with other chronic comorbidities which appear stable, no evidence of contributing cardiac pathology. Patient made aware of all results and was agreeable with plan for additional evaluation and treatment by the hospitalist. I do not suspect PE, chest x-ray is otherwise unremarkable, no focal consolidation noted, I do not suspect pneumonia. Given significant medical history, discussed with hospitalist possible addition of antibiotics. They will evaluate first prior to making a determination. Medication Reconcilliation Current Medication List: was personally reviewed by me Blood Pressure Screening Patient's blood pressure: Normal blood pressure Consults Time Called: 1813 Consulting Physician: Dr. Mel HOFFMAN professor of radiology Returned Call: [phone] I reviewed the patient's case with Dr. Mel HOFFMAN professor of radiology. He will evaluate the patient for further management. Impression Primary Impression: COPD exacerbation Additional Impression: Chronic respiratory failure with hypoxia, on home O2 therapy Scribe Attestation The scribe's documentation has been prepared under my direction and personally reviewed by me in its entirety. I confirm that the note above accurately reflects all work, treatment, procedures, and medical decision making performed by me. Departure Information Dispostion Being Evaluated By Hospitalist Referrals Boone Paulson M.D. (PCP) Patient Instructions My [facility] Problem Qualifiers
[2018-03-20] MEDS ORDERED: ALBUT/IPRATROP 3MG/0.5MG NEB 3 ML VIAL INH STA ×2 (15:49→17:26)
[2018-03-20] MEDS ORDERED: UMEC1INH INH (16:03)
[2018-03-20] MEDS ORDERED: ADVIN50/60 INH (16:05)
[2018-03-20 16:32] LABS: HEMATOCRIT 33.1 % (37-47); HEMOGLOBIN 10.7 g/dL (12.0-16.0); MEAN CELL VOLUME 96.8 fL (80-100); MEAN CORPUSCULAR HEMOGLOBIN 31.3 pg (25-34); MEAN CORPUSCULAR HGB CONC 32.3 g/dl (32-36); RED CELL DISTRIBUTION WIDTH CV 15.1 % (11.5-14.5); RED CELL DISTRIBUTION WIDTH SD 54.2 fL (36.4-46.3); WHITE BLOOD COUNT 5.39 K/uL (4.8-10.8)
[2018-03-20 16:40] LABS: PLATELET COUNT 66 K/uL (130-400)
[2018-03-20 16:41] LABS: INR 1.1 (0.9-1.1)
[2018-03-20 16:50] LABS: INFLUENZA B ANTIGEN Neg for Influ B (NEG)
--- NOTE | 2018-03-20 16:52 | DIAGNOSTIC IMAGING REPORT ---
CHEST 2 VIEWS ROUTINE CLINICAL HISTORY: Shortness of breath and cough. COMPARISON STUDY: Chest radiograph January 27, 2018. FINDINGS: Incidental note is made of right neck surgical clips and a cervical spine fusion. No pneumothorax or pleural effusion is present. Note is made of moderate cardiomegaly. Mild interstitial thickening favors pulmonary edema. IMPRESSION: Mild interstitial thickening suggestive of pulmonary edema. Electronically signed by: Stoney Lovelace M.D. 03/20/2018 4:51 PM Dictated Date/Time: 03/20/2018 4:50 PM
[2018-03-20 16:54] LABS: ALBUMIN 3.1 gm/dl (3.4-5.0); CALCIUM 8.1 mg/dl (8.5-10.1); CREATININE 0.76 mg/dl (0.60-1.20); POTASSIUM 3.9 mmol/L (3.5-5.1)
[2018-03-20 16:59] LABS: BASO % 2.4 %; BASO ABS # 0.13 K/uL (0-0.2); EOS % 0.6 %; EOS ABS # 0.03 K/uL (0-0.5); IG# 0.01 K/uL (0.00-0.02); LYMPH % 34.7 %; LYMPH ABS # 1.87 K/uL (1.2-3.4); MEAN PLATELET VOLUME 11.9 fL (7.4-10.4); MONO % 8.3 %; MONO ABS # 0.45 K/uL (0.11-0.59); NEUT % 53.8 %; TOTAL PROTEIN 6.8 gm/dl (6.4-8.2)
[2018-03-20] MEDS ORDERED: METHYLPREDNISOLONE 125 MG VIAL IV STA (17:19)
[2018-03-20] MEDS ORDERED: FUROSEMIDE 40 MG/4 ML VIAL IV STA (17:26)
[2018-03-20] MEDS ORDERED: MAGNESIUM SULFATE 1GM / D5W 1 GM BAG IV STA (18:19)
[2018-03-20] MEDS ORDERED: ACETAMINOPHEN 325 MG TAB PO PRN (19:00)
[2018-03-20] MEDS ORDERED: ONDANSETRON INJ 2 MG/ML 2 ML VIAL IV PRN (19:00)
[2018-03-20] MEDS ORDERED: POLYETHYLENE (MIRALAX) 17 GM PACK PO PRN (19:00)
[2018-03-20] MEDS ORDERED: INSULIN ASPART 100 UNITS/ML 3 ML PEN SC SCH (19:30)
--- NOTE | 2018-03-20 19:32 | History and Physical ---
History & Physical Date & Time of Service: Mar 20, 2018 at 18:58 Chief Complaint: Sob,Tightness In Chest Primary Care Physician: Boone Paulson M.D. History of Present Illness Source: patient This is a 72 yo F with PMHx of COPD/emphysema, pulmonary hypertension, diastolic CHF, WATERS, esophageal varices, pulmonary nodule, paroxysmal A. fib, SVT status post ablation 08/2017, CAD (RAJI: LAD, RCA, L CX), severe aortic stenosis, L1 compression fracture, psoriasis, cervical disc disease, and current tobacco use, smokes since age 21: Currently smoking 1/2 ppd, w hx of 1- 1.5 packs per day x 55 years. The patient presents to the ER after worsening shortness of breath which started approximately 5 days ago. The patient notes she was recently sick with a stomach flu where she vomited once and had gastrointestinal upset including diarrhea about 1 week ago. Since then however her respiratory status has continued to decline. She reports worsening sob with minimal exertion, night sweats, chills and feeling like she has had a fever however had not taken her temperature. Initially she had rhinorrhea with sinus pressure, but now feels this congestion in her chest. She is coughing up yellow mucous. She has not taken any antibiotic or steroid at home. She has been using ventolin nebulizer twice daily and does not feel it has significantly improved her sx, as well as taking her routinely scheduled inhalers. She does have a prescription of Lasix 40 mg prn for leg edema which she rarely uses, and took 20 mg last evening without significant improvement. Here in the Er the pt was treated with Lasix 40 mg IV, solumedrol 125mcg IV, and duoneb. CXR showing interstitial thickening with pulmonary edema. 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 (14) Pneumonia (15) Pure Hypercholesterolem (16) Shortness of breath (17) SOB (shortness of breath) (18) SVT (supraventricular tachycardia) (19) Thrombocytopenia Nos (20) Vertebral Artery Syndrom Surgical Problems: (1) H/O cardiac catheterization (2) Heart stents (3) History of back surgery (4) S/P cholecystectomy Family History Diabetes mellitus FH: cancer FH: heart disease Hypertension Kidney disease Kidney stones Social History Smoking Status: Current Every Day Smoker Smokeless Tobacco Use: No Alcohol Use: none Drug Use: none Marital Status: Housing status: lives alone Occupational Status: unemployed Allergies Coded Allergies: Iodinated Diagnostic Agents (Verified Allergy, Intermediate, RASH TO IVP DYE, 03/20/18) Adhesives (Verified Allergy, Unknown, RASH, 03/20/18) Latex1 -Allergic Contact Dermititis (Verified Allergy, Unknown, RASH, 03/20) Home Medications Scheduled Aspirin (Aspirin Ec), 81 MG PO Q2D Atorvastatin (Lipitor), 10 MG PO HS Betamethasone Dip Aug 0.05% (Diprolene 0.05%), 1 APPLN TP BID Cholecalciferol (Vitamin D 1000 Unit), 1,000 INTER.UNIT PO QAM Clobetasol Propionate (Clobetasol Propionate), 1 APPLN TOP BID Escitalopram Oxalate (Lexapro), 20 MG PO QAM Ferrous Sulfate (Kp Ferrous Sulfate), 325 MG PO QAM Fluticasone Prop/Salmeterol (Advair Diskus 500/50 60 Dose), 1 PUFF INH BID Gabapentin (Neurontin), 600 MG PO TID Home O2 Therapy (Oxygen), 2 LITERS NA HS Insulin Aspart (Novolog Flexpen), UNITS SC UD Insulin Detemir (Levemir Flextouch), 40 UNITS SQ HS Ipratropium-Albuterol (Duoneb), 1 TREATMENT INH QID Magnesium Oxide (Mag-Ox), 400 MG PO BID Metformin Hcl (Glucophage), 1,000 MG PO DAILY Methimazole (Methimazole ), 5 MG PO QAM Omeprazole (Prilosec), 40 MG PO QAM Rifaximin (Xifaxan), 550 MG PO BID Trazodone Hcl (Trazodone), 100 MG PO HS Umeclidinium [place] (Incruse Ellipta), 62.5 MCG INH DAILY Scheduled PRN Albuterol Hfa (Ventolin Hfa), 2-4 PUFFS INH Q6H PRN for Shortness of Breath Alum & Mag Hydrox-Simethicone (Mylanta Maximum Strength 400-400-40 mg/5Ml), 1 TBS PO BID PRN for Heartburn Furosemide (Lasix), 20 MG PO MWF PRN for FLUID Hydrocodone/Acetaminophen 5MG/325MG (Story 5MG/325MG), 1 TABLET PO Q4H PRN for Pain Lorazepam (Lorazepam), 0.5 MG PO HS PRN for Sleep Review of Systems Constitutional: + chills, + sweats, + fatigue, No fever Eyes: No discharge, No diplopia ENT: + nasal symptoms, No trouble swallowing Respiratory: + cough, + sputum, + wheezing, + shortness of breath, + dyspnea on exertion, No hemoptysis Cardiovascular: No chest pain, No orthopnea, No edema, No palpitations Abdomen: No pain, No nausea, No vomiting, No diarrhea, No constipation Musculoskeletal: No joint pain, No swelling Genitourinary - Female: No dysuria Neurologic: No numbness/tingling, No balance problems Psychiatric: No depression symptoms, No anxiety Endocrine: No fatigue Integumentary: No rash, No itch Physical Exam Vital Signs Date Time Temp Pulse Resp B/P (MAP) Pulse Ox O2 Delivery O2 Flow Rate FiO2 03/20/18 17:37 89 22 109/64 98 Nasal Cannula 2.0 03/20/18 16:34 88 03/20/18 16:03 83 22 97/59 98 Nasal Cannula 2.0 03/20/18 14:32 92 Room Air 03/20/18 14:32 37.7 88 20 103/67 92 Room Air General Appearance: WD/WN, no apparent distress Head: normocephalic, atraumatic Eyes: PERRL, EOMI ENT: hearing grossly normal, pharynx normal, + pertinent finding (MMM) Neck: supple, no JVD Respiratory/Chest: chest non-tender, + pertinent finding (on 2 L via NC, coarse breath sounds throughout with expiratory wheeze and rales. + cough with yellow sputum) Cardiovascular: regular rate, rhythm, no JVD, + systolic murmur (grade III/) Abdomen/GI: normal bowel sounds, non tender, soft Extremities/Musculoskelatal: no calf tenderness, no pedal edema Neurologic/Psych: alert, normal mood/affect, oriented x 3 Skin: normal color, warm/dry Diagnostics Laboratory Results Results Past 24 Hours Test 03/20/18 16:10 03/20/18 16:12 03/20/18 16:17 Range/Units Influenza Type A Antigen Neg for Influ A NEG Influenza Type B Antigen Neg for Influ B NEG White Blood Count 5.39 4.8-10.8 K/uL Red Blood Count 3.42 4.2-5.4 M/uL Hemoglobin 10.7 12.0-16.0 g/dL Hematocrit 33.1 37-47 % Mean Corpuscular Volume 96.8 80-100 fL Mean Corpuscular Hemoglobin 31.3 25-34 pg Mean Corpuscular Hemoglobin Concent 32.3 32-36 g/dl Platelet Count 66 130-400 K/uL Mean Platelet Volume 11.9 7.4-10.4 fL Neutrophils (%) (Auto) 53.8 % Lymphocytes (%) (Auto) 34.7 % Monocytes (%) (Auto) 8.3 % Eosinophils (%) (Auto) 0.6 % Basophils (%) (Auto) 2.4 % Neutrophils # (Auto) 2.90 1.4-6.5 K/uL Lymphocytes # (Auto) 1.87 1.2-3.4 K/uL Monocytes # (Auto) 0.45 0.11-0.59 K/uL Eosinophils # (Auto) 0.03 0-0.5 K/uL Basophils # (Auto) 0.13 0-0.2 K/uL RDW Standard Deviation 54.2 36.4-46.3 fL RDW Coefficient of Variation 15.1 11.5-14.5 % Immature Granulocyte % (Auto) 0.2 % Immature Granulocyte # (Auto) 0.01 0.00-0.02 K/uL Giant Platelets 1+ Prothrombin Time 11.5 9.0-12.0 SECONDS Prothromb Time International Ratio 1.1 0.9-1.1 Sodium Level 137 136-145 mmol/L Potassium Level 3.9 3.5-5.1 mmol/L Chloride Level 101 98-107 mmol/L Carbon Dioxide Level 32 21-32 mmol/L Anion Gap 5.0 3-11 mmol/L Blood Urea Nitrogen 11 7-18 mg/dl Creatinine 0.76 0.60-1.20 mg/dl Est Creatinine Clear Calc Drug Dose 57.4 ml/min Estimated GFR () 91.5 Estimated GFR (Non- 78.9 BUN/Creatinine Ratio 14.6 10-20 Random Glucose 114 70-99 mg/dl Calcium Level 8.1 8.5-10.1 mg/dl Magnesium Level 1.5 1.8-2.4 mg/dl Total Bilirubin 0.8 0.2-1 mg/dl Aspartate Amino Transf (AST/SGOT) 51 15-37 U/L Alanine Aminotransferase (ALT/SGPT) 35 12-78 U/L Alkaline Phosphatase 128 45-117 U/L Troponin I 0.025 0-0.045 ng/ml Pro-B-Type Natriuretic Peptide 551 0-900 pg/ml Total Protein 6.8 6.4-8.2 gm/dl Albumin 3.1 3.4-5.0 gm/dl Globulin 3.7 2.5-4.0 gm/dl Albumin/Globulin Ratio 0.8 0.9-2 Bedside Lactic Acid Venous 1.66 0.90-1.70 mmol/L Diagnostic Radiology CHEST 2 VIEWS ROUTINE CLINICAL HISTORY: Shortness of breath and cough. COMPARISON STUDY: Chest radiograph January 27, 2018. FINDINGS: Incidental note is made of right neck surgical clips and a cervical spine fusion. No pneumothorax or pleural effusion is present. Note is made of moderate cardiomegaly. Mild interstitial thickening favors pulmonary edema. IMPRESSION: Mild interstitial thickening suggestive of pulmonary edema. Electronically signed by: Stoney Lovelace M.D. 03/20/2018 4:51 PM Dictated Date/Time: 03/20/2018 4:50 PM The status of this report is Signed. EKG 20-MAR-2018 16:03:37 [facility] Normal sinus rhythm Left axis deviation Right bundle branch block Inferior infarct , age undetermined Anterolateral infarct , age undetermined Abnormal ECG When compared with ECG of 27-JAN-2018 12:38, Anterior infarct is now Present Anterolateral infarct is now Present Nonspecific T wave abnormality now evident in Anterior leads Vent. rate 82 BPM WA interval 154 ms QRS duration 118 ms QT/QTc 418/488 ms P-R-T axes 41 -72 5 Impression Assessment and Plan This is a 72 yo F with PMHx of COPD/emphysema, pulmonary hypertension, diastolic CHF, WATERS, esophageal varices, pulmonary nodule, paroxysmal A. fib, SVT status post ablation 08/2017, CAD (RAJI: LAD, RCA, L CX), severe aortic stenosis, L1 compression fracture, psoriasis, cervical disc disease, and current tobacco use, smokes since age 21: Currently smoking 1/2 ppd, w hx of 1- 1.5 packs per day x 55 years. The patient presents to the ER after worsening shortness of breath COPD exacerbation with possible pneumonia underlying Emphysema Chronic tobacco use - Admit to tele - Administered solumedrol 125 in the ER, continue on 60 mg Q8H for now, duonebs , O2 protocol (wears 2 L at baseline), mucinex, and will add on doxycycline for possible pneumonia as she has an elevated QTc. - Continue advair, incruse ellipra inh - Consult pulm: Follows with Naila Dawson as outpatient - Continue to encourage smoking cessation Acute on chronic diastolic CHF exacerbation paroxysmal A. fib SVT status post ablation 08/2017 CAD (RAJI: LAD, RCA, L CX) Severe aortic stenosis - Lasix 40 mg IV administered in the ER, follow strict I/Os, will allow day team to determine if more lasix needed - CXR reviewed and showing mild pulmonary edema - Last echo reviewed from Aug 2017 - consider repeat echo pending response DM II - Home regimen: Novolog 20 U with breakfast, 25 U with evening meal, Levemir 40 U HS - glucose likely to spike with steroids as above so can tighten coverage pending glucose readings. - ISS with accuchecks, hold home metformin Mild anemia - Hgb decreased at 10.7, follow cbc for trend. Appears that she has been around this range for the past year Thrombocytopenia - plt 66 currently, follow cbc - appears to be chronic along with anemia Hypomagnesemia - Administered 2g IV, follow am mag Hyperthyroidism - Cont methimazole 5 mg PO daily WATERS - Continue xifaxan 550 mg BID GERD - Cont ppi Depression Insomnia - Cont lexapro 20 mg daily - Cont trazodone and lorazepam 0.5 mg HS for insomnia - however pt reports these medications do not seem to help much. DVT ppx: teds, scd, hold chemical anticoagulation with thrombocytopenia/anemia. CODE: FULL Disposition: From home, lives alone, CM to assist with dc planning. I personally interviewed and examined the patient. I agree with history of present illness and physical exam mentioned above, I also performed my own history taking and examination. Past medical history and review of system has been obtained by myself I reviewed all pertinent labs and studies Reviewed current medications I discussed and formulated of the assessment and plan mentioned above. Please refer to the Summary mentioned below. 72-year-old female with past medical history of emphysema chronic, pulmonary hypertension, esophageal varices, WATERS, paroxysmal atrial fibrillation status post ablation, CAD, severe aortic stenosis, COPD and tobacco abuse. Presented to the hospital with productive cough, yellowish greenish mucus, increased shortness of breath, severe COPD exacerbation. Will be admitted for bronchodilators, steroids, doxycycline for bronchitis. General Appearance: not in acute distress Eyes: normal Sclerae, extraocular muscle intact ENT: hearing grossly normal Neck: supple Respiratory/Chest: Decreased air entry bilaterally, generalized wheezing both lung arreola, scattered rhonchi Cardiovascular: regular rate, rhythm, no murmur Abdomen: non tender, soft, no masses Extremities: no edema musculoskeletal: no significant swelling or inflammation in any joint Neurologic/Psychiatric: Awake alert oriented times place and person moves all extremities sensation intact cranial nerves II-12 appear to be intact Skin: normal color, warm/dry, no rash Robert Truong MD, [facility] Resuscitation Status VTE Prophylaxis Will order VTE Prophylaxis: Yes
[2018-03-20] MEDS ORDERED: DEXTROSE 50% 50 ML SYR IV PRN (19:45)
[2018-03-20] MEDS ORDERED: GLUCOSE 10 TABS/TUBE PO PRN (19:45)
[2018-03-20] MEDS ORDERED: GLUCOSE 40% GEL 15 GM TUBE PO PRN (19:45)
[2018-03-20] MEDS ORDERED: GLUCAGON FOR INJ 1 MG VIAL SQ PRN (19:45)
[2018-03-20] MEDS: FLUTICASONE/SALMETEROL (ADVAIR) 500/50 INH 14 PUFF INH SCH (21:21)
[2018-03-20] MEDS: ATORVASTATIN 10 MG TAB PO SCH (21:21)
[2018-03-20] MEDS: TRAZODONE HCL 100 MG TAB PO SCH (21:21)
[2018-03-20] MEDS: RIFAXIMIN TAB 550 MG TAB PO SCH (21:21)
[2018-03-20] MEDS: MAGNESIUM OXIDE 400 MG TAB PO SCH (21:22)
[2018-03-20] MEDS: GABAPENTIN 600 MG TAB PO SCH (21:22)
[2018-03-20] MEDS: INSULIN DETEMIR FLEXPEN/FLEX TOUCH 100 UNITS/ML 3ML SQ SCH (21:26)
[2018-03-20] MEDS: INSULIN ASPART 100 UNITS/ML 3 ML PEN SC SCH (21:27)
[2018-03-20] MEDS ORDERED: HEPARIN SOD 5000 UNIT/0.5 ML CARP SQ SCH (22:00)
[2018-03-20] MEDS: DOXYCYCLINE IV 100 MG in DEXTROSE 5% 100ML 100 ML IV SCH (22:01)
[2018-03-20 22:08] VITALS: BP 98/61; PULSE 92; TEMP 36.7; O2SAT 97; Ht 149.9 cm; Wt 67.6 kg
[2018-03-20 23:10] VITALS: BP 90/60; PULSE 77; TEMP 37.4; O2SAT 95
[2018-03-21] VITALS (9 sets, daily range): BP systolic 81–92; BP diastolic 49–58; PULSE 73–98; TEMP 36.6–37.1; O2SAT 91–99
[2018-03-21] MEDS: METHYLPREDNISOLONE IV 60 MG in SYRINGE 0 ML IV SCH ×3 (01:47→17:07)
--- NOTE | 2018-03-21 07:53 | Family Medicine Progress Note ---
Progress Note Date of Service Mar 21, 2018. Subjective Pt evaluation today including: conversation w/ patient, physical exam, chart review, lab review, conversation w/ mainframe consultant Pain: No new pain Voiding: no voiding problems Sleeping at the bedside States she is comfortable No orthopnea, no chest pain Still feels SOB but much improved Patient notes she is on RA during the day but needs 2 L at nighttime. Constitutional: No fever, No chills, No sweats, No weight loss, No weakness ENT: No nasal symptoms, No sore throat, No tinnitus Respiratory: + shortness of breath, + dyspnea at rest, No cough, No sputum, No wheezing Cardiovascular: No chest pain, No orthopnea, No PND Abdomen: No pain, No nausea, No vomiting, No diarrhea, No constipation Musculoskeletal: No joint pain, No muscle pain Female : No dysuria, No urinary frequency, No hematuria, No incontinence Neurologic: No weakness, No numbness/tingling, No vertigo Heme: No clotting problems, No swollen lymph nodes Endo: No fatigue Skin: No rash, No new/changing skin lesions, No color change Medications Current Inpatient Medications Medications (Trade) Dose Ordered Sig/Diego Route Start Time Stop Time Status Last Admin Dose Admin Acetaminophen (Tylenol Tab) 650 mg Q4H PRN PO 03/20/18 19:00 04/19/18 18:59 Ondansetron HCl (Zofran Inj) 4 mg Q6H PRN IV 03/20/18 19:00 04/19/18 18:59 Polyethylene (Miralax Powder Packet) 17 gm DAILY PRN PO 03/20/18 19:00 04/19/18 18:59 Methylprednisolone Sodium Succinate 60 mg/Syringe 0.96 ml @ 1.5 mls/min Q8H IV 03/21/18 02:00 04/20/18 01:59 03/21/18 08:15 1.5 MLS/MIN Doxycycline Hyclate 100 mg/ Dextrose 110 ml @ 50 mls/hr BID IV 03/20/18 21:00 03/27/18 20:59 03/21/18 08:19 50 MLS/HR Aspirin (Ecotrin Tab) 81 mg Q2D@0900 PO 03/22/18 09:00 04/21/18 08:59 Atorvastatin Calcium (Lipitor Tab) 10 mg HS PO 03/20/18 21:00 04/19/18 20:59 03/20/18 21:21 10 MG Cholecalciferol (Vitamin D Tab) 1,000 inter.unit QAM PO 03/21/18 09:00 04/20/18 08:59 03/21/18 08:16 1,000 INTER.UNIT Escitalopram Oxalate (Lexapro Tab) 20 mg QAM PO 03/21/18 09:00 04/20/18 08:59 03/21/18 08:17 20 MG Salmeterol Xinafoate/ Fluticasone (Advair Diskus 500/50 Inh) 1 puff BID INH 03/20/18 21:00 04/19/18 20:59 03/21/18 08:15 1 PUFF Gabapentin (Neurontin Tab) 600 mg TID PO 03/20/18 21:00 04/19/18 20:59 03/21/18 12:47 600 MG Acetaminophen/ Hydrocodone Bitart ([place] 5/325 Tab) 1 tab Q4H PRN PO 03/20/18 19:30 04/03/18 19:29 Insulin Detemir (Levemir Flexpen/ FlexTouch) 40 units HS SQ 03/20/18 21:00 04/19/18 20:59 03/20/18 21:26 40 UNITS Lorazepam (Ativan Tab) 0.5 mg HS PRN PO 03/20/18 19:30 04/19/18 19:29 Magnesium Oxide (Mag-Ox Tab) 400 mg BID PO 03/20/18 21:00 04/19/18 20:59 03/21/18 08:16 400 MG Methimazole (Methimazole Tab) 5 mg QAM PO 03/21/18 09:00 04/20/18 08:59 03/21/18 08:16 5 MG Rifaximin (Xifaxan Tab) 550 mg BID PO 03/20/18 21:00 04/19/18 20:59 03/21/18 08:16 550 MG Trazodone HCl (Desyrel Tab) 100 mg HS PO 03/20/18 21:00 04/19/18 20:59 03/20/18 21:21 100 MG Miscellaneous Information (Order Awaiting Action) 1 ea QS N/A 03/21/18 00:00 04/20/18 00:00 Pantoprazole Sodium (Protonix Tab) 40 mg QAM PO 03/21/18 09:00 04/20/18 08:59 03/21/18 08:16 40 MG Ferrous Sulfate (Feosol Tab) 325 mg QAM PO 03/21/18 09:00 04/20/18 08:59 03/21/18 08:16 325 MG Insulin Aspart (novoLOG ASPART) SLIDING SCALE If C... ACHS SC 03/20/18 21:00 04/19/18 20:59 03/21/18 12:49 8 UNITS Glucose (Glucose 40% Gel) 15-30 GRAMS 15 GRAMS... UD PRN PO 03/20/18 19:45 04/19/18 19:44 Glucose (Glucose Chew Tab) 4-8 Tablets 4 Tabl... UD PRN PO 03/20/18 19:45 04/19/18 19:44 Dextrose (Dextrose 50% 50ML Syringe) 25-50ML OF 50% DW IV FOR... UD PRN IV 03/20/18 19:45 04/19/18 19:44 Glucagon (Glucagon Inj) 1 mg UD PRN SQ 03/20/18 19:45 04/19/18 19:44 Albuterol/ Ipratropium (Duoneb) 3 ml QIDR INH 03/21/18 12:00 04/20/18 11:59 03/21/18 11:23 3 ML Objective Vital Signs Date Time Temp Pulse Resp B/P (MAP) Pulse Ox O2 Delivery O2 Flow Rate FiO2 03/21/18 14:21 78 98 03/21/18 11:32 37.1 82 18 81/49 (60) 97 2.0 03/21/18 11:29 Nasal Cannula 2.0 03/21/18 11:24 81 18 98 Nasal Cannula 2.0 03/21/18 08:00 Nasal Cannula 2.0 03/21/18 07:45 37.0 98 18 81/53 (62) 96 2.0 03/21/18 04:00 Nasal Cannula 2.0 03/21/18 03:24 37.0 88 16 92/58 (69) 99 Nasal Cannula 2.0 03/21/18 00:01 Nasal Cannula 2.0 03/20/18 23:10 37.4 77 18 90/60 (70) 95 Nasal Cannula 2.0 03/20/18 22:08 36.7 92 22 98/61 97 Nasal Cannula 2.0 03/20/18 19:30 90 22 108/69 98 Nasal Cannula 2.0 03/20/18 17:37 89 22 109/64 98 Nasal Cannula 2.0 03/20/18 16:34 88 Physical Exam General Appearance: WD/WN, no apparent distress Eyes: normal inspection, EOMI ENT: hearing grossly normal, pharynx normal Neck: supple, no adenopathy, no JVD Respiratory/Chest: chest non-tender, no accessory muscle use, + pertinent finding (coarse breath sounds with bilateral end-expiratory wheezing) Cardiovascular: no gallop, no murmur Abdomen: normal bowel sounds, non tender, soft Extremities: non-tender, no pedal edema Neurologic/Psychiatric: alert, normal mood/affect, oriented x 3 Skin: normal color, warm/dry, no rash Lymphatic: no adenopathy Laboratory Results Last 24 Hours Test 03/20/18 16:17 03/20/18 20:32 03/21/18 07:07 03/21/18 07:37 Bedside Lactic Acid Venous 1.66 mmol/L Bedside Glucose 143 mg/dl 229 mg/dl White Blood Count 2.50 K/uL Red Blood Count 3.40 M/uL Hemoglobin 10.8 g/dL Hematocrit 32.7 % Mean Corpuscular Volume 96.2 fL Mean Corpuscular Hemoglobin 31.8 pg Mean Corpuscular Hemoglobin Concent 33.0 g/dl Platelet Count 63 K/uL Mean Platelet Volume 12.2 fL Neutrophils (%) (Auto) 61.2 % Lymphocytes (%) (Auto) 34.4 % Monocytes (%) (Auto) 3.2 % Eosinophils (%) (Auto) 0.0 % Basophils (%) (Auto) 1.2 % Neutrophils # (Auto) 1.53 K/uL Lymphocytes # (Auto) 0.86 K/uL Monocytes # (Auto) 0.08 K/uL Eosinophils # (Auto) 0.00 K/uL Basophils # (Auto) 0.03 K/uL RDW Standard Deviation 52.3 fL RDW Coefficient of Variation 14.7 % Immature Granulocyte % (Auto) 0.0 % Immature Granulocyte # (Auto) 0.00 K/uL Giant Platelets 2+ Sodium Level 137 mmol/L Potassium Level 4.0 mmol/L Chloride Level 97 mmol/L Carbon Dioxide Level 34 mmol/L Anion Gap 5.0 mmol/L Blood Urea Nitrogen 16 mg/dl Creatinine 0.89 mg/dl Est Creatinine Clear Calc Drug Dose 48.1 ml/min Estimated GFR () 75.6 Estimated GFR (Non- 65.2 BUN/Creatinine Ratio 17.9 Random Glucose 220 mg/dl Calcium Level 8.4 mg/dl Hepatitis C Antibody Screen NEG Test 03/21/18 11:12 Bedside Glucose 192 mg/dl Assessment and Plan 72 year old female presenting with COPD exaccerbation. She is doing well at this time. Our plan for her is as follows: Acute COPD exacerbation - Continue with Duonebs q4h DIEGO and q2h PRN for SOB/Wheezing - Continue Solu-medrol 60 mg IV TID - Continue Doxycycline - Continue Advair - I do not see that we have Incruse in the hospital; patient may bring own inhaler to use - Goal O2 > 90%; patient is on RA during the day, 2 L at nighttime - Seems to be improved overnight with regimen above; can continue and escalate care only as needed - Pulmonary consultation recommendations appreciated Chronic diastolic CHF - Patient is currently euvolemic - As of 09/10 EF 65-70% with grade II diastolic dysfunction - Monitor daily weight with I/Os - Continue home Lasix 40 mg daily Coronary Artery Disease - Continue ASA, Atorvastatin Type 2 Diabetes Mellitus - Hold Metformin - SSI + Insulin Detmir Tobacco Abuse - Nicotine patch - Encourage smoking cessation WATERS - Continue Rifaximin Depression - Continue Escitalopram and Trazodone Hyperthyroidism - Continue Methimazole GERD - Pantoprazole Continued [facility] stay due to: abnormal vital signs, multiple IV medications needed Discharge planning: home Assessment/Plan Resident Physician Supervision Note: I was present with Dr. Walls during the history and exam. I discussed the case with the resident and agree with the findings and plan as documented in the note. Any exceptions or clarifications are listed here: Pt reports improvement in shortness of breath and is at baseline O2 use but with considerable wheezing and rales at this time. Pulmonology consultation appreciated. At present, would transition to general medical floor and continue gradual taper of therapy at this time. Continue monitoring I/O
[2018-03-21 08:05] LABS: HEMATOCRIT 32.7 % (37-47); HEMOGLOBIN 10.8 g/dL (12.0-16.0); MEAN CELL VOLUME 96.2 fL (80-100); MEAN CORPUSCULAR HEMOGLOBIN 31.8 pg (25-34); MEAN PLATELET VOLUME 12.2 fL (7.4-10.4); PLATELET COUNT 63 K/uL (130-400); RED CELL DISTRIBUTION WIDTH CV 14.7 % (11.5-14.5); RED CELL DISTRIBUTION WIDTH SD 52.3 fL (36.4-46.3)
[2018-03-21] MEDS: FLUTICASONE/SALMETEROL (ADVAIR) 500/50 INH 14 PUFF INH SCH ×2 (08:15→20:30)
[2018-03-21] MEDS: METHIMAZOLE 5 MG TAB PO SCH (08:16)
[2018-03-21] MEDS: RIFAXIMIN TAB 550 MG TAB PO SCH ×2 (08:16→20:29)
[2018-03-21] MEDS: MAGNESIUM OXIDE 400 MG TAB PO SCH ×2 (08:16→20:29)
[2018-03-21] MEDS: FERROUS SULFATE 325 MG TAB PO SCH (08:16)
[2018-03-21] MEDS: PANTOprazole SOD 40 MG TAB PO SCH (08:16)
[2018-03-21] MEDS: CHOLECALCIFEROL 1000 INTER.UNIT TAB PO SCH (08:16)
[2018-03-21] MEDS: ESCITALOPRAM OXALATE 20 MG TAB PO SCH (08:17)
[2018-03-21] MEDS: GABAPENTIN 600 MG TAB PO SCH ×3 (08:17→20:29)
[2018-03-21] MEDS: INSULIN ASPART 100 UNITS/ML 3 ML PEN SC SCH ×4 (08:19→20:43)
[2018-03-21] MEDS: DOXYCYCLINE IV 100 MG in DEXTROSE 5% 100ML 100 ML IV SCH ×2 (08:19→20:30)
[2018-03-21 08:29] LABS: BASO % 1.2 %; BASO ABS # 0.03 K/uL (0-0.2); LYMPH % 34.4 %; LYMPH ABS # 0.86 K/uL (1.2-3.4); MONO % 3.2 %; MONO ABS # 0.08 K/uL (0.11-0.59); NEUT % 61.2 %; NEUT ABS # 1.53 K/uL (1.4-6.5)
[2018-03-21 08:31] LABS: CALCIUM 8.4 mg/dl (8.5-10.1); CREATININE 0.89 mg/dl (0.60-1.20)
--- NOTE | 2018-03-21 09:39 | Clinical Documentation Query ---
CLINICAL DOCUMENTATION QUERY 72 yo female with hx of COPD/emphysema/diastolic CHF uses O2 at 2L at home. Patient uses Albuterol, Advair, and Duoneb treatments. In your clinical opinion is this patient being managed for: ( ) Chronic respiratory failure ( ) Not Agree ( ) Other explanation of clinical findings (Please Explain. If no explanation given, this would be considered a no response.) ( ) Unable to determine ( ) Need to Discuss (Please call CDS via extension or qliq. If no interaction occurs this is considered a no response.) The medical record reflects the following clinical findings, treatment, and risk factors. Clinical Indicators: As above Treatment: O2, nebulizer therapy, Pulmonary consult Risk Factors: COPD, emphysema, + smoker, O2 dependent Please clarify and document your clinical opinion in the progress notes and discharge summary. Terms such as "probable", "suspected", "likely", "questionable", "possible", or "still to be ruled out" are acceptable. IF IN AGREEMENT, YOU MUST DOCUMENT ABOVE DIAGNOSTIC STATEMENT IN DAILY PROGRESS NOTES AND DISCHARGE SUMMARY. This document is not part of the patient's record. Thank You, Yenifer Miramontes RN [phone]
[2018-03-21] MEDS: ALBUT/IPRATROP 3MG/0.5MG NEB 3 ML VIAL INH SCH ×3 (11:23→19:01)
--- NOTE | 2018-03-21 12:27 | PULMONARY CONSULTATION ---
DATE OF CONSULTATION: 03/21/2018 TIME: 11:00 a.m. REPORT OF CONSULTATION: The patient was seen in room 241, bed 1. She is a 72-year-old female with a history of COPD. Approximately 1 week before admission, she developed some GI symptoms. She had some diarrhea and vomiting. These did not last long. Then she developed a cough. Her cough has increased above her normal. She began expectorating yellow sputum about 4 or 5 days ago. She does not normally bring up discolored mucus, usually it is clear. She did not cough up any blood. She did not call either her primary or Naila Ba PA-C, who she sees for pulmonary. Her symptoms gradually progressed. She was getting more and more short of breath. She was wheezing a lot. The patient has been a chronic smoker and she has had difficulty even smoking the last few days she states. Ultimately, she came to the Emergency Room yesterday with these symptoms. She states she has had sweats at night for the last week. She is not aware of having fevers but in the Emergency Room yesterday, she did have a temperature of 37.7. She denies chills. The patient has been diagnosed with COPD for a few years. She had pulmonary function testing done in 11/2016 that actually showed just mild obstruction, but it was definitely abnormal. Her diffusion capacity was decreased to 54%. The patient also has significant cardiac disease. She has known coronary artery disease and she has had 3 stents placed. She also is known to have a history of SVT. She also has been told she has severe aortic stenosis which certainly could be contributing to her symptoms. Her appetite was decreased initially but that has picked back up. The patient has a history of 1 to 1-1/2 packs per day for about 55 years. She states she is down to about a half a pack per day. The patient feels that she cannot quit smoking. Nonetheless, she states that as of 03/25/2017, there was no smoking allowed in her apartment complex. Thus she thinks she may have to quit smoking. PAST SURGICAL HISTORY: 1. Low back surgery. 2. Neck surgery. 3. Cardiac stent as noted. 4. Cholecystectomy. 5. Ablation for SVT done in 08/2017. 6. Bronchoscopy 05/07/[address] Dallas. PAST MEDICAL HISTORY: 1. 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 2. Esophageal varices. 3. Coronary artery disease. 4. Depression. 5. Diabetes. 6. Reflux. 7. Hypercholesterolemia. 8. Thrombocytopenia. 9. Paroxysmal atrial fibrillation. 10. Prior SVT. 11. Severe aortic stenosis as noted. 12. Compression fracture L1. 13. Psoriasis. 14. C. diff infection 01/2018. PAST PULMONARY HISTORY: 1. COPD as noted. 2. Lung nodule which was small and big. 3. Mild mediastinal adenopathy by history. SOCIAL HISTORY: Tobacco as noted. ETOH - none. FAMILY HISTORY: Positive for hypertension, heart disease, diabetes, and cancer. ALLERGIES: CAT SCAN DYE, ADHESIVES, LATEX. REVIEW OF SYSTEMS: The patient has had severe dizziness. It is a little bit better today. She is weak. She has fatigue. She is very sleepy during the day. Review of systems is otherwise negative except as noted above. PHYSICAL EXAMINATION: GENERAL: The patient is a 72-year-old female who was sleeping heavily when I came in. She awakened with some difficulty. HEENT: Pupils were reactive. Nasal cannula oxygen was in place. Mouth exam showed dentures on top and an absence of teeth on the bottom. NECK: Palpation of the neck reveals no lymph nodes. CARDIOVASCULAR: The cardiac rate is 85 per minute. The rhythm was regular with just an occasional extrasystole. It was very difficult to hear the cardiac sounds due to pulmonary adventitious sounds. I could not appreciate her murmurs if present due to the lung sounds. LUNGS: Respiratory rate was 20 breaths per minute. Diffuse wheeze and rhonchi was heard bilaterally. Saturation was 96% on 2 L. VITAL SIGNS: Blood pressure is 81/53. She is chronically low, she states. ABDOMEN: Soft. It seems mildly distended compared with what one would expect for her body size. Good bowel sounds were heard. There was no tenderness to palpation. EXTREMITIES: Showed no cyanosis, clubbing or edema. Chest x-ray showed what appeared to be interstitial thickening and possible interstitial edema. Cardiomegaly was noted. LABORATORY DATA: White count yesterday was 5.39 but today is down to 2.5. Hemoglobin yesterday 10.7 and today 10.8. Platelets yesterday 66,000 and today 63,000. I believe the thrombocytopenia is chronic. INR is 1.1. Electrolytes show sodium 137, potassium 4, chloride 97, bicarbonate 34. BUN 16, creatinine 0.89. Blood sugar 220. AST was slightly elevated at 51. ALT was normal at 35. Alkaline phosphatase was elevated at 128. The ProBNP was 551 which would be within the limits of normal. Albumin is 3.1 with total protein 6.8. Flu test was negative. EKG showed a sinus rhythm at 82 per minute. Right bundle branch block was noted. There was poor R-wave progression across the precordium with an inability to exclude a prior anterolateral infarct. There was a left anterior hemiblock. IMPRESSION: 1. Chronic obstructive pulmonary disease with exacerbation. 2. Nicotine addiction. 3. Severe aortic stenosis by history. 4. Leukopenia and thrombocytopenia. COMMENTS: The patient has very significant wheeze and rhonchi. She is on methylprednisolone 60 mg IV q. 8 hours. She is on doxycycline. She is not on regular maintenance nebulizer treatments. We will initiate those. She may need a p.r.n. treatment as well. Would continue with her other medications. I spoke with the patient at length about the need to totally abstain from smoking. On one hand she says she cannot do it, on the other hand, she says she is going to do it in her apartment because she must and she does not want to have to move. Hopefully, she will be compliant. Consideration could be given to treating with Daliresp to decrease the frequency of COPD exacerbations. She has had multiples of these in the past 2 years. If indeed she plans on not smoking after discharge, she may want to have some nicotine replacement therapy such as patches to assist with that. Thank you for asking me to assist in her care.
[2018-03-21] MEDS: HYDROCODONE/ACETAMIN 5/325MG TAB PO PRN (17:07)
[2018-03-21] MEDS ORDERED: BENZOCAINE 20% (ORAJEL) 11.9 GM TUBE MT PRN (19:45)
--- NOTE | 2018-03-21 20:27 | DIAGNOSTIC IMAGING REPORT ---
SINGLE VIEW CHEST CLINICAL HISTORY: Follow-up pulmonary vascular congestion. FINDINGS: An AP, portable, upright chest radiograph is compared to study dated 03/20/2018 and correlated with chest CT dated 08/22/2017. The examination is degraded by portable technique and patient rotation. The heart is enlarged and there is atherosclerotic calcification of the thoracic aorta. There is pulmonary vascular congestion. Chronic interstitial thickening and mild emphysema are similar to previous. No airspace consolidation is identified typical for pneumonia. No large pleural effusion or pneumothorax is seen. The skeletal structures are osteopenic. The bony thorax is grossly intact. Fusion hardware is noted in the lower cervical spine. IMPRESSION: Cardiomegaly with mild pulmonary vascular congestion. This is similar in appearance to yesterday. Electronically signed by: Daniel Copeland M.D. 03/21/2018 8:26 PM Dictated Date/Time: 03/21/2018 8:24 PM
[2018-03-21] MEDS: LORAZEPAM 0.5 MG TAB PO PRN (20:29)
[2018-03-21] MEDS: ATORVASTATIN 10 MG TAB PO SCH (20:29)
[2018-03-21] MEDS: TRAZODONE HCL 100 MG TAB PO SCH (20:29)
[2018-03-21] MEDS: INSULIN DETEMIR FLEXPEN/FLEX TOUCH 100 UNITS/ML 3ML SQ SCH (20:44)
[2018-03-22] VITALS (11 sets, daily range): BP systolic 78–91; BP diastolic 42–63; PULSE 60–96; TEMP 36.5–36.9; O2SAT 89–99
[2018-03-22] MEDS: METHYLPREDNISOLONE IV 60 MG in SYRINGE 0 ML IV SCH (01:51)
[2018-03-22 06:56] LABS: HEMATOCRIT 32.3 % (37-47); HEMOGLOBIN 10.4 g/dL (12.0-16.0); MEAN CELL VOLUME 96.7 fL (80-100); MEAN CORPUSCULAR HEMOGLOBIN 31.1 pg (25-34); MEAN CORPUSCULAR HGB CONC 32.2 g/dl (32-36); RED CELL DISTRIBUTION WIDTH CV 14.7 % (11.5-14.5); RED CELL DISTRIBUTION WIDTH SD 52.4 fL (36.4-46.3)
[2018-03-22] MEDS: ALBUT/IPRATROP 3MG/0.5MG NEB 3 ML VIAL INH SCH ×5 (07:01→22:32)
[2018-03-22 07:25] LABS: IG# 0.02 K/uL (0.00-0.02); MEAN PLATELET VOLUME 11.6 fL (7.4-10.4); MONO % 4.9 %; MONO ABS # 0.17 K/uL (0.11-0.59); NEUT % 74.5 %; NEUT ABS # 2.61 K/uL (1.4-6.5); PLATELET COUNT 65 K/uL (130-400)
[2018-03-22 07:33] LABS: CALCIUM 8.6 mg/dl (8.5-10.1); CREATININE 0.8 mg/dl (0.60-1.20); POTASSIUM 4.1 mmol/L (3.5-5.1)
--- NOTE | 2018-03-22 07:38 | Family Medicine Progress Note ---
Progress Note Date of Service Mar 22, 2018. Subjective Pt evaluation today including: conversation w/ patient, physical exam, chart review, lab review Patient reports feeling better today, but is having trouble sleeping. She is SOB when going to the bathroom. Constitutional: No fever, No chills, No sweats Respiratory: + cough, + sputum, + wheezing, + shortness of breath, + dyspnea on exertion Cardiovascular: No chest pain, No palpitations Abdomen: No pain, No nausea, No vomiting, No diarrhea Female : No dysuria Medications Current Inpatient Medications Medications (Trade) Dose Ordered Sig/Diego Route Start Time Stop Time Status Last Admin Dose Admin Acetaminophen (Tylenol Tab) 650 mg Q4H PRN PO 03/20/18 19:00 04/19/18 18:59 Ondansetron HCl (Zofran Inj) 4 mg Q6H PRN IV 03/20/18 19:00 04/19/18 18:59 Polyethylene (Miralax Powder Packet) 17 gm DAILY PRN PO 03/20/18 19:00 04/19/18 18:59 Aspirin (Ecotrin Tab) 81 mg Q2D@0900 PO 03/22/18 09:00 04/21/18 08:59 03/22/18 07:43 81 MG Atorvastatin Calcium (Lipitor Tab) 10 mg HS PO 03/20/18 21:00 04/19/18 20:59 03/21/18 20:29 10 MG Cholecalciferol (Vitamin D Tab) 1,000 inter.unit QAM PO 03/21/18 09:00 04/20/18 08:59 03/22/18 07:42 1,000 INTER.UNIT Escitalopram Oxalate (Lexapro Tab) 20 mg QAM PO 03/21/18 09:00 04/20/18 08:59 03/22/18 07:42 20 MG Salmeterol Xinafoate/ Fluticasone (Advair Diskus 500/50 Inh) 1 puff BID INH 03/20/18 21:00 04/19/18 20:59 03/22/18 07:45 1 PUFF Gabapentin (Neurontin Tab) 600 mg TID PO 03/20/18 21:00 04/19/18 20:59 03/22/18 07:44 600 MG Acetaminophen/ Hydrocodone Bitart (Azalea 5/325 Tab) 1 tab Q4H PRN PO 03/20/18 19:30 04/03/18 19:29 03/21/18 17:07 1 TAB Insulin Detemir (Levemir Flexpen/ FlexTouch) 40 units HS SQ 03/20/18 21:00 04/19/18 20:59 03/21/18 20:44 40 UNITS Lorazepam (Ativan Tab) 0.5 mg HS PRN PO 03/20/18 19:30 04/19/18 19:29 03/21/18 20:29 0.5 MG Magnesium Oxide (Mag-Ox Tab) 400 mg BID PO 03/20/18 21:00 04/19/18 20:59 03/22/18 07:43 400 MG Methimazole (Methimazole Tab) 5 mg QAM PO 03/21/18 09:00 04/20/18 08:59 03/22/18 07:42 5 MG Rifaximin (Xifaxan Tab) 550 mg BID PO 03/20/18 21:00 04/19/18 20:59 03/22/18 07:44 550 MG Trazodone HCl (Desyrel Tab) 100 mg HS PO 03/20/18 21:00 04/19/18 20:59 03/21/18 20:29 100 MG Pantoprazole Sodium (Protonix Tab) 40 mg QAM PO 03/21/18 09:00 04/20/18 08:59 03/22/18 07:44 40 MG Ferrous Sulfate (Feosol Tab) 325 mg QAM PO 03/21/18 09:00 04/20/18 08:59 03/22/18 07:42 325 MG Insulin Aspart (novoLOG ASPART) SLIDING SCALE If C... ACHS SC 03/20/18 21:00 04/19/18 20:59 03/22/18 12:13 1 UNITS Glucose (Glucose 40% Gel) 15-30 GRAMS 15 GRAMS... UD PRN PO 03/20/18 19:45 04/19/18 19:44 Glucose (Glucose Chew Tab) 4-8 Tablets 4 Tabl... UD PRN PO 03/20/18 19:45 04/19/18 19:44 Dextrose (Dextrose 50% 50ML Syringe) 25-50ML OF 50% DW IV FOR... UD PRN IV 03/20/18 19:45 04/19/18 19:44 Glucagon (Glucagon Inj) 1 mg UD PRN SQ 03/20/18 19:45 04/19/18 19:44 Albuterol/ Ipratropium (Duoneb) 3 ml QIDR INH 03/21/18 12:00 04/20/18 11:59 03/22/18 11:19 3 ML Nicotine (Nicoderm Cq 14MG Patch) 1 patch QAM TD 03/22/18 09:00 04/21/18 08:59 03/22/18 07:41 1 PATCH Miscellaneous (Remove Nicoderm Patch) 1 ea HS N/A 03/21/18 21:00 04/20/18 20:59 Benzocaine (Orajel 20% Oral Gel) 1 appln Q1HWA PRN MT 03/21/18 19:45 04/20/18 19:44 03/21/18 19:45 1 APPLN Doxycycline Hyclate (Vibramycin Cap) 100 mg BID PO 03/22/18 21:00 03/27/18 20:59 Objective Vital Signs Date Time Temp Pulse Resp B/P (MAP) Pulse Ox O2 Delivery O2 Flow Rate FiO2 03/22/18 12:33 36.5 60 18 88/42 (57) 99 Nasal Cannula 2.0 03/22/18 11:19 72 18 98 Nasal Cannula 2.0 03/22/18 11:13 Nasal Cannula 2.0 03/22/18 08:11 36.8 70 16 90/63 (72) 94 03/22/18 08:00 Nasal Cannula 2.0 03/22/18 07:01 77 18 98 Nasal Cannula 2.0 03/22/18 04:00 Nasal Cannula 2.0 03/22/18 03:40 36.7 80 18 85/50 (62) 98 Nasal Cannula 2.0 03/22/18 00:01 Nasal Cannula 2.0 03/21/18 23:35 36.7 85 17 85/54 (64) 99 Nasal Cannula 2.0 03/21/18 20:17 36.6 94 20 87/53 (64) 95 Nasal Cannula 2.0 03/21/18 20:00 Nasal Cannula 2.0 03/21/18 19:01 73 18 91 Nasal Cannula 2.0 03/21/18 16:00 Nasal Cannula 2.0 03/21/18 15:59 36.8 83 20 85/53 (64) 97 Nasal Cannula 2.0 03/21/18 14:21 78 98 Physical Exam General Appearance: WD/WN, no apparent distress Neck: supple, no adenopathy, thyroid normal, trachea midline Respiratory/Chest: chest non-tender, normal breath sounds, no respiratory distress, no accessory muscle use, + rales, + wheezing (bilateral expiratory wheezes ) Cardiovascular: regular rate, rhythm, no edema, no gallop, no JVD, no murmur Abdomen: non tender, soft Extremities: non-tender, normal inspection Neurologic/Psychiatric: alert, normal mood/affect, oriented x 3 Skin: normal color, warm/dry, no rash Laboratory Results 03/22/18 06:29 Red Blood Count 3.34, Mean Corpuscular Volume 96.7, Mean Corpuscular Hemoglobin 31.1, Mean Corpuscular Hemoglobin Concent 32.2, Mean Platelet Volume 11.6, Neutrophils (%) (Auto) 74.5, Lymphocytes (%) (Auto) 20.0, Monocytes (%) (Auto) 4.9, Eosinophils (%) (Auto) 0.0, Basophils (%) (Auto) 0.0, Neutrophils # (Auto) 2.61, Lymphocytes # (Auto) 0.70, Monocytes # (Auto) 0.17, Eosinophils # (Auto) 0.00, Basophils # (Auto) 0.00 03/22/18 06:29 Test 03/22/18 06:29 03/22/18 11:19 White Blood Count 3.50 K/uL (4.8-10.8) Red Blood Count 3.34 M/uL (4.2-5.4) Hemoglobin 10.4 g/dL (12.0-16.0) Hematocrit 32.3 % (37-47) Mean Corpuscular Volume 96.7 fL (80-100) Mean Corpuscular Hemoglobin 31.1 pg (25-34) Mean Corpuscular Hemoglobin Concent 32.2 g/dl (32-36) Platelet Count 65 K/uL (130-400) Mean Platelet Volume 11.6 fL (7.4-10.4) Neutrophils (%) (Auto) 74.5 % Lymphocytes (%) (Auto) 20.0 % Monocytes (%) (Auto) 4.9 % Eosinophils (%) (Auto) 0.0 % Basophils (%) (Auto) 0.0 % Neutrophils # (Auto) 2.61 K/uL (1.4-6.5) Lymphocytes # (Auto) 0.70 K/uL (1.2-3.4) Monocytes # (Auto) 0.17 K/uL (0.11-0.59) Eosinophils # (Auto) 0.00 K/uL (0-0.5) Basophils # (Auto) 0.00 K/uL (0-0.2) RDW Standard Deviation 52.4 fL (36.4-46.3) RDW Coefficient of Variation 14.7 % (11.5-14.5) Immature Granulocyte % (Auto) 0.6 % Immature Granulocyte # (Auto) 0.02 K/uL (0.00-0.02) Anion Gap 3.0 mmol/L (3-11) Est Creatinine Clear Calc Drug Dose 53.3 ml/min Estimated GFR () 86.0 Estimated GFR (Non- 74.2 BUN/Creatinine Ratio 25.5 (10-20) Calcium Level 8.6 mg/dl (8.5-10.1) Bedside Glucose 174 mg/dl (70-90) Assessment and Plan 72 female presents with acute resp failure 2/2 to COPD exacerbation. Exacerbation is in the setting of URI--sinusitis. Plan today--COPD ex--cont. steroids, duonebs, doxy, advair. Patient continues to have significant expiratory wheezing bilaterally. Following pulmonology recs ; deescalating to 40mg IV Solumedrol. We have transitioned to PO doxy at this point. Low BP today 85/50--administer one time 500 ml bolus. Will reassess the patient tomorrow. Acute COPD exacerbation - Continue with Duonebs q4h DIEGO and q2h PRN for SOB/Wheezing - Continue Solu-medrol 40 mg IV BID - Continue po Doxycycline - Continue Advair - I do not see that we have Incruse in the hospital; patient may bring own inhaler to use - Goal O2 > 90%; patient is on RA during the day, 2 L at nighttime - Pulmonary consultation recommendations appreciated; recommend trial of Daliresp in the outpatient Chronic diastolic CHF - Patient is currently euvolemic - As of 09/10 EF 65-70% with grade II diastolic dysfunction - Monitor daily weight with I/Os - Continue home Lasix 40 mg daily Coronary Artery Disease - Continue ASA, Atorvastatin Type 2 Diabetes Mellitus - Hold Metformin - SSI + Insulin Detmir Tobacco Abuse - Nicotine patch - Encourage smoking cessation WATERS - Continue Rifaximin Depression - Continue Escitalopram and Trazodone Hyperthyroidism - Continue Methimazole GERD - Pantoprazole Assessment/Plan Resident Physician Supervision Note: I was present with Dr. Asher during the history and exam. I discussed the case with the resident and agree with the findings and plan as documented in the note. Any exceptions or clarifications are listed here: Continued improvement in respiratory status with tapering steroid dosing, agree with cautious progress. Pulmonology consultation input appreciated. Regarding low BP , would trial small bolus with gentle hydration and monitor through the day.
[2018-03-22] MEDS: NICOTINE 14 MG/24 HR TDSY TD SCH (07:41)
[2018-03-22] MEDS: UMECLIDINIUM BROMIDE INH SCH (07:41)
[2018-03-22] MEDS: ESCITALOPRAM OXALATE 20 MG TAB PO SCH (07:42)
[2018-03-22] MEDS: CHOLECALCIFEROL 1000 INTER.UNIT TAB PO SCH (07:42)
[2018-03-22] MEDS: METHIMAZOLE 5 MG TAB PO SCH (07:42)
[2018-03-22] MEDS: FERROUS SULFATE 325 MG TAB PO SCH (07:42)
[2018-03-22] MEDS: MAGNESIUM OXIDE 400 MG TAB PO SCH ×2 (07:43→20:42)
[2018-03-22] MEDS: GABAPENTIN 600 MG TAB PO SCH ×3 (07:44→20:41)
[2018-03-22] MEDS: PANTOprazole SOD 40 MG TAB PO SCH (07:44)
[2018-03-22] MEDS: RIFAXIMIN TAB 550 MG TAB PO SCH ×2 (07:44→20:43)
[2018-03-22] MEDS: FLUTICASONE/SALMETEROL (ADVAIR) 500/50 INH 14 PUFF INH SCH ×2 (07:45→20:40)
[2018-03-22] MEDS: DOXYCYCLINE IV 100 MG in DEXTROSE 5% 100ML 100 ML IV SCH (08:05)
[2018-03-22] MEDS: INSULIN ASPART 100 UNITS/ML 3 ML PEN SC SCH ×4 (08:32→20:54)
[2018-03-22] MEDS ORDERED: ASPIRIN 81 MG ECTAB PO SCH (09:00)
--- NOTE | 2018-03-22 10:50 | PULMONARY PROGRESS NOTE ---
DATE: 03/22/2018 Pulmonary progress note. TIME: 10:05 a.m. SUBJECTIVE: The patient states her breathing is improved. She is complaining a lot of not being able to sleep. She states her back hurts in this bed. Her hip hurts. She is wanting to go home. She states that she brought up mucus yesterday which was yellow, but none today so far. She has not had any chills, fevers or sweats. OBJECTIVE: GENERAL: The patient was sleeping heavily when I came into the room. She did awaken with tactile stimulation. Speaking to her verbally did not awaken her. She does not have noisy respirations like yesterday. I can still however hear rhonchi without a stethoscope. VITAL SIGNS: Temperature is 36.8. EARS, NOSE, AND THROAT: Unremarkable. CARDIOVASCULAR: Heart rate was 83 per minute. The rhythm was regular. Blood pressure is 90/63. LUNGS: Lung arreola revealed rhonchi bilaterally. They are not nearly as loud as yesterday. In fact, in light of this, today, I can auscultate the heart murmurs which are present. Yesterday the rhonchi were so loud that the murmurs could not be heard. Respiratory rate was 20 breaths per minute. Saturation is 94% on 2 liters. EXTREMITIES: Showed no cyanosis, clubbing or edema. Skin turgor seemed to be decreased. LABORATORY DATA: White count today is 3.5. Yesterday it had been 2.5, hemoglobin 10.4, platelets 65,000. Electrolytes show sodium 136, potassium 4.1, chloride 99, bicarbonate 34. BUN is 20 with a creatinine of 0.8. Blood sugar this morning 199. IMAGING: Chest x-ray done yesterday was reported by radiology as showing mild pulmonary vascular congestion. I suspect it may actually just be mild interstitial prominence. IMPRESSIONS: 1. Chronic obstructive pulmonary disease with exacerbation. 2. Nicotine addiction. 3. Neutropenia and thrombocytopenia. 4. Aortic stenosis. COMMENTS: The patient is much improved. She is not, however ready for discharge in my opinion. She still is having a lot of adventitious sounds in her lungs. She also was still on very high steroid doses. She is indicating that she would only stay 1 more day. This was after I told her I felt she could not go home today. I believe we can decrease the methylprednisolone down to 40 mg IV q. 12 hours. I will make that adjustment. Would continue with her neb treatments q.i.d. as she is currently getting. Would continue with the antibiotic therapy. As noted in my consult could consider a trial of Daliresp upon discharge to try to prevent the frequency of COPD exacerbations.
[2018-03-22] MEDS ORDERED: SODIUM CHLORIDE 0.9% 500ML 500 ML IV ONE (12:15)
[2018-03-22] MEDS: HYDROCODONE/ACETAMIN 5/325MG TAB PO PRN (15:20)
[2018-03-22] MEDS ORDERED: ALBUTEROL HFA 8 GM INHALER INH SCH (18:30)
[2018-03-22] MEDS ORDERED: ALBUTEROL HFA 8 GM INHALER INH PRN (18:45)
[2018-03-22] MEDS: TRAZODONE HCL 100 MG TAB PO SCH (20:41)
[2018-03-22] MEDS: ATORVASTATIN 10 MG TAB PO SCH (20:42)
[2018-03-22] MEDS: METHYLPREDNISOLONE IV 40 MG in SYRINGE 0 ML IV SCH (20:42)
[2018-03-22] MEDS: DOXYCYCLINE HYCLATE 100 MG CAP PO SCH (20:43)
[2018-03-22] MEDS: LORAZEPAM 0.5 MG TAB PO PRN (20:53)
[2018-03-22] MEDS: INSULIN DETEMIR FLEXPEN/FLEX TOUCH 100 UNITS/ML 3ML SQ SCH (20:57)
[2018-03-22] MEDS ORDERED: METHYLPREDNISOLONE IV 40 MG in SYRINGE 0 ML IV SCH (21:00)
[2018-03-23] MEDS: HYDROCODONE/ACETAMIN 5/325MG TAB PO PRN (00:08)
[2018-03-23 03:40] VITALS: BP 97/49; PULSE 91; TEMP 36.7; O2SAT 97
[2018-03-23 05:52] LABS: HEMATOCRIT 31.2 % (37-47); MEAN CELL VOLUME 97.5 fL (80-100); MEAN CORPUSCULAR HEMOGLOBIN 31.3 pg (25-34); MEAN CORPUSCULAR HGB CONC 32.1 g/dl (32-36); MEAN PLATELET VOLUME 12.1 fL (7.4-10.4); PLATELET COUNT 77 K/uL (130-400); RED CELL DISTRIBUTION WIDTH CV 14.5 % (11.5-14.5); RED CELL DISTRIBUTION WIDTH SD 52.1 fL (36.4-46.3)
[2018-03-23 06:14] LABS: IG# 0.01 K/uL (0.00-0.02); LYMPH % 16.5 %; LYMPH ABS # 0.51 K/uL (1.2-3.4); MONO % 4.8 %; MONO ABS # 0.15 K/uL (0.11-0.59); NEUT % 78.4 %; NEUT ABS # 2.43 K/uL (1.4-6.5)
[2018-03-23 06:20] LABS: CALCIUM 8.5 mg/dl (8.5-10.1); CREATININE 0.67 mg/dl (0.60-1.20); POTASSIUM 4.6 mmol/L (3.5-5.1)
[2018-03-23 07:20] VITALS: PULSE 85; O2SAT 98
[2018-03-23] MEDS: ALBUT/IPRATROP 3MG/0.5MG NEB 3 ML VIAL INH SCH ×2 (07:20→11:12)
[2018-03-23] MEDS: GABAPENTIN 600 MG TAB PO SCH (07:39)
[2018-03-23] MEDS: ESCITALOPRAM OXALATE 20 MG TAB PO SCH (07:39)
[2018-03-23] MEDS: FERROUS SULFATE 325 MG TAB PO SCH (07:39)
[2018-03-23] MEDS: CHOLECALCIFEROL 1000 INTER.UNIT TAB PO SCH (07:39)
[2018-03-23] MEDS: RIFAXIMIN TAB 550 MG TAB PO SCH (07:40)
[2018-03-23] MEDS: MAGNESIUM OXIDE 400 MG TAB PO SCH (07:40)
[2018-03-23] MEDS: NICOTINE 14 MG/24 HR TDSY TD SCH (07:40)
[2018-03-23] MEDS: PANTOprazole SOD 40 MG TAB PO SCH (07:40)
[2018-03-23] MEDS: METHIMAZOLE 5 MG TAB PO SCH (07:40)
[2018-03-23] MEDS: DOXYCYCLINE HYCLATE 100 MG CAP PO SCH (07:40)
[2018-03-23] MEDS: UMECLIDINIUM BROMIDE INH SCH (07:41)
[2018-03-23] MEDS: FLUTICASONE/SALMETEROL (ADVAIR) 500/50 INH 14 PUFF INH SCH (07:41)
[2018-03-23 07:47] VITALS: BP 97/63; PULSE 97; TEMP 36.9; O2SAT 96
[2018-03-23] MEDS: INSULIN ASPART 100 UNITS/ML 3 ML PEN SC SCH ×2 (07:49→12:09)
--- NOTE | 2018-03-23 08:03 | Family Medicine Progress Note ---
Progress Note Date of Service Mar 23, 2018. Assessment and Plan 72 female presents with acute resp failure 2/2 to COPD exacerbation. Exacerbation is in the setting of URI--sinusitis. Plan today--COPD ex--cont. steroids, duonebs, doxy, advair. Patient continues to have significant expiratory wheezing bilaterally. Following pulmonology recs ; deescalating to 40mg IV Solumedrol. We have transitioned to PO doxy at this point. Low BP today 85/50--administer one time 500 ml bolus. Will reassess the patient tomorrow. Acute COPD exacerbation - Continue with Duonebs q4h PATRICIA and q2h PRN for SOB/Wheezing - Continue Solu-medrol 40 mg IV BID - Continue po Doxycycline - Continue Advair - I do not see that we have Incruse in the hospital; patient may bring own inhaler to use - Goal O2 > 90%; patient is on RA during the day, 2 L at nighttime - Pulmonary consultation recommendations appreciated; recommend trial of Daliresp in the outpatient Chronic diastolic CHF - Patient is currently euvolemic - As of 09/10 EF 65-70% with grade II diastolic dysfunction - Monitor daily weight with I/Os - Continue home Lasix 40 mg daily Coronary Artery Disease - Continue ASA, Atorvastatin Type 2 Diabetes Mellitus - Hold Metformin - SSI + Insulin Detmir Tobacco Abuse - Nicotine patch - Encourage smoking cessation WATERS - Continue Rifaximin Depression - Continue Escitalopram and Trazodone Hyperthyroidism - Continue Methimazole GERD - Pantoprazole
[2018-03-23] MEDS: METHYLPREDNISOLONE IV 40 MG in SYRINGE 0 ML IV SCH (08:41)
--- NOTE | 2018-03-23 11:10 | PULMONARY PROGRESS NOTE ---
DATE: 03/23/2018 TIME: 10:30 a.m. SUBJECTIVE: The patient states she feels much better. She denies any significant shortness of breath. Her cough is mild. Nursing staff reports no acute respiratory problems. It was noted that the patient was given [place] for headache at about midnight. It is notable she also received Ativan approximately 10:00 p.m. OBJECTIVE: GENERAL: The patient was sleeping heavily again when I came in to see her. She awakened fairly easily. She seems to be in a better mood today. She says she is walking to and from the bathroom without difficulty. VITAL SIGNS: Temperature is 36.9. Heart rate was 87 per minute. The rhythm is regular. Blood pressure 97/63. CHEST: Auscultation of the lung arreola revealed mild to moderate rhonchi and wheeze bilaterally. This was accentuated with a forced vital capacity maneuver. Respiratory rate was 18 breaths per minute. Saturation is 98% on 3 L. EXTREMITIES: Showed no cyanosis, clubbing or edema. LABORATORY DATA: White count today is 3.1. Yesterday was 3.5. On the , was 2.5. Hemoglobin today is 10. Platelets are 77,000. Electrolytes show sodium 136, potassium 4.6, chloride 100, bicarbonate 32. BUN is 23 with a creatinine of 0.67. Blood sugar was 169. IMPRESSIONS: 1. Chronic obstructive pulmonary disease with exacerbation. 2. Nicotine addiction. 3. Thrombocytopenia. 4. Leukopenia. COMMENTS: The patient seems to be improving from a respiratory perspective. She is anxious for discharge. She insists that she is almost at her baseline from a respiratory perspective. I believe it is feasible for her to be discharged. Would send her on prednisone 40 mg per day with a very slow taper. She should follow up with Naila Ba PA-C in the pulmonary clinic within a week or two. Would give her a total of 7 days of the doxycycline including time she was in the hospital. At the time of her initial consult, I have mentioned the possibility of a trial of Daliresp. I believe that should not be started, however, in light of her liver disease.
[2018-03-23 11:14] VITALS: PULSE 89; O2SAT 98
[2018-03-23 12:21] VITALS: BP_SYST 123; BP_SYST 90; BP_DIAS 66; BP_DIAS 76; PULSE 91; TEMP 36.7; O2SAT 93; O2SAT 95
[2018-03-23] MEDS ORDERED: DXY100 PO (12:41)
[2018-03-23] MEDS ORDERED: PRED10TA PO (12:41)
--- NOTE | 2018-03-23 12:48 | Discharge Instructions ---
Discharge Instructions Date of Service Mar 23, 2018. Admission Reason for Admission: Copd Exacerbation, Diastolic Chf Acute On Chronic Discharge Discharge Diagnosis / Problem: COPD exacerbation Discharge Goals Goal(s): Decrease discomfort, Improve function, Increase independence, Improve nutritional status, Learn about illness, Diagnostic testing Activity Recommendations Activity Limitations: per Instructions/Follow-up section . Instructions / Follow-Up Instructions / Follow-Up Ms. Frederick, You were treated for worsening of your COPD. This was likely triggered by a sinus infection. We have treated you primarily with IV steroids and antibiotics. We are discharging you home with the following instructions; 1. Outpatient appointment with your primary care doctor in 1-2 business days 2. Take the antibiotic doxycycline for 4 days 3. Take the steroid, Prednisone for the next 12days--you will be tapering the dose over this duration (40mg of 3 days, 30mg for 3days, 20 mg for 3 days, 10 mg for 3 days) Continue you home medications and follow up with your PCP if your symptoms of shortness of breathe return. If they become severe, go to the emergency room. Current Hospital Diet Patient's current hospital diet: AHA Diet (Heart Healthy), Diabetes Type 2 Diet Discharge Diet Recommended Diet: AHA Diet (Heart Healthy) Pending Studies Studies pending at discharge: no Laboratory Results Hemoglobin A1c Test 01/28/18 06:58 Range/Units Estimated Average Glucose 111 mg/dl Hemoglobin A1c 5.5 4.5-5.6 % Medical Emergencies . Who to Call and When: Medical Emergencies: If at any time you feel your situation is an emergency, please call 911 immediately. . Non-Emergent Contact Non-Emergency issues call your: Primary Care Provider, Forest Science Professor Call Non-Emergent contact if: you have a fever, temperature is above 100.5 . . "Provider Documentation" section prepared by Jose Carlos Asher. .
[2018-03-23 12:50] VITALS: BP 90/66; PULSE 91; TEMP 36.7; O2SAT 93
--- NOTE | 2018-03-23 16:49 | Discharge Summary ---
Discharge Summary Date of Service Mar 23, 2018. Discharge Summary Admission Date: Mar 20, 2018 at 18:57 Discharge Date: Mar 23, 2018 Discharge Disposition: Home Principal Diagnosis: COPD exacerbation Medication Reconciliation New Medications: Prednisone Tab (Prednisone) 10 Mg Tab 10 MG PO DAILY for 12 Days, #30 TAB Doxycycline Hyclate (Doxycycline Hyclate) 100 Mg Cap 100 MG PO BID for 4 Days, #8 CAP Continued Medications: Albuterol Hfa (Ventolin Hfa) 200 Puffs/84803 Mcg Aers 2-4 PUFFS INH Q6H PRN for Shortness of Breath Alum & Mag Hydrox-Simethicone (Mylanta Maximum Strength 400-400-40 mg/5Ml) 1 Jelly Jelly 1 TBS PO BID PRN for Heartburn TAKE BETWEEN MEALS Aspirin (Aspirin Ec) 81 Mg Tab 81 MG PO Q2D Atorvastatin (Lipitor) 10 Mg Tab 10 MG PO HS Betamethasone Dip Aug 0.05% (Diprolene 0.05%) 0.05 % Oin 1 APPLN TP BID Cholecalciferol (Vitamin D 1000 Unit) 1,000 Unit Cap 1000 INTER.UNIT PO QAM Clobetasol Propionate (Clobetasol Propionate) 45 Appln/15 Gm Oint 1 APPLN TOP BID Escitalopram Oxalate (Lexapro) 20 Mg Tab 20 MG PO QAM Ferrous Sulfate (Kp Ferrous Sulfate) 325 Mg Tab 325 MG PO QAM Fluticasone Prop/Salmeterol (Advair Diskus 500/50 60 Dose) 1 Ea Aerp 1 PUFF INH BID Furosemide (Lasix) 40 Mg Tab 20 MG PO MWF PRN for FLUID Gabapentin (Neurontin) 600 Mg Tab 600 MG PO TID Home O2 Therapy (Oxygen) Gas 2 LITERS NA HS Hydrocodone/Acetaminophen 5MG/325MG ([place] 5MG/325MG) Tab 1 TABLET PO Q4H PRN for Pain PRN PAIN Insulin Aspart (Novolog Flexpen) 100 Units/Ml Inj UNITS SC UD 20 UNITS BREAKFAST 25 UNITS SUPPER +SLIDING SCALE Insulin Detemir (Levemir Flextouch) 100 Unit/Ml Inj 40 UNITS SQ HS Ipratropium-Albuterol (Duoneb) 3 Ml Nebu 1 TREATMENT INH QID Lorazepam (Lorazepam) 0.5 Mg Tab 0.5 MG PO HS PRN for Sleep Magnesium Oxide (Mag-Ox) 400 Mg Tab 400 MG PO BID Metformin Hcl (Glucophage) 1,000 Mg Tab 1000 MG PO DAILY Methimazole (Methimazole ) 5 Mg Tab 5 MG PO QAM Omeprazole (Prilosec) 40 Mg Cap 40 MG PO QAM Rifaximin (Xifaxan) 550 Mg Tab 550 MG PO BID Trazodone Hcl (Trazodone) 100 Mg Tab 100 MG PO HS Umeclidinium [place] (Incruse Ellipta) 62.5 Mcg/Inh Inh 62.5 MCG INH DAILY Discharge Exam Review of Systems: Constitutional: No fever, No chills, No sweats Respiratory: + cough, + dyspnea on exertion, No sputum, No wheezing, No shortness of breath Cardiovascular: No chest pain, No edema, No palpitations Abdomen: No nausea, No vomiting, No diarrhea Genitourinary - Female: No dysuria Genitourinary - Male: No hematuria Physical Exam: General Appearance: WD/WN, no apparent distress Respiratory/Chest: chest non-tender, lungs clear, normal breath sounds, + wheezing (minimal expiratory wheezes--much improved) Cardiovascular: regular rate, rhythm, no edema, no murmur Abdomen / GI: normal bowel sounds, non tender, soft Extremities: normal inspection, no calf tenderness Neurologic/Psychiatric: alert, normal mood/affect, oriented x 3 Skin: normal color, warm/dry, no rash Hospital Course 72 female presents with acute resp failure 2/2 to COPD exacerbation. Exacerbation is in the setting of URI--sinusitis. Plan at discharge; Patient showed marked improvement throughout course. On the day of discharge, the patient had mild expiratory wheezing, but her exam should marked improvement. She was not dyspneic at rest and exhibit similar ambulatory capacity as her baseline. Pulmonology followed the patient and signed off with recommendations to continue PO abx and steroids in the outpatient. Outpatient therapy consist of; Doxycycline and a Prednisone taper. Pulmonology also recommends a trial of Daliresp in the outpatient--will follow up with LAVONNE Crenshaw in the pulm clinic. Hospital course by problem: Acute COPD exacerbation - Duonebs q4h PATRICIA and q2h PRN for SOB/Wheezing - Solu-medrol 40 mg IV BID - po Doxycycline - Advair - Pulmonary consultation recommendations appreciated; recommend trial of Daliresp in the outpatient Chronic diastolic CHF - Patient is currently euvolemic - As of 09/10 EF 65-70% with grade II diastolic dysfunction - Monitor daily weight with I/Os - Continue home Lasix 40 mg daily Coronary Artery Disease - Continue ASA, Atorvastatin Type 2 Diabetes Mellitus - Hold Metformin - SSI + Insulin Detmir Tobacco Abuse - Nicotine patch - Encourage smoking cessation WATERS - Continue Rifaximin Depression - Continue Escitalopram and Trazodone Hyperthyroidism - Continue Methimazole GERD - Pantoprazole Total Time Spent: Greater than 30 minutes This includes examination of the patient, discharge planning, medication reconciliation, and communication with other providers. Discharge Instructions Please refer to the electronic Patient Visit Report (Discharge Instructions) for additional information. Additional Copies To Naila Ba PA-C; Boone Paulson M.D. Assessment/Plan Resident Physician Supervision Note: I was present with Dr. Asher during the history and exam. I discussed the case with the resident and agree with the findings and plan as documented in the note. Any exceptions or clarifications are listed here: Pt reports feeling like she is at her respiratory baseline and tolerating home O2 levels. Scatter wheeze and rhonchi throughout on examination but considerably better air movement than previous. Will require slow taper of steroids and close outpatient follow up.
--- NOTE | 2018-03-25 12:32 | EDITING REQUIRED CODING QUERY ---
To promote full compliance with coding requirements relating to patient care, provider participation is requested in all cases of professional fee coder uncertainty. Please assist us with the question(s) below: Coding Question(s): The diagnosis(es) below was documented in the H&P, then subsequently fell off all further documentation. Please indicate if it is still a possible diagnosis or ruled out. Physician's Response(s): PNEUMONIA ( x ) Diagnosed and POA ( ) Diagnosed and not POA ( ) Ruled out ( ) Other (please specify) ACUTE (ON CHRONIC) DIASTOLIC CHF - Please clarify regarding the Acute CHF as it is only documented on the H&P. ( ) Diagnosed and POA ( ) Diagnosed and not POA ( ) Ruled out (x ) Other (please specify) Possible element of acute on chronic CHF-patient was primarily tx for COPD exacerbation
--- NOTE | 2018-03-25 12:35 | EDITING REQUIRED CODING QUERY ---
PRESENT ON ADMISSION QUERY To promote full compliance with coding requirements relating to pateint care, physician participation is requested in all cases of inpatient coder uncertainty. Please assist us with the question(s) below: Please place an X within the parenthesis (x). The following diagnosis(es) listed in this patient's medical record require physician assistance to determine if they were present on admission (POA) or not. Please advise for each diagnosis whether it was present on admission, not present on admission, or if it was clinically undetermined. 1. Acute Respiratory Failure (documented on Discharge Summary under Hospital Course) ( x) Present On Admission ( ) Not Present On Admission ( ) Clinically Undetermined Thank you Kristy Dotson *Definition of the present on admission (POA)-Present on admission is defined as present at the time the order for inpatient admission occurs. Conditions that develop during an outpatient encounter prior to a written order for inpatient admission (including emergency department, observation, or outpatient surgery) are considered present on admission.
== END 2018-03-23 13:38 | disposition home or self-care (01) | DRG 193 ==
LOC: C.EDB 14:22 → C.2T 18:57 → ENRESERV 19:23
PROVIDERS: ADMIT Internal Medicine; ATTEND Family Medicine
DX: J18.9 Pneumonia, unspecified organism (principal); J96.21 Acute and chronic respiratory failure with hypoxia; I50.33 Acute on chronic diastolic (congestive) heart failure; J44.0 Chronic obstructive pulmonary disease with (acute) lower respiratory infection; J44.1 Chronic obstructive pulmonary disease with (acute) exacerbation; J06.9 Acute upper respiratory infection, unspecified; J32.9 Chronic sinusitis, unspecified; E83.42 Hypomagnesemia; D64.9 Anemia, unspecified; D69.6 Thrombocytopenia, unspecified; E11.9 Type 2 diabetes mellitus without complications; I11.0 Hypertensive heart disease with heart failure; I25.10 Atherosclerotic heart disease of native coronary artery without angina pectoris; I35.0 Nonrheumatic aortic (valve) stenosis; I48.0 Paroxysmal atrial fibrillation; K75.81 Nonalcoholic steatohepatitis (NASH); F32.9 Major depressive disorder, single episode, unspecified; G47.00 Insomnia, unspecified; K21.9 Gastro-esophageal reflux disease without esophagitis; E05.90 Thyrotoxicosis, unspecified without thyrotoxic crisis or storm; J45.909 Unspecified asthma, uncomplicated; E78.00 Pure hypercholesterolemia, unspecified; F17.200 Nicotine dependence, unspecified, uncomplicated; Z79.899 Other long term (current) drug therapy; Z79.4 Long term (current) use of insulin; Z79.82 Long term (current) use of aspirin; Z99.81 Dependence on supplemental oxygen; Z95.5 Presence of coronary angioplasty implant and graft; Z86.79 Personal history of other diseases of the circulatory system; Z98.890 Other specified postprocedural states; Z91.040 Latex allergy status; Z91.041 Radiographic dye allergy status; Z91.048 Other nonmedicinal substance allergy status; Z83.3 Family history of diabetes mellitus; Z82.49 Family history of ischemic heart disease and other diseases of the circulatory system; Z84.1 Family history of disorders of kidney and ureter

== ENCOUNTER → 2018-06-30 | Outpatient (CLI) | payer OTHER ==
[~2018-06-30] MED LIST changes: +ADVIN50/60 INH; -ASPI81TA28 PO; +DXY100 PO; -FURO40TA3 PO; -HYDR-5688 PO; +IPRA-64 INH; -IPRASOL4 INH; -LPT10 PO; +MELA1CAP10 PO; -NVLGI/PEN SC; +OXYC-164 PO; +PRMT10 PO; +RXNS10 PO; -TIOT1AER INH; +UMEC1INH INH; -VANC5CAP PO
== END | disposition home or self-care (01) ==
LOC: C.LABSPEC 12:55
PROVIDERS: ATTEND Internal Medicine
DX: K75.81 Nonalcoholic steatohepatitis (NASH) (principal)